=== PATIENT | female | born 1950 | race Caucasian/White ===

== ENCOUNTER → 2018-06-14 01:38 | Outpatient (CLI) | payer BC, SELFPAY ==
--- NOTE | 2018-06-14 13:30 | DI.REPORT_ITS ---
SYMPTOMS/DIAGNOSIS: MENOPAUSE, Z78.0, PREVENTATIVE CARE, Z00.00 DEXA SCAN: Routine examination. Comparison 2004. The lateral view of the spine shows no compression deformities. Evaluation of the left hip shows a total T score of - 0.5 and a Z score of 1.0. This is within normal limits. This compares with a total T score of 0.2 from 2005. Evaluation of the lumbar spine shows a total T score of 0.1 and Z score of 2.3. This is within normal limits. This compares with a total T score of 0.2 from 2005. IMPRESSION: No evidence of osteoporosis.
== END ==
PROVIDERS: PCP Nurse Practitioner Family; Visit Provider Nurse Practitioner Family
DX: Z00.00 Encounter for general adult medical examination without abnormal findings (principal); Z78.0 Asymptomatic menopausal state; Z13.820 Encounter for screening for osteoporosis
CPT/HCPCS: 77080

== ENCOUNTER 2018-11-07 16:39 | Outpatient (REF) | payer BC, SELFPAY ==
[2018-11-07 23:08] LABS: ALT 25 U/L (12-78); AST 25 U/L (15-37); Albumin 3.8 g/dL (3.4-5.0); Alkaline Phosphatase 101 U/L (46-116); Anion Gap 13.5 mmol/L (3-11); BUN 13 mg/dL (7-18); Bilirubin, Total 0.3 mg/dL (0.2-1.0); CO2 23.5 mmol/L (21.0-32.0); CREATININE 0.76 mg/dL (0.55-1.02); Calcium 9.4 mg/dL (8.5-10.1); Chloride 104 mmol/L (98-107); Glucose 93 mg/dL (70-100); Potassium 4.1 mmol/L (3.5-5.1); Sodium 141 mmol/L (136-145); Total Protein 7.3 g/dL (6.4-8.2)
== END 2018-11-07 16:59 ==
LOC: NCHCN 16:39
PROVIDERS: PCP Nurse Practitioner Family; Visit Provider Nurse Practitioner Family
DX: E78.5 Hyperlipidemia, unspecified (principal); M54.5 Low back pain; J30.9 Allergic rhinitis, unspecified; I10 Essential (primary) hypertension; L90.0 Lichen sclerosus et atrophicus; E66.9 Obesity, unspecified; Z87.898 Personal history of other specified conditions
CPT/HCPCS: 80053

== ENCOUNTER 2019-03-01 00:30 | Outpatient (CLI) | payer BC, SELFPAY ==
--- NOTE | 2019-03-01 11:10 | DI.MAMMO_ITS ---
SYMPTOM/DIAGNOSIS: SCREENING, Z12.39 MAMMOGRAMS: Mammograms were interpreted according to the usual protocol including computer analysis with CAD system, tomosynthesis and C view imaging. The breasts are of moderate density with fairly symmetrical distribution of fibroglandular tissue. No dominant mass is identified in either breast. There is a group of benign appearing calcifications in the central superior portion of the left breast, unchanged in appearance in comparison with previous examinations including 11/2017. There is a poorly defined nodular radiodensity projected in the central portion of the left breast measuring about 6 mm. in diameter which does not appear to have been present on previous examinations. The possibility of a new mass is raised. Additional spot compression views of the left breast are requested to include CC and MLO views. CONCLUSION: Additional mammographic views of the left breast requested as described above. Breast ultrasound may be indicated as well depending on the results of the additional mammographic views. Category 0. Breast density, Category B. MQSA ASSESSMENT OF FINDINGS: Incomplete: Needs additional imaging evaluation. Category 0. Patient will receive a letter notifying them of these results. BI-RADS category B. There are scattered areas of fibroglandular density.
== END 2019-03-01 00:50 ==
PROVIDERS: PCP Nurse Practitioner Family; Visit Provider Nurse Practitioner Family
DX: Z12.31 Encounter for screening mammogram for malignant neoplasm of breast (principal); R92.8 Other abnormal and inconclusive findings on diagnostic imaging of breast
CPT/HCPCS: 77063; 77067

== ENCOUNTER 2019-03-08 01:48 | Outpatient (CLI) | payer BC, SELFPAY ==
--- NOTE | 2019-03-08 09:24 | DI.COMBO_ITS ---
SYMPTOM/DIAGNOSIS: F/U MAMMO, POORLY DEFINED RADIODENSITY LT LEFT BREAST ADDITIONAL VIEWS AND LEFT BREAST ULTRASOUND: Additional images are interpreted according to the usual protocol including tomosynthesis and 2D imaging. Spot compression CC and MLO views with tomography as well as magnification views were performed for a new small nodule. There is a persistent 4 mm. nodule in the central left breast, slightly above the nipple. The borders are not well defined. There are no associated calcifications. No cysts or mass is identified by ultrasound. CONCLUSION: Category 4, suspicious mammogram. Biopsy of the new mass in the central left breast is recommended. The findings were discussed with Susie Osborn at [facility] and the patient on the date of the examination. [facility] ASSESSMENT OF FINDINGS: Suspicious. Biopsy should be considered. Category 4. Patient will receive a letter notifying them of these results. BI-RADS category B. There are scattered areas of fibroglandular density.
== END 2019-03-08 02:08 ==
PROVIDERS: PCP Nurse Practitioner Family; Visit Provider Nurse Practitioner Family
DX: Z12.31 Encounter for screening mammogram for malignant neoplasm of breast (principal); R92.8 Other abnormal and inconclusive findings on diagnostic imaging of breast; N63.22 Unspecified lump in the left breast, upper inner quadrant
CPT/HCPCS: 76642; 77063; 77067

== ENCOUNTER 2019-11-13 16:56 | Outpatient (REF) | payer BC, SELFPAY ==
[2019-11-13 22:03] LABS: ALT 22 U/L (14-59); AST 21 U/L (15-37); Albumin 3.9 g/dL (3.4-5.0); Alkaline Phosphatase 107 U/L (46-116); Anion Gap 11.3 mmol/L (3-11); BUN 12 mg/dL (7-18); Bilirubin, Total 0.3 mg/dL (0.2-1.0); CO2 24.7 mmol/L (21.0-32.0); CREATININE 0.85 mg/dL (0.55-1.02); Calcium 9.5 mg/dL (8.5-10.1); Chloride 104 mmol/L (98-107); Glucose 98 mg/dL (74-106); Potassium 4.2 mmol/L (3.5-5.1); Sodium 140 mmol/L (136-145); Total Protein 7.2 g/dL (6.4-8.2)
== END 2019-11-13 17:16 ==
LOC: NCHCN 16:56
PROVIDERS: PCP Nurse Practitioner Family; Visit Provider Nurse Practitioner Family
DX: I10 Essential (primary) hypertension (principal); E78.5 Hyperlipidemia, unspecified; C50.912 Malignant neoplasm of unspecified site of left female breast
CPT/HCPCS: 80053

== ENCOUNTER 2020-10-31 17:20 | Outpatient (REF) | payer BC, SELFPAY ==
[2020-10-31 21:08] LABS: ALT 24 U/L (14-59); AST 24 U/L (15-37); Alkaline Phosphatase 110 U/L (46-116); Anion Gap 10.3 mmol/L (3-11); BUN 18 mg/dL (7-18); Bilirubin, Total 0.4 mg/dL (0.2-1.0); CO2 24.7 mmol/L (21.0-32.0); CREATININE 0.85 mg/dL (0.55-1.02); Calcium 9.8 mg/dL (8.5-10.1); Chloride 103 mmol/L (98-107); Glucose 96 mg/dL (74-106); Potassium 4.4 mmol/L (3.5-5.1); Sodium 138 mmol/L (136-145); Total Protein 7.6 g/dL (6.4-8.2)
== END 2020-10-31 17:40 ==
LOC: NCHCN 17:20
PROVIDERS: PCP Nurse Practitioner Family; Visit Provider Nurse Practitioner Family
DX: I10 Essential (primary) hypertension (principal); E78.5 Hyperlipidemia, unspecified; F41.8 Other specified anxiety disorders
CPT/HCPCS: 80053

== ENCOUNTER 2021-05-20 18:43 | Outpatient (REF) | payer BC, SELFPAY ==
[2021-05-20 21:31] LABS: HGB 14.1 g/dL (11.2-15.7); MCH 30.5 pg (27.0-33.0); MCHC 32.8 % (32.0-36.0); MCV 92.9 fL (80-95); MPV 10.3 fL (8.0-11.0); Platelet Count 330 10^3/uL (130-400); RBC 4.63 10^6/uL (3.93-5.22); RDW 12.2 % (11.7-14.6); RDW-SD 41.6 fL; WBC 7.86 10^3/uL (4.4-10.8)
[2021-05-20 22:13] LABS: FREE T4 1.13 ng/dL (0.76-1.46); TSH 0.78 uIU/mL (0.36-3.74)
== END 2021-05-20 18:44 | disposition home or self-care (01) ==
LOC: NCHCN 18:43
PROVIDERS: PCP Nurse Practitioner Family; Visit Provider Internal Medicine
DX: I10 Essential (primary) hypertension (principal); R53.83 Other fatigue; Z00.00 Encounter for general adult medical examination without abnormal findings
CPT/HCPCS: 85027; 84439; 84443

== ENCOUNTER 2021-11-25 14:50 | Outpatient (REF) | payer BC, SELFPAY ==
[2021-11-25 14:59] LABS: ALT 26 U/L (14-59); AST 20 U/L (15-37); Albumin 3.6 g/dL (3.4-5.0); Alkaline Phosphatase 108 U/L (46-116); Anion Gap 8.6 mmol/L (3-11); BUN 18 mg/dL (7-18); Bilirubin, Total 0.5 mg/dL (0.2-1.0); CO2 27.4 mmol/L (21.0-32.0); CREATININE 0.8 mg/dL (0.55-1.02); Calcium 9.8 mg/dL (8.5-10.1); Chloride 104 mmol/L (98-107); Glucose 98 mg/dL (74-106); Potassium 4.9 mmol/L (3.5-5.1); Sodium 140 mmol/L (136-145); Total Protein 7.2 g/dL (6.4-8.2)
== END 2021-11-25 14:51 | disposition home or self-care (01) ==
LOC: NCHCN 14:50
PROVIDERS: PCP Nurse Practitioner Family; Visit Provider Nurse Practitioner Family
DX: I10 Essential (primary) hypertension (principal)
CPT/HCPCS: 80053

== ENCOUNTER 2022-12-02 15:15 | Outpatient (REF) | payer BC, SELFPAY ==
[2022-12-02 21:15] LABS: HCT 43.6 % (36.0-46.0); HGB 13.9 g/dL (11.2-15.7); MCH 29.5 pg (27.0-33.0); MCHC 31.9 % (32.0-36.0); MCV 93 fL (80-95); MPV 10.3 fL (8.0-11.0); Platelet Count 291 10^3/uL (130-400); RBC 4.71 10^6/uL (3.93-5.22); RDW 12.7 % (11.7-14.6); RDW-SD 43.5 fL; WBC 9.47 10^3/uL (4.4-10.8)
[2022-12-02 21:40] LABS: ALT 22 U/L (14-59); AST 22 U/L (15-37); Albumin 3.8 g/dL (3.4-5.0); Alkaline Phosphatase 112 U/L (46-116); Anion Gap 9.7 mmol/L (3-11); BUN 17 mg/dL (7-18); Bilirubin, Total 0.4 mg/dL (0.2-1.0); CO2 27.3 mmol/L (21.0-32.0); CREATININE 0.7 mg/dL (0.55-1.02); Calcium 9.8 mg/dL (8.5-10.1); Calculated LDL 132 mg/dL (<100); Chloride 103 mmol/L (98-107); Cholesterol 237 mg/dL (<200); Glucose 100 mg/dL (74-106); HDL Cholesterol 69 mg/dL (40-60); Potassium 4.3 mmol/L (3.5-5.1); Sodium 140 mmol/L (136-145); Total Protein 7.3 g/dL (6.4-8.2); Triglyceride 181 mg/dL (<150)
== END 2022-12-02 15:16 | disposition home or self-care (01) ==
LOC: NCHCN 15:15
PROVIDERS: PCP Nurse Practitioner Family; Visit Provider Nurse Practitioner Family
DX: Z00.00 Encounter for general adult medical examination without abnormal findings (principal); E78.5 Hyperlipidemia, unspecified; I10 Essential (primary) hypertension
CPT/HCPCS: 80053; 80061; 85027

== ENCOUNTER 2023-06-03 13:35 | Outpatient (REF) | payer BC, SELFPAY ==
[2023-06-03 14:45] LABS: Abs Immature Grans 0.02 10^3/uL (0.0-0.06); Absolute Basophil Count 0.08 10^3/uL (0.0-0.2); Absolute Eosinophil Count 0.67 10^3/uL (0.0-0.7); Absolute Lymphocyte Count 2.33 10^3/uL (1.2-3.4); Absolute Monocyte Count 0.85 10^3/uL (0.1-0.8); Absolute Neutrophil Count 4.02 10^3/uL (1.2-6.7); Eosinophils % 8.4; HCT 42.8 % (36.0-46.0); HGB 14.1 g/dL (11.2-15.7); Immature Grans % 0.3; Lymphocytes % 29.2; MCH 30.6 pg (27.0-33.0); MCHC 32.9 % (32.0-36.0); MCV 93 fL (80-95); MPV 10.5 fL (8.0-11.0); Monocytes % 10.7; Neutrophils % 50.4; Platelet Count 287 10^3/uL (130-400); RBC 4.61 10^6/uL (3.93-5.22); RDW-SD 44.4 fL; WBC 7.97 10^3/uL (4.4-10.8)
[2023-06-03 15:12] LABS: Iron 98 ug/dL (50-170); Total Iron Binding Capacity 269 ug/dL (250-450); Transferrin Sat 36 % (15-50)
[2023-06-03 15:26] LABS: ALT 22 U/L (14-59); AST 20 U/L (15-37); Albumin 3.5 g/dL (3.4-5.0); Alkaline Phosphatase 133 U/L (46-116); Anion Gap 10.2 mmol/L (3-11); BUN 9 mg/dL (7-18); Bilirubin, Total 0.5 mg/dL (0.2-1.0); CO2 25.8 mmol/L (21.0-32.0); CREATININE 0.8 mg/dL (0.55-1.02); Calcium 9.3 mg/dL (8.5-10.1); Calculated LDL 101 mg/dL (<100); Chloride 107 mmol/L (98-107); Cholesterol 196 mg/dL (<200); Estimated GFR 76.79 (mL/min/1.73m2); Ferritin 85 ng/mL (8-252); Glucose 104 mg/dL (74-106); HDL Cholesterol 70 mg/dL (40-60); Potassium 4.7 mmol/L (3.5-5.1); Sodium 143 mmol/L (136-145); TSH (W/Ref FT4) 0.99 uIU/mL (0.36-3.74); Triglyceride 126 mg/dL (<150)
[2023-06-03 15:45] LABS: NT-proBNP 62 pg/mL (<300)
== END 2023-06-03 13:36 | disposition home or self-care (01) ==
LOC: NCHCN 13:35
PROVIDERS: PCP Nurse Practitioner Family; Visit Provider Nurse Practitioner Family
DX: R07.89 Other chest pain (principal); R60.0 Localized edema; F41.8 Other specified anxiety disorders; E66.9 Obesity, unspecified; M54.50 Low back pain, unspecified; I10 Essential (primary) hypertension; J30.9 Allergic rhinitis, unspecified
CPT/HCPCS: 80053; 80061; 82728; 83540; 83550; 83880; 84443; 85025

== ENCOUNTER 2024-11-09 10:05 | Outpatient (REF) | payer BC, SELFPAY ==
--- OUTSIDE RECORDS SUMMARY | 2024-11-09 10:10 | XMS_ITS | Encounter Summary ---
Author Organization [facility] Address [address] [place] [address] Care Team Providers Care Audio Engineer Name Role Phone Iva Jennings APRN Primary Care Provider [phone] Reason for Visit * Reason Onset Date Comments Medications Refill 01/19/2023 Encounter Details Date Type Department Care Team (Late st Contact Info) Description 01/19/2023 Refill [facility] Adult Hematology & Oncology [address] [place] [phone] Elisabeth Velasquez, AYUSH Medications Refill Social History Tobacco Use Types Packs/Day Years Used Date Smoking Tobacco: Never Smokeless Tobacco: Never Interpersonal Safety Answer Date Record ed Physically Hurt Never 05/19/2020 Verbally Threaten Not on file 05/19/2020 Comments No Sex and Gender Information Value Date Recorded Sex Assigned at Female 10/19/2024 15:35 EST Legal Sex Female 18:27 EST Gender Identity Female 06/03/2020 9:48 EDT Sexual Orientation Not on file documented as of this encounter Functional Status * Because of a physical, mental, or emotional condition, does this person have difficulty doing errands alone such as visiting a doctor's office or shopping? Answer Date of Assessment Author Yes 04/07/2019 9:57 EDT documented as of this encounter Mental Status * Because of a physical, mental, or emotional condition, does this person have serious difficulty concentrating, remembering, or making decisions? Answer Entry Date Author Yes 04/07/2019 9:57 EDT documented in this encounter Ordered Prescriptions Prescription Sig Dispense Quantity Refills Last Filled Start Date End Date letrozole (FEMARA) 2.5 mg tablet Take 1 Tablet by mouth daily. 90 Tablet 1 01/20/2023 05/26/2023 documented in this encounter Miscellaneous Notes * Telephone Encounter - Elisabeth Velasquez RN - 01/19/2023 1305 EDT Refill request received on script line request for Letrozole 2.5mg. Last seen: 05/25/[address] Blackman per office note: Plan: 1. Continue letrozole. 2. Return for follow-up in 1 year. She is following with Dr. Tapia Patient has no f/u scheduled at this time. Please review and sign if agree. Thank you documented in this encounter Plan of Treatment Upcoming Encounters Date Type Department Care Team (Late st Contact Info) Description 11/09/2024 15:45 EST Procedure visit [facility] Orthopedics & Sport Medicine [address] [place], [place] [phone] Leann Holland, STREET PHOTOGRAPHER [address] [place] [address] 11/16/2024 15:45 EST Procedure visit [facility] Orthopedics & Sport Medicine [address] [place], [place] [phone] Leann Holland, STREET PHOTOGRAPHER [address] [place] [id number] 07/17/2025 15:30 EDT Office Visit [facility] Adult Hematology & Oncology [address] [place] [address] Jimmy Gallego MD [address] [facility] [address] [place] [phone] documented as of this encounter Visit Diagnoses Not on filedocumented in this encounter Discontinued Medications Medication Sig Discontinue Reason Start Date End Da te letrozole (FEMARA) 2.5 mg tablet Take 1 Tablet by mouth daily. Reorder 10/21/2022 01/19/2023 documented as of this encounter Care Teams Audio Engineer Relationship Specialty Start Date End Date Iva Jennings APRN [facility] [address] [place] [address] PCP - General 03/01/20 documented as of this encounter
--- OUTSIDE RECORDS SUMMARY | 2024-11-09 10:10 | XMS_ITS | Encounter Summary ---
Author Organization [facility] Address [address] [place] [address] Care Team Providers Care Lead Maintenance Technician Name Role Phone Iva Jennings APRN Primary Care Provider [phone] Reason for Referral * Test (Routine/Next Available) - Authorization Not Required Specialty Diagnoses / Procedures [facility] Referred To Contact Diagnoses Chest heaviness Procedures PULMONARY FUNCTION TESTING Iva Jennings APRN [address] [place] [address] [place] [address] Phone: tel: fax: Referral ID Status Reason Start Date Expiration Date Visits Requested Visits Authorized [id number] Authorization Not Required 06/10/2023 1 1 Encounter Details Date Type Department Care Team (Late st Contact Info) Description 06/10/2023 Orders Only [facility] [address] [place] [address] Iva Jennings APRN 26 [facility] [address] [place] [address] Chest heaviness (Primary Dx) Social History Tobacco Use Types Packs/Day Years [...] 04/07/2019 9:57 EDT documented in this encounter Plan of Treatment Upcoming Encounters Date Type Department Care Team (Late st Contact Info) Description 11/09/2024 15:45 EST Procedure visit [facility] Orthopedics & Sport Medicine [address] [place], [place] [phone] Leann Holland, SKINNER PELTS [address] [place] [address] [address] [place] [address] 11/16/2024 15:45 EST Procedure visit [facility] Orthopedics & Sport Medicine [address] [place], [place] [phone] Leann Holland, SKINNER PELTS [address] [place] [address] [place] [address] 07/17/2025 15:30 EDT Office Visit [facility] Adult Hematology & Oncology [address] [place] [address], [place] [phone] Jimmy Gallego MD [address] [facility] [address] [place] [address] Scheduled Orders Name Type Priority Associated Diagnoses Orde r Schedule PULMONARY FUNCTION TESTING PFT Routine Chest heaviness 1 Occurrences starting 06/10/2023 until 12/11/2024 documented as of this encounter Visit Diagnoses Diagnosis Chest heaviness- Primary Other chest pain documented in this encounter Care Teams Lead Maintenance Technician Relationship Specialty Start Date End Date Iva Jennings, GAYATRI [address] [place] [phone] PCP - General 03/01/20 documented as of this encounter
--- OUTSIDE RECORDS SUMMARY | 2024-11-09 10:10 | XMS_ITS | Encounter Summary ---
Author Organization [facility] Address [address] [place] [address] Care Team Providers Care Oil Field Equipment Mechanic Name Role Phone Iva Jennings APRN Primary Care Provider [phone] Reason for Visit * Reason Comments Injections Encounter Details Date Type Department Care Team (Late st Contact Info) Description 10/19/2024 16:00 EST Procedure visit [facility] Orthopedics & Sport Medicine [address] [place], [place] [phone] Leann Holland, FRANK [address] [facility] [address] [place] [address] Osteoarthritis of right knee, unspecified osteoarthritis type (Primary Dx) Social History Tobacco Use Types Packs/Day Years Used Date Smoking Tobacco: Never Smokeless Tobacco: Never Alcohol Use Standard Drinks/Week Comments Not Asked 0 (1 standard drink = 0.6 oz pur e alcohol) Random Interpersonal Safety Answer Date Record ed Physically [...] 04/07/2019 9:57 EDT documented in this encounter Progress Notes * Leann Holland NP - 10/19/2024 2475 EST PROBLEM: right knee osteoarthritis SUBJECTIVE: Susie Mayfield is a 74 y.o. female with established osteoarthritis who is here today withrecurrent right knee pain. Last seen in May of 2023 at which time she completed a Euflexxa series with excellent relief. Lasted until recently. Pain is primarily medial. She continues with topicals and ibuprofen. The past medical, family and social history have been reviewed in the patient chart. I spent time preparing in advance of the visit today, which included obtaining and reviewing prior history and notes from the primary care provider and/or referring providers, as well as reviewing any relevant prior imaging and tests, which I also independently interpreted. OBJECTIVE: There were no vitals taken for this visit. General appearance: Well-developed, well nourished, no acute distress. pleasant and cooperative. HEENT: normocephalic, atraumatic Lungs: no increased work of breathing Skin: clean, dry and intact Msk: Focused exam of the right knee reveals no gross effusion or deformity, no overlying warmth or skin changes. Good strength through. Tender to palpation medial > lateral joint line, nontender anserine bursa. Stable to varus and valgus stress. ROM from 0->110 degrees. No lower leg swelling. DIAGNOSTICS: Radiographs of the right knee were reviewed. Advanced tricompartmental osteoarthritis with medial joint line narrowing. ASSESSMENT: right knee osteoarthritis; prior treatment has included physical therapy, NSAIDS and several topical medications without relief. Excellent relief with Euflexxa in the past and would like to repeat. PLAN: Will request Euflexxa and see patient back in 3 weeks to begin series. Declines steroid injection today. Continue with supportive home therapy. This note was prepared using voice recognition software and the EMR. There may be inadvertent errors and omissions. Leann Holland APRN 10/19/2024 documented in this encounter Plan of Treatment Upcoming Encounters Date Type Department Care Team (Late st Contact Info) Description 11/09/2024 15:45 EST Procedure visit [facility] Orthopedics & Sport Medicine [address] [place], [place] [phone] Leann Holland NP [address] [facility] [address] [place], [place] [phone] 11/16/2024 15:45 EST Procedure visit [facility] Orthopedics & Sport Medicine [address] [place], [place] [phone] Leann Holland, KEYSEATING MACHINE SET UP OPERATOR [address] [facility] [address] [place] [address] 07/17/2025 15:30 EDT Office Visit [facility] Adult Hematology & Oncology [facility] [place] [address] Jimmy Gallego MD [address] [facility] [address] [place] [phone] documented as of this encounter Visit Diagnoses Diagnosis Osteoarthritis of right knee, unspecified osteoarthritis type- Primary documented in this encounter Care Teams Oil Field Equipment Mechanic Relationship Specialty Start Date End Date Iva Jennings APRN 26 [facility] [address] [place] [address] PCP - General 03/01/20 documented as of this encounter
--- OUTSIDE RECORDS SUMMARY | 2024-11-09 10:10 | XMS_ITS | Encounter Summary ---
Author Organization [facility] Address [address] [place] [address] Care Team Providers Care Salesforce Administrator Name Role Phone Iva Jennings APRN Primary Care Provider [phone] [phone] Reason for Visit * Reason Onset Date Comments Medications Refill 07/21/2023 Encounter Details Date Type Department Care Team (Late st Contact Info) Description 07/21/2023 Refill [facility] Adult Hematology & Oncology [address] [place] [phone] Jeana Hyman RN Medications Refill Social History Tobacco Use Types [...] 1 Tablet by mouth daily. 90 Tablet 3 07/21/2023 10/19/2023 documented in this encounter Miscellaneous Notes * Telephone Encounter - Jeana Hyman RN - 07/21/2023 0808 EDT Script line refill request for Letrozole likes 90 day supply to [facility] Last office visit RA 07/13/23 Plan: -Continue letrozole 2.5 mg daily -Calcium 1000 mg and Vit D3 1000IU daily -Repeat DEXA scan -Annual MMG (due 04/2024) -F/U with Dr. Tapia on 12/10/23 -Return for follow-up in 1 year. Pending visit RA 07/13/24 Last filled 05/26/23 #90 with 1 refill Please sign and send if you agree. documented in this encounter Plan of Treatment Upcoming Encounters Date Type Department Care Team (Late st Contact Info) Description 11/09/2024 15:45 EST Procedure visit [facility] Orthopedics & Sport Medicine [address] [place] [phone] Leann Holland, MUSIC STORE MANAGER [address] [place] [address] 11/16/2024 15:45 EST Procedure visit [facility] Orthopedics & Sport Medicine [address] [place], [place] [phone] Leann Holland, MUSIC STORE MANAGER [address] [place] [address] 07/17/2025 15:30 EDT Office Visit [facility] Adult Hematology & Oncology [address] [place] [phone] Jimmy Gallego MD 130 [facility] [address] [place] [address] documented as of this encounter Visit Diagnoses Not on filedocumented in this encounter Discontinued Medications Medication Sig Discontinue Reason Start Date End Da te letrozole (FEMARA) 2.5 mg tablet Take 1 Tablet by mouth daily. Reorder 05/26/2023 07/21/2023 documented as of this encounter Care Teams Salesforce Administrator Relationship Specialty Start Date End Date Iva Jennings APRN [address] [address] PCP - General 03/01/20 documented as of this encounter
--- OUTSIDE RECORDS SUMMARY | 2024-11-09 10:10 | XMS_ITS | Encounter Summary ---
Author Organization [facility] Address [address] [place] [address] Care Team Providers Care Director Electrical Engineering Name Role Phone Iva Jennings APRN Primary Care Provider [phone] [phone] Reason for Referral * Radiology Services (Routine/Next Available) - Authorization Not Required Specialty Diagnoses / Procedures Referred By Contac t Referred To Contact Diagnoses Screening mammogram, encounter for Procedures MA BREAST SCREENING ELSA BILATERAL Iva Jennings APRN [address] [address] Phone: tel: fax: [facility] Referral ID Status Reason Start Date Expiration Date Visits Requested Visits Authorized [id number] Authorization Not Required 12/08/2022 1 1 Reason for Visit * Radiology Services (Routine/Next Available) - Authorization Not Required Specialty Diagnoses / Procedures Referred By Contac t Referred To Contact Diagnoses Screening mammogram, encounter for Procedures MA BREAST SCREENING ELSA BILATERAL Iva Jennings APRN 26 [place],[facility] [address] [place] [address] Phone: tel: fax: [facility] Referral ID Status Reason Start Date Expiration Date Visits Requested Visits Authorized [id number] Authorization Not Required 12/08/2022 1 1 Encounter Details Date Type Department Care Team (Latest Contact Info) Description 05/10/2023 15:25 EDT - 05/10/2023 23:59 EDT Hospital Encounter [facility] Breast Imaging Mammography - [address] [address] Screening mammogram, encounter for Discharge Disposition: Home or Self Care Social History Tobacco Use Types Packs/Day Years [...] 04/07/2019 9:57 EDT documented in this encounter Medications at Time of Discharge amitriptyline (ELAVIL) 10 mg tablet Take 1 Tablet by mouth at bedtime as needed. calcium/mag/vitam in D2/Zn/min (GEOFFREY-MAG ZINC II ORAL) Take by mouth. clobetasoL (TEMOVATE) 0.05 % cream Apply topically 2 times daily. As needed glucos sul 2KCl/msm/chond/C/ Mn (GLUCOSAMINE CHONDROITIN ORAL) Take by mouth. ibuprofen 200 mg capsule Take 2 Capsules by mouth daily as needed. 12/20/2020 lisinopril (PRINIVIL, ZESTRIL) 5 mg tablet Take 1 Tablet by mouth daily. mometasone (NASONEX) 50 mcg/actuation nasal spray Instill 2 Sprays into right nostril daily. MULTI-VITAMIN ORAL Take by mouth. pravastatin (PRAVACHOL) 20 mg tablet Take 1 Tablet by mouth daily. azelastine (ASTELIN) nasal spray 05/21/2021 4 cetirizine (ZYRTEC) 1 mg/mL solution Take 5 mL by mouth daily. 4 letrozole (FEMARA) 2.5 mg tablet Take 1 Tablet by mouth daily. 90 Tablet 1 01/20/2023 3 documented as of this encounter Discharge Disposition Disposition Code Departure Means Destination Home or Self Care documented in this encounter Plan of Treatment Upcoming Encounters Date Type Department Care Team (Late st Contact Info) Description 11/09/2024 15:45 EST Procedure visit [facility] Orthopedics & Sport Medicine [address] [place] [address] Leann Holland, WILDLIFE BIOLOGY TECHNICIAN [address] [facility] [address] [place] [address] 11/16/2024 15:45 EST Procedure visit [facility] Orthopedics & Sport Medicine [address] [place] [address] Leann Holland, WILDLIFE BIOLOGY TECHNICIAN [address] [facility] [address] [place] [address] 07/17/2025 15:30 EDT Office Visit [facility] Adult Hematology & Oncology [facility] [place] [address] Jimmy Gallego MD [address] [facility] [address] [place] [address] documented as of this encounter Procedures Procedure Name Priority Date/Time Associated Diagnosis Comments MA BREAST SCREENING ELSA BILATERAL Routine 05/10/2023 16:12 EDT Screening mammogram, encounter for documented in this encounter Results * MA BREAST SCREENING ELSA BILATERAL (05/10/2023 16:12 EDT) Anatomical Region Laterality Modality Breast Bilateral Mammography 05/10/2023 16:3 7 EDT Impressions 05/10/2023 16:37 EDT Benign, no evidence of malignancy. RECOMMENDATION: Routine screening mammography is recommended. OVERALL ASSESSMENT: BI-RADS 2: Benign These results will be communicated to your patient via a lay letter from Radiology. If any additional imaging is needed we will contact your patient directly. [id number] Narrative 05/10/2023 16:37 EDT MA BREAST SCREENING ELSA BILATERAL ??05/10/2023 4:00 PM History: routine;Z12.31:Screening mammogram, encounter for Comparison: ??Comparison has been made to previous images . ? Technique: Routine 3D tomosynthesis with synthesized 2D views with CAD Breast Composition: The breast tissue is almost entirely fatty. Bilateral Breast Findings: ??No significant masses, calcifications or other abnormalities are seen. Status post left breast conservation with no interval change Procedure Note Afia Hendrix MD - 05/10/2023 MA BREAST SCREENING ELSA BILATERAL 05/10/2023 4:00 PM History: routine;Z12.31:Screening mammogram, encounter for Comparison: Comparison has been made to previous images . Technique: Routine 3D tomosynthesis with synthesized 2D views with CAD Breast Composition: The breast tissue is almost entirely fatty. Bilateral Breast Findings: No significant masses, calcifications or otherabnormalities are seen. Status post left breast conservation with nointerval change IMPRESSION Benign, no evidence of malignancy. RECOMMENDATION: Routine screening mammography is recommended. OVERALL ASSESSMENT: BI-RADS 2: Benign These results will be communicated to your patient via a lay letter fromRadiology. If any additional imaging is needed we will contact yourpatient directly. [id number] Iva Jennings APRN IMG MAMMOGRAPHY ORDERABLE S Final Result documented in this encounter Visit Diagnoses Diagnosis Screening mammogram, encounter for documented in this encounter Care Teams Director Electrical Engineering Relationship Specialty Start Date End Date Iva Jennings APRN 26 [facility] [address] [place] [address] PCP - General 03/01/20 documented as of this encounter
--- OUTSIDE RECORDS SUMMARY | 2024-11-09 10:10 | XMS_ITS | Clinical Summary ---
Author Organization [facility] Address [facility] [place] [address] Care Team Providers Care Film Sorter Name Role Phone Siva Tomlinson MD Primary Care Provider [phone] Allergies No known active allergies Medications Medication Sig Dispensed Refills Start Date End Date Status amitriptyline (ELAVIL) 10 mg Tablet Take 10 mg by mouth nightly. Active cetirizine (ZYRTEC) 10 mg Tablet Take 10 mg by mouth daily. Active Glucosamine &[id number] 200-752-44-0.5 mg Tablet Take by mouth. 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 Dermatofibroma 06/28/2014 Social History Tobacco Use Types Packs/Day Years Used Date Smoking Tobacco: Unknown Sex and Gender Information Value Date Recorded Sex Assigned at Not on file Gender Identity Not on file Sexual Orientation Not on file Plan of Treatment Health Maintenance Due Date Last Done Comments Hepatitis C Screening 1968 Tetanus/Diphtheria/Pertussis Vaccines (1 - Tdap) 03/06 Pneumoccocal Vaccine: 50+ (1 of 1 - PCV) 1998 Zoster vaccine (1 of 2) 1998 Advance Directive 2003 Bone Density Scan 2013 RSV Vaccine (1 - 1-dose 75+ series) 2023 Covid-19 Vaccine (1 - season) 2024 Influenza (Flu) vaccine (1 o f 1 - Influenza standard series) 06/18/2024 Care Teams Film Sorter Relationship Specialty Start Date End Date Siva Tomlinson MD [address] [place] [address] [facility] - General 06/28/14
--- OUTSIDE RECORDS SUMMARY | 2024-11-09 10:10 | XMS_ITS | Encounter Summary ---
Author Organization [facility] Address [address] [place] [address] Care Team Providers Care Front Desk Administrator Name Role Phone Iva Jennings APRN Primary Care Provider [phone] [phone] Encounter Details Date Type Department Care Team (Latest Contact Info) Description 10/15/2022 Travel Social History Tobacco Use Types Packs/Day Years Used Date Smoking Tobacco: Never Smokeless Tobacco: Never Interpersonal Safety Answer Date Record ed Physically Hurt Never 05/19/2020 Verbally Threaten Not on file 05/19/2020 Comments No Sex and Gender Information Value Date Recorded Sex Assigned at Female 10/19/2024 15:35 EST Legal Sex Female 18:27 EST Gender Identity Female 06/03/2020 9:48 EDT Sexual Orientation Not on file COVID-19 Exposure Response Date Recorded In the last 10 days, have yo u been in contact with someone who was confirmed or suspected to have Coronavirus/COVID-19? No / Unsure 10/15/2022 15:48 EST documented as of this encounter Functional Status [...] Info) Description 11/09/2024 15:45 EST Procedure visit [facility] Orthopedics & Sport Medicine [address] [place] [address] Leann Holland, STOKER INSTALLER [address] [facility] [address] [place] [address] 11/16/2024 15:45 EST Procedure visit [facility] Orthopedics & Sport Medicine [address] [place], [place] [id number] Leann Holland NP [address] [facility] [address] [place] [address] 07/17/2025 15:30 EDT Office Visit [facility] Adult Hematology & Oncology [facility] [place] [address] Jimmy Gallego MD [address] [facility] [address] [place] [phone] documented as of this encounter Visit Diagnoses Not on filedocumented in this encounter Care Teams Front Desk Administrator Relationship Specialty Start Date End Date Iva Jennings APRN 26 [facility] [address] [place] [address] PCP - General 03/01/20 documented as of this encounter
--- OUTSIDE RECORDS SUMMARY | 2024-11-09 10:10 | XMS_ITS | Encounter Summary ---
Author Organization [facility] Address [address] [place] [address] Care Team Providers Care Treasury Manager Name Role Phone Iva Jennings APRN Primary Care Provider [phone] [phone] Reason for Visit * Reason Comments Follow-up Encounter Details Date Type Department Care Team (Late st Contact Info) Description 04/12/2023 13:45 EDT Office Visit [facility] Orthopedics & Sport Medicine [address] [place] [address] Leann Holland, FRANK [address] [facility] [address] [place] [address] Osteoarthritis of right knee, unspecified [...] in this encounter Progress Notes * Leann Holland, TIMBER SKIDDER - 04/12/2023 1345 EDTAssociated Order(s): Large Joint Injection/Arthrocentesis: R knee Post-Procedure Diagnose(s): Osteoarthritis of right knee, unspecified osteoarthritis type PROBLEM: Right knee osteoarthritis SUBJECTIVE: Susie Mayfield is a 73 y.o. female who is here today for follow up of her right knee osteoarthritis. Last visit on 10/15/2022 at which time she completed her orthovisc series, 2 injections.These have worked well for her in the past. Opted to forego last injection when she developed cold symptoms, unsure if it was related to the injection or ehtyl chloride. Prior treatment has included physical therapy, oral NSAIDS, multiple topical medications without relief. The past medical, family and social history [...] Focused exam of the right knee reveals mild effusion and osteoarthritic deformity, no overlying skin changes or breakdown. Tender through medial >lateral joint lines. 4+/5 strength quads, hamstrings, abductors, adductors and hip flexors. ROM from 10-~120 degrees with pain at endpoints. No lower leg swelling. No pain or laxity with ligamentous exam. DIAGNOSTICS: Radiographs of the right knee were obtained today and independently reviewed by me. Advanced tricompartmental osteoarthritis with medial joint line narrowing. Progressed since previous XR in 2019. ASSESSMENT: Right knee osteoarthritis - prior treatment has included physical therapy, NSAIDS and several topical medications without relief. Good relief with orthovisc in the past. PLAN: Will order Euflexxa series. I also provided her with a steroid injection today. After reviewing risks and benefits of an injection including variability of results, verbal consent was obtained to proceed today. A timeout was performed. The right knee was prepped in the standard sterile fashion. After final verication of the correct site, 80 mg of Depo-Medrol along with an anesthetic was injected into the joint without difficulty. No medication was wasted. She tolerated the procedure well.Aftercare for the injection was discussed and all question answered. Follow up in 3 weeks to begin series. Procedure: Large Joint Injection/Arthrocentesis: R knee on 04/12/2023 13:45 Medications: 80 mg methylPREDNISolone ACETATE 80 mg/mL; 5 mL lidocaine (PF) 10 mg/mL (1 %) Outcome: tolerated well, no immediate complications This note was prepared using voice recognition software and the EMR. There may be inadvertent errors and omissions. Leann Holland APRN 04/12/2023 documented in this encounter Plan of Treatment Upcoming Encounters Date Type Department Care Team (Late st Contact Info) Description 11/09/2024 15:45 EST Procedure visit [facility] Orthopedics & Sport Medicine [address] [place] [address] Leann Holladn NP [address] [place] [address] [place] [id number] 11/16/2024 15:45 EST Procedure visit [facility] Orthopedics & Sport Medicine [address] [place], [place] [phone] Leann Holland NP [address] [place] [address] [address] [place], [place] [id number] 07/17/2025 15:30 EDT Office Visit [facility] Adult Hematology & Oncology [facility] [place] [address] Jimmy Gallego MD [address] [facility] [address] [place] [phone] documented as of this encounter Procedures Procedure Name Priority Date/Time Associated Diagnosis Comments XR KNEE RIGHT 4 OR MORE VIEWS Routine 04/12/2023 14:24 EDT Osteoarthritis of right knee, unspecified osteoarthritis type LARGE JOINT INJECTION/ARTHROCE NTESIS Routine 04/12/2023 13:45 EDT Osteoarthritis of right knee, unspecified osteoarthritis type documented in this encounter Results * XR KNEE RIGHT 4 OR MORE VIEWS (04/12/2023 14:24 EDT) Anatomical Region Laterality Modality Lower Extremities Right Computed Radio graphy 04/12/2023 14:1 7 EDT Impressions 04/15/2023 17:24 EDT 1. ?? No acute bony abnormality. 2. ?? Small joint effusion. THIS DOCUMENT HAS BEEN ELECTRONICALLY SIGNED BY HYACINTH JEAN MD FOR ANY QUESTIONS OR CONCERNS REGARDING THIS REPORT PLEASE CALL [facility] AT [phone] [facility] 04/15/2023 17:24 EDT PROCEDURE INFORMATION: Exam: XR Right Knee Exam date and time: 04/12/2023 2:17 PM Age: 73 years old Clinical indication: Unilateral primary osteoarthritis, right knee; Pain; Additional info: Right knee pain TECHNIQUE: Imaging protocol: Radiologic exam of the right knee. Views: 4 or more views. COMPARISON: CR [id number] 12/29/2018 3:10 PM FINDINGS: Bones/joints: Degenerative changes with joint space narrowing and osteophyte formation throughout the knee worse at the medial knee compartment with a axzr-ze-cltu appearance. No acute fracture. No acute malalignment. Small joint effusion. Soft tissues: Normal. Procedure Note Hyacinth Jean MD - 04/15/2023 PROCEDURE INFORMATION: Exam: XR Right Knee Exam date and time: 04/12/2023 2:17 PM Age: 73 years old Clinical indication: Unilateral primary osteoarthritis, right knee; Pain; Additional info: Right knee pain TECHNIQUE: Imaging protocol: Radiologic exam of the right knee. Views: 4 or more views. COMPARISON: CR [id number] 12/29/2018 3:10 PM FINDINGS: Bones/joints: Degenerative changes with joint space narrowing and osteophyte formation throughout the knee worse at the medial knee compartment with a blkf-us-qumm appearance. No acute fracture. No acute malalignment. Small joint effusion. Soft tissues: Normal. IMPRESSION 1. No acute bony abnormality. 2. Small joint effusion. THIS DOCUMENT HAS BEEN ELECTRONICALLY SIGNED BY HYACINTH JEAN MD FOR ANY QUESTIONS OR CONCERNS REGARDING THIS REPORT PLEASE CALL [facility] [phone] us Leann Holland NP IMG DIAGNOSTIC IMAGING ORDER KAYLEY Final Result * [place] ARTHROCENTESIS ASPIR&/INJ MAJOR JT/BURSA W/O US (04/12/2023 13:45 EDT) Narrative [facility] POINT OF CARE - 04/12/2023 13:45 EDT Leann Holland, TIMBER SKIDDER ? 04/12/2023 14:59 Large Joint Injection/Arthrocentesis: R knee on 04/12/2023 13:45 Medications: 80 mg methylPREDNISolone ACETATE 80 mg/mL; 5 mL lidocaine (PF) 10 mg/mL (1 %) Outcome: tolerated well, no immediate complications us Leann Holland NP PROCEDURE/MINOR SURGICAL ORD ERABLES Final Result [facility] POINT OF CARE documented in this encounter Visit Diagnoses Diagnosis Osteoarthritis of right knee, unspecified osteoarthritis type- Primary documented in this encounter Administered Medications Inactive Administered Medications - up to 3 most recent administrations Medication Order MAR Action Action Date Dose Rate Site lidocaine (PF) 10 mg/mL (1 %) injection 5 mL 5 mL, other, Once PRN Procedure, 1 dose, Starting on Wed04/12/23 at 1345, Until Wed04/12/23 at 1345, RoutineIndications:Osteoarthritis of right knee, unspecified osteoarthritis type Given 04/12/2023 13:45 EDT 5 mL methylPREDNISolone ACETATE (DEPO-MEDROL) injection 80 mg 80 mg, intra-articular, Once PRN Procedure, 1 dose, Starting on Wed04/12/23 at 1345, Until Wed04/12/23 at 1345, RoutineIndications:Osteoarthritis of right knee, unspecified osteoarthritis type Given 04/12/2023 13:45 EDT 80 mg documented in this encounter Care Teams Treasury Manager Relationship Specialty Start Date End Date Iva Jennings APRN [address] [facility] [address] [place] [phone] PCP - General 03/01/20 documented as of this encounter
--- OUTSIDE RECORDS SUMMARY | 2024-11-09 10:10 | XMS_ITS | Encounter Summary ---
Author Organization [facility] Address [address] [place] [address] Care Team Providers Care Senior Nuclear Medicine Technologist Name Role Phone Iva Jennings APRN Primary Care Provider [phone] [phone] Reason for Visit * Cardiology (Routine/Next Available) - Specialty Report Received Specialty Diagnoses / Procedures [facility] Referred To Contact Diagnoses Chest heaviness Lower extremity edema Procedures EXTENDED HOLTER MONITOR (7-14 DAY) Stefanie Grossman MD Phone: tel: fax: [facility] Referral ID Status Reason Start Date Expiration Date V isits Requested Visits Authorized [id number] Specialty Report Received 06/10/2023 12/11/2023 1 1 Encounter Details Date Type Department Care Team (Latest Contact Info) Description 07/05/2023 16:00 EDT Ancillary Procedure [facility] - [facility] Cardiology Clinic [address] [place] [address] Chest heaviness; Lower extremity edema Social History Tobacco Use Types Packs/Day Years [...] Info) Description 11/09/2024 15:45 EST Procedure visit [facility] Orthopedics & Sport Medicine [address] [place] [address] Leann Holland, ASSISTANT COUNTY ENGINEER [address] [facility] [address] [place] [address] 11/16/2024 15:45 EST Procedure visit [facility] Orthopedics & Sport Medicine [address] [place], [place] [phone] Leann Holland, ASSISTANT COUNTY ENGINEER [address] [facility] [address] [place], [place] [phone] 07/17/2025 15:30 EDT Office Visit [facility] Adult Hematology & Oncology [facility] [place] [address] Jimmy Gallego MD [address] [facility] [address] [place] [address] documented as of this encounter Procedures Procedure Name Priority Date/Time Associated Diagnosis Comments EXTENDED HOLTER MONITOR (7 OR 14 DAY) Routine 07/05/2023 16:12 EDT Chest heaviness Lower extremity edema documented in this encounter Results * EXTENDED HOLTER - 14 DAY PLACED IN CLINIC (07/05/2023 16:12 EDT) Anatomical Region Laterality Modality Holter Narrative 07/26/2023 9:18 EDT Indication: chest pain Enrollment Period: 07/05/23-07/19/23 Baseline normal sinus rhythm Rare supraventricular ectopy (< 1.0%): Rare PACs. 15 episodes of SVT- longest episode 11.9 seconds. No atrial fibrillation. Rare ventricular ectopy (< 1.0%): Rare PVCs. No ventricular tachycardia. No pauses > 3.0 seconds. No significant AV block. No patient events. Stefanie Grossman MD CARDIAC SERVICES ORDERABLES Fi nal Result documented in this encounter Visit Diagnoses Diagnosis Chest heaviness Other chest pain Lower extremity edema Edema documented in this encounter Care Teams Senior Nuclear Medicine Technologist Relationship Specialty Start Date End Date Iva Jennings, GAYATRI [address] [place] [address] PCP - General 03/01/20 documented as of this encounter
--- OUTSIDE RECORDS SUMMARY | 2024-11-09 10:10 | XMS_ITS | Encounter Summary ---
Author Organization [facility] Address [address] [place] [address] Care Team Providers Care Auto Body Repairman Name Role Phone Iva Jennings APRN Primary Care Provider [phone] [phone] Encounter Details Date Type Department Care Team (Late st Contact Info) Description 12/08/2022 13:00 EST Ancillary Procedure [facility] Surgical Oncology - [facility] [place] [address] [place], [place] [phone] Social History Tobacco Use Types Packs/Day Years [...] Info) Description 11/09/2024 15:45 EST Procedure visit [facility] Orthopedics & Sport Medicine [address] [place] [address] Leann Holland, WIENER PACKER [address] [facility] [address] [place] [address] 11/16/2024 15:45 EST Procedure visit [facility] Orthopedics & Sport Medicine [address] [place] [address] Leann Holland WIENER PACKER [address] [facility] [address] [place] [address] 07/17/2025 15:30 EDT Office Visit [facility] Adult Hematology & Oncology [facility] [place] [address] Jimmy Gallego MD [address] [facility] [address] [place] [address] documented as of this encounter Procedures Procedure Name Priority Date/Time Associated Diagnosis Comments [facility] BREAST BREAST [facility] ONLY Routine 12/08/2022 16:34 EST documented in this encounter Results * [facility] BREAST BREAST [facility] ONLY (12/08/2022 16:34 EST) Narrative [facility] POINT OF CARE - 12/08/2022 16:34 EST This is a non-reportable exam. us Elizabeth Tapia DO IMG US POC ORDERABLES Final Result [facility] POINT OF CARE documented in this encounter Visit Diagnoses Not on filedocumented in this encounter Care Teams Auto Body Repairman Relationship Specialty Start Date End Date Iva Jennings APRN 26 [facility] [address] [place] [address] PCP - General 03/01/20 documented as of this encounter
--- OUTSIDE RECORDS SUMMARY | 2024-11-09 10:10 | XMS_ITS | Clinical Summary ---
Author Organization [facility] Address [address] [place] [address] Care Team Providers Care Delivery Tech Name Role Phone Iva Jennings APRN Primary Care Provider +1 [phone] Allergies Active Allergy Reactions Criticality Noted Date Comments Adhesive Itching Low 05/16/2014 Ethyl Chloride 12/08/2022 Latex, Natural Rubber Itching 05/21/2020 Other - See Comments Hives,Itching,Other (See Comments) 04/07/2019 Almost every animal & pollen - sneezing Medications glucos sul 2KCl/msm/chond/C /Mn (GLUCOSAMINE CHONDROITIN ORAL) Take by mouth. Activ e MULTI-VITAMIN ORAL Take by mouth. Activ e pravastatin (PRAVACHOL) 20 mg tablet Take 1 Tablet by mouth daily. Active amitriptyline (ELAVIL) 10 mg tablet Take 1 Tablet by mouth at bedtime as needed. Active lisinopril (PRINIVIL, ZESTRIL) 5 mg tablet Take 1 Tablet by mouth daily. Active calcium/mag/isabel min D2/Zn/min (GEOFFREY-MAG ZINC II ORAL) Take by mouth. Activ e clobetasoL (TEMOVATE) 0.05 % cream Apply topically 2 times daily. As needed Active ibuprofen 200 mg capsule Take 2 Capsules by mouth daily as needed. 1 Active mometasone (NASONEX) 50 mcg/actuation nasal spray Instill 2 Sprays into right nostril daily. Active cetirizine (ZYRTEC) 10 mg tablet Take 1 Tablet by mouth daily. 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, estrogen receptor positive ([facility]) 04/07/2019 Cancer Staging:Clinical:Stage IA(cT1, cN0, cM0, G2, ER: Positive, MT: Negative, HER2: Negative) - Signed by Elizabeth Tapia Do, DO on 04/07/2019 Encounters Date Type Department Care Team Description 11/02/2024 15:15 EST Procedure visit [facility] Orthopedics & Sport Medicine [address] [place] [address] Leann Holland P, FINANCIAL ASSISTANCE ADVISOR Primary osteoarthritis of right knee (Primary Dx) 10/20/2024 Telephone [facility] Orthopedics & Sport Medicine [address] [place] [address] Leann Holland, FINANCIAL ASSISTANCE ADVISOR Prior Auth, Medication 10/19/2024 16:00 EST Procedure visit [facility] Orthopedics & Sport Medicine [address] [place], [place] [phone] Leann Holland P, FINANCIAL ASSISTANCE ADVISOR Osteoarthritis of right knee, unspecified osteoarthritis type (Primary Dx) 09/12/2024 Telephone [facility] Orthopedics & Sport Medicine [address] [place] [address] Leann Holland P, FINANCIAL ASSISTANCE ADVISOR Injections from Last 3 Months Surgical History Surgery Date Site/Laterality Comments CHOLECYSTECTOMY APPENDECTOMY SECTION BREAST SURGERY 04/17/2019 - 05/17/2019 Left Partial mastectomy and SLNBx BREAST LUMPECTOMY 10/18/2018 - 10/17/2019 Left AXILLARY NODE DISSECTION BREAST BIOPSY Medical History Medical History Date Comments Hypertension Breast cancer, left ([facility]) 2019 Family History Medical History Relation Comments Breast Cancer Mother Ovarian Cancer Neg Hx Relation Status Comments Mother Social History Tobacco Use Types Packs/Day Years Used Date Smoking Tobacco: Never Smokeless Tobacco: Never Tobacco Cessation:Counseling Given: Not Answered Alcohol Use Standard Drinks/Week Comments Not Asked [...] 9:48 EDT Sexual Orientation Not on file Obstetrics History Para Term AB IAB SAB Ectopic Multiple Livin g Live Births 1 1 1 Date Outcome GA Total Labor Labor//3rd Weight Sex Type Anes PTL Dariana A1 A5 Name Clin Para Last Filed Vital Signs Vital Sign Reading Time Taken Comments Blood Pressure 100/60 07/13/2024 1554 EDT Pulse 96 07/13/2024 1554 EDT Temperature 36.3 ??C (97.4 ??F) 12/08/2022 1258 EST Respiratory Rate 16 08/06/2022 1434 EDT Oxygen Saturation 95% 07/13/2024 1554 EDT Inhaled Oxygen Concentration - - Weight 88.5 kg (195 lb) 07/13/2024 1554 EDT Height 162.6 cm (5' 4) 05/12/2024 1109 EDT Body Mass Index 33.47 05/12/2024 1109 EDT Plan of Treatment Upcoming Encounters Date Type Department Care Team (Late st Contact Info) Description 11/09/2024 15:45 EST Procedure visit [facility] Orthopedics & Sport Medicine [address] [place] [address] Leann Holland NP [address] [facility] [address] [place] [address] 11/16/2024 15:45 EST Procedure visit [facility] Orthopedics & Sport Medicine [address] [place], [place] [phone] Leann Holland NP [address] [facility] [address] [place] [address] 07/17/2025 15:30 EDT Office Visit [facility] Adult Hematology & Oncology [address] [place] [address] Jimmy Gallego MD [address] [facility] [address] [place] [address] Health Maintenance Due Date Last Done Comments Hepatitis C Screen 1950 Fall Risk Screening 11/17/2020 11/17/2019 RSV Immunization ( o r 60+ Years) (1 - 1-dose 75+ series) 2023 COVID-19 Vaccine ( season) 06/18/202402/2022 Procedures Procedure Name Priority Date/Time Associated Diagnosis Comments LARGE JOINT INJECTION/ARTHROCE NTESIS Routine 11/02/2024 15:15 EST Primary osteoarthritis of right knee from Last 3 Months Results * [place] ARTHROCENTESIS ASPIR&/INJ MAJOR JT/BURSA W/O US (11/02/2024 15:15 EST) Narrative [facility] POINT OF CARE - 11/02/2024 15:15 EST Leann Holland NP ? 11/02/2024 17:19 Large Joint Injection/Arthrocentesis: R knee on 11/02/2024 15:15 Medications: 2 mL sodium hyaluronate 10 mg/mL(mw 2.4 -3.6 million); 4 mL lidocaine (PF) 10 mg/mL (1 %) Outcome: tolerated well, no immediate complications Procedure, treatment alternatives, risks and benefits explained, specific risks discussed. Consent was given by the patient. Immediately prior to procedure a time out was called to verify the correct patient, procedure, equipment, customer support consultant and site/side marked as required. Patient was prepped and draped in the usual sterile fashion. us Leann Holland NP PROCEDURE/MINOR SURGICAL ORD ERABLES Final Result [facility] POINT OF CARE from Last 3 Months Insurance [facility] MEDICARE [facility] Care Teams Delivery Tech Relationship Specialty Start Date End Date Iva Jennings APRN [address] [place] [address] PCP - General 03/01/20
--- OUTSIDE RECORDS SUMMARY | 2024-11-09 10:10 | XMS_ITS | Encounter Summary ---
Author Organization [facility] Address [address] [place] [address] Care Team Providers Care Auto Hauler Name Role Phone Iva Jennings APRN Primary Care Provider [phone] [phone] Reason for Visit * Reason Comments Injections Encounter Details Date Type Department Care Team (Late st Contact Info) Description 05/31/2023 11:30 EDT Office Visit [facility] Orthopedics & Sport Medicine [address] [place] [address] Leann Holland, FRANK [address] [facility] [address] [place] [address] Osteoarthritis of right knee, unspecified [...] Progress Notes * Leann Holland NP - 05/31/2023 1130 EDTAssociated Order(s): Large Joint Injection/Arthrocentesis: R knee Post-Procedure Diagnose(s): Osteoarthritis of right knee, unspecified osteoarthritis type PROBLEM: Right knee osteoarthritis; Euflexxa #3 of 3 SUBJECTIVE: Susie Mayfield is a 73 y.o. female with established right knee OA who is here for Euflexxa #3 of 3 right knee. The past medical, family and social history have been reviewed in the patient chart. OBJECTIVE: There were no vitals taken for this visit. General appearance: Well-developed, well nourished, no acute distress. pleasant and cooperative. HEENT: normocephalic, atraumatic Lungs: no increased work of breathing Skin: clean, dry and intact Msk: Focused exam of the right knee reveals no deformity or significant swelling. No lower leg swelling. DIAGNOSTICS: Radiographs of right knee were reviewed. Advanced tricompartmental osteoarthritis withmedial joint line narrowing. Progressed since previous XR in 2019. ASSESSMENT: Right knee osteoarthritis - prior treatment has included physical therapy, NSAIDS and several topical medications without relief. Good relief with orthovisc in the past. PLAN: After reviewing risks and benefits of an injection including variability of results, verbal consent was obtained to proceed today. A timeout was performed. The right knee was prepped in the standard sterile fashion. After final verication of the correct site, 2ml of Euflexxa along with an anesthetic was injected into the joint without difficulty. No medication was wasted. She tolerated the procedure well. Aftercare for the injection was discussed and all question answered. Follow up if symptoms fail to improve. Procedure: Large Joint Injection/Arthrocentesis: R knee on 05/31/2023 11:30 Medications: 2 mL sodium hyaluronate 10 mg/mL(mw 2.4 -3.6 million); 4 mL lidocaine (PF) 10 mg/mL (1%) Outcome: tolerated well, no immediate complications Leann Holland NP 05/31/2023 documented in this encounter Plan of Treatment Upcoming Encounters Date Type Department Care Team (Late st Contact Info) Description 11/09/2024 15:45 EST Procedure visit [facility] Orthopedics & Sport Medicine [address] [place], [place] [phone] Leann Holland NP [address] [facility] [address] [place] [address] 11/16/2024 15:45 EST Procedure visit [facility] Orthopedics & Sport Medicine [address] [place] [address] Leann Holland NP [address] [facility] [address] [place] [address] 07/17/2025 15:30 EDT Office Visit [facility] Adult Hematology & Oncology [facility] [place] [address] Jimmy Gallego MD [address] [place] [address] [address] [place] [address] documented as of this encounter Procedures Procedure Name Priority Date/Time Associated Diagnosis Comments LARGE JOINT INJECTION/ARTHROCE NTESIS Routine 05/31/2023 11:30 EDT Osteoarthritis of right knee, unspecified osteoarthritis type documented in this encounter Results * PA ARTHROCENTESIS ASPIR&/INJ MAJOR JT/BURSA W/O US (05/31/2023 11:30 EDT) Narrative [facility] POINT OF CARE - 05/31/2023 11:30 EDT Leann Holland NP ? 05/31/2023 12:21 Large Joint Injection/Arthrocentesis: R knee on 05/31/2023 11:30 Medications: 2 mL sodium hyaluronate 10 mg/mL(mw 2.4 -3.6 million); 4 mL lidocaine (PF) 10 mg/mL (1 %) Outcome: tolerated well, no immediate complications us Leann P Amalia HAT SPRAYER PROCEDURE/MINOR SURGICAL ORD ERABLES Final Result [facility] POINT OF CARE documented in this encounter Visit Diagnoses Diagnosis Osteoarthritis of right knee, unspecified osteoarthritis type- Primary documented in this encounter Administered Medications Inactive Administered Medications - up to 3 most recent administrations Medication Order MAR Action Action Date Dose Rate Site lidocaine (PF) 10 mg/mL (1 %) injection 4 mL 4 mL, other, Once PRN Procedure, 1 dose, Starting on Wed05/31/23 at 1130, Until Wed05/31/23 at 1130, RoutineIndications:Osteoarthritis of right knee, unspecified osteoarthritis type Given 05/31/2023 11:30 EDT 4 mL sodium hyaluronate (EUFLEXXA) syringe 2 mL 2 mL, intra-articular, Once PRN Procedure, 1 dose, Starting on Wed05/31/23 at 1130, Until Wed05/31/23 at 1130, RoutineIndications:Osteoarthritis of right knee, unspecified osteoarthritis type Given 05/31/2023 11:30 EDT 2 mL documented in this encounter Care Teams Auto Hauler Relationship Specialty Start Date End Date Iva Jennings APRN [address] [place] [address] PCP - General 03/01/20 documented as of this encounter
--- OUTSIDE RECORDS SUMMARY | 2024-11-09 10:10 | XMS_ITS | Encounter Summary ---
Author Organization [facility] Address [address] [place] [address] Care Team Providers Care Operations Accountant Name Role Phone Iva Jennings APRN Primary Care Provider [phone] Reason for Visit * Reason Onset Date Comments Prior Auth, Medication 04/13/2023 Encounter Details Date Type Department Care Team (Late st Contact Info) Description 04/13/2023 Telephone [facility] Orthopedics & Sport Medicine [address] [place], [place] [phone] Leann Holland, PRODUCTION TOOL ENGINEER [address] [facility] [address] [place] [address] Prior Auth, Medication Social History Tobacco Use Types Packs/Day Years [...] 04/07/2019 9:57 EDT documented in this encounter Miscellaneous Notes * Telephone Encounter - Elizabeth Ochoa RN - 04/23/2023 1128 EDT T/C placed to [facility] to check on prior auth status. Approval for Euflexxa obtained from 05/17/23-05/31/23 Approval number: [id number] * Telephone Encounter - Elizabeth Zayas MA - 04/13/2023 1110 EDT Faxed PA for Euflexxa series for right knee. documented in this encounter Plan of Treatment Upcoming Encounters Date Type Department Care Team (Late st Contact Info) Description 11/09/2024 15:45 EST Procedure visit [facility] Orthopedics & Sport Medicine [address] [place] [phone] Leann Holland, PRODUCTION TOOL ENGINEER [address] [place] [phone] 11/16/2024 15:45 EST Procedure visit [facility] Orthopedics & Sport Medicine [address] [place] [phone] Leann Holland, PRODUCTION TOOL ENGINEER [address] [place] [phone] 07/17/2025 15:30 EDT Office Visit [facility] Adult Hematology & Oncology [address] [place] [phone] Jimmy Gallego MD [address] [facility] [address] [place] [phone] documented as of this encounter Visit Diagnoses Not on filedocumented in this encounter Care Teams Operations Accountant Relationship Specialty Start Date End Date Iva Jennings APRN [address] [place] [address] PCP - General 03/01/20 documented as of this encounter
--- OUTSIDE RECORDS SUMMARY | 2024-11-09 10:10 | XMS_ITS | Encounter Summary ---
Author Organization [facility] Address [address] [place] [address] Care Team Providers Care Fabrication Specialist Name Role Phone Iva Jennings APRN Primary Care Provider [phone] Reason for Visit * Reason Onset Date Comments Medications Refill 10/19/2023 Encounter Details Date Type Department Care Team (Late st Contact Info) Description 10/19/2023 Refill [facility] Adult Hematology & Oncology [address] [place] [phone] Elisabeth Velasquez RN Medications Refill Social History Tobacco Use [...] Tablet by mouth daily. 90 Tablet 3 10/19/2023 01/11/2024 documented in this encounter Miscellaneous Notes * Telephone Encounter - Elisabeth Velasquez RN - 10/19/2023 1411 EST Script line refill request for Letrozole likes 90 day supply to [facility] Last office visit RA 07/13/23 Plan: -Continue letrozole 2.5 mg daily -Calcium 1000 mg and Vit D3 1000IU daily -Repeat DEXA scan -Annual MMG (due 04/2024) -F/U with Dr. Tapia on 12/10/23 -Return for follow-up in 1 year. Pending visit RA 07/13/24 Last filled 07/21/23 #90 with 1 refill Please sign and send if you agree. documented in this encounter Plan of Treatment Upcoming Encounters Date Type Department Care Team (Late st Contact Info) Description 11/09/2024 15:45 EST Procedure visit [facility] Orthopedics & Sport Medicine [address] [place] [phone] Leann Holland, PROPERTY AND SUPPLY OFFICER [address] [place] [address] 11/16/2024 15:45 EST Procedure visit [facility] Orthopedics & Sport Medicine [address] [place], [place] [phone] Leann Holland, PROPERTY AND SUPPLY OFFICER [address] [place] [address] 07/17/2025 15:30 EDT Office Visit [facility] Adult Hematology & Oncology [address] [place] [phone] Jimmy Gallego MD [address] [facility] [address] [place] [address] documented as of this encounter Visit Diagnoses Not on filedocumented in this encounter Discontinued Medications Medication Sig Discontinue Reason Start Date End Da te letrozole (FEMARA) 2.5 mg tablet Take 1 Tablet by mouth daily. Reorder 07/21/2023 10/19/2023 documented as of this encounter Care Teams Fabrication Specialist Relationship Specialty Start Date End Date Iva Jennings APRN [address] [address] PCP - General 03/01/20 documented as of this encounter
--- OUTSIDE RECORDS SUMMARY | 2024-11-09 10:10 | XMS_ITS | Encounter Summary ---
Author Organization [facility] Address [address] [place] [address] Care Team Providers Care City Route Driver Name Role Phone Iva Jennings APRN Primary Care Provider [phone] [phone] Reason for Visit * Reason Onset Date Comments Injections 09/12/2024 Encounter Details Date Type Department Care Team (Late st Contact Info) Description 09/12/2024 Telephone [facility]ics [facility] Sport Medicine [address] [place] [address] Leann Holland, BRUSHER AND SHEARER [address] [facility] [address] [place] [address] Injections Social History Tobacco Use Types Packs/Day Years [...] encounter Miscellaneous Notes * Telephone Encounter - Annette Chin RN - 09/13/2024 0922 EST Please schedule a visit with for a recheck of the knee and then we can plan on the injection from there. Her last visit with us was 05/2023. Thank you * Telephone Encounter - Tiny Dillon - 09/12/2024 1600 EST Patient has called and stated she usually gets artificial cartilage shots and would like to schedule these. Please advise frontload driver how to schedule this. documented in this encounter Plan of Treatment Upcoming Encounters Date Type Department Care Team (Late st Contact Info) Description 11/09/2024 15:45 EST Procedure visit [facility] Orthopedics & Sport Medicine [address] [place], [place] [phone] [place] [address] [place] [phone] 11/16/2024 15:45 EST Procedure visit [facility] Orthopedics & Sport Medicine [address] [place], [place] [phone] [place] [address] [place] [address] 07/17/2025 15:30 EDT Office Visit [facility] Adult Hematology & Oncology [address] [place] [address] Jimmy Gallego MD [address] [facility] [address] [place] [phone] documented as of this encounter Visit Diagnoses Not on filedocumented in this encounter Care Teams City Route Driver Relationship Specialty Start Date End Date Iva Jennings APRN [address] [place] [address] PCP - General 03/01/20 documented as of this encounter
--- OUTSIDE RECORDS SUMMARY | 2024-11-09 10:10 | XMS_ITS | Encounter Summary ---
Author Organization [facility] Address [address] [place] [address] Care Team Providers Care Pbx Installer Name Role Phone Iva Jennings APRN Primary Care Provider [phone] [phone] Encounter Details Date Type Department Care Team (Late st Contact Info) Description 12/10/2023 11:15 EST Ancillary Procedure [facility] Surgical Oncology - Main [place] [address], [place] [phone] Social History Tobacco Use Types Packs/Day Years [...] Info) Description 11/09/2024 15:45 EST Procedure visit [facility] Orthopedics & Sport Medicine [address] [place], [place] [phone] Leann Holland PAVING CONTRACTOR [address] [facility] [address] [place], [place] [phone] 11/16/2024 15:45 EST Procedure visit [facility] Orthopedics & Sport Medicine [address] [place], [place] [phone] Leann Holland PAVING CONTRACTOR [address] [facility] [address] [place] [address] 07/17/2025 15:30 EDT Office Visit [facility] Adult Hematology & Oncology [facility] [place] [address] Jimmy Gallego MD [address] [facility] [address] [place] [address] documented as of this encounter Procedures Procedure Name Priority Date/Time Associated Diagnosis Comments [facility] BREAST BREAST CARE [facility] ONLY Routine 12/10/2023 13:03 EST documented in this encounter Results * [facility] BREAST [facility] ONLY (12/10/2023 13:03 EST) Narrative [facility] POINT OF CARE - 12/10/2023 13:03 EST This is a non-reportable exam. us Elizabeth Tapia DO IMG US POC ORDERABLES Final Result [facility] POINT OF CARE documented in this encounter Visit Diagnoses Not on filedocumented in this encounter Care Teams Pbx Installer Relationship Specialty Start Date End Date Iva Jennings APRN [address] [place] [address] [place] [address] PCP - General 03/01/20 documented as of this encounter
--- OUTSIDE RECORDS SUMMARY | 2024-11-09 10:10 | XMS_ITS | Encounter Summary ---
Author Organization [facility] Address [address] [place] [address] Care Team Providers Care Lime Puller Name Role Phone Iva Jennings APRN Primary Care Provider [phone] [phone] Reason for Referral * Radiology Services (Routine/Next Available) - New Request Specialty Diagnoses / Procedures Referred By Contac t Referred To Contact Diagnoses Osteopenia of neck of left femur Procedures DXA BONE DENSITY Jimmy Gallego MD [address] [place] [address], [facility] [address] [place] [address] Phone: tel: fax: [facility] Referral ID Status Reason Start Date Expiration Date V isits Requested Visits Authorized [id number] New Request 07/13/2024 1 1 * Radiology Services (Routine/Next Available) - Authorization Not Required Specialty Diagnoses / Procedures Referred By Lisbet t Referred To Contact Diagnoses Malignant neoplasm of central portion of left breast in female, estrogen receptor positive (HCC-CMS) Procedures MA BREAST SCREENING ELAS BILATERAL Jimmy Gallego MD [address] [facility], [facility] [address] [place] [address] Phone: tel: fax: [facility] Referral ID Status Reason Start Date Expiration Date Visits Requested Visits Authorized [id number] Authorization Not Required 07/13/2024 1 1 Reason for Visit * Reason Comments Follow-up Encounter Details Date Type Department Care Team (Late st Contact Info) Description 07/13/2024 16:00 EDT Office Visit [facility] Adult Hematology & Oncology [facility] [place] [address] Jimmy Gallego MD [address] [facility], [facility] [place] [address] [place] [address] Malignant neoplasm of central portion of left breast in female, estrogen receptor positive (HCC-CMS) (Primary Dx); Osteopenia of neck of left femur Social History Tobacco Use Types Packs/Day Years [...] on file documented as of this encounter Last Filed Vital Signs Vital Sign Reading Time Taken Comments Blood Pressure 100/60 07/13/2024 1554 EDT Pulse 96 07/13/2024 1554 EDT Temperature - - Respiratory Rate - - Oxygen Saturation 95% 07/13/2024 1554 EDT Inhaled Oxygen Concentration - - Weight 88.5 kg (195 lb) 07/13/2024 1554 EDT Height - - Body Mass Index 33.47 05/12/2024 1109 EDT documented in this encounter Functional Status * Because of [...] documented in this encounter Progress Notes * Jimmy Gallego MD - 07/13/2024 1600 EDT Assessment & Plan Susie Mayfield is a 74 yr old female with stage IA (pT1a,pN0), 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 She is currently on adjuvant letrozole since 2018. She ishere for routine follow-up. 1. Left breast cancer: She is tolerating letrozole well. No signs and symptoms of recurrence. Physical examination showed no evidence of malignancy in bilateral breast. Reviewed her recent mammogram from April 2024 which also showed no evidence of recurrence or new primary. We discussed that she has completed 5 years of adjuvant letrozole therapy. It is reasonable to discontinue. I again discussed surveillance per NCCN guideline. 2. Osteopenia: Bone density scan in July 2023 showed osteopenia at femoral neck -1.2. I discussed risk versus benefits of lifestyle changes, calcium/vitamin D supplementation. I will recheck DEXA scan in 1 year. Plan: -Discontinue letrozole 2.5 mg daily as she completed 5 years -Calcium 1000 mg and Vit D3 1000IU daily -Repeat DEXA scan in June 2025 -Annual MMG (due 04/2025) -Return for follow-up in 1 year. Jimmy Gallego MD Hematology/Oncology PROBLEM: March 2019: Left breast cancer - 03/01/19: Screening mammogram showed new 5 mm irregular mass in the middle depth of the breast. - 03/08/19: Diag mammo/US showed isoechoic mass at 12 o'clock, 2 cmfn. - 03/28/19: Stereotactic biopsy positive of 5 mm mass in left breast at 12 o'clock, 9 cmfn for nuclear grade 2 invasive ductal carcinoma with DCIS. ER > 90 %, [place] < 1%, HER-2 negative. - It was noted that the patient has a family history of breast cancer with her mother in her late 60s. - 05/03/19: Underwent left partial mastectomy and sentinel node biopsy with Dr. Tapia. Pathology showed grade 2, 0.4 x 0.4 x 0.2 cm invasive ductal carcinoma. 0/2 sentinel nodes. DCIS was present in 25% of tumor mass. ER 90%, CA < 1%, Her2/jatinder 0. Stage pT1a pN0 -05/2019: Started Letrozole. Adeline Richards is here for follow up of her breast cancer. She is doing well and tolerating letrozole well with no major side effects or breast complaints. She denied any vasomotor. She continues to have backpain and knee pain which is chronic in nature. Review of Systems Constitutional: Negative for chills, fever and weight loss. HENT: Negative for hearing loss. Eyes: Negative for blurred vision and pain. Respiratory: Negative for cough, hemoptysis, sputum production and shortness of breath. Cardiovascular: Negative for chest pain and palpitations. Gastrointestinal: Negative for abdominal pain, nausea and vomiting. Genitourinary: Negative. Musculoskeletal: Positive for joint pain (Right knee). Negative for back pain. Skin: Negative. Neurological: Negative for tingling and headaches. Endo/Heme/Allergies: Negative. Psychiatric/Behavioral: Negative. Hallucinations: .me. 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 Current Outpatient Medications Medication Sig Dispense Refill Last Dose amitriptyline (ELAVIL) 10 mg tablet Take 1 Tablet by mouth at bedtime as needed. azelastine (ASTELIN) nasal spray (Patient not taking: Reported on 12/10/2023) calcium/mag/vitamin D2/Zn/min (GEOFFREY-MAG ZINC II ORAL) Take by mouth. cetirizine (ZYRTEC) 1 mg/mL solution Take 5 mL by mouth daily. clobetasoL (TEMOVATE) 0.05 % cream Apply topically 2 times daily. As needed glucos sul 2KCl/msm/chond/C/Mn (GLUCOSAMINE CHONDROITIN ORAL) Take by mouth. ibuprofen 200 mg capsule Take 2 Capsules by mouth daily as needed. letrozole (FEMARA) 2.5 mg tablet Take 1 Tablet by mouth daily. 90 Tablet 3 lisinopril (PRINIVIL, ZESTRIL) 5 mg tablet Take 1 Tablet by mouth daily. mometasone (NASONEX) 50 mcg/actuation nasal spray Instill 2 Sprays into right nostril daily. MULTI-VITAMIN ORAL Take by mouth. pravastatin (PRAVACHOL) 20 mg tablet Take 1 Tablet by mouth daily. No current facility-administered medications for this visit. There were no vitals filed for this visit. Wt Readings from Last 3 Encounters: 05/12/24 90.7 kg (200 lb) 07/13/23 93.9 kg (207 lb) 05/25/22 88.9 kg (196 lb) Physical Exam: In presence of AYUSH Perdomo General appearance: Awake, alert, oriented x3, NAD. Skin: Skin color, tempature, turgor normal. No rashes or lesions Head: Normocephalic, without obvious abnormality, atraumatic Eyes: sclerae anicteric Neck: supple, no cervical lymphadenopathy Breast: Bilateral breasts with no palpable lumps, nipple abnormalities or skin changes. No palpableaxillary adenopathy. Lungs: CTAB Heart: regular rate and rhythm, S1, S2 normal Abdomen: soft, non-tender; bowel sounds normal; Extremities: extremities warm, atraumatic I spent a total of 30 minutes on the date of this encounter meeting with the patient and reviewing documentation/coordinating care as described in the above note. No procedures were performed at the time of the visit. * Darleen Perdomo RN - 07/13/2024 1600 EDT Suspicion of Abuse: no - If yes, please document evidence: - Assessed on: 07/13/24 15:50 - Assessed by: DARLEEN PERDOMO RN Patient offered journeyman glazier for intimate exam per [facility] Intimate Exam policy. Patient accepted journeyman glazier documented in this encounter Plan of Treatment Upcoming Encounters Date Type Department Care Team (Late st Contact Info) Description 11/09/2024 15:45 EST Procedure visit [facility] Orthopedics & Sport Medicine [address] [place], [place] [phone] Leann Holland NP [address] [facility] [address] [place] [address] 11/16/2024 15:45 EST Procedure visit [facility] Orthopedics & Sport Medicine [address] [place], [place] [address] Leann Holland NP [address] [facility] [address] [place], [place] [address] 07/17/2025 15:30 EDT Office Visit [facility] Adult Hematology & Oncology [address] [place] [address] Jimmy Gallego MD [address] [facility], [facility] [address] [place] [address] Scheduled Orders Name Type Priority Associated Diagnoses Orde r Schedule MA BREAST SCREENING ELSA BILATERAL Imaging Routine Malignant neoplasm of central portion of left breast in female, estrogen receptor positive (HCC-CMS) Expected: 07/13/2025 (Approximate), Expires: 07/13/2026 DXA BONE DENSITY Imaging Routine Osteopenia of neck of left femur Expected: 07/13/2025 (Approximate), Expires: 07/13/2026 documented as of this encounter Visit Diagnoses Diagnosis Malignant neoplasm of central portion of left breast in female, estrogen receptor positive (HCC-CMS)- Primary Osteopenia of neck of left femur documented in this encounter Discontinued Medications Medication Sig Discontinue Reason Start Date End Da te cetirizine (ZYRTEC) 1 mg/mL solution Take 5 mL by mouth daily. Alternate therapy 07/13/2024 azelastine (ASTELIN) nasal spray Alternate therapy 05/21/2021 07/13/2024 letrozole (FEMARA) 2.5 mg tablet Take 1 Tablet by mouth daily. 01/11/2024 07/13/2024 documented as of this encounter Historical Medications * This list may reflect changes made after this encounter. cetirizine (ZYRTEC) 10 mg tablet Take 1 Tablet by mouth daily. added in this encounter Care Teams Lime Puller Relationship Specialty Start Date End Date Iva Jennings APRN [address] [place] [address] [address] [place] [address] PCP - General 03/01/20 documented as of this encounter
--- OUTSIDE RECORDS SUMMARY | 2024-11-09 10:10 | XMS_ITS | Encounter Summary ---
Author Organization [facility] Address [address] [place] [address] Care Team Providers Care Product Applications Scientist Name Role Phone Iva Jennings APRN Primary Care Provider [phone] [phone] Reason for Referral * Radiology Services (Routine/Next Available) - Specialty Report Received Specialty Diagnoses / Procedures [facility] Referred To Contact Diagnoses Malignant neoplasm of central portion of left breast in female, estrogen receptor positive (HCC-CMS) Procedures DXA BONE DENSITY Jimmy Gallego MD Phone: tel: fax: [facility] Referral ID Status Reason Start Date Expiration Date V isits Requested Visits Authorized [id number] Specialty Report Received 07/13/2023 1 1 Reason for Visit * Reason Comments Follow-up F/u breast cancer holguin rveillance Encounter Details Date Type Department Care Team (Late st Contact Info) Description 07/13/2023 16:00 EDT Office Visit [facility] Adult Hematology & Oncology [facility] [place] [address] Jimmy Gallego MD [address] [place] [address] [address] [place] [address] Malignant neoplasm of central portion of left breast in female, estrogen receptor positive (HCC-CMS) (Primary Dx) Social History Tobacco Use Types [...] Sign Reading Time Taken Comments Blood Pressure 110/60 07/13/2023 1549 EDT Pulse 94 07/13/2023 1549 EDT Temperature - - Respiratory Rate - - Oxygen Saturation 99% 07/13/2023 1549 EDT Inhaled Oxygen Concentration - - Weight 93.9 kg (207 lb) 07/13/2023 1549 EDT Height - - Body Mass Index 34.45 03/01/2020 1504 EDT documented in this encounter Functional Status [...] Progress Notes * Jimmy Gallego MD - 07/13/2023 1600 EDT Assessment & Plan Susie Mayfield is a 73 yr old female with stage IA (pT1a,pN0), 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 She is currently on adjuvant letrozole which she is tolerating well with no major complaints. I reviewed her mammogram today from April 2023 which was unremarkable for any suspicious lesions. I again counseled her on the importance of continuing surveillance per NCCN guideline. 2. Bone health: Bone density scan in June 2021 was normal. Currently on calcium/vitamin D supplementation. Plan: -Continue letrozole 2.5 mg daily -Calcium 1000 mg and Vit D3 1000IU daily -Repeat DEXA scan -Annual MMG (due 04/2024) -F/U with Dr. Tapia on 12/10/23 -Return for follow-up in 1 year. Jimmy [...] carcinoma with DCIS. ER > 90 %, [place] < 1%, HER-2 negative. - It was [...] in 25% of tumor mass. ER 90%, [place] < 1%, Her2/jatinder 0. Stage pT1a pN0 -05/2019: Started Letrozole. Subjective Patient is here for follow up of her breast cancer. She is doing well and tolerating letrozole wellwith no major side effects or breast complaints. She denied any vasomotor or MSK sx. Review of Systems Constitutional: Negative for chills, [...] Family History Problem Relation Age of Onset ??? Breast Cancer Mother 60 ??? Ovarian Cancer Neg Hx Social History Tobacco Use ??? Smoking status: Never ??? Smokeless tobacco: Never Vaping Use ??? Vaping Use: Never used Substance Use Topics ??? 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 Current Outpatient Medications Medication Sig Dispense Refill Last Dose ??? amitriptyline (ELAVIL) 10 mg tablet Take 1 Tablet by mouth at bedtime as needed. Taking ??? azelastine (ASTELIN) nasal spray USE 1 SPRAY(S) IN EACH NOSTRIL ONCE DAILY (Patient not taking:Reported on 12/08/2022) Not Taking ??? calcium/mag/vitamin D2/Zn/min (GEOFFREY-MAG ZINC II ORAL) Take by mouth. Taking ??? cetirizine (ZYRTEC) 1 mg/mL solution Take 5 mL by mouth daily. Taking ??? clobetasoL (TEMOVATE) 0.05 % cream Apply topically 2 times daily. As needed Taking ??? glucos sul 2KCl/msm/chond/C/Mn (GLUCOSAMINE CHONDROITIN ORAL) Take by mouth. Taking ??? ibuprofen 200 mg capsule Take 2 Capsules by mouth daily as needed. Taking ??? letrozole (FEMARA) 2.5 mg tablet Take 1 Tablet by mouth daily. 90 Tablet 1 Taking ??? lisinopril (PRINIVIL, ZESTRIL) 5 mg tablet Take 1 Tablet by mouth daily. Taking ??? mometasone (NASONEX) 50 mcg/actuation nasal spray Instill 2 Sprays into right nostril daily. Taking ??? MULTI-VITAMIN ORAL Take by mouth. Taking ??? pravastatin (PRAVACHOL) 20 mg tablet Take 1 Tablet by mouth daily. Taking No current facility-administered medications for this visit. Vitals: 07/13/23 1549 BP: 110/60 Pulse: 94 SpO2: 99% Weight: 93.9 kg (207 lb) Wt Readings from Last 3 Encounters: 07/13/23 93.9 kg (207 lb) 05/25/22 88.9 kg (196 lb) 05/26/21 88.5 kg (195 lb) Physical Exam: General appearance: Awake, alert, oriented x3, NAD. Skin: Skin color, tempature, turgor normal. No rashes or lesions Head: Normocephalic, without obvious abnormality, atraumatic Eyes: sclerae anicteric Neck: supple, symmetrical, trachea midline Breast: Bilateral breasts with no palpable lumps, nipple abnormalities or skin changes. No palpablecervical, supraclavicular or axillary adenopathy. Lungs: CTAB Heart: regular rate and rhythm, S1, S2 normal Abdomen: soft, non-tender; bowel sounds normal; no masses, no organomegaly Extremities: extremities warm, atraumatic documented in this encounter Plan of Treatment Upcoming Encounters Date Type Department Care Team (Late st Contact Info) Description 11/09/2024 15:45 EST Procedure visit [facility] Orthopedics & Sport Medicine [address] [place] [address] Leann Holland NP [address] [facility] [address] [place] [address] 11/16/2024 15:45 EST Procedure visit [facility] Orthopedics & Sport Medicine [address] [place], [place] [id number] Leann Holland DATA MANAGEMENT MANAGER [address] [facility] [address] [place] [address] 07/17/2025 15:30 EDT Office Visit [facility] Adult Hematology & Oncology [address] [place] [address], [place] [address] Jimmy Gallego MD [address] [facility] [address] [place] [id number] documented as of this encounter Results * DXA BONE DENSITY (08/17/2023 14:44 EDT) Anatomical Region Laterality Modality DEXA Narrative 08/18/2023 16:02 EDT Table formatting from the original result was not included. Images from the original result were not included. Indication: postmenopausal; screening for osteoporosis; height loss; cancer; Accession number: [id number] Clinical Information Provided by Patient: Has used the following medications: HRT (i.e. estrogen/hormone therapy), Vitamin D, Calcium Has the following medical conditions: Cancer Patient maximum height was 65 Menopause Age 53 Drinks caffeinated beverages ?? Onset of menses at age 11 Number of children 1 Bone Density: Exam date 08/17/2023 Region BMD (g/cm2) T-score Z-score Classification AP Spine(L1-L4) 1.094 ??0.4 ??2.9 Normal Femoral Neck(Left) 0.717 -1.2 ??0.9 Osteopenia Total Hip(Left) 0.870 -0.6 ??1.2 Normal World Health Organization criteria for BMD impression classify patients as Normal (T-score at or above -1.0), Osteopenia (T-score between -1.0 and -2.5), or Osteoporosis (T-score at or below -2.5). ?? 10-year Fracture Risk??: Major Osteoporotic Fracture 9.6% Hip Fracture 1.6% Reported Risk Factors: [place] (), Neck BMD=0.717, BMI=36.3 ?? FRAX?? Version 3.08. Fracture probability calculated for an untreated patient. Fracture probability may be lower if the patient has received treatment. Previous Exams: ?? Region Exam Date Age BMD (g/cm2) T-score BMD Change vs. Baseline BMD Change vs. Previous AP Spine (L1-L4) 08/17/2023 73 1.094 ??0.4 -0.016 (-1.4%) -0.007 (-0.7%) 07/02/2021 71 1.102 ??0.5 -0.009 (-0.8%) -0.009 (-0.8%) 05/23/2019 69 1.110 ??0.6 ?? Total Hip(Left) 08/17/2023 73 0.870 -0.6 -0.031 (-3.4%)* -0.029 (-3.2%)* 07/02/2021 71 0.898 -0.4 -0.002 (-0.3%) -0.002 (-0.3%) 05/23/2019 69 0.901 -0.3 ?? *Denotes significance at 95% confidence level, LSC for AP Spine = 0.022 g/cm2, ??LSC for Total Hip = 0.027 g/cm2 ? Impression: The patient has low bone mass, based on the Left Femoral Neck T-score. The patient has an estimated ten-year risk of hip fracture of 1.6% and an estimated ten-year risk of major fracture of 9.6%, based on the WHO FRAX algorithm. The BMD for the Total Hip(Left) decreased, changing by -3.2% since the last DXA exam. Discussion: BONE DENSITY IS LOW AT ONE OR MORE SKELETAL SITES. This patient's lowest T-score is low at one or more skeletal sites. ??It meets the World Health Organization's (WHO) criteria for ? low bone mass? ?? (T-score between -1.0 and -2.5). ?? The patient's 10-year risk of fracture as calculated by FRAX is less than the threshold where pharmacological therapy is recommended by the National Osteoporosis Foundation (NOF). ??However, all treatment decisions require clinical judgment and consideration of individual patient factors, including patient preferences, comorbidities, previous drug use, risk factors not captured in the FRAX model (e.g., frailty, falls, vitamin D deficiency, increased bone turnover, interval significant decline in bone density) and possible under or overestimation of fracture risk by FRAX. The patient should follow a healthful lifestyle (good nutrition with adequate calcium and vitamin D, and appropriate weight-bearing exercise). *As indicated, always consider the FRAX assessment with all other relevant clinical risk factors. Follow-Up: Consider repeating this study in 2 years to reassess this patient's status, or sooner if there is some new clinical indication. Reported by: ?? Grayson Hines MD, on 08/17/2023 2:44:00 PM. Jimmy Gallego MD IMG DEXA ORDERABLES Final Result documented in this encounter Visit Diagnoses Diagnosis Malignant neoplasm of central portion of left breast in female, estrogen receptor positive (HCC-CMS)- Primary Malignant neoplasm of central portion of left breast in female, estrogen receptor positive (HCC-CMS) documented in this encounter Care Teams Product Applications Scientist Relationship Specialty Start Date End Date Iva Jennings APRN [address] [place], [place] [phone] PCP - General 03/01/20 documented as of this encounter
--- OUTSIDE RECORDS SUMMARY | 2024-11-09 10:10 | XMS_ITS | Encounter Summary ---
Author Organization [facility] Address [address] [place] [address] Care Team Providers Care Snowboard Instructor Name Role Phone Iva Jennings APRN Primary Care Provider [phone] [phone] Reason for Visit * Reason Onset Date Comments Prior Auth, Medication 10/20/2024 Encounter Details Date Type Department Care Team (Late st Contact Info) Description 10/20/2024 Telephone [facility] Orthopedics & Sport Medicine [address] [place], [place] [phone] Leann Holland, BUILDING CONTRACTOR [address] [facility] [address] [place] [address] Prior Auth, Medication Social History [...] encounter Miscellaneous Notes * Telephone Encounter - Emmanuelle Drake MA - 10/24/2024 1050 EST Euflexxxa approved via outside message for 3 injections for 5 years through 10/20/2029. Reference #[id number]. Approval to be scanned into chart. * Telephone Encounter - Elizabeth Zayas MA - 10/20/2024 0809 EST Faxed PA to [facility] for Euflexxa series. Patient is scheduled beginning 11/02/24. documented in this encounter Plan of Treatment Upcoming Encounters Date Type Department Care Team (Late st Contact Info) Description 11/09/2024 15:45 EST Procedure visit [facility] Orthopedics & Sport Medicine [address] [place], [place] [id number] Leann Holland P, BUILDING CONTRACTOR [address] [place] [phone] 11/16/2024 15:45 EST Procedure visit [facility] Orthopedics & Sport Medicine [address] [place], [place] [phone] Leann Holland P, BUILDING CONTRACTOR [address] [place] [phone] 07/17/2025 15:30 EDT Office Visit [facility] Adult Hematology & Oncology [address] [place] [phone] Jimmy Gallego MD [address] [facility] [address] [place] [address] documented as of this encounter Visit Diagnoses Not on filedocumented in this encounter Care Teams Snowboard Instructor Relationship Specialty Start Date End Date Iva Jennings APRN [facility] [address] [place] [address] PCP - General 03/01/20 documented as of this encounter
--- OUTSIDE RECORDS SUMMARY | 2024-11-09 10:10 | XMS_ITS | Encounter Summary ---
Author Organization [facility] Address [address] [place] [address] Care Team Providers Care Crossbar Frame Wirer Name Role Phone Iva Jennings APRN Primary Care Provider [phone] Reason for Visit * Reason Comments Follow-up Encounter Details Date Type Department Care Team (Late st Contact Info) Description 12/08/2022 13:00 EST Office Visit [facility] Surgical Oncology - [facility] [address] [place], [place] [address] Elizabeth Tapia, DO [address] [facility], [address] [place] [address] Malignant neoplasm of central portion of left breast in female, estrogen receptor positive (HCC-CMS) (Primary Dx) Social History Tobacco Use Types Packs/Day Years Used Date Smoking Tobacco: Never Smokeless Tobacco: Never Tobacco Cessation:Counseling Given: Not Answered Interpersonal Safety Answer Date Record ed Physically [...] Sign Reading Time Taken Comments Blood Pressure 108/66 12/08/2022 1258 EST Pulse 101 12/08/2022 1258 EST Temperature 36.3 ??C (97.4 ??F) 12/08/2022 1258 EST Respiratory Rate - - Oxygen Saturation - - Inhaled Oxygen Concentration - - Weight - - Height - - Body Mass Index - - documented in this encounter Functional Status * [...] documented in this encounter Progress Notes * Elizabeth Tapia, DO - 12/08/2022 1300 EST Subjective: Patient ID: Susie Mayfield is an 72 y.o. female. Chief Complaint Patient presents with ??? Follow-up HPI Susie Mayfield is seen in 1-year followup for her left breast cancer. ??As you recall, this is a patient that had a screen detected finding identified in 02/2019??in the left breast. 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 ??ER positive, SD negative, HER-2 negative. ??She went on to a partial mastectomy and sentinellymph node biopsy in 04/2019. ??This returned back a finding of approximately 0.4 cm cancer. ??There was an obvious biopsy site, but no additional tumor identified. ??The lymph nodes??were 0 to 2 positive. ??She met with radiation oncology to discuss this and felt that she would not receive a significant benefit from radiation. ??She is now taking letrozole and does not appreciate any significantside effects from that medication. She continues to work full-time and enjoys her job. She notes nochanges in her self breast exam. Patient Active Problem List Diagnosis ??? Malignant neoplasm of central portion of left breast in female, estrogen receptor positive (HCC-CMS) (HCC) ??? Arthritis of right knee Past Medical History: Diagnosis Date ??? Breast cancer, left (HCC-CMS) (HCC) 2018 ??? Hypertension Past Surgical History: Procedure Laterality Date ??? APPENDECTOMY ??? AXILLARY NODE DISSECTION ??? BREAST LUMPECTOMY Left 2018 ??? BREAST SURGERY Left 04/2019 Partial mastectomy and SLNBx ??? SECTION ??? CHOLECYSTECTOMY Family History Problem Relation Age of Onset ??? Breast Cancer Mother 60 ??? Ovarian Cancer Neg Hx Social Social History Tobacco Use ??? Smoking status: Never ??? Smokeless tobacco: Never Current Outpatient Medications on File Prior to Visit Medication Sig Dispense Refill ??? amitriptyline (ELAVIL) 10 mg tablet Take 10 mg by mouth at bedtime as needed. ??? azelastine (ASTELIN) nasal spray USE 1 SPRAY(S) IN EACH NOSTRIL ONCE DAILY (Patient not taking:Reported on 12/08/2022) ??? calcium/mag/vitamin D2/Zn/min (GEOFFREY-MAG ZINC II ORAL) Take by mouth. ??? cetirizine (ZYRTEC) 1 mg/mL solution Take 5 mg by mouth daily. ??? clobetasoL (TEMOVATE) 0.05 % cream Apply topically 2 times daily. As needed ??? glucos sul 2KCl/msm/chond/C/Mn (GLUCOSAMINE CHONDROITIN ORAL) Take by mouth. ??? ibuprofen 200 mg capsule Take 400 mg by mouth daily as needed. ??? letrozole (FEMARA) 2.5 mg tablet Take 1 Tablet by mouth daily. 90 Tablet 0 ??? lisinopril (PRINIVIL, ZESTRIL) 5 mg tablet Take 5 mg by mouth daily. ??? mometasone (NASONEX) 50 mcg/actuation nasal spray Instill 2 Sprays into right nostril daily. ??? MULTI-VITAMIN ORAL Take by mouth. ??? pravastatin (PRAVACHOL) 20 mg tablet Take 20 mg by mouth daily. No current facility-administered medications on file prior to visit. Allergies Allergen Reactions ??? Ethyl Chloride ??? Latex, Natural Rubber Itching ??? Other - See Comments Hives, Itching and Other (See Comments) Almost every animal & pollen - sneezing ??? Adhesive Itching Review of Systems Constitutional: Negative for chills, fever and weight loss. HENT: Negative for hearing loss. Eyes: Negative for blurred vision, double vision and photophobia. Respiratory: Negative for cough, shortness of breath and wheezing. Cardiovascular: Negative for chest pain and palpitations. Gastrointestinal: Negative for abdominal pain, heartburn, nausea and vomiting. Genitourinary: Negative for dysuria, frequency and urgency. Musculoskeletal: Positive for myalgias. Neurological: Negative for sensory change, focal weakness and headaches. - See HPI Objective: BP 108/66 Pulse 101 Temp 36.3 ??C (97.4 ??F) (Temporal) Physical Exam Constitutional: General: She is not in acute distress. Appearance: She is well-developed and well-nourished. HENT: Head: Normocephalic and atraumatic. Eyes: Extraocular Movements: EOM normal. Conjunctiva/sclera: Conjunctivae normal. Pupils: Pupils are equal, round, and reactive to light. Neck: Thyroid: No thyromegaly. Cardiovascular: Rate and Rhythm: Regular rhythm. Heart sounds: No murmur heard. Pulmonary: Effort: Pulmonary effort is normal. No respiratory distress. Breath sounds: Normal breath sounds. Musculoskeletal: Cervical back: Normal range of motion. Lymphadenopathy: Cervical: No cervical adenopathy. Neurological: Mental Status: She is alert and oriented to person, place, and time. Cranial Nerves: No cranial nerve deficit. Breast: Breasts and axilla are examined in the seated and the supine position. There are no obviousmasses palpated in either breast. She has a surgical scar on the left breast with very minimal radiation changes to that breast. There is no nipple inversion or discharge. There are no axillary masses. Assessment: Susie is seen in the office today in 1 year follow-up for her left breast cancer. On examination today she has no evidence of recurrent disease. Her mammogram is due in March and I have ordered that for her. She has fatty replaced breast tissue so that is what all we need to do for her follow-up. I will see her back in 1 year for her final breast exam in the clinic as she will be approaching 5 years at that point. Plan: (C50.112, Z17.0) Malignant neoplasm of central portion of left breast in female, estrogen receptor positive (HCC-CMS) (HCC) (primary encounter diagnosis) Elizabeth Tapia, DO Med Orders Placed This Visit and Additions to the Medication List Medications ??? mometasone (NASONEX) 50 mcg/actuation nasal spray Sig: Instill 2 Sprays into right nostril daily. documented in this encounter Plan of Treatment Upcoming Encounters Date Type Department Care Team (Late st Contact Info) Description 11/09/2024 15:45 EST Procedure visit [facility] Orthopedics & Sport Medicine [address], [address] [place] [address] Leann Holland NP [address] [facility] [address] [place], [place] [phone] 11/16/2024 15:45 EST Procedure visit [facility] Orthopedics & Sport Medicine [address], [address] [place], [place] [phone] Leann Holland COOKING CHEF [address] [facility] [address] [place] [address] 07/17/2025 15:30 EDT Office Visit [facility] Adult Hematology & Oncology [facility] [place] [address] Jimmy Gallego MD [address] [facility] [address] [place] [address] documented as of this encounter Procedures Procedure Name Priority Date/Time Associated Diagnosis Comments ORDERS - SCANNED 12/09/2022 20:16 EST documented in this encounter Results * ORDERS - SCANNED (12/09/2022 20:16 EST) 12/09/2022 20:1 6 EST us Scan 2 Sand Cutter Operator ADMISSION ORDERABLES Final Result documented in this encounter Visit Diagnoses Diagnosis Malignant neoplasm of central portion of left breast in female, estrogen receptor positive ([facility]-CMS)- Primary documented in this encounter Historical Medications * This list may reflect changes made after this encounter. mometasone (NASONEX) 50 mcg/actuation nasal spray Instill 2 Sprays into right nostril daily. added in this encounter Care Teams Crossbar Frame Wirer Relationship Specialty Start Date End Date Iva Jennings APRN [address] [place] [phone] PCP - General 03/01/20 documented as of this encounter
--- OUTSIDE RECORDS SUMMARY | 2024-11-09 10:10 | XMS_ITS | Encounter Summary ---
Author Organization [facility] Address [address] [place] [address] Care Team Providers Care Rn Imcu Name Role Phone Iva Jennings APRN Primary Care Provider [phone] Encounter Details Date Type Department Care Team (Late st Contact Info) Description 10/21/2022 Refill [facility] Adult Hematology & Oncology [address] [place] [address] Jeana Hyman RN Social History Tobacco Use Types Packs/Day Years [...] 1 Tablet by mouth daily. 90 Tablet 10/21/2022 01/19/2023 documented in this encounter Miscellaneous Notes * Telephone Encounter - Jeana Hyman RN - 10/21/2022 0930 EST Script line refill request for Letrazole 2.5mg Last office visit 05/25/22 ET Plan Plan: 1. Continue letrozole. 2. Return for follow-up in 1 year. She is following with Dr. Tapia. ?? No pending visit at this time Last filled 07/20/22 #90 with no refills Please sign and send if you agree. Thanks. documented in this encounter Plan of Treatment Upcoming Encounters Date Type Department Care Team (Late st Contact Info) Description 11/09/2024 15:45 EST Procedure visit [facility] Orthopedics & Sport Medicine [address], [address] [place] [phone] Leann Holland, RELATIONSHIP MANAGEMENT LEAD [address] [place] [phone] 11/16/2024 15:45 EST Procedure visit [facility] Orthopedics & Sport Medicine [address], [address] [place], [place] [address] Leann Holland, RELATIONSHIP MANAGEMENT LEAD [address] [place] [address] [place] [phone] 07/17/2025 15:30 EDT Office Visit [facility] Adult Hematology & Oncology [facility] [place], [place] [phone] Jimmy Gallego MD [address] [facility] [address] [place] [phone] documented as of this encounter Visit Diagnoses Not on filedocumented in this encounter Discontinued Medications Medication Sig Discontinue Reason Start Date End Da te letrozole (FEMARA) 2.5 mg tablet Take 1 tablet by mouth once daily Reorder 07/20/2022 10/21/2022 documented as of this encounter Care Teams Rn Imcu Relationship Specialty Start Date End Date Iva Jennings APRN [address] [place] [address] PCP - General 03/01/20 documented as of this encounter
--- OUTSIDE RECORDS SUMMARY | 2024-11-09 10:10 | XMS_ITS | Encounter Summary ---
Author Organization [facility] [place] [address] Care Team Providers Care Bioinformatics Software Engineer Name Role Phone Siva Tomlinson MD Primary Care Provider [phone] Encounter Details Date Type Department Care Team (Late st Contact Info) Description 09/28/2014 10:00 AM EST Office Visit Dermatology at [address] [address] Arnulfo Mcgrath MD [address] [facility] [place] [address] Dermatofibroma (Primary Dx); Acrochordon Discharge Disposition: Home Social History Tobacco Use Types Packs/Day Years Used Date Smoking Tobacco: Unknown Sex and Gender Information Value Date Recorded Sex Assigned at Not on file Gender Identity Not on file Sexual Orientation Not on file documented as of this encounter Progress Notes * Arnulfo Mcgrath MD - 09/28/2014 10:44 AM EST Problem: Followup lymphocytoma cutis, left upper arm, probable. Susie follows up after seeing me in June. The left arm biopsy site has remained well healed without evidence of any recurrent nodular lesion. The right arm also remains well healed. She has a couple of irritated tags she would like me to treat today. Physical examination confirms likely recurrence at the lymphocytoma cutis site, and the dermatofibroma is unchanged and remains unremarkable. Assessment and Plan: 1. Lymphocytoma cutis, left upper arm, resolved. a. Again believe this is a reactive process, probably due to an arthropod bite or mild injury when she was in [place]. b. No further treatment necessary. Patient reassured. 2. Dermatofibroma, right arm. a. No treatment necessary. 3. Irritated tags, left base of neck. a. Sites were anesthetized and removed with electrodesiccation. Recommend return to clinic p.r.n. for new lesions/concerns. COPY: Saadia [email or web address] documented in this encounter Plan of Treatment Not on file documented as of this encounter Visit Diagnoses Diagnosis Dermatofibroma- Primary Benign neoplasm of skin, site unspecified Acrochordon Unspecified hypertrophic and atrophic condition of skin documented in this encounter Care Teams Bioinformatics Software Engineer Relationship Specialty Start Date End Date Siva Tomlinson MD [address] [place] [address] PCP - General 06/28/14 documented as of this encounter
--- OUTSIDE RECORDS SUMMARY | 2024-11-09 10:10 | XMS_ITS | Encounter Summary ---
Author Organization [facility] Address [address] [place] [address] Care Team Providers Care Insurance Attorney Name Role Phone Iva Jennings APRN Primary Care Provider [phone] Reason for Visit * Reason Onset Date Comments Medications Refill 01/11/2024 Encounter Details Date Type Department Care Team (Late st Contact Info) Description 01/11/2024 Refill [facility] Adult Hematology & Oncology [address] [place] [phone] Darleen Perdomo RN Medications Refill Social History Tobacco Use [...] Tablet by mouth daily. 90 Tablet 3 01/11/2024 07/13/2024 documented in this encounter Miscellaneous Notes * Telephone Encounter - Darleen Perdomo RN - 01/11/2024 1541 EDT Message left on rx line - requesting refill of Letrozole 2.5mg - [facility] to [facility]. Last seen:10/19/2023 Last office visit RA 07/13/23 Plan: -Continue letrozole 2.5 mg daily -Calcium 1000 mg and Vit D3 1000IU daily -Repeat DEXA scan -Annual MMG (due 04/2024) -F/U with Dr. Tapia on 12/10/23 -Return for follow-up in 1 year. Pending visit RA 07/13/24 Last filled 10/19/2023 - Dr. Gallego - Please sign attached. documented in this encounter Plan of Treatment Upcoming Encounters Date Type Department Care Team (Late st Contact Info) Description 11/09/2024 15:45 EST Procedure visit [facility] Orthopedics & Sport Medicine [address] [place] [phone] Leann Holland, GLAZING SUPERINTENDENT [address] [place] [address] 11/16/2024 15:45 EST Procedure visit [facility] Orthopedics & Sport Medicine [address], [address] [place] [phone] Leann Holland, GLAZING SUPERINTENDENT [address] [place] [address] 07/17/2025 15:30 EDT Office Visit [facility] Adult Hematology & Oncology [address] [place] [phone] Jimmy Gallego MD [address] [place] [address] [address] [place] [address] documented as of this encounter Visit Diagnoses Not on filedocumented in this encounter Discontinued Medications Medication Sig Discontinue Reason Start Date End Da te letrozole (FEMARA) 2.5 mg tablet Take 1 Tablet by mouth daily. Reorder 10/19/2023 01/11/2024 documented as of this encounter Care Teams Insurance Attorney Relationship Specialty Start Date End Date Iva Jennings APRN [address] [phone] PCP - General 03/01/20 documented as of this encounter
--- OUTSIDE RECORDS SUMMARY | 2024-11-09 10:10 | XMS_ITS | Encounter Summary ---
Author Organization [facility] [place] [address] Care Team Providers Care Human Resources Trainee Name Role Phone Siva Tomlinson MD Primary Care Provider [phone] Reason for Visit * Reason Comments Skin Check Encounter Details Date Type Department Care Team (Late st Contact Info) Description 06/28/2014 10:00 AM EDT Office Visit Dermatology at [address] [place] [address] Arnulfo Mcgrath MD [address] [facility] D[facility]Y [place], [place] [phone] Lymphocytoma cutis (Primary Dx); Dermatofibroma Discharge Disposition: Home Social History Tobacco Use Types Packs/Day Years Used Date Smoking Tobacco: Unknown Sex and Gender Information Value Date Recorded Sex Assigned at Not on file Gender Identity Not on file Sexual Orientation Not on file documented as of this encounter Patient Instructions * Patient Instructions* Adamaris Hess LPN - 06/28/2014 10:42 AM EDT Images from the original note were not included. [facility] Moles: After Your Visit Your Care Instructions Moles are skin growths made up of cells that produce color (pigment). A mole can appear anywhere onthe skin, alone or in groups. Most people get a few moles during their first 20 years of life. Theyare usually brown in color but can be blue, black, or flesh-colored. Most moles are harmless and donot cause pain or other symptoms, unless you rub them or they bump against something. You usually do not need treatment for moles. But some can turn into cancer. Talk to your doctor if a mole bleeds, itches, marsh, or changes size or color. Also let your doctor know if you get a new mole. Make sure to wear sunscreen and other sun protection every day to help prevent skin cancer. Follow-up care is a yao part of your treatment and safety. Be sure to make and go to all appointments, and call your doctor if you are having problems. It???s also a good idea to know your test results and keep a list of the medicines you take. How can you care for yourself at home? ?? Check all the skin on your body once a month for skin growths or other changes, such as in the color and feel of the skin. ?? flight line mechanic front of a full-length mirror. Look carefully at the front and back of your body. Then look at your right and left sides with your arms raised. ?? Bend your elbows and look carefully at your forearms, the back of your upper arms, and your palms. ?? Look at your feet, the bottoms of your feet, and the spaces between your toes. ?? Use a hand mirror to look at the back of your legs, the back of your neck, and your back, rear end (buttocks), and genital area. Part the hair on your head to look at your scalp. ?? If you see a change in a skin growth, contact your doctor. Look for: ?? A mole that bleeds. ?? A fast-growing mole. ?? A scaly or crusted growth on the skin. ?? A sore that will not heal. To prevent skin cancer ?? Always wear sunscreen on exposed skin. Make sure the sunscreen blocks ultraviolet rays (both UVAand UVB) and has a sun protection factor (SPF) of at least 15. Use it every day, even when it is cloudy. Some doctors may recommend a higher SPF, such as 30. ?? Wear a wide-brimmed hat and long sleeves and pants if you are going to be outdoors for very long. ?? Avoid the sun between 10 a.m. and 4 p.m., which is the peak time for the sun's ultraviolet rays. ?? Avoid sunburns, tanning booths, and sunlamps. ?? Be sure to protect children from the sun. Sunburns in childhood damage the skin and increase therisk of cancer. When should you call for help? Watch closely for changes in your health, and be sure to contact your doctor if: ?? A mole looks different than it did before. It may have changed in size, color, shape, or the wayit looks. ?? You have a new mole. ?? You have a new pimple or skin growth that does not go away. Where can you learn more? Visit our health information library at [email or web address] You can also view health information on [employer], your personal patient account. Log in or sign up today. Enter M489 in the search box to learn more about Moles: After Your Visit. ?? [phone] [employer]. Care instructions adapted under license by [facility]. This care instruction is for use with your licensed healthcare professional. If you have questions about a medical condition or this instruction, always ask your healthcare professional. [employer] disclaims any warranty or liability for your use of this information. Content Version: 9.9.671260; Last Revised: May 23, 2013 documented in this encounter Progress Notes * Arnulfo Mcgrath MD - 06/28/2014 11:05 AM EDT Problem: Skin lesion of concern. Susie is a 64-year-old woman who is referred today by Iva Jennings A.P.R.N., for recently biopsied lesions, one on her left upper arm and one on her right arm. The left upper arm site had developed several days before a trip out to [place] and was a slowly-growing, reddish, firm, papular nodule. The lesion on the right arm had been more stable. Biopsy of the left arm showed changes consistent with a lymphocytoma cutis. A dense nodular lymphocytic dermal infiltrate was noted with normal immunohistochemical staining. The right arm lesion came back showing dermatofibroma. Physical examination reveals a hypertrophic scar on the left upper arm, but no remaining erythema, no induration. The biopsy did show extension of the infiltrate to the deep margin. The right arm site punch biopsy has healed well. The residual dermatofibroma is still present. Assessment and Plan: 1. Lymphocytoma cutis, left upper arm, probable. a. Discussed this as a reactive process to potentially an arthropod bite or mild injury. b. I reassured the patient that I do not highly suspect a true lymphoma or malignant process, but I would like to see her back in three months to reevaluate this site. I expect that the deep margin infiltrate involvement will resolve without further intervention, and I would not recommend reexcision. 2. Dermatofibroma, right arm. a. Patient reassured. b. Discussed diagnosis and etiology. c. Return to clinic in three months for repeat check. COPY: Iva Jennings A.P.R.N. documented in this encounter Plan of Treatment Not on file documented as of this encounter Visit Diagnoses Diagnosis Lymphocytoma cutis- Primary Other specified disorder of skin Dermatofibroma Benign neoplasm of skin, site unspecified documented in this encounter Care Teams Human Resources Trainee Relationship Specialty Start Date End Date Siva Tomlinson MD [address] [place] [address] PCP - General 06/28/14 documented as of this encounter
--- OUTSIDE RECORDS SUMMARY | 2024-11-09 10:10 | XMS_ITS | Encounter Summary ---
Author Organization [facility] Address [address] [place] [address] Care Team Providers Care Radiator Repairer Name Role Phone Iva Jennings APRN Primary Care Provider +1 [phone] Reason for Visit * Reason Comments Follow-up Encounter Details Date Type Department Care Team (Late st Contact Info) Description 05/24/2023 13:00 EDT Office Visit [facility] Orthopedics & Sport Medicine [address] [place] [address] Leann Holland, FRANK [address] [facility] [address] [place] [address] Osteoarthritis of right knee, unspecified [...] Progress Notes * Leann Holland NP - 05/24/2023 1300 EDTAssociated Order(s): Large Joint Injection/Arthrocentesis: R knee Post-Procedure Diagnose(s): Osteoarthritis of right knee, unspecified osteoarthritis type PROBLEM: Right knee osteoarthritis; Euflexxa #2 of 3 SUBJECTIVE: Susie Mayfield is a 73 y.o. female with established right knee OA who is here for Euflexxa #2 of 3 right knee. The past medical, [...] and all question answered. Follow up in 1 week for injection #3. Procedure: Large Joint Injection/Arthrocentesis: R knee on 05/24/2023 13:00 Medications: 2 mL sodium hyaluronate 10 mg/mL(mw 2.4 -3.6 million); 3 mL lidocaine (PF) 10 mg/mL (1%) Outcome: tolerated well, no immediate complications Leann Holland NP 05/24/2023 documented in this encounter Plan of Treatment Upcoming Encounters Date Type Department Care Team (Late st Contact Info) Description 11/09/2024 15:45 EST Procedure visit [facility] Orthopedics & Sport Medicine [address] [place], [place] [id number] Leann Holland NP [address] [facility] [address] [place], [place] [id number] 11/16/2024 15:45 EST Procedure visit [facility] Orthopedics & Sport Medicine [address] [place], [place] [phone] Leann Holland NP [address] [facility] [address] [place], [place] [phone] 07/17/2025 15:30 EDT Office Visit [facility] Adult Hematology & Oncology [facility] [place] [address] Jimmy Gallego MD [address] [facility] [address] [place] [address] documented as of this encounter Procedures Procedure Name Priority Date/Time Associated Diagnosis Comments LARGE JOINT INJECTION/ARTHROCE NTESIS Routine 05/24/2023 13:00 EDT Osteoarthritis of right knee, unspecified osteoarthritis type documented in this encounter Results * AL ARTHROCENTESIS ASPIR&/INJ MAJOR JT/BURSA W/O US (05/24/2023 13:00 EDT) Narrative [facility] POINT OF CARE - 05/24/2023 13:00 EDT Leann Holland NP ? 05/24/2023 13:18 Large Joint Injection/Arthrocentesis: R knee on 05/24/2023 13:00 Medications: 2 mL sodium hyaluronate 10 mg/mL(mw 2.4 -3.6 million); 3 mL lidocaine (PF) 10 mg/mL (1 %) Outcome: tolerated well, no immediate complications Leann Hloland OPERATIONS SUPERVISOR CHEMICAL CLEANING PROCEDURE/MINOR SURGICAL ORD ERABLES Final Result [facility] POINT OF CARE documented in this encounter Visit Diagnoses Diagnosis Osteoarthritis of right knee, unspecified osteoarthritis type- Primary documented in this encounter Administered Medications Inactive Administered Medications - up to 3 most recent administrations Medication Order MAR Action Action Date Dose Rate Site lidocaine (PF) 10 mg/mL (1 %) injection 3 mL 3 mL, other, Once PRN Procedure, 1 dose, Starting on Wed05/24/23 at 1300, Until Wed05/24/23 at 1300, RoutineIndications:Osteoarthritis of right knee, unspecified osteoarthritis type Given 05/24/2023 13:00 EDT 3 mL sodium hyaluronate (EUFLEXXA) syringe 2 mL 2 mL, intra-articular, Once PRN Procedure, 1 dose, Starting on Wed05/24/23 at 1300, Until Wed05/24/23 at 1300, RoutineIndications:Osteoarthritis of right knee, unspecified osteoarthritis type Given 05/24/2023 13:00 EDT 2 mL documented in this encounter Care Teams Radiator Repairer Relationship Specialty Start Date End Date Iva Jennings APRN [address] [place] [phone] PCP - General 03/01/20 documented as of this encounter
--- OUTSIDE RECORDS SUMMARY | 2024-11-09 10:10 | XMS_ITS | Encounter Summary ---
Author Organization [facility] Address [address] [place] [address] Care Team Providers Care Story Reader Name Role Phone Iva Jennings APRN Primary Care Provider [phone] [phone] Reason for Visit * Reason Onset Date Comments Medications Refill 05/26/2023 Encounter Details Date Type Department Care Team (Late st Contact Info) Description 05/26/2023 Refill [facility] Adult Hematology & Oncology [address] [place] [phone] Ashley Denis RN Medications Refill Social History Tobacco Use [...] Tablet by mouth daily. 90 Tablet 1 05/26/2023 07/21/2023 documented in this encounter Miscellaneous Notes * Telephone Encounter - Ashley Denis RN - 05/26/2023 0939 EDT Refill request to script line for letrozole 2.5 mg tablet. Last filled: 01/20/23 Last seen: 05/25/22 (Dr. Blackman) Pending OV 07/13/23 w/ Dr. Gallego. Karie - Please review and sign if agree. documented in this encounter Plan of Treatment Upcoming Encounters Date Type Department Care Team (Late st Contact Info) Description 11/09/2024 15:45 EST Procedure visit [facility] Orthopedics & Sport Medicine [address] [place], [place] [phone] Lenan Holland P, JEWELRY DESIGNER [address] [place] [phone] 11/16/2024 15:45 EST Procedure visit [facility] Orthopedics & Sport Medicine [address] [place], [place] [phone] Leann Holland, JEWELRY DESIGNER [address] [place] [phone] 07/17/2025 15:30 EDT Office Visit [facility] Adult Hematology & Oncology [facility] [place] [address] Jimmy Gallego MD [address] [facility] [address] [place] [phone] documented as of this encounter Visit Diagnoses Not on filedocumented in this encounter Discontinued Medications Medication Sig Discontinue Reason Start Date End Da te letrozole (FEMARA) 2.5 mg tablet Take 1 Tablet by mouth daily. Reorder 01/20/2023 05/26/2023 documented as of this encounter Care Teams Story Reader Relationship Specialty Start Date End Date Iva Jennings APRN [address] [place] [phone] PCP - General 03/01/20 documented as of this encounter
--- OUTSIDE RECORDS SUMMARY | 2024-11-09 10:10 | XMS_ITS | Encounter Summary ---
Author Organization [facility] Address [address] [place] [address] Care Team Providers Care Water Mechanic Name Role Phone Iva Jennings APRN Primary Care Provider [phone] [phone] Reason for Visit * Reason Comments Follow-up Encounter Details Date Type Department Care Team (Late st Contact Info) Description 12/10/2023 11:20 EST Office Visit [facility] Surgical Oncology - [facility] [address] [place], [place] [address] Elizabeth Tapia, DO [address] [facility], [facility] [address] [place] [address] Malignant neoplasm of central portion [...] Progress Notes * Elizabeth Tapia, DO - 12/10/2023 1120 EST Subjective: Patient ID: Susie Mayfield is an 73 y.o. female. Chief Complaint Patient presents with Follow-up HPI Susie Mayfield is seen in 1-year followup for her left breast cancer. As you recall, this is a patient that had a screen detected finding identified in 02/2019 in the left breast. 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 She went on to a partial mastectomy and sentinel lymph node biopsy in 04/2019. This returned back a finding of approximately 0.4 cm cancer. There was an obvious biopsy site, but no additional tumor identified. The lymph nodes were 0 to 2 positive. She met with radiation oncology to discuss this and felt that she would not receive a significant benefit from radiation. She is now taking letrozole and does not appreciate any significant side effects from that medication. The plan is to keep her on it for a total of 5 years which will end this June. She denies any significant changes in herself breast exam. Patient Active Problem List Diagnosis Malignant neoplasm of central portion of left breast in female, estrogen receptor positive (HCC-CMS) Arthritis of right knee Past Medical History: Diagnosis Date Breast cancer, left (HCC-CMS) 2019 Hypertension Past Surgical History: Procedure Laterality Date APPENDECTOMY AXILLARY NODE DISSECTION BREAST LUMPECTOMY Left 2019 BREAST SURGERY Left 04/2019 Partial mastectomy and SLNBx SECTION CHOLECYSTECTOMY Family History Problem Relation Age of Onset Breast Cancer Mother 60 Ovarian Cancer Neg Hx Social Social History Tobacco Use Smoking status: Never Smokeless tobacco: Never Vaping Use Vaping Use: Never used Substance Use Topics Drug use: Never Current Outpatient Medications on File Prior to Visit Medication Sig Dispense Refill amitriptyline (ELAVIL) 10 mg tablet Take 1 [...] file prior to visit. Allergies Allergen Reactions Ethyl Chloride Latex, Natural Rubber Itching Other - See Comments Hives, Itching and Other (See Comments) Almost every animal & pollen - sneezing Adhesive Itching Review of Systems Constitutional: Negative for chills, fever and weight loss. HENT: Negative for hearing loss. Eyes: Negative for blurred vision, double vision and photophobia. Respiratory: Negative for cough, shortness of breath and wheezing. Cardiovascular: Negative for chest pain and palpitations. Gastrointestinal: Negative for abdominal pain, heartburn, nausea and vomiting. Genitourinary: Negative for dysuria, frequency and urgency. Neurological: Negative for sensory change, focal weakness and headaches. - See HPI Objective: There were no vitals taken for this visit. Physical Exam Constitutional: General: She is not [...] She has a surgical scar on the superior pole of the left breast with minimal retraction in that area, ultrasound is undertaken which shows hypoechoic avascular scar tissue that is not viewed with concern and shows normal-appearing lymph nodes in the axilla. There is no nipple inversion or discharge. There are no axillary masses. Assessment: Susie is seen in the office today in 1 year follow-up for her left breast cancer. On examination today there is no evidence of recurrent disease. At this point she is 5 years out from her diagnosis so I will start to follow with her on an as-needed basis. She knows that if she develops any new or worrisome symptoms she should reach out to us. She is also aware that she should continue to do mammograms yearly and follow with her primary care for clinical exam. Our door is always open to her and it has been a pleasure working with her. Plan: (C50.112, Z17.0) Malignant neoplasm of central portion of left breast in female, estrogen receptor positive (HCC-CMS) (primary encounter diagnosis) Elizabeth Tapia DO No orders of the defined types were placed in this encounter. documented in this encounter Plan of Treatment Upcoming Encounters Date Type Department Care Team (Late st Contact Info) Description 11/09/2024 15:45 EST Procedure visit [facility] Orthopedics & Sport Medicine [address] [place] [address] Leann Holland NP [address] [facility] [address] [place], [place] [phone] 11/16/2024 15:45 EST Procedure visit [facility] Orthopedics & Sport Medicine [address] [place] [address] Leann Holland, EMERGENCY VEHICLE DRIVER [address] [facility] [address] [place] [address] 07/17/2025 15:30 EDT Office Visit [facility] Adult Hematology & Oncology [address] [place] [address] Jimmy Gallego MD [address] [facility] [address] [place] [address] documented as of this encounter Procedures Procedure Name Priority Date/Time Associated Diagnosis Comments ORDERS - SCANNED 12/16/2023 10:17 EST documented in this encounter Results * ORDERS - SCANNED (12/16/2023 10:17 EST) 12/16/2023 10:1 7 EST us Scan 2 Rehab Spec ADMISSION ORDERABLES Final Result documented in this encounter Visit Diagnoses Diagnosis Malignant neoplasm of central portion of left breast in female, estrogen receptor positive (HCC-CMS)- Primary documented in this encounter Care Teams Water Mechanic Relationship Specialty Start Date End Date Iva Jennings APRN [address] [facility] [address] [place] [address] PCP - General 03/01/20 documented as of this encounter
--- OUTSIDE RECORDS SUMMARY | 2024-11-09 10:10 | XMS_ITS | Encounter Summary ---
Author Organization [facility] Address [address] [place] [address] Care Team Providers Care Concrete Bucket Loader Name Role Phone Iva Jennings APRN Primary Care Provider [phone] [phone] Reason for Visit * Reason Comments Follow-up Encounter Details Date Type Department Care Team (Late st Contact Info) Description 05/17/2023 11:30 EDT Office Visit [facility] Orthopedics & Sport Medicine [address] [place] [address] Leann Holland, FRANK [address] [facility] [address] [place] [address] Osteoarthritis of right knee, unspecified [...] this encounter Progress Notes * Leann Holland, CONTENT CHECKER - 05/17/2023 1130 EDTAssociated Order(s): Large Joint Injection/Arthrocentesis Post-Procedure Diagnose(s): Osteoarthritis of right knee, unspecified osteoarthritis type PROBLEM: Right knee osteoarthritis; Euflexxa #1 of 3 SUBJECTIVE: Susie Mayfield is a 73 y.o. female with established right knee OA who is here today to begin her Euflexxa series right knee. No change in symptoms since last visit. The past medical, family and social history [...] Follow up in 1 week for injection #2. Procedure: Large Joint Injection/Arthrocentesis on 05/17/2023 11:30 Medications: 2 mL sodium hyaluronate 10 mg/mL(mw 2.4 -3.6 million); 3 mL lidocaine (PF) 10 mg/mL (1%) Outcome: tolerated well, no immediate complications This note was prepared using voice recognition software and the EMR. There may be inadvertent errors and omissions. Leann Holland APRN 05/17/2023 documented in this encounter Plan of Treatment Upcoming Encounters Date Type Department Care Team (Late st Contact Info) Description 11/09/2024 15:45 EST Procedure visit [facility] Orthopedics & Sport Medicine [address] [place] [address] [place] [address] [place] [address] [address] [place] [address] 11/16/2024 15:45 EST Procedure visit [facility] Orthopedics & Sport Medicine [address] [place] [address] [place] [address] [place] [address] [address] [place] [address] 07/17/2025 15:30 EDT Office Visit [facility] Adult Hematology & Oncology [facility] [place] [address] Jimmy Gallego MD [address] [facility] [address] [place] [address] documented as of this encounter Procedures Procedure Name Priority Date/Time Associated Diagnosis Comments LARGE JOINT INJECTION/ARTHROCE NTESIS Routine 05/17/2023 11:30 EDT Osteoarthritis of right knee, unspecified osteoarthritis type documented in this encounter Results * [place] ARTHROCENTESIS ASPIR&/INJ MAJOR JT/BURSA W/O US (05/17/2023 11:30 EDT) Narrative [facility] POINT OF CARE - 05/17/2023 11:30 EDT Leann Holland NP ? 05/17/2023 12:11 Large Joint Injection/Arthrocentesis on 05/17/2023 11:30 Medications: 2 mL sodium hyaluronate 10 mg/mL(mw 2.4 -3.6 million); 3 mL lidocaine (PF) 10 mg/mL (1 %) Outcome: tolerated well, no immediate complications Leann Holland NP PROCEDURE/MINOR SURGICAL ORD ERABLES Final Result [facility] [...] Once PRN Procedure, 1 dose, Starting on Wed05/17/23 at 1130, Until Wed05/17/23 at 1130, RoutineIndications:Osteoarthritis of right knee, unspecified osteoarthritis type Given 05/17/2023 11:30 EDT 3 mL sodium hyaluronate (EUFLEXXA) syringe 2 mL 2 mL, intra-articular, Once PRN Procedure, 1 dose, Starting on Wed05/17/23 at 1130, Until Wed05/17/23 at 1130, RoutineIndications:Osteoarthritis of right knee, unspecified osteoarthritis type Given 05/17/2023 11:30 EDT 2 mL documented in this encounter Care Teams Concrete Bucket Loader Relationship Specialty Start Date End Date Iva Jennings APRN [address] [place] [address] PCP - General 03/01/20 documented as of this encounter
--- OUTSIDE RECORDS SUMMARY | 2024-11-09 10:10 | XMS_ITS | Encounter Summary ---
Author Organization [facility] Address [address] [place] [address] Care Team Providers Care Steam Table Worker Name Role Phone Iva Jennings APRN Primary Care Provider [phone] [phone] Reason for Referral * Radiology Services (Routine/Next Available) - Specialty Report Received Specialty Diagnoses / Procedures Referred By Lisbet olivas Referred To Contact Diagnoses Encounter for screening mammogram for malignant neoplasm of breast Procedures MA BREAST SCREENING ELSA BILATERAL MA BREAST SCREENING ELSA BILATERAL Jimmy Gallego MD [address] [place] [address] [address] [place] [address] Phone: tel: fax: [facility] Referral ID Status Reason Start Date Expiration Date V isits Requested Visits Authorized [id number] Specialty Report Received 07/13/2023 1 1 Reason for Visit * Radiology Services (Routine/Next Available) - Specialty Report Received Specialty Diagnoses / Procedures Referred By Lisbet olivas Referred To Contact Diagnoses Encounter for screening mammogram for malignant neoplasm of breast Procedures MA BREAST SCREENING ELSA BILATERAL MA BREAST SCREENING ELSA BILATERAL Jimmy Gallego MD [address] [place] [address], [facility] [address] [place] [address] Phone: tel: fax: [facility] Referral ID Status Reason Start Date Expiration Date V isits Requested Visits Authorized [id number] Specialty Report Received 07/13/2023 1 1 Encounter Details Date Type Department Care Team (Latest Contact Info) Description 05/12/2024 11:03 EDT - 05/12/2024 23:59 EDT Hospital Encounter [facility] Mammography [address] [place] [address] Encounter for screening mammogram for malignant neoplasm of breast Discharge Disposition: Home or Self Care Social [...] Sign Reading Time Taken Comments Blood Pressure - - Pulse - - Temperature - - Respiratory Rate - - Oxygen Saturation - - Inhaled Oxygen Concentration - - Weight 90.7 kg (200 lb) 05/12/2024 1109 EDT Height 162.6 cm (5' 4) 05/12/2024 1109 EDT Body Mass Index 34.33 05/12/2024 1109 EDT documented in this encounter [...] by mouth daily. 90 Tablet 3 01/11/2024 4 documented as of this encounter Discharge Disposition Disposition Code Departure Means Destination Home or Self Care documented in this encounter Plan of Treatment Upcoming Encounters Date Type Department Care Team (Late st Contact Info) Description 11/09/2024 15:45 EST Procedure visit [facility] Orthopedics & Sport Medicine [address] [place] [address] Leann Holland, SUPERVISOR HISTOLOGY [address] [place] [address] 11/16/2024 15:45 EST Procedure visit [facility] Orthopedics & Sport Medicine [address] [place], [place] [phone] Leann Holland, SUPERVISOR HISTOLOGY [address] [place] [phone] 07/17/2025 15:30 EDT Office Visit [facility] Adult Hematology & Oncology [address] [place] [address], [place] [address] Jimmy Gallego MD [address] [facility] [address] [place] [phone] documented as of this encounter Procedures Procedure Name Priority Date/Time Associated Diagnosis Comments MA BREAST SCREENING ELSA BILATERAL Routine 05/12/2024 11:29 EDT Encounter for screening mammogram for malignant neoplasm of breast documented in this encounter Results * MA BREAST SCREENING ELSA BILATERAL (05/12/2024 11:29 EDT) Anatomical Region Laterality Modality Breast Bilateral Mammography 05/12/2024 12:0 0 EDT Impressions 05/12/2024 12:00 EDT Negative, no evidence of malignancy. RECOMMENDATION: Routine screening mammography is recommended. OVERALL ASSESSMENT: BI-RADS 1: Negative These results will be communicated to your patient via a lay letter from Radiology. If any additional imaging is needed we will contact your patient directly. [id number] Narrative 05/12/2024 12:00 EDT MA BREAST SCREENING ELSA BILATERAL ??05/12/2024 11:08 AM History: breast cancer on surveillance;Z12.31:Encounter for screening mammogram for malignant neoplasm of breast Comparison: ??Comparison has been made to previous images . ? Technique: Routine 3D tomosynthesis with synthesized 2D views with CAD Breast Composition: There are scattered areas of fibroglandular density. Bilateral Breast Findings: ??No significant masses, calcifications or other abnormalities are seen. There are post therapeutic changes in the left breast. Resulting Agency Comment [id number] Procedure Note Montez Mejia MD - 05/12/2024 MA BREAST SCREENING ELSA BILATERAL 05/12/2024 11:08 AM History: breast cancer on surveillance;Z12.31:Encounter for screeningmammogram for malignant neoplasm of breast Comparison: Comparison has been made to previous images . Technique: Routine 3D tomosynthesis with synthesized 2D views with CAD Breast Composition: There are scattered areas of fibroglandular density. Bilateral Breast Findings: No significant masses, calcifications or otherabnormalities are seen. There are post therapeutic changes in the leftbreast. IMPRESSION Negative, no evidence of malignancy. RECOMMENDATION: Routine screening mammography is recommended. OVERALL ASSESSMENT: BI-RADS 1: Negative These results will be communicated to your patient via a lay letter fromRadiology. If any additional imaging is needed we will contact yourpatient directly. [id number] Jimmy Gallego MD IMG MAMMOGRAPHY ORDERABLES Final Result documented in this encounter Visit Diagnoses Diagnosis Encounter for screening mammogram for malignant neoplasm of breast Other screening mammogram documented in this encounter Care Teams Steam Table Worker Relationship Specialty Start Date End Date Iva Jennings APRN [address] [place] [phone] PCP - General 03/01/20 documented as of this encounter
--- OUTSIDE RECORDS SUMMARY | 2024-11-09 10:10 | XMS_ITS | Encounter Summary ---
Author Organization [facility] Address [address] [place] [address] Care Team Providers Care Child Care Teacher Name Role Phone Iva Jennings APRN Primary Care Provider [phone] [phone] Reason for Visit * Reason Onset Date Comments Results 05/15/2024 Mammo Encounter Details Date Type Department Care Team (Late st Contact Info) Description 05/15/2024 Telephone [facility] Adult Hematology & Oncology [facility] [place], [place] [id number] Jimmy Gallego MD [address] [place] [address] [address] [place] [address] Results (Mammo) Social History Tobacco Use Types Packs/Day Years [...] Telephone Encounter - Jeana Hyman RN - 05/15/2024 1352 EDT Called patient and gave the below information, verbalized understanding. * Telephone Encounter - Jimmy Gallego MD - 05/15/2024 1340 EDT Please let pt know that the mammogram was normal. No evidence of malignancy. documented in this encounter Plan of Treatment Upcoming Encounters Date Type Department Care Team (Late st Contact Info) Description 11/09/2024 15:45 EST Procedure visit [facility] Orthopedics & Sport Medicine [address], [address] [place] [phone] Leann Holland P, TRAPEZE ARTIST [address] [place] [phone] 11/16/2024 15:45 EST Procedure visit [facility] Orthopedics & Sport Medicine [address], [address] [place] [phone] Leann Holland, TRAPEZE ARTIST [address] [place] [address] 07/17/2025 15:30 EDT Office Visit [facility] Adult Hematology & Oncology [address] [place] [address], [place] [id number] Jimmy Gallego MD [address] [place] [address] [address] [place] [phone] documented as of this encounter Visit Diagnoses Not on filedocumented in this encounter Care Teams Child Care Teacher Relationship Specialty Start Date End Date Iva Jennings APRN [address] [place] [address] PCP - General 03/01/20 documented as of this encounter
--- OUTSIDE RECORDS SUMMARY | 2024-11-09 10:10 | XMS_ITS | Referral Summary ---
Author Organization [facility] Address [address] [place] [address] Care Team Providers Care Supervisor Customer Services Name Role Phone Iva Jennings APRN Primary Care Provider [phone] [phone] Encounters Date Type Department Care Team Description 11/02/2024 15:15 EST Procedure visit [facility] Orthopedics & Sport Medicine [address], [address] [place], [place] [phone] Leann Holland, POLICE OFFICER BOOKING Primary osteoarthritis of right knee (Primary Dx) 10/20/2024 Telephone [facility] Orthopedics & Sport Medicine [address], [address] [place], [place] [phone] Leann Holland, POLICE OFFICER BOOKING Prior Auth, Medication 10/19/2024 16:00 EST Procedure visit [facility] Orthopedics & Sport Medicine [address], [address] [place], [place] [phone] Leann Holland, POLICE OFFICER BOOKING Osteoarthritis of right knee, unspecified osteoarthritis type (Primary Dx) 09/12/2024 Telephone [facility] Orthopedics & Sport Medicine [address], [address] [place], [place] [phone] Leann Holland, POLICE OFFICER BOOKING Injections from Last 3 Months Allergies Active Allergy Reactions Criticality Noted Date [...] left breast in female, estrogen receptor positive ([facility]) 04/07/2019 Cancer Staging:Clinical:Stage IA(cT1, cN0, cM0, G2, ER: Positive, IN: Negative, HER2: Negative) - Signed by Elizabeth Tapia Do, DO on 04/07/2019 Social History Tobacco Use Types Packs/Day Years [...] 9:48 EDT Sexual Orientation Not on file Last Filed Vital Signs Vital Sign Reading [...] Body Mass Index 33.47 05/12/2024 1109 EDT Functional Status * Because of a physical, mental, or emotional condition, does this person have difficulty doing errands alone such as visiting a doctor's office or shopping? Answer Date of Assessment Author Yes 04/07/2019 9:57 EDT Mental Status * Because of a physical, mental, or emotional condition, does this person have serious difficulty concentrating, remembering, or making decisions? Answer Entry Date Author Yes 04/07/2019 9:57 EDT Plan of Treatment Upcoming Encounters Date Type Department Care Team (Late st Contact Info) Description 11/09/2024 15:45 EST Procedure visit [facility] Orthopedics & Sport Medicine [address], [address] [place] [address] Leann Holland POLICE OFFICER BOOKING [address] [place] [address] 11/16/2024 15:45 EST Procedure visit [facility] Orthopedics & Sport Medicine [address], [address] [place] [address] Leann Holland, POLICE OFFICER BOOKING [address] [place] [address] [place] [address] 07/17/2025 15:30 EDT Office Visit [facility] Adult Hematology & Oncology [facility] [place], [place] [address] Jimmy Gallego MD [address] [facility], [facility] [address] [place] [address] Procedures Procedure Name Priority Date/Time Associated Diagnosis Comments LARGE JOINT INJECTION/ARTHROCE NTESIS Routine 11/02/2024 15:15 EST Primary osteoarthritis of right knee from Last 3 Months Results * IN ARTHROCENTESIS ASPIR&/INJ MAJOR JT/BURSA W/O US (11/02/2024 15:15 EST) Narrative [facility] POINT OF CARE - 11/02/2024 15:15 [...] to verify the correct patient, procedure, equipment, technical support coordinator and site/side marked as required. Patient was prepped and draped in the usual sterile fashion. us Leann Holland NP PROCEDURE/MINOR SURGICAL ORD ERABLES Final Result [facility] POINT OF CARE from Last 3 Months Insurance [facility] Care Teams Supervisor Customer Services Relationship Specialty Start Date End Date Iva Jennings APRN [address] [place] [address] PCP - General 03/01/20
--- OUTSIDE RECORDS SUMMARY | 2024-11-09 10:10 | XMS_ITS | Encounter Summary ---
Author Organization [facility] Address [address] [place] [address] Care Team Providers Care Steam Clean Machine Operator Name Role Phone Iva Jennings APRN Primary Care Provider [phone] [phone] Reason for Referral * Radiology Services (Routine/Next Available) - Specialty Report Received Specialty Diagnoses / Procedures Referred By [facility] Referred To Contact Diagnoses Malignant neoplasm of central portion of left breast in female, estrogen receptor positive (HCC-CMS) Procedures DXA BONE DENSITY Jimmy Gallego MD Phone: tel: fax: [facility] Referral ID Status Reason Start Date Expiration Date V isits Requested Visits Authorized [id number] Specialty Report Received 07/13/2023 1 1 Reason for Visit * Radiology Services (Routine/Next Available) - Specialty Report Received Specialty Diagnoses / Procedures Referred By [facility] Referred To Contact Diagnoses Malignant neoplasm of central portion of left breast in female, estrogen receptor positive (HCC-CMS) Procedures DXA BONE DENSITY Jimmy Gallego MD Phone: tel: fax: [facility] Referral ID Status Reason Start Date Expiration Date V isits Requested Visits Authorized [id number] Specialty Report Received 07/13/2023 1 1 Encounter Details Date Type Department Care Team (Latest Contact Info) Description 08/17/2023 14:08 EDT - 08/17/2023 23:59 EDT Hospital Encounter [facility] Xray [address] [place] [address] Malignant neoplasm of central portion of left breast in female, estrogen receptor positive ([facility]) Discharge Disposition: Home or Self Care Social [...] by mouth daily. 90 Tablet 3 07/21/2023 4 documented as of this encounter Discharge Disposition Disposition Code Departure Means Destination Home or Self Care documented in this encounter Plan of Treatment Upcoming Encounters Date Type Department Care Team (Late st Contact Info) Description 11/09/2024 15:45 EST Procedure visit [facility] Orthopedics & Sport Medicine [address], [address] [place] [address] Leann Holland, WIND COMMISSIONING TECHNICIAN [address] [place] [address] [place] [address] 11/16/2024 15:45 EST Procedure visit [facility] Orthopedics & Sport Medicine [address], [address] [place] [address] Leann Holland, WIND COMMISSIONING TECHNICIAN [address] [facility] [address] [place] [address] 07/17/2025 15:30 EDT Office Visit [facility] Adult Hematology & Oncology [facility] [place] [address] Jimmy Gallego MD [address] [facility] [address] [place] [address] documented as of this encounter Procedures Procedure Name Priority Date/Time Associated Diagnosis Comments DXA BONE DENSITY Routine 08/17/2023 14:4 4 EDT Malignant neoplasm of central portion of left breast in female, estrogen receptor positive (HCC-CMS) documented in this encounter Results * DXA BONE DENSITY (08/17/2023 14:44 EDT) Anatomical Region Laterality Modality DEXA Narrative 08/18/2023 16:02 EDT Table formatting from the original result was not included. Images from the original result were not included. Indication: postmenopausal; screening for osteoporosis; height loss; cancer; Accession number: [id number] Clinical Information Provided by Patient: Has used [...] (HCC-CMS) documented in this encounter Care Teams Steam Clean Machine Operator Relationship Specialty Start Date End Date Iva Jennings APRN [address] [place] [phone] PCP - General 03/01/20 documented as of this encounter
--- OUTSIDE RECORDS SUMMARY | 2024-11-09 10:10 | XMS_ITS | Encounter Summary ---
Author Organization [facility] Address [address] [place] [address] Care Team Providers Care Blueprint Reader Name Role Phone Iva Jennings APRN Primary Care Provider [phone] [phone] Reason for Visit * Reason Comments Other ZIO patch Encounter Details Date Type Department Care Team (Late st Contact Info) Description 07/05/2023 16:00 EDT Nurse Only [facility] [address] [place] [phone] Nurse, [facility] Chest heaviness (Primary Dx) Social History Tobacco [...] documented in this encounter Progress Notes * Dipika Pierson RN - 07/05/2023 1600 EDT Pt to office for placement of 14 day Zio monitor. Pt aox3 and w/o complaints. Reviewed patient information and instructions with patient who verbalizes understanding. Zio monitor applied to left chest after appropriate skin prep per guidelines from mechanical maintenance foreman. Pt demonstrated pushing event buttonto activate after application. Pt verbalizes understanding of documenting events after pushing the event button. Reviewed troubleshooting the device as well as how to contact the mechanical maintenance foreman help line with questions/concerns. Pt verbalizes understanding of removal and how to mail it back to the mechanical maintenance foreman. documented in this encounter Plan of Treatment Upcoming Encounters Date Type Department Care Team (Late st Contact Info) Description 11/09/2024 15:45 EST Procedure visit [facility] Orthopedics & Sport Medicine [address], [address] [place] [address] Leann Holland, MOLD MAKER [address] [place] [address] [place] [phone] 11/16/2024 15:45 EST Procedure visit [facility] Orthopedics & Sport Medicine [address], [address] [place], [place] [phone] Leann Holland, MOLD MAKER [address] [place] [address] [place] [phone] 07/17/2025 15:30 EDT Office Visit [facility] Adult Hematology & Oncology [address] [place], [place] [phone] Jimmy Gallego MD [address] [facility] [address] [place] [address] documented as of this encounter Visit Diagnoses Diagnosis Chest heaviness- Primary Other chest pain documented in this encounter Care Teams Blueprint Reader Relationship Specialty Start Date End Date Iva Jennings APRN [address] [place] [address] PCP - General 03/01/20 documented as of this encounter
--- OUTSIDE RECORDS SUMMARY | 2024-11-09 10:10 | XMS_ITS | Encounter Summary ---
Author Organization [facility] Address [address] [place] [address] Care Team Providers Care Drapery Rod Assembler Name Role Phone Iva Jennings APRN Primary Care Provider [phone] [phone] Reason for Visit * Reason Comments Injections Encounter Details Date Type Department Care Team (Late st Contact Info) Description 11/02/2024 15:15 EST Procedure visit [facility] Orthopedics & Sport Medicine [address], [address] [place], [place] [phone] Leann Holland, TAPPER OPERATOR [address] [facility] [address] [place] [address] Primary osteoarthritis of right knee (Primary Dx) Social History Tobacco Use Types [...] Progress Notes * Leann Holland NP - 11/02/2024 1515 ESTAssociated Order(s): Large Joint Injection/Arthrocentesis: R knee Post-Procedure Diagnose(s): Primary osteoarthritis of right knee Procedure: Large Joint Injection/Arthrocentesis: R knee on 11/02/2024 15:15 Medications: 2 mL sodium hyaluronate 10 mg/mL(mw 2.4 -3.6 million); 4 mL lidocaine (PF) 10 mg/mL (1%) Outcome: tolerated well, no immediate complications Procedure, treatment alternatives, risks and benefits explained, specific risks discussed. Consent was given by the patient. Immediately prior to procedure a time out was called to verify the correctpatient, procedure, equipment, account support specialist and site/side marked as required. Patient was prepped and draped in the usual sterile fashion. Follow up in 1 week for final injection documented in this encounter Plan of Treatment Upcoming Encounters Date Type Department Care Team (Late st Contact Info) Description 11/09/2024 15:45 EST Procedure visit [facility] Orthopedics & Sport Medicine [address], [address] [place] [address] Leann Holland NP [address] [place] [address] 11/16/2024 15:45 EST Procedure visit [facility] Orthopedics & Sport Medicine [address], [address] [place] [address] Leann Holland NP [address] [place] [phone] 07/17/2025 15:30 EDT Office Visit [facility] Adult Hematology & Oncology [address] [place] [address], [place] [address] Jimmy Gallego MD 130 [facility], [facility] [address] [place] [address] documented as of this encounter Procedures Procedure Name Priority Date/Time Associated Diagnosis Comments LARGE JOINT INJECTION/ARTHROCE NTESIS Routine 11/02/2024 15:15 EST Primary osteoarthritis of right knee documented in this encounter Results * AK ARTHROCENTESIS ASPIR&/INJ MAJOR JT/BURSA W/O US (11/02/2024 15:15 EST) Narrative [facility] POINT OF CARE - 11/02/2024 15:15 EST Leann Holland, FRANK ? 11/02/2024 17:19 Large Joint Injection/Arthrocentesis: R [...] to verify the correct patient, procedure, equipment, account support specialist and site/side marked as required. Patient was prepped and draped in the usual sterile fashion. Leann Holland NP PROCEDURE/MINOR SURGICAL ORD ERABLES Final Result [facility] POINT OF CARE documented in this encounter Visit Diagnoses Diagnosis Primary osteoarthritis of right knee- Primary Primary localized osteoarthrosis, lower leg documented in this encounter Administered Medications Inactive Administered Medications - up to 3 most recent administrations Medication Order MAR Action Action Date Dose Rate Site lidocaine (PF) 10 mg/mL (1 %) injection 4 mL 4 mL, other, Once PRN Procedure, 1 dose, Starting on Yovana 11/02/24 at 1515, Until Yovana 11/02/24 at 1515, RoutineIndications:Primary osteoarthritis of right knee Given 11/02/2024 15:15 EST 4 mL Right Knee sodium hyaluronate (EUFLEXXA) syringe 2 mL 2 mL, intra-articular, Once PRN Procedure, 1 dose, Starting on Yovana 11/02/24 at 1515, Until Yovana 11/02/24 at 1515, RoutineIndications:Primary osteoarthritis of right knee Given 11/02/2024 15:15 EST 2 mL Right Knee documented in this encounter Care Teams Drapery Rod Assembler Relationship Specialty Start Date End Date Iva Jennings APRN [address] [place] [phone] PCP - General 03/01/20 documented as of this encounter
--- OUTSIDE RECORDS SUMMARY | 2024-11-09 10:10 | XMS_ITS | Encounter Summary ---
Author Organization [facility] Address [address] [place] [address] Care Team Providers Care Vocational Education Teacher Name Role Phone Iva Jennings APRN Primary Care Provider [phone] [phone] Reason for Referral * Cardiology (Routine/Next Available) - Specialty Report Received Specialty Diagnoses / Procedures [facility] Referred To Contact Diagnoses Chest heaviness Lower extremity edema Procedures EXTENDED HOLTER MONITOR (7-14 DAY) Stefanie Grossman MD Phone: tel: fax: [facility] Referral ID Status Reason Start Date Expiration Date V isits Requested Visits Authorized [id number] Specialty Report Received 06/10/2023 12/11/2023 1 1 Reason for Visit * Reason Onset Date Comments Cardiac Testing 06/16/2023 ZioPatch Encounter Details Date Type Department Care Team (Late st Contact Info) Description 06/16/2023 Telephone [facility] [address] [place], [place] [address] Stefanie Grossman MD 111 [facility] 1 [place] [address] Cardiac Testing (ZioPatch) Social History Tobacco Use Types Packs/Day Years [...] encounter Miscellaneous Notes * Telephone Encounter - Emre Platt - 06/16/2023 1556 EDT Request received from [facility], Iva Jennings, for Trey, dx: chest heaviness (R07.89), Pedal edema (R60.0.) Request scanned, order needed please documented in this encounter Plan of Treatment Upcoming Encounters Date Type Department Care Team (Late st Contact Info) Description 11/09/2024 15:45 EST Procedure visit [facility] Orthopedics & Sport Medicine [address] [place] [address] Leann Holland, ENVIRONMENTAL OFFICER [address] [place] [address] 11/16/2024 15:45 EST Procedure visit [facility] Orthopedics & Sport Medicine [address], [address] [place] [address] Leann Holland, ENVIRONMENTAL OFFICER [address] [place] [address] 07/17/2025 15:30 EDT Office Visit [facility] Adult Hematology & Oncology [facility] [place] [address] Jimmy Gallgeo MD 130 [facility], [facility] [address] [place] [address] documented as of this encounter Results * EXTENDED HOLTER - [...] No significant AV block. No patient events. us Stefanei Grossman MD CARDIAC SERVICES ORDERABLES Fi nal Result documented in this encounter Visit Diagnoses Diagnosis Chest heaviness- Primary Other chest pain Lower extremity edema Edema Chest heaviness Other chest pain Lower extremity edema Edema documented in this encounter Care Teams Vocational Education Teacher Relationship Specialty Start Date End Date Iva Jennings APRN [address] [facility] [address] [place] [address] PCP - General 03/01/20 documented as of this encounter
--- OUTSIDE RECORDS SUMMARY | 2024-11-09 10:11 | XMS_ITS | Encounter Summary ---
Author Organization [facility] Address [address] [place] [address] Care Team Providers Care Stock Cutter Name Role Phone Iva Jennings APRN Primary Care Provider [phone] Reason for Visit * Reason Onset Date Comments Injections 06/27/2021 Encounter Details Date Type Department Care Team (Late st Contact Info) Description 06/27/2021 Telephone [facility] Medicine [address] [place], [place] [phone] Mara Cooley MD [address] [place] [address] [address] [place] [address] Injections Social History Tobacco Use Types Packs/Day [...] encounter Miscellaneous Notes * Telephone Encounter - Jodi Posada - 07/03/2021 0814 EDT Patient has been scheduled for the orthovisc injections beginning 07/11/21 * Telephone Encounter - Candelaria Ann - 07/02/2021 0828 EDT LVM for patient to call and schedule appts. * Telephone Encounter - Annette Chin RN - 06/30/2021 1324 EDT Initial PA request renewed as the time frame for required information had passed. Cheek: [id number] PA 07/01/21 - the request has been authorized and the PA is good to 07/28/21. Please call patient to schedule * Telephone Encounter - Amrit Ibanez MA - 06/28/2021 0859 EDT Last series was completed 06/25/2020. PA started on CMMM Cheek: [id number] * Telephone Encounter - Candelaria Ann - 06/27/2021 1553 EDT Patient would like to have another round of orthovisc injections in her right knee. documented in this encounter Plan of Treatment Upcoming Encounters Date Type Department Care Team (Late st Contact Info) Description 11/09/2024 15:45 EST Procedure visit [facility] Orthopedics & Sport Medicine [address] [place], [place] [phone] Leann Holland, CHIMNEY BUILDER HELPER 13[address] [facility] [address] [place], [place] [phone] 11/16/2024 15:45 EST Procedure visit [facility] Orthopedics & Sport Medicine [address] [place], [place] [phone] Leann Holland, CHIMNEY BUILDER HELPER 13[address] [facility] [address] [place] [address] 07/17/2025 15:30 EDT Office Visit [facility] Adult Hematology & Oncology [facility] [place] [address] Jimmy Gallego MD 130 [facility] [address] [place] [phone] documented as of this encounter Visit Diagnoses Not on filedocumented in this encounter Care Teams Stock Cutter Relationship Specialty Start Date End Date Iva Jennings APRN 26 [facility] [address] [place] [address] PCP - General 03/01/20 documented as of this encounter
--- OUTSIDE RECORDS SUMMARY | 2024-11-09 10:11 | XMS_ITS | Encounter Summary ---
Author Organization [facility] Address [address] [place] [address] Care Team Providers Care Hospital Admissions Officer Name Role Phone Iva Jennings APRN Primary Care Provider [phone] [phone] Reason for Visit * Reason Comments Follow-up Encounter Details Date Type Department Care Team (Late st Contact Info) Description 12/06/2020 15:20 EST Office Visit [facility] Surgical Oncology - [facility] [address], [place] [address] Elizabeth Tapia, DO 111 [facility], [address] 2 [place] [address] Malignant neoplasm of central portion [...] Exposure Response Date Recorded In the last month, have you been in contact with someone who was confirmed or suspected to have Coronavirus / COVID-19? No / Unsure 12/06/2020 15:24 EST documented as of this encounter Last Filed Vital Signs Vital Sign Reading Time Taken Comments Blood Pressure 143/76 12/06/2020 1528 EST Pulse 87 12/06/2020 1528 EST Temperature 36.1 ??C (96.9 ??F) 12/06/2020 1528 EST Respiratory Rate - - Oxygen Saturation [...] Progress Notes * Elizabeth Tapia, DO - 12/06/2020 1520 EST Subjective: Patient ID: Susie Mayfield is an 70 y.o. female. No chief complaint on file. HPI Susie Mayfield is seen in 6-month followup for her left breast cancer. ??As you recall, this is a patient that had a screen detected finding identified in 02/2019??in the left breast. 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 ??She went on to a partial mastectomy and sentinel lymph node biopsy in 04/2019. ??This returned back [...] any significant side effects from that medication. Susie denies any changes in her self breast exam. She has been struggling with some pretty significant back pain recently from an old injury to her rib. It had her out of work for 2 whole weeks. She is just starting to feel better but one of the medications for that makes her quite sleepy. Patient Active Problem List Diagnosis ??? Malignant neoplasm of central portion of left breast in female, estrogen receptor positive (HCC-CMS) ??? Arthritis of right knee Past Medical History: Diagnosis Date ??? Breast cancer, left (HCC-CMS) 2018 ??? Hypertension Past Surgical History: Procedure Laterality Date ??? APPENDECTOMY ??? BREAST LUMPECTOMY Left 2018 ??? BREAST SURGERY Left 04/2019 Partial mastectomy and SLNBx ??? SECTION ??? CHOLECYSTECTOMY Family History Problem Relation Age of Onset ??? Breast Cancer Mother 60 ??? Ovarian Cancer Neg Hx Social Social History Tobacco Use ??? Smoking status: Never Smoker ??? Smokeless tobacco: Never Used Substance Use Topics ??? Alcohol use: Not on file ??? Drug use: Not on file Current Outpatient Medications on File Prior to Visit Medication Sig Dispense Refill ??? amitriptyline (ELAVIL) 10 mg tablet Take 10 mg by mouth at bedtime as needed. ??? BIOFLAVONOIDS ORAL Take by mouth. ??? calcium carbonate (CALCIUM 500 ORAL) Take by mouth. ??? calcium/mag/vitamin D2/Zn/min (GEOFFREY-MAG ZINC II ORAL) Take by mouth. ??? cetirizine (ZYRTEC) 1 mg/mL solution Take 5 mg by mouth daily. ??? clobetasoL (TEMOVATE) 0.05 % cream Apply topically 2 times daily. ??? glucos sul 2KCl/msm/chond/C/Mn (GLUCOSAMINE CHONDROITIN ORAL) Take by mouth. ??? letrozole (FEMARA) 2.5 mg tablet Take 1 Tab by mouth daily for 90 days. 90 Tab 3 ??? lisinopril (PRINIVIL, ZESTRIL) 5 mg tablet Take 5 mg by mouth daily. ??? mometasone (NASONEX) 50 mcg/actuation nasal spray Instill 2 Sprays into right nostril daily. ??? MULTI-VITAMIN ORAL Take by mouth. ??? pravastatin (PRAVACHOL) 20 mg tablet Take 20 mg by mouth daily. No current facility-administered medications on file prior to visit. Allergies Allergen Reactions ??? Latex, Natural Rubber Itching ??? Other - See Comments Hives, Itching and Other (See Comments) Almost every animal & pollen - sneezing Review of Systems Constitutional: Positive for malaise/fatigue. Negative for chills, fever and weight loss. HENT: Negative for hearing loss. Eyes: Negative for blurred vision, double vision and photophobia. Respiratory: Positive for cough (seasonal allergies). Negative for shortness of breath and wheezing. Cardiovascular: Negative for chest pain and palpitations. Gastrointestinal: Negative for abdominal pain, heartburn, nausea and vomiting. Genitourinary: Negative for dysuria, frequency and urgency. Musculoskeletal: Positive for back pain. Neurological: Negative for sensory change, focal weakness and headaches. - See HPI Objective: There were no vitals taken for this visit. Physical Exam Constitutional: General: She is not in acute distress. Appearance: She is well-developed and well-nourished. HENT: Head: Normocephalic and atraumatic. Eyes: Extraocular Movements: EOM normal. Conjunctiva/sclera: Conjunctivae normal. Pupils: Pupils are equal, round, and reactive to light. Neck: Musculoskeletal: Normal range of motion. Thyroid: No thyromegaly. Cardiovascular: Rate and Rhythm: Regular rhythm. Heart sounds: No murmur. Pulmonary: Effort: Pulmonary effort is normal. No respiratory distress. Breath sounds: Normal breath sounds. Lymphadenopathy: Cervical: No cervical adenopathy. Neurological: Mental Status: She is alert and oriented to person, place, and time. Cranial Nerves: No cranial nerve deficit. Breast: Breasts and axilla are examined in the seated and the supine position. There are no obviousmasses palpated in either breast. She has a surgical scar on the left breast at the 12 o'clock position that is slightly indented. This is stable from her prior exams. There is no nipple inversion ordischarge. There are no axillary masses. Assessment: Susie is seen in the office today in 6-month follow-up for her left breast cancer. On exam today she has no evidence of recurrent disease. She is due for a mammogram in February and I have ordered that for her. I will see her back in 6 months for clinical breast exam sooner if there are any issues. Thank you for allowing me to participate in the care of this very pleasant patient. Plan: No diagnosis found. Elizabeth Tapia DO No orders of the defined types were placed in this encounter. documented in this encounter Plan of Treatment Upcoming Encounters Date Type Department Care Team (Late st Contact Info) Description 11/09/2024 15:45 EST Procedure visit [facility] Orthopedics & Sport Medicine [address] [place], [place] [phone] [place] [address] [place] [address] [address] [place] [address] 11/16/2024 15:45 EST Procedure visit [facility] Orthopedics & Sport Medicine [address] [place], [place] [phone] Leann Holland NP [address] [facility] [address] [place], [place] [id number] 07/17/2025 15:30 EDT Office Visit [facility] Adult Hematology & Oncology [facility] [place] [address] Jimmy Gallego MD [address] [facility] [address] [place] [address] documented as of this encounter Procedures Procedure Name Priority Date/Time Associated Diagnosis Comments ORDERS - SCANNED 02/24/2021 18:20 EDT documented in this encounter Results * ORDERS - SCANNED (02/24/2021 18:20 EDT) 02/24/2021 18:2 0 EDT us Scan 2 Slasher Tender ADMISSION ORDERABLES Final Result documented in this encounter Visit Diagnoses Diagnosis Malignant neoplasm of central portion of left breast in female, estrogen receptor positive (HCC-CMS)- Primary documented in this encounter Care Teams Hospital Admissions Officer Relationship Specialty Start Date End Date Iva Jennings APRN 26 [facility] [address] [place] [address] PCP - General 03/01/20 documented as of this encounter
--- OUTSIDE RECORDS SUMMARY | 2024-11-09 10:11 | XMS_ITS | Encounter Summary ---
Author Organization [facility] Address [address] [place] [address] Care Team Providers Care Director Of Income Tax Name Role Phone Iva Jennings APRN Primary Care Provider [phone] [phone] Reason for Visit * Reason Comments Medications Refill Encounter Details Date Type Department Care Team (Late st Contact Info) Description 07/19/2022 Refill [facility] Adult Hematology & Oncology [address] [place] [id number] [place] [address] [facility] [address] [place] [address] (Fax) Medications Refill Social History Tobacco Use Types [...] Take 1 tablet by mouth once daily 90 Tablet 07/20/2022 10/21/2022 documented in this encounter Miscellaneous Notes * Telephone Encounter - Darleen Perdomo RN - 07/20/2022 0806 EDT Refill request from pharmacy - Last seen: 05/25/2022 Plan: 1. Continue letrozole. 2. Return for follow-up in 1 year. She is following with Dr. Tapia. ?? Last refilled: 08/05/2021 DR. BLACKMAN - Agree w/ attached? documented in this encounter Plan of Treatment Upcoming Encounters Date Type Department Care Team (Late st Contact Info) Description 11/09/2024 15:45 EST Procedure visit [facility] Orthopedics & Sport Medicine [address] [place], [place] [phone] Leann Holland P, BEACH LIFEGUARD [address] [place] [id number] 11/16/2024 15:45 EST Procedure visit [facility] Orthopedics & Sport Medicine [address], [address] [place], [place] [id number] Leann Holland P, BEACH LIFEGUARD [address] [place] [address] [place] [address] 07/17/2025 15:30 EDT Office Visit [facility] Adult Hematology & Oncology [address] [place] [address] Jimmy Gallego MD [address] [facility] [address] [place] [phone] documented as of this encounter Visit Diagnoses Not on filedocumented in this encounter Discontinued Medications Medication Sig Discontinue Reason Start Date End Da te letrozole (FEMARA) 2.5 mg tablet Take 1 Tablet by mouth daily. Reorder 08/05/2021 07/20/2022 documented as of this encounter Care Teams Director Of Income Tax Relationship Specialty Start Date End Date Iva Jennings APRN [address] [place] [address] PCP - General 03/01/20 documented as of this encounter
--- OUTSIDE RECORDS SUMMARY | 2024-11-09 10:11 | XMS_ITS | Encounter Summary ---
Author Organization [facility] Address [address] [place] [address] Care Team Providers Care Cpa Tax Name Role Phone Iva Jennings APRN Primary Care Provider [phone] [phone] Encounter Details Date Type Department Care Team (Late st Contact Info) Description 12/06/2020 Documentation Visit [facility] Infectious Disease - [facility] [address] [place], [place] [phone] Elizabeth Tapia, DO 111 [facility], Level 2 [place] [address] Social History Tobacco Use Types Packs/Day Years [...] Taken Comments Blood Pressure - - Pulse 91 12/06/2020 1515 EST Temperature 36.2 ??C (97.1 ??F) 12/06/2020 1515 EST Respiratory Rate - - Oxygen Saturation 96% 12/06/2020 1515 EST Inhaled Oxygen Concentration - - Weight - [...] documented in this encounter Progress Notes * Madison Jessica RN - 12/06/2020 1515 EST Upon entering the [facility], patient answered yes to one of the screening questions asked by the Welcoming Specialist. Patient referred to the Outpatient Assessment Center (OAC) for additional screening. Upon arrival to the OAC, vital signs completed by Sarita MONTEIRO, while this RN reviewed the patient's chart. Vitals: 12/06/20 1515 Pulse: 91 Temp: 36.2 ??C (97.1 ??F) SpO2: 96% Patient brought to assessment area with this RN. Patient endorses the following COVID-19 symptoms: cough. Pt states allergies, reports using Nasonex, Zyrtec, and Neti Pot daily. Denies other symptoms, sick contacts, or travel. Patient reports an appointment in the Surgical Oncology Clinic today. This RN called clinic and spoke with Edwige RODRIGUES about patient's appointment. Made them aware that patient had symptoms of COVID-19 that were explained by previous diagnosis and/or chronic disease. Sticker applied to entry point screening notification sheet recommending no additional precautions while in the Surgical Oncology Clinic. At conclusion of Outpatient Assessment Center visit, patient sent to appointment. documented in this encounter Plan of Treatment Upcoming Encounters Date Type Department Care Team (Late st Contact Info) Description 11/09/2024 15:45 EST Procedure visit [facility] Orthopedics & Sport Medicine [address] [place], [place] [phone] Leann Holland, MECHANICAL ENGINEERING TEACHER [address] [facility] [address] [place] [address] 11/16/2024 15:45 EST Procedure visit [facility] Orthopedics & Sport Medicine [address] [place] [address] Leann Holland, MECHANICAL ENGINEERING TEACHER [address] [facility] [address] [place] [address] 07/17/2025 15:30 EDT Office Visit [facility] Adult Hematology & Oncology [address] [place] [address] Jimmy Gallego MD 130 [facility] [address] [place] [address] documented as of this encounter Visit Diagnoses Not on filedocumented in this encounter Care Teams Cpa Tax Relationship Specialty Start Date End Date Iva Jennings APRN [address] [place] [address] PCP - General 03/01/20 documented as of this encounter
--- OUTSIDE RECORDS SUMMARY | 2024-11-09 10:11 | XMS_ITS | Encounter Summary ---
Author Organization [facility] Address [address] [place] [address] Care Team Providers Care Sugar Controller Name Role Phone Iva Jennings APRN Primary Care Provider [phone] [phone] Reason for Visit * Reason Comments Injections Encounter Details Date Type Department Care Team (Late st Contact Info) Description 10/15/2022 16:00 EST Office Visit [facility] Orthopedics & Sport Medicine [address] [place], [place] [phone] Leann Holland, FRANK [address] [facility] [address] [place] [address] Osteoarthritis of right knee, unspecified [...] this encounter Progress Notes * Leann Holland, RUG CUTTER - 10/15/2022 1600 EST PROBLEM: Right knee orthovisc #3 of 3 SUBJECTIVE: Susie Mayfield is a 72 y.o. female who is here today for her final orthovisc injection. She has been getting orthovisc injections for years, always tolerated these well. Patient reports after her most recent injection she developed a reaction. Was on the couch at 7pm and developed a headache. Over the following few days this developed into an upper respiratory illness. Denies sick exposure, does not leave her house. Certain this related to the injection or something she inhaled in the office, perhaps the ethyl chloride. Denies problems with the knee after the injection. Knee is doing fine. In hind sight thinks this started after her first injection but it was more mild. The past medical, family and social history [...] Focused exam of the right knee reveals full ROM, minimal pain, nonantalgic gait. No lower leg swelling. ASSESSMENT/PLAN: 72yoF with right knee OA scheduled for her final orthovisc injection today, however developed headache and upper respiratory symptoms for the days following her most recent injectionand she is hesitant to proceed. Discussed that it is unlikely this was related to the injection or the ethyl chroride spray howeverreasonable to wait on further injections at this time. She does have an adhesive allergy, latex allergy and animal and pollen allergy. I provided her with some information on orthovisc and the ethyl chloride. Follow up as needed. If she would like to proceed again recommend doing without ethyl chloride. This note was prepared using voice recognition software and the EMR. There may be inadvertent errors and omissions. Leann Holland APRN 10/15/2022 documented in this encounter Plan of Treatment Upcoming Encounters Date Type Department Care Team (Late st Contact Info) Description 11/09/2024 15:45 EST Procedure visit [facility] Orthopedics & Sport Medicine [address] [place] [address] Leann Holland NP [address] [facility] [address] [place], [place] [phone] 11/16/2024 15:45 EST Procedure visit [facility] Orthopedics & Sport Medicine [address] [place], [place] [address] [place] [address] [place] [address] [place] [phone] 07/17/2025 15:30 EDT Office Visit [facility] Adult Hematology & Oncology [facility] [place] [address] Jimmy Gallego MD 130 [facility] [address] [place] [phone] documented as of this encounter Visit Diagnoses Diagnosis Osteoarthritis of right knee, unspecified osteoarthritis type- Primary documented in this encounter Care Teams Sugar Controller Relationship Specialty Start Date End Date Iva Jennings APRN [address] [place],[facility] [address] [place] [address] PCP - General 03/01/20 documented as of this encounter
--- OUTSIDE RECORDS SUMMARY | 2024-11-09 10:11 | XMS_ITS | Encounter Summary ---
Author Organization [facility] Address [address] [place] [address] Care Team Providers Care Recreation Center Director Name Role Phone Iva Jennings APRN Primary Care Provider [phone] [phone] Reason for Visit * Reason Onset Date Comments Appointment Related 09/16/2020 Encounter Details Date Type Department Care Team (Late st Contact Info) Description 09/16/[address] [facility] Surgical Oncology - [facility] [address] [place], [place] [address] Elizabeth Tapia, DO 111 [facility], [address] [place] [address] Appointment Related Social History Tobacco Use Types Packs/Day Years [...] 15:24 EST documented as of this encounter Functional [...] encounter Miscellaneous Notes * Telephone Encounter - Neyda Cummins - 09/17/2020 0815 EST Returned call to patient: [facility] Elizabeth [facility] the [facility] on 11/19/2020 2 3:20pm. Patient was asked to call and confirm she received the msg. Neyda Cummins 09/17/2020 8:16 * Telephone Encounter - Cesar Saldana - 09/16/2020 1533 EST Patient calling to confirm new appt time. documented in this encounter Plan of Treatment Upcoming Encounters Date Type Department Care Team (Late st Contact Info) Description 11/09/2024 15:45 EST Procedure visit [facility] Orthopedics & Sport Medicine [address], [address] [place] [address] Leann Holland, FRANK [address] [place] [address] 11/16/2024 15:45 EST Procedure visit [facility] Orthopedics & Sport Medicine [address], [address] [place] [address] [place] [address] [place] [address] 07/17/2025 15:30 EDT Office Visit [facility] Adult Hematology & Oncology [address] [place] [address] Jimmy Gallego MD 130 [facility], [facility] [address] [place] [phone] documented as of this encounter Visit Diagnoses Not on filedocumented in this encounter Care Teams Recreation Center Director Relationship Specialty Start Date End Date Iva Jennings APRN 26 [facility] [address] [place] [address] PCP - General 03/01/20 documented as of this encounter
--- OUTSIDE RECORDS SUMMARY | 2024-11-09 10:11 | XMS_ITS | Encounter Summary ---
Author Organization [facility] Address [address] [place] [address] Care Team Providers Care Service Restorer Emergency Name Role Phone Iva Jennings APRN Primary Care Provider [phone] [phone] Reason for Visit * Reason Comments Follow-up Encounter Details Date Type Department Care Team (Late st Contact Info) Description 06/13/2021 11:40 EDT Office Visit [facility] Surgical Oncology - [facility] [address] [place], [place] [id number] Elizabeth Tapia, DO [address] [facility], [facility] [address] [place] [address] Malignant neoplasm of central portion [...] have Coronavirus / COVID-19? No / Unsure 05/26/2021 9:55 EDT documented as of this encounter Last Filed Vital Signs Vital Sign Reading Time Taken Comments Blood Pressure 118/59 06/13/2021 1148 EDT Pulse 89 06/13/2021 1148 EDT Temperature 36.2 ??C (97.1 ??F) 06/13/2021 1148 EDT Respiratory Rate - - Oxygen Saturation - [...] Progress Notes * Elizabeth Tapia, DO - 06/13/2021 1140 EDT Subjective: Patient ID: Susie Mayfield is an 71 y.o. female. Chief Complaint Patient presents with ??? Follow-up HPI Susie Mayfield is seen in 6-month followup for her left breast cancer. ??As you recall, this is a patient that had a screen detected finding identified in 02/2019??in the left breast. 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 ??She went on to [...] any significant side effects from that medication. Her medical oncologist is going to do another bone scan shortly to ensure that her bone density is remaining stable on the medication. She describes being sort of out of sorts for March and April of this year with the stress of Covid finally catching up to her. She is feeling better now. Patient Active Problem List Diagnosis ??? Malignant [...] 1 SPRAY(S) IN EACH NOSTRIL ONCE DAILY ??? calcium carbonate (CALCIUM 500 ORAL) Take by mouth. ??? calcium/mag/vitamin D2/Zn/min (GEOFFREY-MAG ZINC II ORAL) Take by mouth. ??? cetirizine (ZYRTEC) 1 mg/mL solution Take 5 mg by mouth daily. ??? clobetasoL (TEMOVATE) 0.05 % cream Apply topically 2 times daily. ??? glucos sul 2KCl/msm/chond/C/Mn (GLUCOSAMINE CHONDROITIN ORAL) Take by mouth. ??? lisinopril (PRINIVIL, ZESTRIL) 5 mg tablet [...] palpated in either breast. She has a well healed surgical scar on the left with minimal radiation changes to that breast. Ultrasound of that area shows no concerning findings. There is no nipple inversion or discharge. There are no axillary masses. Assessment: Susie is seen in the office today in 6-month follow-up for her left breast cancer. On examination today she has no evidence of recurrent disease. She had her mammogram in February of this year and it was negative. We talked about the fact that I had really like to for her to lose a little bit of the weight that she has on her. She has been trying to exercise in her driveway but has had a family of bears that that made it slightly more challenging. I will see her back in 6 months for clinical exam, sooner if there is any issues. Plan: (C50.112, Z17.0) Malignant neoplasm of central portion of left breast in female, estrogen receptor positive (HCC-CMS) (primary encounter diagnosis) Elizabeth Tapia DO No orders of the defined types were placed in this encounter. documented in this encounter Plan of Treatment Upcoming Encounters Date Type Department Care Team (Late st Contact Info) Description 11/09/2024 15:45 EST Procedure visit [facility] Orthopedics & Sport Medicine [address] [place], [place] [phone] [place] [address] [place] [address] [address] [place], [place] [id number] 11/16/2024 15:45 EST Procedure visit [facility] Orthopedics & Sport Medicine [address] [place] [address] [place] [address] [place] [address] [address] [place], [place] [phone] 07/17/2025 15:30 EDT Office Visit [facility] Adult Hematology & Oncology [facility] [place] [address] Jimmy Gallego MD [address] [place] [address] [address] [place] [address] documented as of this encounter Procedures Procedure Name Priority Date/Time Associated Diagnosis Comments ORDERS - SCANNED 06/24/2021 7:18 EDT documented in this encounter Results * ORDERS - SCANNED (06/24/2021 7:18 EDT) 06/24/2021 7:18 EDT us Scan 2 Windows Server Administrator ADMISSION ORDERABLES Final Result documented in this encounter Visit Diagnoses Diagnosis Malignant neoplasm of central portion of left breast in female, estrogen receptor positive (HCC-CMS)- Primary documented in this encounter Care Teams Service Restorer Emergency Relationship Specialty Start Date End Date Iva Jennings APRN [address],Man[address] [place] [phone] PCP - General 03/01/20 documented as of this encounter
--- OUTSIDE RECORDS SUMMARY | 2024-11-09 10:11 | XMS_ITS | Encounter Summary ---
Author Organization [facility] Address [address] [place] [address] Care Team Providers Care Pinsetter Mechanic Automatic Name Role Phone Iva Jennings APRN Primary Care Provider [phone] Reason for Visit * Reason Comments Injections Encounter Details Date Type Department Care Team (Late st Contact Info) Description 07/11/2021 16:45 EDT Procedure visit [facility] Orthopedics & Sport Medicine [address] [place], [place] [phone] Leann Holland, FRANK [address] [facility] [address] [place] [address] Osteoarthritis of right knee, unspecified [...] have Coronavirus / COVID-19? No / Unsure 07/11/2021 16:43 EDT documented as of this encounter Last Filed Vital Signs Vital Sign Reading Time Taken Comments Blood Pressure - - Pulse - - Temperature 36.7 ??C (98 ??F) 07/11/2021 1645 EDT Respiratory Rate - - Oxygen Saturation [...] this encounter Progress Notes * Leann Holland, PERSONNEL WORKER - 07/11/2021 1645 EDTAssociated Order(s): Large Joint Injection/Arthrocentesis: R knee Post-Procedure Diagnose(s): Osteoarthritis of right knee, unspecified osteoarthritis type PROBLEM: Right knee osteoarthritis, orthovisc #1 SUBJECTIVE: Susie Mayfield is a 71 y.o. female with established osteoarthritis right knee and excellent response to orthovisc in the past. Last series in 06/2020, here today to begin another series. The past medical, family and social history have been reviewed in the patient chart. I spent time preparing in advance of the visit today, which included obtaining and reviewing prior history and notes from the primary care provider and/or referring providers, as well as reviewing any relevant prior imaging and tests, which I also independently interpreted. She is a never smoker. OBJECTIVE: Temp 36.7 ??C (98 ??F) General appearance: Well-developed, well nourished, no acute distress. pleasant and cooperative. HEENT: normocephalic, atraumatic Lungs: no increased work of breathing Skin: clean, dry and intact Msk: Focused exam of the right knee reveals no deformity, no swelling, no skin changes. No lower leg swelling, nonantalgic gait. ASSESSMENT/PLAN: 71yoF with established right knee osteoarthritis and excellent relief with orthovisc in the past, here today to begin another series. After reviewing risks and benefits of an injection including variability of results, verbal consentwas obtained to proceed today. A timeout was performed. The right knee was prepped in the standard sterile fashion. After final verication of the correct site, 2ml of orthovisc along with an anesthetic was injected into the right knee without difficulty. No medication was wasted. She tolerated the procedure well. Aftercare for the injection was discussed and all question answered. Follow up next week for 2nd injection. Procedure: Large Joint Injection/Arthrocentesis: R knee on 07/11/2021 16:45 Medications: 30 mg Sodium Hyaluronate 30 mg/2 mL; 3 mL lidocaine (PF) 10 mg/mL (1 %) This note was prepared using voice recognition software and the EMR. There may be inadvertent errors and omissions. Leann Holland APRN 07/11/2021 documented in this encounter Plan of Treatment Upcoming Encounters Date Type Department Care Team (Late st Contact Info) Description 11/09/2024 15:45 EST Procedure visit [facility] Orthopedics & Sport Medicine [address] [place] [address] [place] [address] [place] [address] [address] [place] [address] 11/16/2024 15:45 EST Procedure visit [facility] Orthopedics & Sport Medicine [address] [place] [address] [place] [address] [place] [address] [address] [place] [address] 07/17/2025 15:30 EDT Office Visit [facility] Adult Hematology & Oncology [facility] [place] [address] Jimmy Gallego MD [address] [facility] [address] [place] [address] documented as of this encounter Procedures Procedure Name Priority Date/Time Associated Diagnosis Comments LARGE JOINT INJECTION/ARTHROCE NTESIS Routine 07/11/2021 16:45 EDT Osteoarthritis of right knee, unspecified osteoarthritis type documented in this encounter Results * GA ARTHROCENTESIS ASPIR&/INJ MAJOR JT/BURSA W/O US (07/11/2021 16:45 EDT) Narrative [facility] POINT OF CARE - 07/11/2021 16:45 EDT Leann Holland, PERSONNEL WORKER ? 07/11/2021 17:06 Large Joint Injection/Arthrocentesis: R knee on 07/11/2021 16:45 Medications: 30 mg Sodium Hyaluronate 30 mg/2 mL; 3 mL lidocaine (PF) 10 mg/mL (1 %) us Leann Holland NP PROCEDURE/MINOR SURGICAL ORD ERABLES Final Result [facility] POINT OF CARE documented in this encounter Visit Diagnoses Diagnosis Osteoarthritis of right knee, unspecified osteoarthritis type- Primary documented in this encounter Administered Medications Inactive Administered Medications - up to 3 most recent administrations Medication Order MAR Action Action Date Dose Rate Site lidocaine (PF) 10 mg/mL (1 %) injection 3 mL 3 mL, other, Once PRN Procedure, 1 dose, Starting on 07/11/21 at 1645, Until Wed07/11/21 at 1645, RoutineIndications:Osteoarthritis of right knee, unspecified osteoarthritis type Given 07/11/2021 16:45 EDT 3 mL Sodium Hyaluronate (ORTHOVISC) syringe 30 mg 30 mg, other, Once PRN Procedure, 1 dose, Starting on 07/11/21 at 1645, Until Wed07/11/21 at 1645, RoutineIndications:Osteoarthritis of right knee, unspecified osteoarthritis type Given 07/11/2021 16:45 EDT 30 mg documented in this encounter Historical Medications * This list may reflect changes made after this encounter. celecoxib (CELEBREX) 200 mg capsule 1 cap(s) orally twice daily 05/25/2022 added in this encounter Care Teams Pinsetter Mechanic Automatic Relationship Specialty Start Date End Date Iva Jennings APRN [address] [id number] PCP - General 03/01/20 documented as of this encounter
--- OUTSIDE RECORDS SUMMARY | 2024-11-09 10:11 | XMS_ITS | Encounter Summary ---
Author Organization [facility] Address [address] [place] [address] Care Team Providers Care [employer] Special Education Teacher Name Role Phone Iva Jennings APRN Primary Care Provider [phone] Reason for Visit * Reason Onset Date Comments Injections 10/13/2022 Encounter Details Date Type Department Care Team (Late st Contact Info) Description 10/13/2022 Telephone [facility] - [facility] Orthopedics & Sport Medicine [address] [place], [place] [phone] Leann Holland, FARMWORKER GENERAL [address] [facility] [address] [place] [address] Injections Social History Tobacco Use [...] encounter Miscellaneous Notes * Telephone Encounter - Francine Padilla LPN - 10/13/2022 1622 EST Return call made to pt she reports she had some symptoms from the orthovisc injections. She reportsIntense full body shivering for 15 minutes then a severe headache felt like little cracks in skull lasted over 24hrs. Poor appetite. Then fatigue the following the past few days. Believes the same symptoms happened after the shot on the but not as severe. No fever. She does not want another injection but does want to discuss this with SR on . 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 She reports nobut she doesn't think that what it is since it happened after both shots. I asked if this has ever happed before because she has had these injections before she reports no. * Telephone Encounter - La Calderón MA - 10/13/2022 1232 EST Susie called today stating that she had an injection with SR and thinks she is having a reaction. documented in this encounter Plan of Treatment Upcoming Encounters Date Type Department Care Team (Late st Contact Info) Description 11/09/2024 15:45 EST Procedure visit [facility] Orthopedics & Sport Medicine [address] [place] [address] Leann Holland NP [address] [facility] [address] [place] [address] 11/16/2024 15:45 EST Procedure visit [facility] Orthopedics & Sport Medicine [address] [place] [address] Leann Holland, FARMWORKER GENERAL [address] [facility] [address] [place] [address] 07/17/2025 15:30 EDT Office Visit [facility] Adult Hematology & Oncology [address] [place] [address] Jimmy Gallego MD [address] [facility] [address] [place] [address] documented as of this encounter Visit Diagnoses Not on filedocumented in this encounter Care Teams [employer] Special Education Teacher Relationship Specialty Start Date End Date Iva Jennings APRN [address] [place] [phone] PCP - General 03/01/20 documented as of this encounter
--- OUTSIDE RECORDS SUMMARY | 2024-11-09 10:11 | XMS_ITS | Encounter Summary ---
Author Organization [facility] Address [address] [place] [address] Care Team Providers Care Scrap Breaker Name Role Phone Iva Jennings APRN Primary Care Provider [phone] Reason for Referral * Radiology Services (Routine) - Closed Specialty Diagnoses / Procedures Referred By Lisbet olivas Referred To Contact Diagnoses Screening mammogram, encounter for Procedures MA BREAST SCREENING ELSA BILATERAL Iva Jennings APRN [address] [address] Phone: tel: fax: Referral ID Status Reason Start Date Expiration Date Visits Re quested Visits Authorized [id number] Closed 12/09/2020 1 1 Reason for Visit * Radiology Services (Routine) - Closed Specialty Diagnoses / Procedures Referred By Lisbet olivas Referred To Contact Diagnoses Screening mammogram, encounter for Procedures MA BREAST SCREENING ELSA BILATERAL Iva Jennings APRN [address] [place] [address] Phone: tel: fax: Referral ID Status Reason Start Date Expiration Date Visits Re quested Visits Authorized [id number] Closed 12/09/2020 1 1 Encounter Details Date Type Department Care Team (Latest Contact Info) Description 03/07/2021 10:12 EDT - 03/07/2021 23:59 EDT Hospital Encounter [facility] Breast Imaging Mammography - Main [address] [address] Screening mammogram, encounter for Discharge Disposition: Home [...] tablet Take 1 Tablet by mouth daily. MULTI-VITAMIN ORAL Take by mouth. pravastatin (PRAVACHOL) 20 mg tablet Take 1 Tablet by mouth daily. BIOFLAVONOIDS ORAL Take by mouth. 1 calcium carbonate (CALCIUM 500 ORAL) Take by mouth. 2 cetirizine (ZYRTEC) 1 mg/mL solution Take 5 mL by mouth daily. 4 letrozole (FEMARA) 2.5 mg tablet Take 1 Tab by mouth daily for 90 days. 90 Tab 3 10/30/2020 1 mometasone (NASONEX) 50 mcg/actuation nasal spray Instill 2 Sprays into right nostril daily. 2 documented as of this encounter Discharge Disposition Disposition Code Departure Means Destination Home or Self Care documented in this encounter Plan of Treatment Upcoming Encounters Date Type Department Care Team (Late st Contact Info) Description 11/09/2024 15:45 EST Procedure visit [facility] Orthopedics & Sport Medicine [address] [place], [place] [phone] Leann Holland, SOFT SUGAR CUTTER [address] [facility] [address] [place] [phone] 11/16/2024 15:45 EST Procedure visit [facility] Orthopedics & Sport Medicine [address] [place], [place] [phone] Leann Holland, SOFT SUGAR CUTTER [address] [facility] [address] [place] [phone] 07/17/2025 15:30 EDT Office Visit [facility] Adult Hematology & Oncology [facility] [place] [address] Jimmy Gallego MD [address] [facility] [address] [place] [phone] documented as of this encounter Procedures Procedure Name Priority Date/Time Associated Diagnosis Comments MA BREAST SCREENING ELSA BILATERAL Routine 03/07/2021 10:45 EDT Screening mammogram, encounter for documented in this encounter Results * MA BREAST SCREENING ELSA BILATERAL (03/07/2021 10:45 EDT) Anatomical Region Laterality Modality Breast Bilateral Mammography 03/07/2021 14:0 9 EDT Impressions 03/07/2021 14:09 EDT Benign, no evidence of malignancy. RECOMMENDATION: Routine screening mammography is recommended. OVERALL ASSESSMENT: BI-RADS 2: Benign These results will be communicated to your patient via a lay letter from Radiology. If any additional imaging is needed we will contact your patient directly. Narrative 03/07/2021 14:09 EDT MA BREAST SCREENING ELSA BILATERAL ??03/07/2021 10:30 AM History: routine Comparison: ??Comparison has been made to previous images. Technique: Routine 3D tomosynthesis with synthesized 2D views with CAD Bilateral Breast Composition: The breast tissue is almost entirely fatty. Bilateral Breast Findings: ??No significant masses, calcifications or other abnormalities are seen. The patient is status post left breast lumpectomy. The lumpectomy scar has a stable appearance. Procedure Note Debbie Sanchez MD - 03/07/2021 MA BREAST SCREENING ELSA BILATERAL 03/07/2021 10:30 AM History: routine Comparison: Comparison has been made to previous images. Technique: Routine 3D tomosynthesis with synthesized 2D views with CAD Bilateral Breast Composition: The breast tissue is almost entirely fatty. Bilateral Breast Findings: No significant masses, calcifications or otherabnormalities are seen. The patient is status post left breast lumpectomy.The lumpectomy scar has a stable appearance. IMPRESSION Benign, no evidence of malignancy. RECOMMENDATION: Routine screening mammography is recommended. OVERALL ASSESSMENT: BI-RADS 2: Benign These results will be communicated to your patient via a lay letter fromRadiology. If any additional imaging is needed we will contact yourpatient directly. Iva Jennings APRN IMG MAMMOGRAPHY ORDERABLE S Final Result documented in this encounter Visit Diagnoses Diagnosis Screening mammogram, encounter for documented in this encounter Care Teams Scrap Breaker Relationship Specialty Start Date End Date Iva Jennings APRN [address] [place] [address] PCP - General 03/01/20 documented as of this encounter
--- OUTSIDE RECORDS SUMMARY | 2024-11-09 10:11 | XMS_ITS | Encounter Summary ---
Author Organization [facility] Address [address] [place] [address] Care Team Providers Care Erp Developer Name Role Phone Iva Jennings APRN Primary Care Provider [phone] [phone] Reason for Visit * Reason Onset Date Comments Appointment Related 11/11/2020 Encounter Details Date Type Department Care Team (Late st Contact Info) Description 11/11/2020 Telephone [facility] Surgical Oncology - [facility] [address] [place], [place] [id number] Elizabeth Tapia, DO [address] [facility], [facility] [address] [place] [address] Appointment Related Social History Tobacco [...] encounter Miscellaneous Notes * Telephone Encounter - Edwige Isaacs - 11/11/2020 1023 EST Gave pt a call to let her know that we going to have to reschedule her 11/19/[address] Tapia (due to Dr. Tapia being in the OR in that afternoon) While on the phone with the pt. We rescheduled this appt for:; 12/06/2020 @ 3:20pm - pt is aware Edwigearely Isaacs 11/11/2020 10:25 documented in this encounter Plan of Treatment Upcoming Encounters Date Type Department Care Team (Late st Contact Info) Description 11/09/2024 15:45 EST Procedure visit [facility] Orthopedics & Sport Medicine [address] [place], [place] [id number] Leann Holland, SENIOR WINDOWS SYSTEMS ENGINEER [address] [place] [address] [place] [address] 11/16/2024 15:45 EST Procedure visit [facility] Orthopedics & Sport Medicine [address] [place], [place] [phone] Leann Holland, SENIOR WINDOWS SYSTEMS ENGINEER [address] [place] [address] [place] [phone] 07/17/2025 15:30 EDT Office Visit [facility] Adult Hematology & Oncology [facility] [place] [address] Jimmy Gallego MD [address] [facility] [address] [place] [phone] documented as of this encounter Visit Diagnoses Not on filedocumented in this encounter Care Teams Erp Developer Relationship Specialty Start Date End Date Iva Jennings APRN [address],[facility] [address] [place] [phone] PCP - General 03/01/20 documented as of this encounter
--- OUTSIDE RECORDS SUMMARY | 2024-11-09 10:11 | XMS_ITS | Encounter Summary ---
Author Organization [facility] Address [address] [place] [address] Care Team Providers Care Bee Breeder Name Role Phone Iva Jennings APRN Primary Care Provider [phone] Encounter Details Date Type Department Care Team (Latest Contact Info) Description 09/07/2022 Travel Social History Tobacco Use Types Packs/Day [...] suspected to have Coronavirus/COVID-19? No / Unsure 09/07/2022 16:31 EST documented as of this encounter Functional [...] 11/09/2024 15:45 EST Procedure visit [facility] Orthopedics & Sport Medicine [address] [place] [address] Leann Holland, RACETRACK STEWARD [address] [facility] [address] [place] [address] 11/16/2024 15:45 EST Procedure visit [facility] Orthopedics & Sport Medicine [address] [place], [place] [phone] Leann Holland NP [address] [facility] [address] [place] [address] 07/17/2025 15:30 EDT Office Visit [facility] Adult Hematology & Oncology [facility] [place] [address] Jimmy Gallego MD [address] [facility] [address] [place] [phone] documented as of this encounter Visit Diagnoses Not on filedocumented in this encounter Care Teams Bee Breeder Relationship Specialty Start Date End Date Iva Jennings APRN [address] [facility] [address] [place] [address] PCP - General 03/01/20 documented as of this encounter
--- OUTSIDE RECORDS SUMMARY | 2024-11-09 10:11 | XMS_ITS | Encounter Summary ---
Author Organization [facility] Address [address] [place] [address] Care Team Providers Care Diesel Technician Name Role Phone Iva Jennings APRN Primary Care Provider +1 [phone] Reason for Visit * Reason Onset Date Comments Medications Refill 10/30/2020 Encounter Details Date Type Department Care Team (Late st Contact Info) Description 10/30/2020 Refill [facility] Adult Hematology & Oncology [address] [place] [address] [place] [address] [facility] [address] [place] [address] (Fax) Medications Refill Social History Tobacco Use [...] for 90 days. 90 Tab 3 10/30/2020 08/05/2021 documented in this encounter Miscellaneous Notes * Telephone Encounter - Laney Shaikh - 11/25/2020 1134 EST Appt scheduled for 05/26/21 10:00am. Pt notified. * Telephone Encounter - Sue Keen RN - 10/30/2020 1037 EST Letrozole refill request [facility] Last refilled 08/06/20 #90, 0 refills Last seen by Dr. Blackman 06/04/20; Plan: 1. Continue letrozole. 2. Return for follow-up in 1 year. No future appts [facility] - Agree with attached? LANEY - Please schedule 1 yr f/u 05/2021 Thanks documented in this encounter Plan of Treatment Upcoming Encounters Date Type Department Care Team (Late st Contact Info) Description 11/09/2024 15:45 EST Procedure visit [facility] Orthopedics & Sport Medicine [address], [address] [place] [address] Leann Holland, NON LICENSED OPERATOR [address] [place] [phone] 11/16/2024 15:45 EST Procedure visit [facility] Orthopedics & Sport Medicine [address], [address] [place] [address] Leann Holland NON LICENSED OPERATOR [address] [place] [address] 07/17/2025 15:30 EDT Office Visit [facility] Adult Hematology & Oncology [facility] [place] [address] Jimmy Gallego MD 130 [facility] [address] [place] [phone] documented as of this encounter Visit Diagnoses Not on filedocumented in this encounter Discontinued Medications Medication Sig Discontinue Reason Start Date End Da te letrozole (FEMARA) 2.5 mg tablet Take 1 Tab by mouth daily for 90 days. Reorder 08/06/2020 10/30/2020 documented as of this encounter Care Teams Diesel Technician Relationship Specialty Start Date End Date Iva Jennings APRN [address] [address] PCP - General 03/01/20 documented as of this encounter
--- OUTSIDE RECORDS SUMMARY | 2024-11-09 10:11 | XMS_ITS | Encounter Summary ---
Author Organization [facility] Address [address] [place] [address] Care Team Providers Care Patient Care Technician Name Role Phone Iva Jennings APRN Primary Care Provider +1 [phone] Encounter Details Date Type Department Care Team (Latest Contact Info) Description 10/01/2022 Travel Social History Tobacco Use Types Packs/Day [...] suspected to have Coronavirus/COVID-19? No / Unsure 10/01/2022 16:04 EST documented as of this encounter Functional [...] Medicine [address] [place] [address] Leann Holland, SAND BOBBER 13[address] [facility] [address] [place] [address] 11/16/2024 15:45 EST Procedure visit [facility] Orthopedics & Sport Medicine [address] [place], [place] [phone] Leann Holland NP 1311 [facility] [address] [place] [address] 07/17/2025 15:30 EDT Office Visit [facility] Adult Hematology & Oncology [facility] [place] [address] Jimmy Gallego MD 130 [facility] [address] [place] [phone] documented as of this encounter Visit Diagnoses Not on filedocumented in this encounter Care Teams Patient Care Technician Relationship Specialty Start Date End Date Iva Jennings APRN 26 [facility] [address] [place] [address] PCP - General 03/01/20 documented as of this encounter
--- OUTSIDE RECORDS SUMMARY | 2024-11-09 10:11 | XMS_ITS | Encounter Summary ---
Author Organization [facility] Address [address] [place] [address] Care Team Providers Care Strength And Conditioning Coach Name Role Phone Iva Jennings APRN Primary Care Provider +1 [phone] Reason for Visit * Reason Onset Date Comments Appointment Related 12/09/2020 Encounter Details Date Type Department Care Team (Late st Contact Info) Description 12/09/2020 Telephone [facility] Surgical Oncology - [facility] [address] [place], [place] [phone] Elizabeth Tapia, DO 111 [facility], [facility] 2 [place] [address] Appointment Related Social History Tobacco [...] * Telephone Encounter - Edwige Isaacs - 01/30/2021 0917 EDT error documented in this encounter Plan of Treatment Upcoming Encounters Date Type Department Care Team (Late st Contact Info) Description 11/09/2024 15:45 EST Procedure visit [facility] Orthopedics & Sport Medicine [address] [place], [place] [phone] Leann Holland STRAND AND BINDER CONTROLLER [address] [place] [address] [place] [phone] 11/16/2024 15:45 EST Procedure visit [facility] Orthopedics & Sport Medicine [address] [place], [place] [phone] [place] [address] [place] [address] [place] [phone] 07/17/2025 15:30 EDT Office Visit [facility] Adult Hematology & Oncology [address] [place] [phone] Jimmy Gallego MD 130 [facility] [address] [place] [address] documented as of this encounter Visit Diagnoses Not on filedocumented in this encounter Care Teams Strength And Conditioning Coach Relationship Specialty Start Date End Date Iva Jennings APRN [address] [place] [address] PCP - General 03/01/20 documented as of this encounter
--- OUTSIDE RECORDS SUMMARY | 2024-11-09 10:11 | XMS_ITS | Encounter Summary ---
Author Organization [facility] Address [address] [place] [address] Care Team Providers Care Broadcast Operations Technician Name Role Phone Iva Jennings APRN Primary Care Provider +1 [phone] Reason for Visit * Reason Comments Follow-up Encounter Details Date Type Department Care Team (Late st Contact Info) Description 05/25/2022 10:00 EDT Office Visit [facility] Adult Hematology & Oncology [address] [place] [id number] [place] [address] [facility] [address] [place] [address] (Fax) Malignant neoplasm of central portion of left breast in female, estrogen receptor positive (HCC-CMS) (HCC) (HCC-CMS) (Primary Dx) Social History Tobacco Use [...] Sign Reading Time Taken Comments Blood Pressure 132/80 05/25/2022 1005 EDT Pulse 106 05/25/2022 1005 EDT Temperature - - Respiratory Rate - - Oxygen Saturation 96% 05/25/2022 1005 EDT Inhaled Oxygen Concentration - - Weight 88.9 kg (196 lb) 05/25/2022 1005 EDT Height - - Body Mass Index 32.62 03/01/2020 1504 EDT documented in this encounter [...] documented in this encounter Progress Notes * Bryan Blackman MD - 05/25/2022 1000 EDT PROBLEM: March 2019: Left breast cancer - [...] carcinoma with DCIS. ER > 90 %, MS < 1%, HER-2 negative. - It was [...] in 25% of tumor mass. ER 90%, MS < 1%, Her2/jatinder 0. Stage pT1a pN0 -05/2019: Started Letrozole. Subjective Interim History:Patient presents for follow-up. She denies any complaints today. Denies feeling anyabnormal lumps within her breasts. She continues on letrozole. Denies any hot flashes. Review of Systems Constitutional: Negative for chills, [...] tingling and headaches. Endo/Heme/Allergies: Negative. Psychiatric/Behavioral: Negative. Family History Problem Relation Age of Onset ??? Breast Cancer Mother 60 ??? Ovarian Cancer Neg Hx Social History Tobacco Use ??? Smoking status: Never Smoker ??? Smokeless tobacco: Never Used Substance Use Topics ??? Alcohol use: Not on file ??? 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 Current Outpatient Medications Medication Sig Dispense Refill Last Dose ??? amitriptyline (ELAVIL) 10 mg tablet Take 10 mg by mouth at bedtime as needed. Taking ??? azelastine (ASTELIN) nasal spray USE 1 SPRAY(S) IN EACH NOSTRIL ONCE DAILY Taking ??? calcium/mag/vitamin D2/Zn/min (GEOFFREY-MAG ZINC II ORAL) Take by mouth. Taking ??? cetirizine (ZYRTEC) 1 mg/mL solution Take 5 mg by mouth daily. Taking ??? clobetasoL (TEMOVATE) 0.05 % cream Apply topically 2 times daily. As needed Taking ??? glucos sul 2KCl/msm/chond/C/Mn (GLUCOSAMINE CHONDROITIN ORAL) Take by mouth. Taking ??? ibuprofen 200 mg capsule Take 400 mg by mouth daily as needed. Taking ??? letrozole (FEMARA) 2.5 mg tablet Take 1 Tablet by mouth daily. 90 Tablet 3 Taking ??? lisinopril (PRINIVIL, ZESTRIL) 5 mg tablet Take 5 mg by mouth daily. Taking ??? MULTI-VITAMIN ORAL Take by mouth. Taking ??? pravastatin (PRAVACHOL) 20 mg tablet Take 20 mg by mouth daily. Taking No current facility-administered medications for this visit. Vitals: 05/25/22 1005 BP: 132/80 BP Cuff Location: Left arm BP Cuff Sizes: Adult, large Pulse: (!) 106 SpO2: 96% Weight: 88.9 kg (196 lb) Wt Readings from Last 3 Encounters: 08/08/22 88.9 kg (196 lb) 08/09/21 88.5 kg (195 lb) 06/04/20 93.9 kg (207 lb) Physical Exam Constitutional: She is oriented to person, place, and time. She is cooperative. HENT: Head: Normocephalic and atraumatic. Eyes: Conjunctivae and EOM are normal. Abdominal: Soft. There is no abdominal tenderness. Lymphadenopathy: She has no cervical adenopathy. Right: No supraclavicular adenopathy present. Left: No supraclavicular adenopathy present. Neurological: She is alert and oriented to person, place, and time. Skin: Skin is warm and dry. Psychiatric: She has a normal mood and affect. Breast: Bilateral breasts with no palpable lumps, nipple abnormalities or skin changes. No palpablecervical, supraclavicular or axillary adenopathy. Assessment & Plan 1. Left breast cancer. pT1a pN0 invasive ductal carcinoma. Tumor size 0.4 x 0.4 x 0.2 cm with 0/2 sentinel nodes, grade 2. ER+/MS neg/Her2 neg. Began Letrozole in May 2019. Tolerating this fairly well. Clinically doing well with no evidence of recurrence. Mammogram from March was unremarkable. 2. Bone health. Bone density scan in June 2021 was normal. Currently on calcium/vitamin D supplementation. Plan: 1. Continue letrozole. 2. Return for follow-up in 1 year. She is following with Dr. Tapia. No orders of the defined types were placed in this encounter. Bryan Blackman MD Hematology/Oncology [facility] documented in this encounter Plan of Treatment Upcoming Encounters Date Type Department Care Team (Late st Contact Info) Description 11/09/2024 15:45 EST Procedure visit [facility] Orthopedics & Sport Medicine [address] [place] [address] Leann Holland NP 1311 [facility] [address] [place] [address] 11/16/2024 15:45 EST Procedure visit [facility] Orthopedics & Sport Medicine [address] [place], [place] [phone] Leann Holland NP 13[address] [facility] [address] [place], [place] [address] 07/17/2025 15:30 EDT Office Visit [facility] Adult Hematology & Oncology [address] [place] [address] Jimmy Gallego MD [address] [facility] [address] [place] [address] documented as of this encounter Visit Diagnoses Diagnosis Malignant neoplasm of central portion of left breast in female, estrogen receptor positive ([facility])- Primary documented in this encounter Discontinued Medications Medication Sig Discontinue Reason Start Date End Da te mometasone (NASONEX) 50 mcg/actuation nasal spray Instill 2 Sprays into right nostril daily. 05/25/2022 calcium carbonate (CALCIUM 500 ORAL) Take by mouth. 05/25/2022 celecoxib (CELEBREX) 200 mg capsule 1 cap(s) orally twice daily 05/25/2022 montelukast (SINGULAIR) 10 mg tablet Take 10 mg by mouth daily. 04/21/2022 05/25/2022 documented as of this encounter Historical Medications * This list may reflect changes made after this encounter. ibuprofen 200 mg capsule Take 2 Capsules by mouth daily as needed. 12/20/2020 montelukast (SINGULAIR) 10 mg tablet Take 10 mg by mouth daily. 04/21/2022 05/25/2022 added in this encounter Care Teams Broadcast Operations Technician Relationship Specialty Start Date End Date Iva Jennings APRN [address] [place] [address] PCP - General 03/01/20 documented as of this encounter
--- OUTSIDE RECORDS SUMMARY | 2024-11-09 10:11 | XMS_ITS | Encounter Summary ---
Author Organization [facility] Address [address] [place] [address] Care Team Providers Care Project Engineering Director Name Role Phone Iva Jennings APRN Primary Care Provider +1 -[phone] Reason for Visit * Reason Comments Injections Encounter Details Date Type Department Care Team (Late st Contact Info) Description 07/18/2021 15:[address] [facility] Orthopedics & Sport Medicine [address] [place], [place] [phone] Leann Holland, FRANK [address] [facility] [address] [place] [address] Osteoarthritis of right knee, unspecified [...] have Coronavirus / COVID-19? No / Unsure 07/18/2021 15:27 EDT documented as of this encounter Last Filed Vital Signs Vital Sign Reading Time Taken Comments Blood Pressure - - Pulse - - Temperature 36.7 ??C (98.1 ??F) 07/18/2021 1529 EDT Respiratory Rate - - Oxygen Saturation [...] this encounter Progress Notes * Leann Holland, BUSINESS BANKING SALES ASSISTANT - 07/18/2021 1530 EDTAssociated Order(s): Large Joint Injection/Arthrocentesis: R knee Post-Procedure Diagnose(s): Osteoarthritis of right knee, unspecified osteoarthritis type PROBLEM: Right knee osteoarthritis, orthovisc #2 SUBJECTIVE: Susie Mayfield is a 71 y.o. female with established osteoarthritis right knee and excellent response to orthovisc in the past. Here today for injection #2 of 3. Was a little sore and stiff after last injection. The past medical, family and social history have been reviewed in the patient chart. She is a neversmoker. OBJECTIVE: Patient Vitals for the past 24 hrs: Temp 07/18/21 1529 36.7 ??C (98.1 ??F) General appearance: Well-developed, well nourished, no [...] with orthovisc in the past, here today for injection #2 of 3. After reviewing risks and benefits of an [...] question answered. Follow up next week for injection #3. Procedure: Large Joint Injection/Arthrocentesis: R knee on 07/18/2021 15:30 Medications: 30 mg Sodium Hyaluronate 30 mg/2 mL; 3 mL lidocaine (PF) 10 mg/mL (1 %) Leann Holland NP 07/18/2021 documented in this encounter Plan of Treatment Upcoming Encounters Date Type Department Care Team (Late st Contact Info) Description 11/09/2024 15:[address] [facility] Orthopedics & Sport Medicine [address] [place] [address] [place] [address] [place] [address] [place] [address] 11/16/2024 15:[address] [facility] Orthopedics & Sport Medicine [address] [place] [address] [place] [address] [place] [address] [place] [address] 07/17/2025 15:[address] [facility] Adult Hematology & Oncology [address] [place] [phone] Jimmy Gallego MD 130 [facility] [address] [place] [address] documented as of this encounter Procedures Procedure Name Priority Date/Time Associated Diagnosis Comments LARGE JOINT INJECTION/ARTHROCE NTESIS Routine 07/18/2021 15:30 EDT Osteoarthritis of right knee, unspecified osteoarthritis type documented in this encounter Results * OH ARTHROCENTESIS ASPIR&/INJ MAJOR JT/BURSA W/O US (07/18/2021 15:30 EDT) Narrative [facility] POINT OF CARE - 07/18/2021 15:30 EDT Leann Holland NP ? 07/18/2021 15:50 Large Joint Injection/Arthrocentesis: R knee on 07/18/2021 15:30 Medications: 30 mg Sodium Hyaluronate 30 mg/2 mL; 3 mL lidocaine (PF) 10 mg/mL (1 %) us Leann Holland NP PROCEDURE/MINOR SURGICAL ORD ERABLES Final Result [facility] POINT OF CARE documented in this encounter Visit Diagnoses Diagnosis Osteoarthritis of right knee, unspecified osteoarthritis type- Primary documented in this encounter Administered Medications Inactive Administered Medications - up to 3 most recent administrations Medication Order MAR Action Action Date Dose Rate Site lidocaine (PF) 10 mg/mL (1 %) injection 3 mL 3 mL, other, Once PRN Procedure, 1 dose, Starting on Wed07/18/21 at 1530, Until Wed07/18/21 at 1530, RoutineIndications:Osteoarthritis of right knee, unspecified osteoarthritis type Given 07/18/2021 15:30 EDT 3 mL Sodium Hyaluronate (ORTHOVISC) syringe 30 mg 30 mg, other, Once PRN Procedure, 1 dose, Starting on Wed07/18/21 at 1530, Until Wed07/18/21 at 1530, RoutineIndications:Osteoarthritis of right knee, unspecified osteoarthritis type Given 07/18/2021 15:30 EDT 30 mg documented in this encounter Care Teams Project Engineering Director Relationship Specialty Start Date End Date Iva Jennings APRN 26 [facility] [address] [place] [address] PCP - General 03/01/20 documented as of this encounter
--- OUTSIDE RECORDS SUMMARY | 2024-11-09 10:11 | XMS_ITS | Encounter Summary ---
Author Organization [facility] Address [address] [place] [address] Care Team Providers Care Grill Associate Name Role Phone Iva Jennings APRN Primary Care Provider +1 [phone] Reason for Visit * Reason Onset Date Comments Medications Refill 08/06/2020 Encounter Details Date Type Department Care Team (Late st Contact Info) Description 08/06/2020 Refill [facility] Adult Hematology & Oncology [address] [place] [phone] Elisabeth Velasquez, AYUSH Medications Refill Social History [...] mouth daily for 90 days. 90 Tab 08/06/2020 10/30/2020 documented in this encounter Miscellaneous Notes * Telephone Encounter - Elisabeth Velasquez RN - 08/06/2020 0900 EDT Patient left message on prescription line requesting refill on Letrozole 2.5 mg once daily. Last seen: 06/04/20 Per office note: 1. Left breast cancer. pT1a pN0 invasive ductal carcinoma. Tumor size 0.4 x 0.4 x 0.2 cm with 0/2 sentinel nodes, grade 2. ER+/IA neg/Her2 neg. Began Letrozole in May 2019. Tolerating it fairly well. Mammogram from February was unremarkable. Plan: 1. Continue letrozole. 2. Return for follow-up in 1 year. ?? OK to refill? Called and confirmed dosing with pharmacy, script last filled 05/13/20, #90days documented in this encounter Plan of Treatment Upcoming Encounters Date Type Department Care Team (Late st Contact Info) Description 11/09/2024 15:45 EST Procedure visit [facility] Orthopedics & Sport Medicine [address] [place], [place] [phone] Leann Holland, TUFTER OPERATOR [address] [place] [address] 11/16/2024 15:45 EST Procedure visit [facility] Orthopedics & Sport Medicine [address] [place] [address] Leann Holland, TUFTER OPERATOR [address] [place] [address] [place] [address] 07/17/2025 15:30 EDT Office Visit [facility] Adult Hematology & Oncology [address] [place] [address] Jimmy Gallego MD 130 [facility] [address] [place] [address] documented as of this encounter Visit Diagnoses Not on filedocumented in this encounter Discontinued Medications Medication Sig Discontinue Reason Start Date End Da te LETROZOLE ORAL Take 2.5 mg by mouth. Reorder 08/06/2020 documented as of this encounter Care Teams Grill Associate Relationship Specialty Start Date End Date Iva Jennings APRN [address] [place] [address] PCP - General 03/01/20 documented as of this encounter
--- OUTSIDE RECORDS SUMMARY | 2024-11-09 10:11 | XMS_ITS | Encounter Summary ---
Author Organization [facility] Address [address] [place] [address] Care Team Providers Care Collar Folder Operator Name Role Phone Iva Jennings APRN Primary Care Provider [phone] [phone] Encounter Details Date Type Department Care Team (Latest Contact Info) Description 07/18/2021 Travel Social History Tobacco Use Types Packs/Day [...] 15:27 EDT documented as of this encounter Functional Status [...] Description 11/09/2024 15:45 EST Procedure visit [facility] Orthopedics & Sport Medicine [address] [place] [address] Leann Holland, FRANK 1311 [facility] [address] [place] [address] 11/16/2024 15:45 EST Procedure visit [facility] Orthopedics & Sport Medicine [address] [place], [place] [phone] Leann Holland NP 1311 [facility] [address] [place] [address] 07/17/2025 15:30 EDT Office Visit [facility] Adult Hematology & Oncology [facility] [place] [address] Jimmy Gallego MD 130 [facility] [address] [place] [phone] documented as of this encounter Visit Diagnoses Not on filedocumented in this encounter Care Teams Collar Folder Operator Relationship Specialty Start Date End Date Iva Jennings APRN 26 [facility] [address] [place] [address] PCP - General 03/01/20 documented as of this encounter
--- OUTSIDE RECORDS SUMMARY | 2024-11-09 10:11 | XMS_ITS | Encounter Summary ---
Author Organization [facility] Address [address] [place] [address] Care Team Providers Care [place] Name Role Phone Iva Jennings APRN Primary Care Provider +1 -[phone] Encounter Details Date Type Department Care Team (Latest Contact Info) Description 10/08/2022 Travel Social History Tobacco Use Types Packs/Day [...] suspected to have Coronavirus/COVID-19? No / Unsure 10/08/2022 15:55 EST documented as of this encounter Functional [...] 11/09/2024 15:45 EST Procedure visit [facility] Orthopedics & Sport Medicine [address] [place] [address] Leann Holland, ZINC MINER BLASTING 13[address] [facility] [address] [place] [address] 11/16/2024 15:45 EST Procedure visit [facility] Orthopedics & Sport Medicine [address] [place], [place] [phone] Leann Holland NP 1311 [facility] [address] [place] [address] 07/17/2025 15:30 EDT Office Visit [facility] Adult Hematology & Oncology [facility] [place] [address] Jimmy Gallego MD 130 [facility] [address] [place] [phone] documented as of this encounter Visit Diagnoses Not on filedocumented in this encounter Care Teams [place] Relationship Specialty Start Date End Date Iva Jennings APRN 26 [facility] [address] [place] [address] PCP - General 03/01/20 documented as of this encounter
--- OUTSIDE RECORDS SUMMARY | 2024-11-09 10:11 | XMS_ITS | Encounter Summary ---
Author Organization [facility] Address [address] [place] [address] Care Team Providers Care Electrician Research Name Role Phone Iva Jennings APRN Primary Care Provider [phone] [phone] Encounter Details Date Type Department Care Team (Late st Contact Info) Description 07/02/2021 Results Only Imaging [facility] - [facility] Radiology Results [address] [place], [place] [id number] [place] [address] [facility] [address] [place] [address] Social History Tobacco Use Types Packs/Day Years [...] Description 11/09/2024 15:45 EST Procedure visit [facility] Orthopedics & Sport Medicine [address] [facility], [place] [id number] Leann Holland, FORK LIFT TECHNICIAN [address] [facility] [address] [place] [address] 11/16/2024 15:45 EST Procedure visit [facility] Orthopedics & Sport Medicine [address] [place] [address] Leann Holland, FORK LIFT TECHNICIAN [address] [facility] [address] [place] [address] 07/17/2025 15:30 EDT Office Visit [facility] Adult Hematology & Oncology [address] [facility] [place] [address] Jimmy Gallego MD [address] [facility] [address] [place] [address] documented as of this encounter Procedures Procedure Name Priority Date/Time Associated Diagnosis Comments DXA BONE DENSITY 07/03/2021 15:4 5 EDT documented in this encounter Results * XR DEXA BONE DENSITY (07/03/2021 15:45 EDT) Anatomical Region Laterality Modality Other 07/02/2021 15:5 1 EDT Narrative 07/03/2021 15:45 EDT ? EXAM: RADIOLOGY/DEXA/BONE DENSITY-AXIAL ?? EX. D/ (1551) ? CLINICAL INFORMATION: ? Z78.0 POST MENOPAUSAL ? ON ENDOCRINE THERAPY FOR BREAST CANCER ? See attached report. ??Report also available in PACS and [employer] for ? ordering [facility] Providers. ? BBL:vargas ?Reported By: Grayson Hines MD ? CC: ? Transcribed Date/Time: 07/03/2021 (7091) ? Alterations Expert: DAVIN ? Printed Date/Time: 07/03/2021 (6940) ? PAGE 1 ? Signed Report ? Procedure Note Grayson Hines MD - 07/03/2021 EXAM: RADIOLOGY/DEXA/BONE DENSITY-AXIAL EX. D/ (1551) CLINICAL INFORMATION: Z78.0 POST MENOPAUSAL ON ENDOCRINE THERAPY FOR BREAST CANCER See attached report. Report also available in PACS and [employer] for ordering [facility] Providers. BBL:vargas Reported By: Grayson Hines MD CC: Transcribed Date/Time: 07/03/2021 (4284) Alterations Expert: DAVIN Printed Date/Time: 07/03/2021 (3755) PAGE 1 Signed Report us Bryan Blackman MD IMG DEXA ORDERABLES Final Res ult documented in this encounter Visit Diagnoses Not on filedocumented in this encounter Care Teams Electrician Research Relationship Specialty Start Date End Date Iva Jennings, INFRASTRUCTURE TECH [address] [place] [address] [address] [place] [phone] PCP - General 03/01/20 documented as of this encounter
--- OUTSIDE RECORDS SUMMARY | 2024-11-09 10:11 | XMS_ITS | Encounter Summary ---
Author Organization [facility] Address [address] [place] [address] Care Team Providers Care Biomedical Engineer Name Role Phone Iva Jennings APRN Primary Care Provider [phone] [phone] Reason for Visit * Reason Comments Follow-up Encounter Details Date Type Department Care Team (Late st Contact Info) Description 05/26/2021 10:00 EDT Office Visit [facility] Adult Hematology & Oncology [address] [place] [address] [place] [address] [facility] [address] [place] [address] (Fax) Malignant neoplasm of central portion of left breast in female, estrogen receptor positive (HCC-CMS) (Primary Dx); Postmenopausal Social History Tobacco Use Types Packs/Day Years [...] Sign Reading Time Taken Comments Blood Pressure 134/66 05/26/2021 0955 EDT Pulse 94 05/26/2021 0955 EDT Temperature - - Respiratory Rate - - Oxygen Saturation 93% 05/26/2021 0955 EDT Inhaled Oxygen Concentration - - Weight 88.5 kg (195 lb) 05/26/2021 0955 EDT Height - - Body Mass Index 32.45 03/01/2020 1504 EDT documented in this encounter [...] Progress Notes * Bryan Blackman MD - 05/26/2021 1000 EDT PROBLEM: March 2019: Left breast [...] carcinoma with DCIS. ER > 90 %, ME < 1%, HER-2 negative. - It was [...] in 25% of tumor mass. ER 90%, ME < 1%, Her2/jatinder 0. Stage pT1a pN0 -05/2019: Started Letrozole. Subjective Interim History:Patient presents for follow-up. She is generally feeling well. Denies any complaints today. ? Review of Systems Constitutional: Negative for chills, [...] IN EACH NOSTRIL ONCE DAILY Taking ??? calcium carbonate (CALCIUM 500 ORAL) Take by mouth. Taking ??? calcium/mag/vitamin D2/Zn/min (GEOFFREY-MAG ZINC II ORAL) Take by mouth. Taking ??? cetirizine (ZYRTEC) 1 mg/mL solution Take 5 mg by mouth daily. Taking ??? clobetasoL (TEMOVATE) 0.05 % cream Apply topically 2 times daily. Taking ??? glucos sul 2KCl/msm/chond/C/Mn (GLUCOSAMINE CHONDROITIN ORAL) Take by mouth. Taking ??? lisinopril (PRINIVIL, ZESTRIL) 5 mg tablet Take 5 mg by mouth daily. Taking ??? mometasone (NASONEX) 50 mcg/actuation nasal spray Instill 2 Sprays into right nostril daily. Taking ??? MULTI-VITAMIN ORAL Take by mouth. Taking ??? pravastatin (PRAVACHOL) 20 mg tablet Take 20 mg by mouth daily. Taking No current facility-administered medications for this visit. Vitals: 05/26/21 0955 BP: 134/66 Pulse: 94 SpO2: 93% Weight: 88.5 kg (195 lb) Wt Readings from Last 3 Encounters: 05/26/21 88.5 kg (195 lb) 06/04/20 93.9 kg (207 lb) 04/07/19 91.6 kg (202 lb) Physical Exam Constitutional: She is oriented to person, place, and time. She is cooperative. HENT: Head: Normocephalic and atraumatic. Eyes: Conjunctivae and EOM are normal. Cardiovascular: Normal rate and regular rhythm. Pulmonary/Chest: Breath sounds normal. Abdominal: Soft. There is no abdominal tenderness. Lymphadenopathy: She has no cervical adenopathy. Right: No supraclavicular adenopathy present. Left: No supraclavicular adenopathy present. Neurological: She is alert and oriented to person, place, and time. Skin: Skin is warm and dry. Psychiatric: She has a normal mood and affect. Breast: Bilateral breast with no palpable lumps, nipple abnormalities or skin changes. No palpable cervical, supraclavicular or axillary adenopathy. Assessment & Plan 1. Left breast cancer. pT1a pN0 invasive ductal carcinoma. Tumor size 0.4 x 0.4 x 0.2 cm with 0/2 sentinel nodes, grade 2. ER+/ME neg/Her2 neg. Began Letrozole in May 2019. Tolerating it fairly well. Mammogram from February was unremarkable. 2. Bone health. Bone density scan in May 2019 showed evidence of osteopenia. Currently on calcium/vitamin D supplementation. Plan: 1. Continue letrozole. 2. Repeat bone density scan. 3. Return for follow-up in 1 year. She is following with Dr. Tapia. Other Orders Placed This Visit Procedures ??? DEXA BONE DENSITY Bryan Blackman MD Hematology/Oncology [facility]/ documented in this encounter Plan of Treatment Upcoming Encounters Date Type Department Care Team (Late st Contact Info) Description 11/09/2024 15:45 EST Procedure visit [facility] Orthopedics & Sport Medicine [address] [place], [place] [address] Leann Holland, MANAGER SOFTWARE DEVELOPMENT [address] [facility] [address] [place], [place] [id number] 11/16/2024 15:45 EST Procedure visit [facility] Orthopedics & Sport Medicine [address] [place], [place] [address] Leann Holland, MANAGER SOFTWARE DEVELOPMENT [address] [facility] [address] [place] [address] 07/17/2025 15:30 EDT Office Visit [facility] Adult Hematology & Oncology [address] [place] [address] Jimmy Gallego MD [address] [facility] [address] [place] [address] documented as of this encounter Visit Diagnoses Diagnosis Malignant neoplasm of central portion of left breast in female, estrogen receptor positive ([facility])- Primary Postmenopausal Asymptomatic postmenopausal status (age-related) (natural) documented in this encounter Discontinued Medications Medication Sig Discontinue Reason Start Date End Da te BIOFLAVONOIDS ORAL Take by mouth. Duplicate order 05/26/2021 documented as of this encounter Historical Medications * This list may reflect changes made after this encounter. Medication Sig Dispense Quantity Refills Last Filled Start D ate End Date azelastine (ASTELIN) nasal spray 05/21/2021 07/13/2024 added in this encounter Care Teams Biomedical Engineer Relationship Specialty Start Date End Date Iva Jennings APRN 26 [facility] [address] [place] [address] PCP - General 03/01/20 documented as of this encounter
--- OUTSIDE RECORDS SUMMARY | 2024-11-09 10:11 | XMS_ITS | Encounter Summary ---
Author Organization [facility] Address [address] [place] [address] Care Team Providers Care Director Epidemiology Name Role Phone Iva Jennings APRN Primary Care Provider [phone] [phone] Reason for Visit * Reason Comments Follow-up Encounter Details Date Type Department Care Team (Late st Contact Info) Description 12/09/2021 14:20 EST Office Visit [facility] Surgical Oncology - [facility] [address] [place], [place] [address] Elizbaeth Tapia, DO [address] [facility] [place] [address] Malignant neoplasm of central portion [...] Sign Reading Time Taken Comments Blood Pressure 181/97 12/09/2021 1425 EST Pulse 111 12/09/2021 1425 EST Temperature 35.9 ??C (96.7 ??F) 12/09/2021 1425 EST Respiratory Rate - - Oxygen Saturation [...] Progress Notes * Elizabeth Tapia, DO - 12/09/2021 1420 EST Subjective: Patient ID: Susie Mayfield is [...] with associated ductal carcinoma insitu. ??ER positive, ID negative, HER-2 negative. ??She went on to [...] significant side effects from that medication. Susie has been struggling to keep up with diet and exercise [place] for [place] to exercise in the winter. She also struggles with some severe allergies that makes it challenging as well. She notes no new masses in her breast. Patient Active Problem List Diagnosis ??? Malignant neoplasm of central portion of left breast in female, estrogen receptor positive (HCC-CMS) (HCC) ??? Arthritis of right knee Past Medical History: Diagnosis Date ??? Breast cancer, left ([facility]) (HCC) 2018 ??? Hypertension Past Surgical History: [...] ZINC II ORAL) Take by mouth. ??? celecoxib (CELEBREX) 200 mg capsule 1 cap(s) orally twice daily ??? cetirizine (ZYRTEC) 1 mg/mL solution Take 5 mg by mouth daily. ??? clobetasoL (TEMOVATE) 0.05 % cream Apply topically 2 times daily. ??? glucos sul 2KCl/msm/chond/C/Mn (GLUCOSAMINE CHONDROITIN ORAL) Take by mouth. ??? letrozole (FEMARA) 2.5 mg tablet Take 1 Tablet by mouth daily. 90 Tablet 3 ??? lisinopril (PRINIVIL, ZESTRIL) 5 mg [...] ??? Adhesive Itching Review of Systems Constitutional: Positive for malaise/fatigue. Negative for chills, fever and weight loss. HENT: Positive for congestion and sinus pain. Negative for hearing loss. Eyes: Negative for blurred vision, double vision and photophobia. Respiratory: Negative for cough, shortness of breath and wheezing. Cardiovascular: Negative for chest pain and palpitations. Gastrointestinal: Negative for abdominal pain, heartburn, nausea and vomiting. Genitourinary: Negative for dysuria, frequency and urgency. Musculoskeletal: Positive for joint pain. Neurological: Negative for sensory change, focal [...] has a surgical scar on the left with no significant masses orlumps in that breast. There is no nipple inversion or discharge. There are no axillary masses. Assessment: Susie is seen in the office today in 6-month follow-up for her left breast cancer. On examination today she has no evidence of recurrent disease. She and I talked about some strategies for exercise including getting some home exercise equipment so that she could safely exercise during the winter. She is due for mammography in February and I have ordered that for her. I will see her now on an annualized basis as she is 3 years out from diagnosis. Plan: (C50.112, Z17.0) Malignant neoplasm of central portion of left breast in female, estrogen receptor positive (HCC-CMS) (HCC) (primary encounter diagnosis) Elizabeth Tapia DO No orders of the defined types were placed in this encounter. documented in this encounter Plan of Treatment Upcoming Encounters Date Type Department Care Team (Late st Contact Info) Description 11/09/2024 15:45 EST Procedure visit [facility] Orthopedics & Sport Medicine [address] [place] [address] [place] [address] [place] [address] [address] [place], [place] [id number] 11/16/2024 15:45 EST Procedure visit [facility] Orthopedics & Sport Medicine [address] [place] [address] Leann Holland ELECTRONIC GLUING MACHINE OPERATOR [address] [place] [address] [address] [place] [address] 07/17/2025 15:30 EDT Office Visit [facility] Adult Hematology & Oncology [facility] [place] [address] Jimmy Gallego MD [address] [facility] [address] [place] [address] documented as of this encounter Procedures Procedure Name Priority Date/Time Associated Diagnosis Comments ORDERS - SCANNED 12/16/2021 22:41 EST documented in this encounter Results * ORDERS - SCANNED (12/16/2021 22:41 EST) 12/16/2021 22:4 1 EST us Scan 2 Paper Twister Tender ADMISSION ORDERABLES Final Result documented in this encounter Visit Diagnoses Diagnosis Malignant neoplasm of central portion of left breast in female, estrogen receptor positive ([facility])- Primary documented in this encounter Care Teams Director Epidemiology Relationship Specialty Start Date End Date Iva Jennings APRN [address] [place] [address] PCP - General 03/01/20 documented as of this encounter
--- OUTSIDE RECORDS SUMMARY | 2024-11-09 10:11 | XMS_ITS | Encounter Summary ---
Author Organization [facility] Address [address] [place] [address] Care Team Providers Care Director Of Student Financial Services Name Role Phone Iva Jennings APRN Primary Care Provider [phone] [phone] Reason for Visit * Reason Comments Follow-up Encounter Details Date Type Department Care Team (Late st Contact Info) Description 09/07/2022 16:30 EST Office Visit [facility] Orthopedics & Sport Medicine [address] [place] [address] Leann Holland, FRANK [address] [facility] [address] [place] [address] Osteoarthritis of right knee, unspecified [...] Progress Notes * Leann Holland NP - 09/07/2022 1630 EST PROBLEM: Right knee osteoarthritis SUBJECTIVE: Susie Mayfield is a 72 y.o. female who is here today for follow up of her right knee osteoarthritis. She has had great luck with orthovisc series in the past, last 07/25/2021. Just recently her knee started bothering again, it's mild right now but she'd like to repeat the series. Pain is medial. The past medical, family and social history [...] exam of the right knee reveals mild swelling, tender over medial joint line. ROM from 10-~110 degrees with pain at max flexion. No pain or laxity with ligamentous exam. No lower leg swelling. DIAGNOSTICS: Radiographs of the right knee demonstrate advanced tricompartmental osteoarthritis with medial joint line narrowing. ASSESSMENT/PLAN: 72yoF with right knee osteoarthritis and excellent luck with viscosuupplementationin the past, most recent series completed on 07/25/2021. Would like to repeat. Will obtain prior authorization and see her back in 3 weeks to start. This note was prepared using voice recognition software and the EMR. There may be inadvertent errors and omissions. Leann Holland APRN 09/07/2022 documented in this encounter Plan of Treatment Upcoming Encounters Date Type Department Care Team (Late st Contact Info) Description 11/09/2024 15:45 EST Procedure visit [facility] Orthopedics & Sport Medicine [address] [place], [place] [id number] Leann Holland SOUND ASSISTANT [address] [place] [address] [address] [place], [place] [id number] 11/16/2024 15:45 EST Procedure visit [facility] Orthopedics & Sport Medicine [address] [place], [place] [id number] Leann Holland SOUND ASSISTANT [address] [place] [address] [address] [place], [place] [id number] 07/17/2025 15:30 EDT Office Visit [facility] Adult Hematology & Oncology [facility] [place], [place] [id number] Jimmy Gallego MD [address] [facility] [address] [place] [address] documented as of this encounter Visit Diagnoses Diagnosis Osteoarthritis of right knee, unspecified osteoarthritis type- Primary documented in this encounter Care Teams Director Of Student Financial Services Relationship Specialty Start Date End Date Iva Jennings APRN 26 [facility] [address] [place] [address] PCP - General 03/01/20 documented as of this encounter
--- OUTSIDE RECORDS SUMMARY | 2024-11-09 10:11 | XMS_ITS | Encounter Summary ---
Author Organization [facility] Address [address] [place] [address] Care Team Providers Care Computer Assembler Name Role Phone Iva Jennings APRN Primary Care Provider [phone] [phone] Encounter Details Date Type Department Care Team (Latest Contact Info) Description 07/11/2021 Travel Social History Tobacco Use Types Packs/Day [...] 16:43 EDT documented as of this encounter Functional [...] Medicine [address] [place] [address] Leann Holland, FRANK [address] [facility] [address] [place] [address] 11/16/2024 15:45 EST Procedure visit [facility] Orthopedics & Sport Medicine [address] [place], [place] [id number] Leann Holland NP [address] [facility] [address] [place] [address] 07/17/2025 15:30 EDT Office Visit [facility] Adult Hematology & Oncology [facility] [place] [address] Jimmy Gallego MD [address] [facility] [address] [place] [phone] documented as of this encounter Visit Diagnoses Not on filedocumented in this encounter Care Teams Computer Assembler Relationship Specialty Start Date End Date Iva Jennings APRN 26 [facility] [address] [place] [address] PCP - General 03/01/20 documented as of this encounter
--- OUTSIDE RECORDS SUMMARY | 2024-11-09 10:11 | XMS_ITS | Encounter Summary ---
Author Organization [facility] Address [address] [place] [address] Care Team Providers Care Personnel Research Psychologist Name Role Phone Iva Jennings APRN Primary Care Provider [phone] [phone] Reason for Visit * Reason Comments Injections Encounter Details Date Type Department Care Team (Late st Contact Info) Description 10/08/2022 16:00 EST Office Visit [facility] Orthopedics & Sport Medicine [address] [place], [place] [id number] Leann Holland, FRANK [address] [facility] [address] [place] [address] Osteoarthritis of right knee, unspecified [...] this encounter Progress Notes * Leann Holland, COUNCILLOR [employer]IGINAL [employer]AND [employer]IL - 10/08/2022 1600 ESTAssociated Order(s): Large Joint Injection/Arthrocentesis: R knee Post-Procedure Diagnose(s): Osteoarthritis of right knee, unspecified osteoarthritis type PROBLEM: Right knee osteoarthritis; orthovisc #2 of 3 SUBJECTIVE: Susie Mayfield is a 72 y.o. female who is here today for her second orthovisc injection right knee. History of OA and good relief with viscosupplementation in the past. No changes in symptoms. See previous note from 08/2022. The past medical, family and social history [...] exam of the right knee reveals no swelling, no overlying skin changes. No lower leg swelling. See previous note for full exam. DIAGNOSTICS: Radiographs of the right knee demonstrate advanced tricompartmental osteoarthritis with medial joint line narrowing. ASSESSMENT/PLAN: 72yoF with advanced right knee osteoarthritis and good relief with orthovisc in the past. Here for second injection right knee. After reviewing risks and benefits of an injection including variability of results, verbal consent was obtained to proceed today. A timeout was performed. The right knee was prepped in the standard sterile fashion. After final verication of the correct site, 2ml of orthovisc along with an anesthetic was injected into the right knee without difficulty.No medication was wasted. She tolerated the procedure well. Aftercare for the injection was discussed and all question answered. Follow up in 1 week for injection #3. Procedure: Large Joint Injection/Arthrocentesis: R knee on 10/08/2022 16:00 Medications: 30 mg Sodium Hyaluronate 30 mg/2 mL; 3 mL lidocaine (PF) 10 mg/mL (1 %) Leann Holland NP 10/08/2022 documented in this encounter Plan of Treatment Upcoming Encounters Date Type Department Care Team (Late st Contact Info) Description 11/09/2024 15:45 EST Procedure visit [facility] Orthopedics & Sport Medicine [address] [place] [address] Leann Holland NP [address] [facility] [address] [place] [address] 11/16/2024 15:45 EST Procedure visit [facility] Orthopedics & Sport Medicine [address] [place] [address] [place] [address] [place] [address] [address] [place] [address] 07/17/2025 15:30 EDT Office Visit [facility] Adult Hematology & Oncology [facility] [place] [address] Jimmy Gallego MD [address] [facility] [address] [place] [address] documented as of this encounter Procedures Procedure Name Priority Date/Time Associated Diagnosis Comments LARGE JOINT INJECTION/ARTHROCE NTESIS Routine 10/08/2022 16:00 EST Osteoarthritis of right knee, unspecified osteoarthritis type documented in this encounter Results * [place] ARTHROCENTESIS ASPIR&/INJ MAJOR JT/BURSA W/O US (10/08/2022 16:00 EST) Narrative [facility] POINT OF CARE - 10/08/2022 16:00 EST Leann Holland, COUNCILLOR [employer]INAL [employer] ? 10/08/2022 17:33 Large Joint Injection/Arthrocentesis: R knee on 10/08/2022 16:00 Medications: 30 mg Sodium Hyaluronate 30 mg/2 mL; 3 mL lidocaine (PF) 10 mg/mL (1 %) us Leann Holland NP PROCEDURE/MINOR SURGICAL ORD ERABLES Final Result Performing Organization Address City/State/[facility] Co de Phone Number [facility] POINT OF CARE documented in this encounter Visit Diagnoses Diagnosis Osteoarthritis of right knee, unspecified osteoarthritis type- Primary documented in this encounter Administered Medications Inactive Administered Medications - up to 3 most recent administrations Medication Order MAR Action Action Date Dose Rate Site lidocaine (PF) 10 mg/mL (1 %) injection 3 mL 3 mL, other, Once PRN Procedure, 1 dose, Starting on Yovana 10/08/22 at 1600, Until Yovana 10/08/22 at 1600, RoutineIndications:Osteoarthritis of right knee, unspecified osteoarthritis type Given 10/08/2022 16:00 EST 3 mL Sodium Hyaluronate (ORTHOVISC) syringe 30 mg 30 mg, other, Once PRN Procedure, 1 dose, Starting on Yovana 10/08/22 at 1600, Until Yovana 10/08/22 at 1600, RoutineIndications:Osteoarthritis of right knee, unspecified osteoarthritis type Given 10/08/2022 16:00 EST 30 mg documented in this encounter Care Teams Personnel Research Psychologist Relationship Specialty Start Date End Date Iva Jennings APRN [address] [place] [phone] PCP - General 03/01/20 documented as of this encounter
--- OUTSIDE RECORDS SUMMARY | 2024-11-09 10:11 | XMS_ITS | Encounter Summary ---
Author Organization [facility] Address [address] [place] [address] Care Team Providers Care Websphere Process Server Developer Name Role Phone Iva Jennings APRN Primary Care Provider [phone] [phone] Reason for Visit * Reason Onset Date Comments Medications Refill 08/06/2021 Encounter Details Date Type Department Care Team (Late st Contact Info) Description 08/05/2021 Refill [facility] Adult Hematology & Oncology [address] [place] [id number] Lauren Sharp RN Medications Refill Social History Tobacco Use [...] have Coronavirus / COVID-19? No / Unsure 07/25/2021 15:28 EDT documented as of this encounter Functional [...] Tablet by mouth daily. 90 Tablet 3 08/05/2021 07/20/2022 documented in this encounter Miscellaneous Notes * Telephone Encounter - Lauren Castorena RN - 08/05/2021 1321 EDT Rec'd faxed refill request from [facility]: Letrozole 2.5mg daily Last filled 05/05/21 Last visit with ET on 05/26/21: Plan: 1. Continue letrozole Next visit scheduled for 05/25/22 Do you agree with attached? documented in this encounter Plan of Treatment Upcoming Encounters Date Type Department Care Team (Late st Contact Info) Description 11/09/2024 15:45 EST Procedure visit [facility] Orthopedics & Sport Medicine [address] [place], [place] [phone] Leann Holland, HIGH SCHOOL SPORTS COACH [address] [place] [phone] 11/16/2024 15:45 EST Procedure visit [facility] Orthopedics & Sport Medicine [address] [place], [place] [phone] Leann Holland, HIGH SCHOOL SPORTS COACH [address] [place] [address] [place] [phone] 07/17/2025 15:30 EDT Office Visit [facility] Adult Hematology & Oncology [facility], [place] [id number] Jimmy Gallego MD [address] [facility] [address] [place] [phone] documented as of this encounter Visit Diagnoses Not on filedocumented in this encounter Discontinued Medications Medication Sig Discontinue Reason Start Date End Da te letrozole (FEMARA) 2.5 mg tablet Take 1 Tab by mouth daily for 90 days. Reorder 10/30/2020 08/05/2021 documented as of this encounter Care Teams Websphere Process Server Developer Relationship Specialty Start Date End Date Iva Jennings APRN [address] [place] [phone] PCP - General 03/01/20 documented as of this encounter
--- OUTSIDE RECORDS SUMMARY | 2024-11-09 10:11 | XMS_ITS | Encounter Summary ---
Author Organization [facility] Address [address] [place] [address] Care Team Providers Care Lead Software Engineer Name Role Phone Iva Jennings APRN Primary Care Provider [phone] [phone] Reason for Referral * Radiology Services (Routine/Next Available) - Authorization Not Required Specialty Diagnoses / Procedures Referred By Lisbet olivas Referred To Contact Diagnoses Screening mammogram, encounter for Procedures MA BREAST SCREENING ELSA BILATERAL Iva Jennings ROOM SERVICE CLERK [address] [address] Phone: tel: fax: [facility] Referral ID Status Reason Start Date Expiration Date Visits Requested Visits Authorized [id number] Authorization Not Required 12/09/2021 1 1 Reason for Visit * Radiology Services (Routine/Next Available) - Authorization Not Required Specialty Diagnoses / Procedures Referred By Lisbet olivas Referred To Contact Diagnoses Screening mammogram, encounter for Procedures MA BREAST SCREENING ELSA BILATERAL Iva Jennings ROOM SERVICE CLERK [address] [place] [place] [address] Phone: tel: fax: [facility] Referral ID Status Reason Start Date Expiration Date Visits Requested Visits Authorized [id number] Authorization Not Required 12/09/2021 1 1 Encounter Details Date Type Department Care Team (Latest Contact Info) Description 04/07/2022 14:52 EDT - 04/07/2022 23:59 EDT Hospital Encounter [facility] Breast Imaging Mammography - [address] [address] Screening mammogram, encounter for Discharge Disposition: Home [...] daily. azelastine (ASTELIN) nasal spray 05/21/2021 4 calcium carbonate (CALCIUM 500 ORAL) Take by mouth. 2 celecoxib (CELEBREX) 200 mg capsule 1 cap(s) orally twice daily 2 cetirizine (ZYRTEC) 1 mg/mL solution Take 5 mL by mouth daily. 4 letrozole (FEMARA) 2.5 mg tablet Take 1 Tablet by mouth daily. 90 Tablet 3 08/05/2021 2 mometasone (NASONEX) 50 mcg/actuation nasal spray Instill [...] [facility] [place] [facility] Medicine [address] [place] [address] Leann Holland CRANE MAN [address] [place] [address] [place] [address] 11/16/2024 15:[address] [facility] Orthopedics & Sport Medicine [address] [place] [address] Leann Holland, CRANE MAN [address] [place] [address] [place] [address] 07/17/2025 15:[address] [facility] Adult Hematology & Oncology [address] [place] [address] Jimmy Gallego MD [address] [facility] [address] [place] [phone] documented as of this encounter Procedures Procedure Name Priority Date/Time Associated Diagnosis Comments MA BREAST SCREENING ELSA BILATERAL Routine 04/07/2022 15:17 EDT Screening mammogram, encounter for documented in this encounter Results * MA BREAST SCREENING ELSA BILATERAL (04/07/2022 15:17 EDT) Anatomical Region Laterality Modality Breast Bilateral Mammography 04/07/2022 16:2 5 EDT Impressions 04/07/2022 16:25 EDT Benign, no evidence of malignancy. RECOMMENDATION: Routine screening mammography is recommended. OVERALL ASSESSMENT: BI-RADS 2: Benign These results will be communicated to your patient via a lay letter from Radiology. If any additional imaging is needed we will contact your patient directly. I have personally reviewed the images and the above interpretation and agree with the findings. Narrative 04/07/2022 16:25 EDT MA BREAST SCREENING ELSA BILATERAL ??04/07/2022 3:40 PM History: routine Comparison: ??Comparison has been made to previous images. Technique: Routine 3D tomosynthesis with synthesized 2D views with CAD Bilateral Breast Composition: The breast tissue is almost entirely fatty. Bilateral Breast Findings: ??No significant masses, calcifications or other abnormalities are seen. Changes related to prior left breast conservation are noted. Procedure Note Cathie Barajas MD - 04/07/2022 MA BREAST SCREENING ELSA BILATERAL 04/07/2022 3:40 PM History: routine Comparison: Comparison has been made to previous images. Technique: Routine 3D tomosynthesis with synthesized 2D views with CAD Bilateral Breast Composition: The breast tissue is almost entirely fatty. Bilateral Breast Findings: No significant masses, calcifications or otherabnormalities are seen. Changes related to prior left breast conservationare noted. IMPRESSION Benign, no evidence of malignancy. RECOMMENDATION: Routine screening mammography is recommended. OVERALL ASSESSMENT: BI-RADS 2: Benign These results will be communicated to your patient via a lay letter fromRadiology. If any additional imaging is needed we will contact yourpatient directly. I have personally reviewed the images and the above interpretation andagree with the findings. us Iva Jennings APRN IM MAMMOGRAPHY ORDERABLE S Final Result documented in this encounter Visit Diagnoses Diagnosis Screening mammogram, encounter for documented in this encounter Care Teams Lead Software Engineer Relationship Specialty Start Date End Date Iva Jennings APRN [address] [phone] PCP - General 03/01/20 documented as of this encounter
--- OUTSIDE RECORDS SUMMARY | 2024-11-09 10:11 | XMS_ITS | Encounter Summary ---
Author Organization [facility] Address [address] [place] [address] Care Team Providers Care Head Of Maintenance Name Role Phone Iva Jennings APRN Primary Care Provider [phone] [phone] Encounter Details Date Type Department Care Team (Latest Contact Info) Description 07/25/2021 Travel Social History Tobacco Use Types Packs/Day [...] Medicine [address] [place] [address] Leann Holland, FRANK [address] [facility] [address] [place] [address] 11/16/2024 15:45 EST Procedure visit [facility] Orthopedics & Sport Medicine [address] [place], [place] [phone] Leann Holland NP [address] [facility] [address] [place] [address] 07/17/2025 15:30 EDT Office Visit [facility] Adult Hematology & Oncology [facility] [place] [address] Jimmy Gallego MD [address] [facility] [address] [place] [phone] documented as of this encounter Visit Diagnoses Not on filedocumented in this encounter Care Teams Head Of Maintenance Relationship Specialty Start Date End Date Iva Jennings APRN 26 [facility] [address] [place] [address] PCP - General 03/01/20 documented as of this encounter
--- OUTSIDE RECORDS SUMMARY | 2024-11-09 10:11 | XMS_ITS | Encounter Summary ---
Author Organization [facility] Address [address] [place] [address] Care Team Providers Care Fly Finisher Name Role Phone Iva Jennings APRN Primary Care Provider [phone] [phone] Reason for Visit * Reason Onset Date Comments Prior Auth, Medication 09/09/2022 Encounter Details Date Type Department Care Team (Late st Contact Info) Description 09/09/2022 Telephone [facility] Orthopedics & Sport Medicine [address] [place], [place] [id number] Leann Holland, QUARTZ MINER [address] [facility] [address] [place] [address] Prior Auth, Medication Social History [...] encounter Miscellaneous Notes * Telephone Encounter - Johanna Butts MA - 10/01/2022 0915 EST Call made to [employer] and Orthovisc was approved * Telephone Encounter - Johanna Butts MA - 09/30/2022 0931 EST Called [employer] for PA, and it was sent to clinical review, expedited. Should have an answer by the end of the day. [id number] * Telephone Encounter - Elizabeth Zayas MA - 09/09/2022 1028 EST Faxed prior authorization for Orthovisc series. Faxed on 09/07/22. Apt's scheduled for 10/01, 10/08, and 10/15. documented in this encounter Plan of Treatment Upcoming Encounters Date Type Department Care Team (Late st Contact Info) Description 11/09/2024 15:45 EST Procedure visit [facility] Orthopedics & Sport Medicine [address] [place] [address] Leann Holland NP [address] [facility] [address] [place], [place] [address] 11/16/2024 15:45 EST Procedure visit [facility] Orthopedics & Sport Medicine [address] [place] [address] Leann Holland, QUARTZ MINER [address] [facility] [address] [place] [address] 07/17/2025 15:30 EDT Office Visit [facility] Adult Hematology & Oncology [facility] [place] [address] Jimmy Gallego MD [address] [facility] [address] [place] [address] documented as of this encounter Visit Diagnoses Not on filedocumented in this encounter Care Teams Fly Finisher Relationship Specialty Start Date End Date Iva Jennings APRN 26 [facility] [address] [place] [address] PCP - General 03/01/20 documented as of this encounter
--- OUTSIDE RECORDS SUMMARY | 2024-11-09 10:11 | XMS_ITS | Encounter Summary ---
Author Organization [facility] Address [address] [place] [address] Care Team Providers Care License Registration Examiner Name Role Phone Iva Jennings APRN Primary Care Provider [phone] [phone] Reason for Visit * Reason Comments Injections Encounter Details Date Type Department Care Team (Late st Contact Info) Description 07/25/2021 15:30 EDT Procedure visit [facility] Orthopedics & Sport Medicine [address] [place], [place] [id number] Leann Holland, FRANK [address] [facility] [address] [place] [address] Osteoarthritis of right knee, unspecified [...] 15:28 EDT documented as of this encounter Last Filed Vital Signs Vital Sign Reading Time Taken Comments Blood Pressure - - Pulse - - Temperature 36.6 ??C (97.8 ??F) 07/25/2021 1530 EDT Respiratory Rate - - Oxygen Saturation [...] this encounter Progress Notes * Leann Holland, SALES ASSISTANT ENTERTAINMENT AND MEDIA - 07/25/2021 1530 EDTAssociated Order(s): Large Joint Injection/Arthrocentesis: R knee Post-Procedure Diagnose(s): Osteoarthritis of right knee, unspecified osteoarthritis type PROBLEM: Right knee osteoarthritis, orthovisc #3 SUBJECTIVE: Susie Mayfield is a 71 y.o. female with established osteoarthritis right knee and excellent response to orthovisc in the past. Here today for injection #3 of 3. Was a little sore and stiff after last injection. The past medical, family and social history have been reviewed in the patient chart. She is a neversmoker. OBJECTIVE: Patient Vitals for the past 24 hrs: Temp 07/25/21 1530 36.6 ??C (97.8 ??F) General appearance: Well-developed, well nourished, no [...] in the past, here today for injection #3 of 3. After reviewing risks and benefits [...] discussed and all question answered. Follow up PRN. Procedure: Large Joint Injection/Arthrocentesis: R knee on 07/25/2021 15:30 Medications: 30 mg Sodium Hyaluronate 30 mg/2 mL; 3 mL lidocaine (PF) 10 mg/mL (1 %) Leann Holland NP 07/25/2021 documented in this encounter Plan of Treatment Upcoming Encounters Date Type Department Care Team (Late st Contact Info) Description 11/09/2024 15:45 EST Procedure visit [facility] Orthopedics & Sport Medicine [address] [place] [address] [place] [address] [place] [address] [place] [address] 11/16/2024 15:45 EST Procedure visit [facility] Orthopedics & Sport Medicine [address] [place] [address] Leann Holland NP [address] [place] [address] [place] [address] 07/17/2025 15:30 EDT Office Visit [facility] Adult Hematology & Oncology [facility] [place] [address] Jimmy Gallego MD [address] [place] [address] [address] [place] [address] documented as of this encounter Procedures Procedure Name Priority Date/Time Associated Diagnosis Comments LARGE JOINT INJECTION/ARTHROCE NTESIS Routine 07/25/2021 15:30 EDT Osteoarthritis of right knee, unspecified osteoarthritis type documented in this encounter Results * [place] ARTHROCENTESIS ASPIR&/INJ MAJOR JT/BURSA W/O US (07/25/2021 15:30 EDT) Narrative [facility] POINT OF CARE - 07/25/2021 15:30 EDT Leann Holland, SALES ASSISTANT ENTERTAINMENT AND MEDIA ? 07/25/2021 17:18 Large Joint Injection/Arthrocentesis: R knee on 07/25/2021 15:30 Medications: 30 mg Sodium Hyaluronate 30 mg/2 mL; 3 mL lidocaine (PF) 10 mg/mL (1 %) us Leann Holland NP PROCEDURE/MINOR SURGICAL ORD ERABLES Final Result [facility] POINT OF CARE documented in this encounter Visit Diagnoses Diagnosis Osteoarthritis of right knee, unspecified osteoarthritis type- Primary documented in this encounter Administered Medications Inactive Administered Medications - up to 3 most recent administrations Medication Order MAR Action Action Date Dose Rate Site lidocaine (PF) 10 mg/mL (1 %) injection 3 mL 3 mL, other, Once PRN Procedure, 1 dose, Starting on Wed07/25/21 at 1530, Until Wed07/25/21 at 1530, RoutineIndications:Osteoarthritis of right knee, unspecified osteoarthritis type Given 07/25/2021 15:30 EDT 3 mL Sodium Hyaluronate (ORTHOVISC) syringe 30 mg 30 mg, other, Once PRN Procedure, 1 dose, Starting on Wed07/25/21 at 1530, Until Wed07/25/21 at 1530, RoutineIndications:Osteoarthritis of right knee, unspecified osteoarthritis type Given 07/25/2021 15:30 EDT 30 mg documented in this encounter Care Teams License Registration Examiner Relationship Specialty Start Date End Date Iva Jennings APRN [address] [place] [address] [address] [place] [address] PCP - General 03/01/20 documented as of this encounter
--- OUTSIDE RECORDS SUMMARY | 2024-11-09 10:11 | XMS_ITS | Encounter Summary ---
Author Organization [facility] Address [address] [place] [address] Care Team Providers Care Trailer Mechanic Name Role Phone Iva Jennings APRN Primary Care Provider [phone] [phone] Reason for Visit * Reason Onset Date Comments Results 07/09/2021 Encounter Details Date Type Department Care Team (Late st Contact Info) Description 07/09/2021 Telephone [facility] Adult Hematology & Oncology [address] [place] [address] Darleen Perdomo RN Results Social History Tobacco Use Types Packs/Day Years [...] Telephone Encounter - Darleen Perdomo RN - 07/15/2021 1642 EDT Pt. Notified. Verbalized understanding. No further questions. * Telephone Encounter - Darleen Perdoom RN - 07/09/2021 1005 EDT Images from the original note were not included. Eduarda Jacob, Darleen Paiz RN Please call and let her know bone density looks good: No osteoporosis ?? XR DEXA BONE DENSITY Order: [id number] Status: Final result ?Visible to patient: No (not released) 1 Result Note Details Reading Physician Reading Date Result Priority Grayson Hines MD [phone] 07/03/2021 Narrative ? EXAM: RADIOLOGY/DEXA/BONE DENSITY-AXIAL ?? EX. D/ (1551) ? CLINICAL INFORMATION: ? Z78.0 POST MENOPAUSAL ? ON ENDOCRINE THERAPY FOR BREAST CANCER ? See attached report. ??Report also available in PACS and [facility] for ? ordering [facility] Providers. ? BBL:kad ?Reported By: Grayson Hines MD ?? documented in this encounter Plan of Treatment Upcoming Encounters Date Type Department Care Team (Late st Contact Info) Description 11/09/2024 15:45 EST Procedure visit [facility] Orthopedics & Sport Medicine [address] [place], [place] [phone] Leann Holland NP [address] [facility] [address] [place], [place] [id number] 11/16/2024 15:45 EST Procedure visit [facility] Orthopedics & Sport Medicine [address] [place], [place] [phone] Leann Holland NP [address] [facility] [address] [place] [address] 07/17/2025 15:30 EDT Office Visit [facility] Adult Hematology & Oncology [facility] [place] [address] Jimmy Gallego MD [address] [facility] [address] [place] [phone] documented as of this encounter Visit Diagnoses Not on filedocumented in this encounter Care Teams Trailer Mechanic Relationship Specialty Start Date End Date Iva Jennings APRN 26 [facility] [address] [place] [address] PCP - General 03/01/20 documented as of this encounter
--- OUTSIDE RECORDS SUMMARY | 2024-11-09 10:11 | XMS_ITS | Encounter Summary ---
Author Organization [facility] Address [address] [place] [address] Care Team Providers Care Slate Roofer Name Role Phone Iva Jennings APRN Primary Care Provider [phone] Encounter Details Date Type Department Care Team (Late st Contact Info) Description 06/13/2021 11:30 EDT Ancillary Procedure [facility] Surgical Oncology - [facility] [address] [place], [place] [phone] Social History Tobacco Use Types Packs/Day Years [...] 9:55 EDT documented as of this encounter Functional [...] 11/09/2024 15:45 EST Procedure visit [facility] Orthopedics & Sport Medicine [address] [place], [place] [phone] Leann Holland NP [address] [facility] [address] [place], [place] [phone] 11/16/2024 15:45 EST Procedure visit [facility] Orthopedics & Sport Medicine [address] [place], [place] [phone] Leann Holland NP [address] [facility] [address] [place], [place] [phone] 07/17/2025 15:30 EDT Office Visit [facility] Adult Hematology & Oncology [facility] [address] [place], [place] [phone] Jimmy Gallego MD [address] [facility] [address] [place] [address] documented as of this encounter Procedures Procedure Name Priority Date/Time Associated Diagnosis Comments [facility] ONLY Routine 06/13/2021 12:08 EDT documented in this encounter Results * [facility] BREAST BREAST [facility] ONLY (06/13/2021 12:08 EDT) Narrative [facility] POINT OF CARE - 06/13/2021 12:08 EDT This is a non-reportable exam. us Elizabeth Tapia DO IMG US POC ORDERABLES Final Result [facility] POINT OF CARE documented in this encounter Visit Diagnoses Not on filedocumented in this encounter Care Teams Slate Roofer Relationship Specialty Start Date End Date Iva Jennings APRN [address] [place] [address] PCP - General 03/01/20 documented as of this encounter
--- OUTSIDE RECORDS SUMMARY | 2024-11-09 10:11 | XMS_ITS | Encounter Summary ---
Author Organization [facility] Address [address] [place] [address] Care Team Providers Care Blending Operator Name Role Phone Iva Jennings APRN Primary Care Provider [phone] Reason for Visit * Reason Comments Urine Change Encounter Details Date Type Department Care Team (Late st Contact Info) Description 08/06/2022 14:30 EDT Walk-In [facility] [address] [place] [address] Leah Booker PA-C [address] [place] [address] [address] [place] [address] Acute cystitis without hematuria (Primary Dx) Social History Tobacco Use Types [...] Sign Reading Time Taken Comments Blood Pressure 134/86 08/06/2022 1434 EDT manual Pulse 116 08/06/2022 1434 EDT Temperature 36.3 ??C (97.3 ??F) 08/06/2022 1434 EDT Respiratory Rate 16 08/06/2022 1434 EDT Oxygen Saturation 96% 08/06/2022 1434 EDT Inhaled Oxygen Concentration - - Weight - [...] 04/07/2019 9:57 EDT documented in this encounter Patient Instructions * Patient Instructions* Leah Booker PA-C - 08/06/2022 14:30 EDT Images from the original note were not included. Please be sure to drink plenty of water, generally 8 cups a day as recommended. You may take Tylenol or ibuprofen as needed for discomfort. Begin the antibiotic today. Please call this office if you are not improving in the next 1 to 2 days. You should go to the emergency room with severe pain, vomiting or fever. [facility] Patient Instructions Urinary Tract Infection (UTI) in Women: Care Instructions Overview A urinary tract infection, or UTI, is a general term for an infection anywhere between the kidneys and the urethra (where urine comes out). Most UTIs are bladder infections. They often cause pain or burning when you urinate. UTIs are caused by bacteria and can be cured with antibiotics. Be sure to complete your treatment so that the infection does not get worse. Follow-up care is a yao part of your treatment and safety. Be sure to make and go to all appointments, and call your doctor if you are having problems. It's also a good idea to know your test resultsand keep a list of the medicines you take. How can you care for yourself at home? Take your antibiotics as directed. Do not stop taking them just because you feel better. You need to take the full course of antibiotics. ??? Drink extra water and other fluids for the next day or two. This will help make the urine less concentrated and help wash out the bacteria that are causing the infection. (If you have kidney, heart, or liver disease and have to limit fluids, talk with your doctor before you increase the amount of fluids you drink.) ??? Avoid drinks that are carbonated or have caffeine. They can irritate the bladder. ??? Urinate often. Try to empty your bladder each time. ??? To relieve pain, take a hot bath or lay a heating pad set on low over your lower belly or genital area. Never go to sleep with a heating pad in place. To prevent UTIs ??? Drink plenty of water each day. This helps you urinate often, which clears bacteria from your system. (If you have kidney, heart, or liver disease and have to limit fluids, talk with your doctor before you increase the amount of fluids you drink.) ??? Urinate when you need to. ??? If you are sexually active, urinate right after you have sex. ??? Change sanitary pads often. ??? Avoid douches, bubble baths, feminine hygiene sprays, and other feminine hygiene products that have deodorants. ??? After going to the bathroom, wipe from front to back. When should you call for help? Call your doctor now or seek immediate medical care if: ? Symptoms such as fever, chills, nausea, or vomiting get worse or appear for the first time. ? You have new pain in your back just below your rib cage. This is called flank pain. ? There is new blood or pus in your urine. ? You have any problems with your antibiotic medicine. Watch closely for changes in your health, and be sure to contact your doctor if: ? You are not getting better after taking an antibiotic for 2 days. ? Your symptoms go away but then come back. Where can you learn more? Go to https://www.healthwise.net/Fitfuealth or log into your [email or web address] account at [email or web address] Enter K848 in the search box to learn more about Urinary Tract Infection (UTI) in Women: Care Instructions. Current as of: April 02, 2022?Content Version: 13.4 ?? [employer]. Care instructions adapted under license by [facility]. If you have questions about a medical condition or this instruction, always ask your healthcare professional. [employer] disclaims any warranty or liability for your use of this information. documented in this encounter Ordered Prescriptions Prescription Sig Dispense Quantity Refills Last Filled Start Date End Date cephalexin (KEFLEX) 500 mg capsuleIndications :Acute cystitis without hematuria Take 1 capsule by mouth 2 times daily for 5 days. 10 capsule 08/06/2022 documented in this encounter Progress Notes * Fanta Dong RN - 08/06/2022 1430 EDT CC/HPI: Patient started this morning with urinary urgency/frequency, now with some hematuria so here for eval. Covid Screening: In the last 72 hours, has the patient had: New or unusual cough, shortness of breath, new nasal congestion, sore throat, fever, chills, body aches, or new loss of taste or smell without a reasonable alternative diagnosis*? (If yes, assign to ARC)- NO In the past 10 days, has the patient had a positive Covid test OR a confirmed close Covid exposure (<6ft for > 15mins in 24hr period)? (if yes, assign to ARC, regardless of vaccination status)-NO *may be determined by RN or in discussion with available provider (WASTE TREATMENT OPERATOR's and CCA's can defer to Charge Nurse to complete triage when appropriate) PCP: Iva Jennings * Leah Booker PA-C - 08/06/2022 1430 EDT [facility] Chief Complaint(s): Chief Complaint Patient presents with ??? Urine Change Assessment & Plan: 1. Acute cystitis without hematuria POCT URINE DIPSTICK, VISUAL READ BACTERIAL CULTURE, URINE cephalexin (KEFLEX) 500 mg capsule BASIC METABOLIC PANEL (BMP) New Prescriptions CEPHALEXIN (KEFLEX) 500 MG CAPSULE Take 1 capsule by mouth 2 times daily for 5 days. Results for orders placed or performed in visit on 08/06/22 BACTERIAL CULTURE, URINE Specimen: Urine, Clean Catch Result Value Ref Range Organism ID Greater than 100,000 CFU/ml Escherichia coli (A) BASIC METABOLIC PANEL (BMP) Result Value Ref Range Sodium 139 136 - 145 mmol/L Potassium 4.4 3.5 - 5.0 mmol/L Chloride 101 96 - 110 mmol/L CO2 Total 25 22 - 32 mmol/L Anion Gap 13 5 - 14 Glucose 122 (H) 70 - 100 mg/dL Calcium 9.8 8.5 - 10.5 mg/dL BUN 17 10 - 26 mg/dL Creatinine 0.62 0.52 - 1.04 mg/dL eGFR 93 >60 mL/min/1.73m2 POCT URINE DIPSTICK, VISUAL READ Result Value Ref Range Color, UA Brown Clarity, UA Cloudy Glucose, UA Negative . mg/dL Bilirubin, UA Negative Negative Ketones, UA 15 . mg/dL Spec Grav, UA 1.025 1.005 - 1.030 Blood, UA 3+ (A) Negative pH, UA 6.0 4.6 - 8.0 Protein, UA >=300 . mg/dL Urobilinogen, UA 2.0 (A) 0.2 - 1.0 E.U./dL Nitrite, UA Positive (A) . Leuk Esterase 3+ (A) Negative Comment Patient is well-appearing though she is noted to be mildly tachycardic. Her rhythm was regular and she was not experiencing any unusual symptoms. I suspect this is because of the infection and also that she had not had any water to drink all day today. I did encourage her to take Tylenol or ibuprofen and push fluids. I have opted to treat the UTI empirically, she has not had blood work done in about 3 years and so I did draw a basic metabolic to be sure there is no evidence of chronic kidney disease given her report of dark urine. For this reason I also chose cephalexin over nitrofurantoin since I do not have a recent GFR. She was encouraged to call or return if no improvement in the next 1to 2 days, I will reach out to her directly if we need to make any changes once I get the culture back. HPI: 72-year-old woman presents with complaints of urinary urgency and frequency as well as dysuria thatbegan this morning. Over the day she has developed some hematuria and has noticed small blood clotsafter she voids. She has been using the bathroom every 15 minutes and is very uncomfortable overall. She admits she has not had any water to drink today she did not want to increase the frequency of needing to use the bathroom. She also relates that her urine has been dark for the past couple of years. She has had urinary tract infections and this feels the same. She denies any fever or chills, no nausea or vomiting. No abdominal or flank pain. She does also have lichen sclerosis and wondered if the blood could be from that. ROS: Review of Systems Constitutional: Negative for chills, fever and malaise/fatigue. Cardiovascular: Negative for chest pain and palpitations. Gastrointestinal: Negative for abdominal pain, nausea and vomiting. Genitourinary: Positive for dysuria, frequency, hematuria and urgency. Negative for flank pain. Objective: Vitals and nursing notes reviewed Examination: BP 134/86 (BP Cuff Location: Left arm, BP Patient Position: Sitting) Comment: manual Pulse (!) 116 Temp 36.3 ??C (97.3 ??F) Resp 16 SpO2 96% Physical Exam Constitutional: General: She is not in acute distress. Appearance: Normal appearance. She is not ill-appearing. Comments: Overweight HENT: Head: Normocephalic and atraumatic. Eyes: Conjunctiva/sclera: Conjunctivae normal. Cardiovascular: Rate and Rhythm: Regular rhythm. Tachycardia present. Heart sounds: Normal heart sounds. Pulmonary: Effort: Pulmonary effort is normal. Breath sounds: Normal breath sounds. Abdominal: Palpations: Abdomen is soft. Tenderness: There is no abdominal tenderness. There is no right CVA tenderness or left CVA tenderness. Skin: General: Skin is warm and dry. Neurological: General: No focal deficit present. Mental Status: She is alert. Data reviewed with patient (current and past results): most recent labs reviewed: MIKHAIL This note was prepared using voice recognition software and the EMR. There may be inadvertent errors and omissions. * Fanta Dong RN - 08/06/2022 1430 EDT Venipuncture, R hand, pt tolerated well documented in this encounter Plan of Treatment Upcoming Encounters Date Type Department Care Team (Late st Contact Info) Description 11/09/2024 15:45 EST Procedure visit [facility] Orthopedics & Sport Medicine [address] [place], [place] [phone] Leann Holland, GAMBLING CASHIER [address] [facility] [address] [place] [address] 11/16/2024 15:45 EST Procedure visit [facility] Orthopedics & Sport Medicine [address] [place] [address] Leann Holland, GAMBLING CASHIER [address] [facility] [address] [place] [phone] 07/17/2025 15:30 EDT Office Visit [facility] Adult Hematology & Oncology [address] [place] [address], [place] [address] Jimmy Gallego MD [address] [facility] [address] [place] [address] documented as of this encounter Procedures Procedure Name Priority Date/Time Associated Diagnosis Comments BACTERIAL CULTURE, URINE Routine 08/06/2022 15:58 EDT Acute cystitis without hematuria BASIC METABOLIC PANEL (BMP) Routine 08/06/2022 15:58 EDT Acute cystitis without hematuria POCT URINE DIPSTICK, VISUAL READ Routine 08/06/2022 Acute cystitis without hematuria documented in this encounter Results * (ABNORMAL) BASIC METABOLIC PANEL (BMP) (08/06/2022 15:58 EDT) Pathologist [facility] Sodium 139 136 - 145 mmol/L 08/06/2022 18:08 [facility] Potassium 4.4 3.5 - 5.0 mmol/L 08/06/2022 18:08 [facility] Chloride 101 96 - 110 mmol/L 08/06/2022 18:08 [facility] CO2 Total 25 22 - 32 mmol/L 08/06/2022 18:08 [facility] Anion Gap 13 5 - 14 08/06/2022 18:08 [facility] Glucose 122(H) 70 - 100 mg/dL 08/06/2022 18:08 [facility] Calcium 9.8 8.5 - 10.5 mg/dL 08/06/2022 18:08 [facility] BUN 17 10 - 26 mg/dL 08/06/2022 18:08 [facility] Creatinine 0.62 0.52 - 1.04 mg/dL 08/06/2022 18:08 [facility] eGFR 93 >60 mL/min/1.73 m2 08/06/2022 18:08 [facility] Blood VENOUS BLOOD / Unknown Venipuncture / Unknown 08/06/2022 15:58 EDT 08/06/2022 15:58 EDT Leah Booker PA-C CHEMISTRY & BLOOD GAS ORDERAB LES Final Result Performing Organization Address City/State/[facility] Co de Phone Number [facility] [address] [place] [phone] * (ABNORMAL) BACTERIAL CULTURE, URINE (08/06/2022 15:58 EDT) Pathologist [facility] Organism ID Greater than 100,000 CFU/ml Escherichia coli(A) VITEK SUSCEPTIBILITY 08/08/2022 8:12 [facility] Comment: Cefazolin susceptibility results can be used to predict susceptibility results for the following oral cephalosporins when used for therapy of uncomplicated UTI's due to E.coli, K.pneumoniae and P.mirabilis: cefaclor, cefdinir, cefpodoxime, cefprozil, cefuroxime, cephalexin and loracarbef. ??Please note that only cefdinir, cefpodoxime, cefuroxime and cephalexin are on the [facility] inpatient formulary. Urine URINE SPECIMEN COLLECTION, CLEAN CATCH / Unknown Urine Collect / Unknown 08/06/2022 15:58 EDT 08/06/2022 15:58 EDT Narrative Organism Antibiotic Method Susceptibility Escherichia coli Amoxicillin Clavulan ic acid VITEK SUSCEPTIBILITY <=2 ug/mL: Susceptible Escherichia coli Ampicillin VITEK SUSCEPTIBILITY <=2 ug/mL: Susceptible Escherichia coli Ampicillin Sulbactam VITEK SUSCEPTIBI LITY <=2 ug/mL: Susceptible Escherichia coli Cefazolin VITEK SUSCEPTIBILITY <=4 ug/mL: Susceptible Escherichia coli Cefepime VITEK SUSCEPTIBILITY <=1 ug/mL: Susceptible Escherichia coli Ceftriaxone VITEK SUSCEPTIBILITY <=1 ug/mL: Susceptible Escherichia coli Ciprofloxacin VITEK SUSCEPTIBILITY <=0.25 ug/mL: Susceptible Escherichia coli Ertapenem VITEK SUSCEPTIBILITY <=0.5 ug/mL: Susceptible Escherichia coli Gentamicin VITEK SUSCEPTIBILITY <=1 ug/mL: Susceptible Escherichia coli Levofloxacin VITEK SUSCEPTIBILITY <=0.12 ug/mL: Susceptible Escherichia coli Nitrofurantoin VITEK SUSCEPTIBILITY <=16 ug/mL: Susceptible Escherichia coli Piperacillin Tazobactam VITEK SUSCEPT IBILITY <=4 ug/mL: Susceptible Escherichia coli Tobramycin VITEK SUSCEPTIBILITY <=1 ug/mL: Susceptible Escherichia coli Trimethoprim-Sulfame thox azole VITEK SUSCEPTIBILITY <=20 ug/mL: Susceptible Leah Booker PA-C MICROBIOLOGY - GENERAL ORDERA BLES Final Result [facility] [address] [place] [address] * (ABNORMAL) POCT URINE DIPSTICK, VISUAL READ (08/06/2022) Color, UA Brown [facility] POIN T [facility] C[facility] Clarity, UA Cloudy [facility] PO INT [facility] C[facility] Glucose, UA Negative . mg/dL [facility] Bilirubin, UA Negative Negative [facility] Ketones, UA 15 . mg/dL [facility] Spec Grav, UA 1.025 1.005 - 1.030 [facility] Blood, UA 3+(A) Negative [facility] pH, UA 6.0 4.6 - 8.0 [facility] Protein, UA >=300 . mg/dL [facility] PO INT [facility] CARE Urobilinogen, UA 2.0(A) 0.2 - 1.0 E.U./dL [facility] Nitrite, UA Positive(A) . [facility] Leuk Esterase 3+(A) Negative [facility] Comment [facility] PO[facility] T [facility] Urine URINE SPECIMEN COLLECTION, CLEAN CATCH / Unknown 08/06/2022 Leah Booker PA-C POINT OF CARE TEST ORDERABLES Final Result [facility] documented in this encounter Visit Diagnoses Diagnosis Acute cystitis without hematuria- Primary Acute cystitis documented in this encounter Care Teams Blending Operator Relationship Specialty Start Date End Date Iva Jennings APRN [address] [place] [phone] PCP - General 03/01/20 documented as of this encounter
--- OUTSIDE RECORDS SUMMARY | 2024-11-09 10:11 | XMS_ITS | Encounter Summary ---
Author Organization [facility] Address [address] [place] [address] Care Team Providers Care Calf Skinner Name Role Phone Iva Jennings APRN Primary Care Provider [phone] Encounter Details Date Type Department Care Team (Latest Contact Info) Description 05/26/2021 Travel Social History Tobacco Use Types Packs/Day [...] Description 11/09/2024 15:45 EST Procedure visit [facility] Orthopedics & Sport Medicine [address] [place] [address] Leann Holland, FRANK [address] [facility] [address] [place] [address] 11/16/2024 15:45 EST Procedure visit [facility] Orthopedics & Sport Medicine [address] [place], [place] [id number] Leann Holland NP [address] [facility] [address] [place] [address] 07/17/2025 15:30 EDT Office Visit [facility] Adult Hematology & Oncology [facility] [place] [address] Jimmy Gallego MD [address] [facility] [address] [place] [phone] documented as of this encounter Visit Diagnoses Not on filedocumented in this encounter Care Teams Calf Skinner Relationship Specialty Start Date End Date Iva Jennings APRN 26 [facility] [address] [place] [address] PCP - General 03/01/20 documented as of this encounter
--- OUTSIDE RECORDS SUMMARY | 2024-11-09 10:11 | XMS_ITS | Encounter Summary ---
Author Organization [facility] Address [address] [place] [address] Care Team Providers Care Asian Studies Professor Name Role Phone Iva Jennings APRN Primary Care Provider [phone] [phone] Encounter Details Date Type Department Care Team (Late st Contact Info) Description 12/06/2020 15:15 EST Ancillary Procedure [facility] Surgical Oncology - [facility] [address], [place] [id number] Social History Tobacco Use Types Packs/Day Years [...] Description 11/09/2024 15:45 EST Procedure visit [facility] Orthopedics & Sport Medicine [address] [place], [place] [phone] [place] [address] [place] [address] [address] [place] [address] 11/16/2024 15:45 EST Procedure visit [facility] Orthopedics & Sport Medicine [address] [place], [place] [id number] [place] [address] [place] [address] [address] [place], [place] [id number] 07/17/2025 15:30 EDT Office Visit [facility] Adult Hematology & Oncology [facility] [place] [address] Jimmy Gallego MD [address] [facility] [address] [place] [address] documented as of this encounter Procedures Procedure Name Priority Date/Time Associated Diagnosis Comments [facility] ONLY Routine 12/06/2020 15:54 EST documented in this encounter Results * [facility] ONLY (12/06/2020 15:54 EST) Narrative [facility] POINT OF CARE - 12/06/2020 15:54 EST This is a non-reportable exam. us Elizabeth Tapia DO G US POC ORDERABLES Final Result [facility] POINT OF CARE documented in this encounter Visit Diagnoses Not on filedocumented in this encounter Care Teams Asian Studies Professor Relationship Specialty Start Date End Date Iva Jennings APRN [address] [place] [address] PCP - General 03/01/20 documented as of this encounter
--- OUTSIDE RECORDS SUMMARY | 2024-11-09 10:11 | XMS_ITS | Encounter Summary ---
Author Organization [facility] Address [address] [place] [address] Care Team Providers Care Goodwill Representative Name Role Phone Iva Jennings APRN Primary Care Provider [phone] [phone] Reason for Visit * Reason Onset Date Comments Injections 08/20/2022 Encounter Details Date Type Department Care Team (Late st Contact Info) Description 08/20/2022 Telephone [facility] - [facility] Orthopedics & Sport Medicine [address] [place] [address] Leann Holland, [employer] [address] [facility] [address] [place] [address] Injections Social History Tobacco Use [...] * Telephone Encounter - Jodi Posada - 08/20/2022 1047 EDT Patient was called and informed. * Telephone Encounter - Annette Chin RN - 08/20/2022 1016 EDT Please let her know that we will need to use the visit that you scheduled for follow up so that we can provide her insurance company with the documentation needed for authorization. We can plan the injections after that visit. thanks * Telephone Encounter - Jodi Posada - 08/20/2022 1005 EDT Patient is calling and requesting the orthovisc series for her right knee. I scheduled her for an appointment on the 07 of September with the understanding that she may or may not receive the injection. I explained that if it was approved, we could schedule the remaining 2 injections at the time of her appointment. documented in this encounter Plan of Treatment Upcoming Encounters Date Type Department Care Team (Late st Contact Info) Description 11/09/2024 15:45 EST Procedure visit [facility] Orthopedics & Sport Medicine [address] [place], [place] [phone] Leann Holland [employer] [address] [place] [address] 11/16/2024 15:45 EST Procedure visit [facility] Orthopedics & Sport Medicine [address] [place] [id number] [place] [address] [place] [id number] 07/17/2025 15:30 EDT Office Visit [facility] Adult Hematology & Oncology [facility] [place], [place] [address] Jimmy Gallego MD [address] [facility] [address] [place] [phone] documented as of this encounter Visit Diagnoses Not on filedocumented in this encounter Care Teams Goodwill Representative Relationship Specialty Start Date End Date Iva Jenninsg, DRAWING PRESS OPERATOR [address] [facility] [address] [place] [address] PCP - General 03/01/20 documented as of this encounter
--- OUTSIDE RECORDS SUMMARY | 2024-11-09 10:11 | XMS_ITS | Encounter Summary ---
Author Organization [facility] Address [address] [place] [address] Care Team Providers Care Ball Mill Operator Name Role Phone Iva Jennings APRN Primary Care Provider [phone] [phone] Reason for Visit * Reason Comments Injections Encounter Details Date Type Department Care Team (Late st Contact Info) Description 10/01/2022 16:15 EST Office Visit [facility] Orthopedics & Sport Medicine [address] [place], [place] [phone] Leann Holland, FRANK [address] [facility] [address] [place] [address] Osteoarthritis of right knee, unspecified [...] this encounter Progress Notes * Leann Holland, PICKLE SORTER - 10/01/2022 1615 ESTAssociated Order(s): Large Joint Injection/Arthrocentesis: R knee Post-Procedure Diagnose(s): Osteoarthritis of right knee, unspecified osteoarthritis type PROBLEM: Right knee osteoarthritis; orthovisc #1 of 3 SUBJECTIVE: Susie Mayfield is a 72 y.o. female who is here today for her first orthovisc injection left knee. History of OA and good relief [...] relief with orthovisc in the past. Here to begin a new series right knee. After reviewing risks and benefits of an injection including variability of results, verbal consent was obtained to proceed today. A timeout was performed. The right knee was prepped in the standard sterile fashion. After final verication of the correctsite, 2ml of orthovisc along with an anesthetic was injected into the right knee without difficulty. No medication was wasted. She tolerated the procedure well. Aftercare for the injection was discussed and all question answered. Follow up in 1 week for injection #2. Procedure: Large Joint Injection/Arthrocentesis: R knee on 10/01/2022 16:15 Details: 22 G needle Medications: 30 mg Sodium Hyaluronate 30 mg/2 mL; 3 mL lidocaine (PF) 10 mg/mL (1 %) This note was prepared using voice recognition software and the EMR. There may be inadvertent errors and omissions. Leann Holland APRN 10/01/2022 documented in this encounter Plan of Treatment Upcoming Encounters Date Type Department Care Team (Late st Contact Info) Description 11/09/2024 15:45 EST Procedure visit [facility] Orthopedics & Sport Medicine [address] [place] [address] [place] [address] [place] [address] [address] [place] [address] 11/16/2024 15:45 EST Procedure visit [facility] Orthopedics & Sport Medicine [address] [place] [address] Leann Holland NP [address] [place] [address] [address] [place], [place] [phone] 07/17/2025 15:30 EDT Office Visit [facility] Adult Hematology & Oncology [facility] [place] [address] Jimmy Gallego MD [address] [facility] [address] [place] [address] documented as of this encounter Procedures Procedure Name Priority Date/Time Associated Diagnosis Comments LARGE JOINT INJECTION/ARTHROCE NTESIS Routine 10/01/2022 16:15 EST Osteoarthritis of right knee, unspecified osteoarthritis type documented in this encounter Results * [place] ARTHROCENTESIS ASPIR&/INJ MAJOR JT/BURSA W/O US (10/01/2022 16:15 EST) Narrative [facility] POINT OF CARE - 10/01/2022 16:15 EST Leann Holland, PICKLE SORTER ? 10/01/2022 16:53 Large Joint Injection/Arthrocentesis: R knee on 10/01/2022 16:15 Details: 22 G needle Medications: 30 mg Sodium Hyaluronate 30 mg/2 mL; 3 mL lidocaine (PF) 10 mg/mL (1 %) us Leann Holland NP PROCEDURE/MINOR SURGICAL ORD ERABLES Final Result [facility] POINT OF CARE documented in this [...] PRN Procedure, 1 dose, Starting on Yovana 10/01/22 at 1615, Until Yovana 10/01/22 at 1615, RoutineIndications:Osteoarthritis of right knee, unspecified osteoarthritis type Given 10/01/2022 16:15 EST 3 mL Sodium Hyaluronate (ORTHOVISC) syringe 30 mg 30 mg, other, Once PRN Procedure, 1 dose, Starting on Yovana 10/01/22 at 1615, Until Yovana 10/01/22 at 1615, RoutineIndications:Osteoarthritis of right knee, unspecified osteoarthritis type Given 10/01/2022 16:15 EST 30 mg documented in this encounter Care Teams Ball Mill Operator Relationship Specialty Start Date End Date Iva Jennings APRN [address] [facility] [address] [place] [address] PCP - General 03/01/20 documented as of this encounter
--- OUTSIDE RECORDS SUMMARY | 2024-11-09 10:11 | XMS_ITS | Encounter Summary ---
Author Organization [facility] Address [address] [place] [address] Care Team Providers Care Product Manager E Commerce Name Role Phone Iva Jennings APRN Primary Care Provider [phone] [phone] Encounter Details Date Type Department Care Team (Latest Contact Info) Description 12/06/2020 Travel Social History Tobacco Use Types Packs/Day [...] Medicine [address] [place] [address] Leann Holland NP [address] [facility] [address] [place] [address] 11/16/2024 15:45 EST Procedure visit [facility] Orthopedics & Sport Medicine [address] [place], [place] [phone] Leann Holland NP [address] [facility] [address] [place] [address] 07/17/2025 15:30 EDT Office Visit [facility] Adult Hematology & Oncology [facility] [place] [address] Jimmy Gallego MD [address] [facility] [address] [place] [phone] documented as of this encounter Visit Diagnoses Not on filedocumented in this encounter Care Teams Product Manager E Commerce Relationship Specialty Start Date End Date Iva Jennings APRN 26 [facility] [address] [place] [address] PCP - General 03/01/20 documented as of this encounter
--- OUTSIDE RECORDS SUMMARY | 2024-11-09 10:11 | XMS_ITS | Encounter Summary ---
Author Organization [facility] Address [address] [place] [address] Care Team Providers Care Sack Maker Name Role Phone Iva Jennings APRN Primary Care Provider [phone] -[phone] Encounter Details Date Type Department Care Team (Latest Contact Info) Description 06/25/2020 Travel Social History Tobacco Use Types Packs/Day [...] have Coronavirus / COVID-19? No / Unsure 06/25/2020 16:45 EDT documented as of this encounter Functional [...] Info) Description 11/09/2024 15:45 EST Procedure visit [facility] Orthopedics & Sport Medicine [address] [place] [address] Leann Holland NP [address] [facility] [address] [place] [address] 11/16/2024 15:45 EST Procedure visit [facility] Orthopedics & Sport Medicine [address] [place], [place] [phone] Leann Holland NP [address] [facility] [address] [place] [address] 07/17/2025 15:30 EDT Office Visit [facility] Adult Hematology & Oncology [facility] [place] [address] Jimmy Gallego MD [address] [facility] [address] [place] [phone] documented as of this encounter Visit Diagnoses Not on filedocumented in this encounter Care Teams Sack Maker Relationship Specialty Start Date End Date Iva Jennings APRN 26 [facility] [address] [place] [address] PCP - General 03/01/20 documented as of this encounter
--- OUTSIDE RECORDS SUMMARY | 2024-11-09 10:12 | XMS_ITS | Encounter Summary ---
Author Organization [facility] Address [address] [place] [address] Care Team Providers Care Home Inspector Name Role Phone Iva Jennings APRN Primary Care Provider +1 -[phone] Encounter Details Date Type Department Care Team (Latest Contact Info) Description 05/21/2020 Travel Social History Tobacco Use Types Packs/Day [...] have Coronavirus / COVID-19? No / Unsure 05/21/2020 15:36 EDT documented as of this encounter Functional [...] Medicine [address] [place] [address] Leann Holland NP [address] [facility] [address] [place] [address] 11/16/2024 15:45 EST Procedure visit [facility] Orthopedics & Sport Medicine [address] [place], [place] [phone] Leann Holland NP [address] [facility] [address] [place] [address] 07/17/2025 15:30 EDT Office Visit [facility] Adult Hematology & Oncology [facility] [place] [address] Jimmy Gallego MD [address] [facility] [address] [place] [phone] documented as of this encounter Visit Diagnoses Not on filedocumented in this encounter Care Teams Home Inspector Relationship Specialty Start Date End Date Iva Jennings APRN 26 [facility] [address] [place] [address] PCP - General 03/01/20 documented as of this encounter
--- OUTSIDE RECORDS SUMMARY | 2024-11-09 10:12 | XMS_ITS | Encounter Summary ---
Author Organization [facility] Address [address] [place] [address] Care Team Providers Care Nailhead Setter Name Role Phone Iva Jennings APRN Primary Care Provider +1 -[phone] Encounter Details Date Type Department Care Team (Latest Contact Info) Description 06/18/2020 Travel Social History Tobacco Use Types Packs/Day [...] have Coronavirus / COVID-19? No / Unsure 06/18/2020 17:47 EDT documented as of this encounter Functional [...] Info) Description 11/09/2024 15:45 EST Procedure visit [facility] Orthopedics & Sport Medicine [address] [place] [address] Leann Holland NP [address] [facility] [address] [place] [address] 11/16/2024 15:45 EST Procedure visit [facility] Orthopedics & Sport Medicine [address] [place], [place] [phone] Leann Holland NP [address] [facility] [address] [place] [address] 07/17/2025 15:30 EDT Office Visit [facility] Adult Hematology & Oncology [facility] [place] [address] Jimmy Gallego MD [address] [facility] [address] [place] [phone] documented as of this encounter Visit Diagnoses Not on filedocumented in this encounter Care Teams Nailhead Setter Relationship Specialty Start Date End Date Iva Jennings APRN 26 [facility] [address] [place] [address] PCP - General 03/01/20 documented as of this encounter
--- OUTSIDE RECORDS SUMMARY | 2024-11-09 10:12 | XMS_ITS | Encounter Summary ---
Author Organization [facility] Address [address] [place] [address] Care Team Providers Care Certified Nursing Assistant Instructor Name Role Phone Sondra Britton MD Primary Care Provider Unavailabl e Reason for Visit * Reason Comments New Patient Visit * Referral (Routine) - Closed Specialty Diagnoses / Procedures Referred By Contaman t Referred To Contact Breast Clinic / Breast Center Diagnoses Other signs and symptoms in breast Sondra Britton MD [facility] [address] [address] Phone: tel: fax: Referral ID Status Reason Start Date Expiration Date Visits Re quested Visits Authorized [id number] Closed 1 1 Encounter Details Date Type Department Care Team (Late st Contact Info) Description 04/07/2019 10:00 EDT Office Visit [facility] Surgical Oncology - [address] [id number] Elizabeth Tapia, [address] [facility] [address] [place] [phone] Malignant neoplasm of central portion of left breast in female, estrogen receptor positive (HCC-CMS) (Primary Dx) Social History Tobacco Use Types Packs/Day Years Used Date Smoking Tobacco: Never Smokeless Tobacco: Never Comments Unknown Sex and Gender Information Value Date Recorded Sex Assigned at Female 10/19/2024 15:35 EST Legal Sex Female 18:27 EST Gender Identity Female 06/03/2020 9:48 EDT Sexual Orientation Not on file documented as of this encounter Last Filed Vital Signs Vital Sign Reading Time Taken Comments Blood Pressure 133/60 04/07/2019 0954 EDT Pulse 88 04/07/2019 0954 EDT Temperature 36.7 ??C (98 ??F) 04/07/2019 0954 EDT Respiratory Rate - - Oxygen Saturation - - Inhaled Oxygen Concentration - - Weight 91.6 kg (202 lb) 04/07/2019 0954 EDT Height 161.3 cm (5' 3.5) 04/07/2019 0954 EDT Body Mass Index 35.22 04/07/2019 0954 EDT documented in this encounter Functional Status [...] documented in this encounter Progress Notes * Regina Martin, Elizabeth Hu, DO - 04/07/2019 1000 EDT Subjective: Patient ID: Susie Mayfield is an 69 y.o. female. Chief Complaint Patient presents with ??? New Patient Visit HPI Susie Mayfield is a very pleasant 69-year-old female seen in consultation at the request of Iva Jennings NP for a new left breast cancer. This is a patient that had a screening mammogram, which detected a small mass in her left breast. 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 She had not appreciated any changes in her self-breast exam. She has noted no nipple inversion or nipple discharge. She started her menstrual cycle at the age of 10. She has had 1 with 1 delivery at the age of 30. She went through menopause in her 50s. Juan have a family history of breast cancer in her mother in her late 60s. No one else in the family has had colon cancer that she is aware of. Patient Active Problem List Diagnosis ??? Malignant neoplasm of central portion of left breast in female, estrogen receptor positive (HCC-[facility]) Past Medical History: Diagnosis Date ??? Hypertension Past Surgical History: Procedure Laterality Date ??? APPENDECTOMY ??? SECTION ??? CHOLECYSTECTOMY Family History Problem Relation Age of Onset ??? Cancer Mother 60 Breast Social Social History Tobacco Use ??? Smoking status: Never Smoker ??? Smokeless tobacco: Never Used Substance Use Topics ??? Alcohol use: Not on file ??? Drug use: Not on file Current Outpatient Medications on File Prior to Visit Medication Sig Dispense Refill ??? amitriptyline (ELAVIL) 10 mg tablet Take 10 mg by mouth at bedtime. ??? BIOFLAVONOIDS ORAL Take by mouth. ??? calcium carbonate (CALCIUM 500 ORAL) Take by mouth. ??? celecoxib (CELEBREX) 200 mg capsule Take 200 mg by mouth 2 times daily. ??? cetirizine (ZYRTEC) 1 mg/mL solution Take 5 mg by mouth daily. ??? chlorthalidone (HYGROTON) 25 mg tablet Take 25 mg by mouth daily. ??? glucos sul 2KCl/msm/chond/C/Mn (GLUCOSAMINE CHONDROITIN ORAL) Take by mouth. ??? mometasone (NASONEX) 50 mcg/actuation nasal spray Instill 2 Sprays into right nostril daily. ??? MULTI-VITAMIN ORAL Take by mouth. ??? pravastatin (PRAVACHOL) 20 mg tablet Take 20 mg by mouth daily. ??? UNABLE TO FIND Ultaril No current facility-administered medications on file prior to visit. Allergies Allergen Reactions ??? Other - See Comments Hives, Itching and Other (See Comments) Almost every animal & pollen - sneezing Review of Systems Constitutional: Positive for weight loss. Negative for chills and fever. HENT: Negative for hearing loss. Eyes: Negative for blurred vision, double vision and photophobia. Respiratory: Negative for cough, shortness of breath and wheezing. Cardiovascular: Negative for chest pain and palpitations. Gastrointestinal: Negative for abdominal pain, heartburn, nausea and vomiting. Genitourinary: Positive for frequency and urgency. Negative for dysuria. Musculoskeletal: Positive for joint pain. Neurological: Positive for headaches. Negative for sensory change and focal weakness. - See HPI Objective: BP 133/60 Pulse 88 Temp 36.7 ??C (98 ??F) Ht 161.3 cm (63.5) Wt 91.6 kg (202 lb) BMI 35.22 kg/m?? Physical Exam Constitutional: She is oriented to person, place, and time. She appears well- developed and well-nourished. No distress. HENT: Head: Normocephalic and atraumatic. Eyes: Conjunctivae and EOM are normal. Pupils are equal, round, and reactive to light. Neck: Normal range of motion. No thyromegaly present. Cardiovascular: Regular rhythm. No murmur heard. Pulmonary/Chest: Effort normal and breath sounds normal. No respiratory distress. Lymphadenopathy: She has no cervical adenopathy. Neurological: She is alert and oriented to person, place, and time. No cranial nerve deficit. Breast: Breasts and axilla are examined in the seated and the supine position. There are no obviousmasses palpated in either breast. US of the left breast shows the clip at the 12:00 position and normal appearing lymph nodes. There is no nipple inversion or discharge. There are no axillary masses. Assessment: Susie Mayfield is seen in the office today in evaluation for a new left breast cancer. We had a very lengthy discussion about her pathology report. We then discussed the differences between local regional treatment of surgery and radiation and systemic treatment of hormone blockade and occasionally ch emotherapy. I then described to her the differences between partial mastectomy and mastectomy as itrelated to overall survival, local regional recurrence, hospital time and recuperation. I explainedthe sentinel lymph node biopsy, both how we perform this and how we use this in staging. Following this discussion, she is wishing to move forward with a partial mastectomy and sentinel lymph node biopsy. Risks and benefits were discussed with her in detail. Risks include but are not limited to bleeding, infection, injury to surrounding nerves and blood vessels, lymphedema of the arm or the breast and need for additional surgery. We did talk about the option of an oncoplastic reduction because she has very large pendulous breasts. She is aware that this does make her a bit more of a set up for potential postradiation lymphedema of the breast and what that might look like and entail. She is scheduled for mid-April, per her request, as she has a big road trip coming up starting this weekend. Plan: (C50.112, Z17.0) Malignant neoplasm of central portion of left breast in female, estrogen receptor positive (HCC-CMS) (primary encounter diagnosis) Elizabeth Tapia DO Med Orders Placed This Visit and Additions to the Medication List Medications ??? UNABLE TO FIND Sig: Ultaril ??? celecoxib (CELEBREX) 200 mg capsule Sig: Take 200 mg by mouth 2 times daily. ??? cetirizine (ZYRTEC) 1 mg/mL solution Sig: Take 5 mg by mouth daily. ??? glucos sul 2KCl/msm/chond/C/Mn (GLUCOSAMINE CHONDROITIN ORAL) Sig: Take by mouth. ??? BIOFLAVONOIDS ORAL Sig: Take by mouth. ??? calcium carbonate (CALCIUM 500 ORAL) Sig: Take by mouth. ??? MULTI-VITAMIN ORAL Sig: Take by mouth. ??? pravastatin (PRAVACHOL) 20 mg tablet Sig: Take 20 mg by mouth daily. ??? chlorthalidone (HYGROTON) 25 mg tablet Sig: Take 25 mg by mouth daily. ??? mometasone (NASONEX) 50 mcg/actuation nasal spray Sig: Instill 2 Sprays into right nostril daily. ??? amitriptyline (ELAVIL) 10 mg tablet Sig: Take 10 mg by mouth at bedtime. documented in this encounter Plan of Treatment Upcoming Encounters Date Type Department Care Team (Late st Contact Info) Description 11/09/2024 15:45 EST Procedure visit [facility] [address] [place] [address] Leann Holland, FRANK [address] [facility] [address] [place] [address] 11/16/2024 15:45 EST Procedure visit [facility] [address] [place] [address] Leann Holland NP [address] [facility] [address] [place] [address] 07/17/2025 15:30 EDT Office Visit [facility] [address] [place] [address] Jimmy Gallego MD [address] [facility], [facility] [address] [place] [address] documented as of this encounter Visit Diagnoses Diagnosis Malignant neoplasm of central portion of left breast in female, estrogen receptor positive (HCC-CMS)- Primary documented in this encounter Historical Medications * This list may reflect changes made after this encounter. amitriptyline (ELAVIL) 10 mg tablet Take 1 Tablet by mouth at bedtime as needed. pravastatin (PRAVACHOL) 20 mg tablet Take 1 Tablet by mouth daily. MULTI-VITAMIN ORAL Take by mouth. glucos sul 2KCl/msm/chond/C/ Mn (GLUCOSAMINE CHONDROITIN ORAL) Take by mouth. mometasone (NASONEX) 50 mcg/actuation nasal spray Instill 2 Sprays into right nostril daily. 05/25/2022 chlorthalidone (HYGROTON) 25 mg tablet Take 25 mg by mouth daily. 04/27/2019 calcium carbonate (CALCIUM 500 ORAL) Take by mouth. 05/25/2022 BIOFLAVONOIDS ORAL Take by mouth. 05/26/2021 cetirizine (ZYRTEC) 1 mg/mL solution Take 5 mL by mouth daily. 07/13/2024 celecoxib (CELEBREX) 200 mg capsule Take 200 mg by mouth 2 times daily. 06/04/2020 UNABLE TO FIND Ultaril 04/27/2019 added in this encounter Care Teams Certified Nursing Assistant Instructor Relationship Specialty Start Date End Date Sondra Britton MD PCP - General 05/16/14 02/29/20 documented as of this encounter
--- OUTSIDE RECORDS SUMMARY | 2024-11-09 10:12 | XMS_ITS | Encounter Summary ---
Author Organization [facility] Address [address] [place] [address] Care Team Providers Care Instrument Assembler Name Role Phone Sondra Britton MD Primary Care Provider Unavailabl e Encounter Details Date Type Department Care Team (Late st Contact Info) Description 03/28/2019 Results Only Imaging [facility] [phone] Susie Osborn MD [address] [place] [phone] Social History Tobacco Use Types Packs/Day Years Used Date Smoking Tobacco: Never Assessed Comments Unknown Sex and Gender Information Value Date Recorded Sex Assigned at Female 10/19/2024 15:35 EST Legal Sex Female 18:27 EST Gender Identity Female 06/03/2020 9:48 EDT Sexual Orientation Not on file documented as of this encounter Plan of Treatment Upcoming Encounters Date Type Department Care Team (Late st Contact Info) Description 11/09/2024 15:45 EST Procedure visit [facility] [address] [place] [address] Leann Holland, AUTOMOTIVE SERVICE ADVISOR [address] [place] [address] [place] [address] 11/16/2024 15:45 EST Procedure visit [facility] [address] [place] [address] Leann Holland, AUTOMOTIVE SERVICE ADVISOR [address] [facility] [address] [place] [address] 07/17/2025 15:30 EDT Office Visit [facility] Adult Hematology & Oncology [address] [place] [address] Jimmy Gallego MD [address] [facility] [address] [place] [address] documented as of this encounter Procedures Procedure Name Priority Date/Time Associated Diagnosis Comments MA STEREO SPECIMEN ONLY 03/28/2019 12:19 EDT AFFIRM 2D/3D STEREO BX (MAMMO) 03/28/2019 12:08 EDT UNI LEFT ONLY POST PROCEDURE 2D/3D MAMMO CHARGES ATTACHED 03/28/2019 11:56 EDT documented in this encounter Results * MA STEREO SPECIMEN ONLY (03/28/2019 12:19 EDT) Anatomical Region Laterality Modality Other 03/28/2019 12:1 9 EDT 03/31/2019 15:50 EDT Narrative 03/28/2019 13:42 EDT Addendum Begins Addendum: This is an addendum to the stereotactic guided ??biopsy of a new, irregular mass in the upper central left breast, middle depth that did not have a definite ultrasound correlate. The biopsy was performed by Dr. Bonilla on 03/28/2019. The final pathologic diagnosis was reviewed in conjunction with the imaging findings by Dr. Sanchez. The pathology demonstrates: 1.Adenocarcinoma, invasive, ductal type, nuclear grade II. 2. 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 ?? These findings are malignant and ??concordant. As such, surgical referral is recommended. A member of the radiology department will call the patient to inform her of the above findings and follow-up recommendations. Addendum Ends Addendum Begins Addendum: The mass was targeted with tomography. Addendum Ends UNI LEFT ONLY POST PROCEDURE 2D/3D MAMMO CHARGES ATTACHED, AFFIRM 2D/3D STEREO BX MAMMO, MA STEREO SPECIMEN ONLY ??03/28/2019 11:56 AM Signs and Symptoms/Comments: ?? Left breast mass central breast middle depth Comparison: Mammograms from 03/08/19 and prior Procedure/Findings: Written and verbal informed consents were obtained from the patient for this stereotactic guided 1 site biopsy of a new 5 mm mass ??in the left breast at 12 o'clock, 9 cm from the nipple. ??The risks, benefits, and alternatives to this procedure were explained to the patient. Once the patient's full name, date of , and side of biopsy were confirmed, the patient was placed on the stereotactic table for an approach from the craniocaudal. The lesion in question was targeted. Site verification and skin marking was performed according to established site marking procedure. A safety timeout was performed. The skin was cleansed with Betadine. ??4 cc of buffered 1% lidocaine was used for superficial anesthesia and 10 cc of 2% lidocaine with epinephrine were used for deeper anesthesia. The skin was incised with a #11 blade. 10 core biopsies were obtained with a vacuum assisted 9-gauge stereotactic biopsy device. Specimen radiographs did not contain calcifications, as expected. A HyrdoMark Type IV coil-shaped clip was deployed in the area biopsied. Postprocedure digital mammography was performed in the synthetic 2-D and 3-D CC and MLO views; demonstrating interval removal of tissue in the appropriate region with the clip in good position. There were no immediate postprocedure complications. ?? The patient was told that our biopsy healthcare associate will notify her of the results via phone in 3-5 business days. Impression: Successful stereotactic guided biopsy. Procedure Note Caryn Bonilla MD, MD / Debbie Sanchez MD, MD - 03/31/2019 Addendum Begins Addendum: This is an addendum to the stereotactic guided biopsy of a new, irregular mass in the upper central left breast, middle depth that did not have a definite ultrasound correlate. The biopsy was performed by Dr. Bonilla on 03/28/2019. The final pathologic diagnosis was reviewed in conjunction with the imaging findings by Dr. Sanchez. The pathology demonstrates: 1.Adenocarcinoma, invasive, ductal type, nuclear grade II. 2. 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 These findings are malignant and concordant. As such, surgical referral is recommended. A member of the radiology department will call the patient to inform her of the above findings and follow-up recommendations. Addendum Ends Addendum Begins Addendum: The mass was targeted with tomography. Addendum Ends UNI LEFT ONLY POST PROCEDURE 2D/3D MAMMO CHARGES ATTACHED, AFFIRM 2D/3D STEREO BX MAMMO, MA STEREO SPECIMEN ONLY 03/28/2019 11:56 AM Signs and Symptoms/Comments: Left breast mass central breast middle depth Comparison: Mammograms from 03/08/19 and prior Procedure/Findings: Written and verbal informed consents were obtained from the patient for this stereotactic guided 1 site biopsy of a new 5 mm mass in the left breast at 12 o'clock, 9 cm from the nipple. The risks, benefits, and alternatives to this procedure were explained to the patient. Once the patient's full name, date of , and side of biopsy were confirmed, the patient was placed on the stereotactic table for an approach from the craniocaudal. The lesion in question was targeted. Site verification and skin marking was performed according to established site marking procedure. A safety timeout was performed. The skin was cleansed with Betadine. 4 cc of buffered 1% lidocaine was used for superficial anesthesia and 10 cc of 2% lidocaine with epinephrine were used for deeper anesthesia. The skin was incised with a #11 blade. 10 core biopsies were obtained with a vacuum assisted 9-gauge stereotactic biopsy device. Specimen radiographs did not contain calcifications, as expected. A HyrdoMark Type IV coil-shaped clip was deployed in the area biopsied. Postprocedure digital mammography was performed in the synthetic 2-D and 3-D CC and MLO views; demonstrating interval removal of tissue in the appropriate region with the clip in good position. There were no immediate postprocedure complications. The patient was told that our biopsy healthcare associate will notify her of the results via phone in 3-5 business days. Impression: Successful stereotactic guided biopsy. us Susie Osborn MD IMG MAMMOGRAPHY ORDERABLES Jonathan brittany * AFFIRM 2D/3D STEREO BX (MAMMO) (03/28/2019 12:08 EDT) Anatomical Region Laterality Modality Other 03/28/2019 12:0 8 EDT 03/31/2019 15:50 EDT Narrative 03/28/2019 13:42 EDT Addendum Begins Addendum: This is an addendum to the stereotactic guided ??biopsy of a new, irregular mass in the upper central left breast, middle depth that did not have a definite ultrasound correlate. The biopsy was performed by Dr. Bonilla on 03/28/2019. The final pathologic diagnosis was reviewed in conjunction with the imaging findings by Dr. Sanchez. The pathology demonstrates: 1.Adenocarcinoma, invasive, ductal type, nuclear grade II. 2. 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 ?? These findings are malignant and ??concordant. As such, surgical referral is recommended. A member of the radiology department will call the patient to inform her of the above findings and follow-up recommendations. Addendum Ends Addendum Begins Addendum: The mass was targeted with tomography. Addendum Ends UNI LEFT ONLY POST PROCEDURE 2D/3D MAMMO CHARGES ATTACHED, AFFIRM 2D/3D STEREO BX MAMMO, MA STEREO SPECIMEN ONLY ??03/28/2019 11:56 AM Signs and Symptoms/Comments: ?? Left breast mass central breast middle depth Comparison: Mammograms from 03/08/19 and prior Procedure/Findings: Written and verbal informed consents were obtained from the patient for this stereotactic guided 1 site biopsy of a new 5 mm mass ??in the left breast at 12 o'clock, 9 cm from the nipple. ??The risks, benefits, and alternatives to this procedure were explained to the patient. Once the patient's full name, date of , and side of biopsy were confirmed, the patient was placed on the stereotactic table for an approach from the craniocaudal. The lesion in question was targeted. Site verification and skin marking was performed according to established site marking procedure. A safety timeout was performed. The skin was cleansed with Betadine. ??4 cc of buffered 1% lidocaine was used for superficial anesthesia and 10 cc of 2% lidocaine with epinephrine were used for deeper anesthesia. The skin was incised with a #11 blade. 10 core biopsies were obtained with a vacuum assisted 9-gauge stereotactic biopsy device. Specimen radiographs did not contain calcifications, as expected. A Not iTrdoMark Type IV coil-shaped clip was deployed in the area biopsied. Postprocedure digital mammography was performed in the synthetic 2-D and 3-D CC and MLO views; demonstrating interval removal of tissue in the appropriate region with the clip in good position. There were no immediate postprocedure complications. ?? The patient was told that our biopsy healthcare associate will notify her of the results via phone in 3-5 business days. Impression: Successful stereotactic guided biopsy. Procedure Note Caryn Bonilla MD, MD / Debbie Sanchez MD, MD - 03/31/2019 Addendum Begins Addendum: This is an addendum to the stereotactic guided biopsy of a new, irregular mass in the upper central left breast, middle depth that did not have a definite ultrasound correlate. The biopsy was performed by Dr. Bonilla on 03/28/2019. The final pathologic diagnosis was reviewed in conjunction with the imaging findings by Dr. Sanchez. The pathology demonstrates: 1.Adenocarcinoma, invasive, ductal type, nuclear grade II. 2. 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 These findings are malignant and concordant. As such, surgical referral is recommended. A member of the radiology department will call the patient to inform her of the above findings and follow-up recommendations. Addendum Ends Addendum Begins Addendum: The mass was targeted with tomography. Addendum Ends UNI LEFT ONLY POST PROCEDURE 2D/3D MAMMO CHARGES ATTACHED, AFFIRM 2D/3D STEREO BX MAMMO, MA STEREO SPECIMEN ONLY 03/28/2019 11:56 AM Signs and Symptoms/Comments: Left breast mass central breast middle depth Comparison: Mammograms from 03/08/19 and prior Procedure/Findings: Written and verbal informed consents were obtained from the patient for this stereotactic guided 1 site biopsy of a new 5 mm mass in the left breast at 12 o'clock, 9 cm from the nipple. The risks, benefits, and alternatives to this procedure were explained to the patient. Once the patient's full name, date of , and side of biopsy were confirmed, the patient was placed on the stereotactic table for an approach from the craniocaudal. The lesion in question was targeted. Site verification and skin marking was performed according to established site marking procedure. A safety timeout was performed. The skin was cleansed with Betadine. 4 cc of buffered 1% lidocaine was used for superficial anesthesia and 10 cc of 2% lidocaine with epinephrine were used for deeper anesthesia. The skin was incised with a #11 blade. 10 core biopsies were obtained with a vacuum assisted 9-gauge stereotactic biopsy device. Specimen radiographs did not contain calcifications, as expected. A HyrdoMark Type IV coil-shaped clip was deployed in the area biopsied. Postprocedure digital mammography was performed in the synthetic 2-D and 3-D CC and MLO views; demonstrating interval removal of tissue in the appropriate region with the clip in good position. There were no immediate postprocedure complications. The patient was told that our biopsy healthcare associate will notify her of the results via phone in 3-5 business days. Impression: Successful stereotactic guided biopsy. us Susie Osborn MD IMG MAMMOGRAPHY ORDERABLES Jonathan brittany * UNI LEFT ONLY POST PROCEDURE 2D/3D MAMMO CHARGES ATTACHED (03/28/2019 11:56 EDT) Anatomical Region Laterality Modality Other 03/28/2019 11:5 6 EDT 04/13/2019 17:08 EDT Narrative 03/28/2019 13:42 EDT Addendum Begins Addendum: This is an addendum to the stereotactic guided ??biopsy of a new, irregular mass in the upper central left breast, middle depth that did not have a definite ultrasound correlate. The biopsy was performed by Dr. Bonilla on 03/28/2019. The final pathologic diagnosis was reviewed in conjunction with the imaging findings by Dr. Sanchez. The pathology demonstrates: 1.Adenocarcinoma, invasive, ductal type, nuclear grade II. 2. 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 ?? These findings are malignant and ??concordant. As such, surgical referral is recommended. A member of the radiology department will call the patient to inform her of the above findings and follow-up recommendations. Addendum Ends Addendum Begins Addendum: The mass was targeted with tomography. Addendum Ends UNI LEFT ONLY POST PROCEDURE 2D/3D MAMMO CHARGES ATTACHED, AFFIRM 2D/3D STEREO BX MAMMO, MA STEREO SPECIMEN ONLY ??03/28/2019 11:56 AM Signs and Symptoms/Comments: ?? Left breast mass central breast middle depth Comparison: Mammograms from 03/08/19 and prior Procedure/Findings: Written and verbal informed consents were obtained from the patient for this stereotactic guided 1 site biopsy of a new 5 mm mass ??in the left breast at 12 o'clock, 9 cm from the nipple. ??The risks, benefits, and alternatives to this procedure were explained to the patient. Once the patient's full name, date of , and side of biopsy were confirmed, the patient was placed on the stereotactic table for an approach from the craniocaudal. The lesion in question was targeted. Site verification and skin marking was performed according to established site marking procedure. A safety timeout was performed. The skin was cleansed with Betadine. ??4 cc of buffered 1% lidocaine was used for superficial anesthesia and 10 cc of 2% lidocaine with epinephrine were used for deeper anesthesia. The skin was incised with a #11 blade. 10 core biopsies were obtained with a vacuum assisted 9-gauge stereotactic biopsy device. Specimen radiographs did not contain calcifications, as expected. A HyrdoMark Type IV coil-shaped clip was deployed in the area biopsied. Postprocedure digital mammography was performed in the synthetic 2-D and 3-D CC and MLO views; demonstrating interval removal of tissue in the appropriate region with the clip in good position. There were no immediate postprocedure complications. ?? The patient was told that our biopsy healthcare associate will notify her of the results via phone in 3-5 business days. Impression: Successful stereotactic guided biopsy. Procedure Note Caryn Bonilla MD, MD / Debbie Sanchez MD, MD - 04/13/2019 Addendum Begins Addendum: This is an addendum to the stereotactic guided biopsy of a new, irregular mass in the upper central left breast, middle depth that did not have a definite ultrasound correlate. The biopsy was performed by Dr. Bonilla on 03/28/2019. The final pathologic diagnosis was reviewed in conjunction with the imaging findings by Dr. Sanchez. The pathology demonstrates: 1.Adenocarcinoma, invasive, ductal type, nuclear grade II. 2. 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 These findings are malignant and concordant. As such, surgical referral is recommended. A member of the radiology department will call the patient to inform her of the above findings and follow-up recommendations. Addendum Ends Addendum Begins Addendum: The mass was targeted with tomography. Addendum Ends UNI LEFT ONLY POST PROCEDURE 2D/3D MAMMO CHARGES ATTACHED, AFFIRM 2D/3D STEREO BX MAMMO, MA STEREO SPECIMEN ONLY 03/28/2019 11:56 AM Signs and Symptoms/Comments: Left breast mass central breast middle depth Comparison: Mammograms from 03/08/19 and prior Procedure/Findings: Written and verbal informed consents were obtained from the patient for this stereotactic guided 1 site biopsy of a new 5 mm mass in the left breast at 12 o'clock, 9 cm from the nipple. The risks, benefits, and alternatives to this procedure were explained to the patient. Once the patient's full name, date of , and side of biopsy were confirmed, the patient was placed on the stereotactic table for an approach from the craniocaudal. The lesion in question was targeted. Site verification and skin marking was performed according to established site marking procedure. A safety timeout was performed. The skin was cleansed with Betadine. 4 cc of buffered 1% lidocaine was used for superficial anesthesia and 10 cc of 2% lidocaine with epinephrine were used for deeper anesthesia. The skin was incised with a #11 blade. 10 core biopsies were obtained with a vacuum assisted 9-gauge stereotactic biopsy device. Specimen radiographs did not contain calcifications, as expected. A HyrdoMark Type IV coil-shaped clip was deployed in the area biopsied. Postprocedure digital mammography was performed in the synthetic 2-D and 3-D CC and MLO views; demonstrating interval removal of tissue in the appropriate region with the clip in good position. There were no immediate postprocedure complications. The patient was told that our biopsy healthcare associate will notify her of the results via phone in 3-5 business days. Impression: Successful stereotactic guided biopsy. us Susie Osborn MD IMG MAMMOGRAPHY ORDERABLES Jonathan brittany documented in this encounter Visit Diagnoses Not on filedocumented in this encounter Care Teams Instrument Assembler Relationship Specialty Start Date End Date Sondra Britton MD PCP - General 05/16/14 02/29/20 documented as of this encounter
--- OUTSIDE RECORDS SUMMARY | 2024-11-09 10:12 | XMS_ITS | Encounter Summary ---
Author Organization [facility] Address [address] [place] [address] Care Team Providers Care Design Lead Name Role Phone Iva Jennings APRN Primary Care Provider [phone] Encounter Details Date Type Department Care Team (Latest Contact Info) Description 06/11/2020 Travel Social History Tobacco Use Types Packs/Day [...] have Coronavirus / COVID-19? No / Unsure 06/11/2020 17:44 EDT documented as of this encounter Functional [...] Info) Description 11/09/2024 15:45 EST Procedure visit [facility] [address] [place] [address] Leann Holland NP [address] [facility] [address] [place] [address] 11/16/2024 15:45 EST Procedure visit [facility] [address] [place], [place] [id number] Leann Holland NP [address] [facility] [address] [place] [address] 07/17/2025 15:30 EDT Office Visit [facility] Adult Hematology & Oncology [facility] [place] [address] Jimmy Gallego MD [address] [facility] [address] [place] [id number] documented as of this encounter Visit Diagnoses Not on filedocumented in this encounter Care Teams Design Lead Relationship Specialty Start Date End Date Iva Jennings APRN [address] [facility] [address] [place] [address] PCP - General 03/01/20 documented as of this encounter
--- OUTSIDE RECORDS SUMMARY | 2024-11-09 10:12 | XMS_ITS | Encounter Summary ---
Author Organization [facility] Address [address] [place] [address] Care Team Providers Care Automotive Parts Salesperson Name Role Phone Iva Jennings APRN Primary Care Provider [phone] Reason for Visit * Reason Comments Follow-up Encounter Details Date Type Department Care Team (Late st Contact Info) Description 06/25/2020 17:00 EDT Office Visit [facility] Orthopedics & Sport Medicine [address] [place] [address] Leann Holland, FRANK [address] [facility] [address] [place] [address] Osteoarthritis of right knee, unspecified [...] this encounter Progress Notes * Leann Holland, ELECTRICIAN RADIO - 06/25/2020 1700 EDTAssociated Order(s): Large Joint Injection/Arthrocentesis: R knee Post-Procedure Diagnose(s): Osteoarthritis of right knee, unspecified osteoarthritis type Orthopaedic Surgery Office Note Susie Mayfield 1950 [id number] Chief Complaint: Chief Complaint Patient presents with ??? Right Knee - Follow-up History of Present Illness: Susie Mayfield is a 70 y.o. female who presents today for injection for her third of three orthovisc injections for the right knee. Since we last saw her, there has been no change in her symptoms. She has a small bruise at her injection site. She is hoping this series lasts 16 months like her last series did. Review of Systems: As above. Past Medical History: Active Ambulatory Problems Diagnosis Date Noted ??? 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 Arthritis of right knee 05/28/2020 Resolved Ambulatory Problems Diagnosis Date Noted ??? No Resolved Ambulatory Problems Past Medical History: Diagnosis Date ??? Breast cancer, left ([facility]) 2018 ??? Hypertension Past Surgical History: Past Surgical History: Procedure Laterality Date ??? APPENDECTOMY ??? BREAST LUMPECTOMY Left 2018 ??? BREAST SURGERY Left 04/2019 Partial mastectomy and SLNBx ??? SECTION ??? CHOLECYSTECTOMY Medications: Current Outpatient Medications on File Prior to [...] (GLUCOSAMINE CHONDROITIN ORAL) Take by mouth. ??? LETROZOLE ORAL Take 2.5 mg by mouth. ??? lisinopril (PRINIVIL, ZESTRIL) 5 mg tablet Take 5 mg by mouth daily. ??? mometasone (NASONEX) 50 mcg/actuation nasal spray Instill 2 Sprays into right nostril daily. ??? MULTI-VITAMIN ORAL Take by mouth. ??? pravastatin (PRAVACHOL) 20 mg tablet Take 20 mg by mouth daily. No current facility-administered medications on file prior to visit. Allergies: Allergies Allergen Reactions ??? Latex, Natural Rubber Itching ??? Other - See Comments Hives, Itching and Other (See Comments) Almost every animal & pollen - sneezing Social History: Social History Occupational History ??? Not on file Tobacco Use ??? Smoking status: Never Smoker ??? Smokeless tobacco: Never Used Substance and Sexual Activity ??? Alcohol use: Not on file ??? Drug use: Not on file ??? Sexual activity: Not on file Family History: Family History Problem Relation Age of Onset ??? Breast Cancer Mother 60 ??? Ovarian Cancer Neg Hx Physical Examination: No data found. Gen- no acute distress, awake alert and appropriate Right Knee examination was notable for the following- moderate effusion and bakers cyst Compartments soft. Firing ankle dorsiflexion/plantarflexion well. Imaging Studies: None new Assessment and Plan: Susie Mayfield is a very pleasant 70 y.o. female who presents today for right knee orthovisc knee injection #3 of 3. Verbal consent was obtained to proceed today. A timeout was performed. The right knee was prepped in the standard sterile fashion. After final verication of the correct site, 2ml of orthovisc along with an anesthetic was injected into the right knee joint without difficulty. No medication was wasted. She tolerated the procedure well. Aftercare for the injection was discussed including the use of ice and NSAIDs for pain relief. They tolerated this well. Warning signs to call the office for were reviewed. Follow up PRN. Procedure: Large Joint Injection/Arthrocentesis: R knee on 06/25/2020 17:05 Medications: 30 mg Sodium Hyaluronate 30 mg/2 mL; 3 mL lidocaine 1 % VIRIDIANA Garcia documented in this encounter Plan of Treatment Upcoming Encounters Date Type Department Care Team (Late st Contact Info) Description 11/09/2024 15:45 EST Procedure visit [facility] Orthopedics & Sport Medicine [address] [place], [place] [id number] Leann Holland CABLE FERRYBOAT OPERATOR [address] [place] [address] [address] [place], [place] [id number] 11/16/2024 15:45 EST Procedure visit [facility] Orthopedics & Sport Medicine [address] [place], [place] [id number] Leann Holland CABLE FERRYBOAT OPERATOR [address] [facility] [address] [place] [id number] 07/17/2025 15:30 EDT Office Visit [facility] Adult Hematology & Oncology [address] [place] [address], [place] [address] Jimmy Gallego MD [address] [facility] [address] [place] [address] documented as of this encounter Procedures Procedure Name Priority Date/Time Associated Diagnosis Comments LARGE JOINT INJECTION/ARTHROCE NTESIS Routine 06/25/2020 17:00 EDT Osteoarthritis of right knee, unspecified osteoarthritis type documented in this encounter Results * WI ARTHROCENTESIS ASPIR&/INJ MAJOR JT/BURSA W/O US (06/25/2020 17:00 EDT) Narrative [facility] - 06/25/2020 17:00 EDT Leann Holland APRN ? 06/25/2020 17:06 Large Joint Injection/Arthrocentesis: R knee on 06/25/2020 17:05 Medications: 30 mg Sodium Hyaluronate 30 mg/2 mL; 3 mL lidocaine 1 % Leann Holland CABLE FERRYBOAT OPERATOR PROCEDURE/MINOR SURGICAL ORD ERABLES Final Result [facility] POINT OF CARE documented in this encounter Visit Diagnoses Diagnosis Osteoarthritis of right knee, unspecified osteoarthritis type- Primary documented in this encounter Administered Medications Inactive Administered Medications - up to 3 most recent administrations Medication Order MAR Action Action Date Dose Rate Site lidocaine 1 % injection 3 mL 3 mL, other, Once PRN Procedure, 1 dose, Starting on Wed06/25/20 at 1705, Until Wed06/25/20 at 1705, RoutineIndications:Osteoarthritis of right knee, unspecified osteoarthritis type Given 06/25/2020 17:05 EDT 3 mL Sodium Hyaluronate (ORTHOVISC) syringe 30 mg 30 mg, other, Once PRN Procedure, 1 dose, Starting on Wed06/25/20 at 1705, Until Wed06/25/20 at 1705, RoutineIndications:Osteoarthritis of right knee, unspecified osteoarthritis type Given 06/25/2020 17:05 EDT 30 mg documented in this encounter Care Teams Automotive Parts Salesperson Relationship Specialty Start Date End Date Iva Jennings APRN [address] [place] [address] PCP - General 03/01/20 documented as of this encounter
--- OUTSIDE RECORDS SUMMARY | 2024-11-09 10:12 | XMS_ITS | Encounter Summary ---
Author Organization [facility] Address [address] [place] [address] Care Team Providers Care Song And Dance Performer Name Role Phone Sondra Britton MD Primary Care Provider Unavailabl e Encounter Details Date Type Department Care Team (Late st Contact Info) Description 05/23/2019 Historical Results Only [facility] Radiology Results [address] [place], [place] [phone] [place] [address] [facility] [address] [place] [address] (Fax) Social History Tobacco Use Types Packs/Day Years [...] Description 11/09/2024 15:45 EST Procedure visit [facility] Orthopedics & Sport Medicine [address] [place] [address] Leann Holland NP [address] [facility] [address] [place] [address] 11/16/2024 15:45 EST Procedure visit [facility] Orthopedics & Sport Medicine [address] [place] [address] Leann Holland NP [address] [facility] [address] [place] [address] 07/17/2025 15:30 EDT Office Visit [facility] Adult Hematology & Oncology [facility] [place] [address] Jimmy Gallego MD [address] [facility] [address] [place] [address] documented as of this encounter Procedures Procedure Name Priority Date/Time Associated Diagnosis Comments DXA BONE DENSITY 05/23/2019 14:2 4 EDT documented in this encounter Results * XR DEXA BONE DENSITY (05/23/2019 14:24 EDT) Anatomical Region Laterality Modality Wrist, Hip, L-spine Other 05/23/2019 14:2 4 EDT Narrative 05/26/2019 10:47 EDT ? EXAM: RADIOLOGY/DXA SCAN/BONE DENSITY ? EX. D/ (1424) ? CLINICAL INFORMATION: ? Z78.0 POSTMENOPAUSAL ? Indication: postmenopausal; screening for osteoporosis; height loss; ? cancer; ? Accession number: [id number] ? Clinical Information Provided by Patient: ? Has used the following medications: Vitamin D, Calcium ? Has the following medical conditions: Cancer ? Patient maximum height was 65 ? Menopause Age 53 ? No regular weight bearing exercise ? Drinks caffeinated beverages ? Onset of menses at age 11 ? Number of children 1 ? Bone Density: Exam date 05/23/2019 ? Region ?BMD ? . ? (g/cm2) ?? T-score ?? Z-score ?? Classification ? AP Spine(L1-L4) ?1.110 ?0.6 ?2.8 ? Normal ? Femoral Neck(Left) ? 0.724 ? -1.1 ?0.7 ? Osteopenia ? Total Hip(Left) ?0.901 ? -0.3 ?1.2 ? Normal ? World Health Organization criteria for BMD impression classify ? patients as Normal (T-score at or above -1.0), Osteopenia (T-score ? between -1.0 and -2.5), or Osteoporosis (T-score at or below -2.5). ? 10-year Fracture Risk : ? Major Osteoporotic Fracture 8.6% ? Hip Fracture 1.0% ? Reported Risk Factors: ? [place] (), Neck BMD=0.724, BMI=34.3 ? FRAX ??Version 3.08. Fracture probability calculated for an untreated ? patient. Fracture probability may be lower if the patient has received ? treatment. ? Impression: The patient has low bone mass, based on the Left Femoral ? Neck T-score. The patient has an estimated ten-year risk of hip ? fracture of 1% and an estimated ten-year risk of major fracture of ? 8.6%, based on the WHO FRAX algorithm. ? Discussion: BONE DENSITY IS LOW AT ONE OR MORE SKELETAL SITES. ? This patient's lowest T-score is low at one or more skeletal sites. ? It meets the World Health Organization's (WHO) criteria for low bone ? mass ??(T-score between -1.0 and -2.5). ? The patient's 10-year risk of fracture as calculated by FRAX is less ? than the threshold where pharmacological therapy is recommended by the ? National Osteoporosis Foundation (NOF). ??However, all treatment ? decisions require clinical judgment and consideration of individual ? patient factors, including patient preferences, comorbidities, ? previous drug use, risk factors not captured in the FRAX model (e.g., ? PAGE 1 ? Signed Report ? (CONTINUED) ? frailty, falls, vitamin D deficiency, increased bone turnover, ? interval significant decline in bone density) and possible under or ? overestimation of fracture risk by FRAX. The patient should follow a ? healthful lifestyle (good nutrition with adequate calcium and vitamin ? D, and appropriate weight-bearing exercise). ? Follow-Up: Consider repeating this study in 2 to 3 years to reassess ? this patient's status, or sooner if there is some new clinical ? indication. ? Reported by:LARA/vargas on 05/23/2019 2:02:00 PM. ?Reported By: Montez Mejia MD ? CC: ? Transcribed Date/Time: 05/26/2019 (1047) ? Beader Tender: DAVIN ? Printed Date/Time: 07/05/2019 (1334) ? PAGE 2 ? Signed Report ? Procedure Note Montez Mejia E - 08/22/2019 EXAM: RADIOLOGY/DXA SCAN/BONE DENSITY EX. D/ (1424) CLINICAL INFORMATION: Z78.0 POSTMENOPAUSAL Indication: postmenopausal; screening for osteoporosis; heightloss; cancer; Accession number: [id number] Clinical Information Provided by Patient: Has used the following medications: Vitamin D, Calcium Has the following medical conditions: Cancer Patient maximum height was 65 Menopause Age 53 No regular weight bearing exercise Drinks caffeinated beverages Onset of menses at age 11 Number of children 1 Bone Density: Exam date 05/23/2019 Region BMD . (g/cm2) T-score Z-scoreClassification AP Spine(L1-L4) 1.110 0.6 2.8 Normal Femoral Neck(Left) 0.724 -1.1 0.7 Osteopenia Total Hip(Left) 0.901 -0.3 1.2 Normal World Health Organization criteria for BMD impression classify patients as Normal (T-score at or above -1.0), Osteopenia (T-score between -1.0 and -2.5), or Osteoporosis (T-score at or below -2.5). 10-year Fracture Risk : Major Osteoporotic Fracture 8.6% Hip Fracture 1.0% Reported Risk Factors: [place] (), Neck BMD=0.724, BMI=34.3 FRAX Version 3.08. Fracture probability calculated for anuntreated patient. Fracture probability may be lower if the patient hasreceived treatment. Impression: The patient has low bone mass, based on the LeftFemoral Neck T-score. The patient has an estimated ten-year risk of hip fracture of 1% and an estimated ten-year risk of major fracture of 8.6%, based on the WHO FRAX algorithm. Discussion: BONE DENSITY IS LOW AT ONE OR MORE SKELETAL SITES. This patient's lowest T-score is low at one or more skeletal sites. It meets the World Health Organization's (WHO) criteria for lowbone mass (T-score between -1.0 and -2.5). The patient's 10-year risk of fracture as calculated by FRAX isless than the threshold where pharmacological therapy is recommended bythe National Osteoporosis Foundation (NOF). However, all treatment decisions require clinical judgment and consideration of individual patient factors, including patient preferences, comorbidities, previous drug use, risk factors not captured in the FRAX model(e.g., PAGE 1 Signed Report (CONTINUED) frailty, falls, vitamin D deficiency, increased bone turnover, interval significant decline in bone density) and possible under or overestimation of fracture risk by FRAX. The patient should followa healthful lifestyle (good nutrition with adequate calcium andvitamin D, and appropriate weight-bearing exercise). Follow-Up: Consider repeating this study in 2 to 3 years toreassess this patient's status, or sooner if there is some new clinical indication. Reported by:LARA/vargas on 05/23/2019 2:02:00 PM. Reported By: Montez Mejia MD CC: Transcribed Date/Time: 05/26/2019 (1047) Beader Tender: DAVIN Printed Date/Time: 07/05/2019 (6872) PAGE 2 Signed Report Bryan Blackman MD IMG DEXA ORDERABLES Final Res ult documented in this encounter Visit Diagnoses Not on filedocumented in this encounter Care Teams Song And Dance Performer Relationship Specialty Start Date End Date Sondra Britton MD PCP - General 05/16/14 02/29/20 documented as of this encounter
--- OUTSIDE RECORDS SUMMARY | 2024-11-09 10:12 | XMS_ITS | Encounter Summary ---
Author Organization [facility] Address [address] [place] [address] Care Team Providers Care Information Technology Manager Name Role Phone Sondra Britton MD Primary Care Provider Unavailabl e Reason for Referral * Radiology Services (Routine) - New Request Specialty Diagnoses / Procedures Referred By [facility] t Referred To Contact Diagnoses Malignant neoplasm of central portion of left breast in female, estrogen receptor positive (HCC-CMS) Procedures NM INJECTION ONLY SENTINAL NODE BREAST Elizabeth Tapia DO Phone: tel: fax: Referral ID Status Reason Start Date Expiration Date V isits Requested Visits Authorized [id number] New Request 04/07/2019 1 1 Reason for Visit * Reason Onset Date Comments Pre-procedure 04/07/2019 Nuclear medicine injection orders Encounter Details Date Type Department Care Team (Late st Contact Info) Description 04/07/2019 Orders Only [facility] Surgical Oncology - [facility] [address] [place], [place] [id number] Elizabeth Tapia DO [address] [facility], [facility] [address] [place] [address] Malignant neoplasm of central portion [...] Medicine [address] [place] [address] Leann Holland, AURIST [address] [place] [address] [address] [place] [address] 11/16/2024 15:45 EST Procedure visit [facility] Orthopedics & Sport Medicine [address] [place], [place] [id number] Leann Holland, AURIST [address] [place] [address] [address] [place] [address] 07/17/2025 15:30 EDT Office Visit [facility] Adult Hematology & Oncology [facility] [place] [address] Jimmy Gallego MD [address] [facility] [address] [place] [address] documented as of this encounter Procedures Procedure Name Priority Date/Time Associated Diagnosis Comments NM INJECTION ONLY SENTINAL NODE BREAST Routine 05/03/2019 7:08 EDT Malignant neoplasm of central portion of left breast in female, estrogen receptor positive (HCC-CMS) documented in this encounter Results * NM INJECTION ONLY SENTINAL NODE BREAST (05/03/2019 7:08 EDT) Anatomical Region Laterality Modality Other 05/03/2019 7:08 EDT 05/04/2019 13:41 EDT Narrative 05/04/2019 13:41 EDT Clinical History/Comments: Left BR CA. Comparison: None. 1 mCi Tc-99m Sulfur Colloid was injected around the breast tumor. In addition, 0.2 mCi Tc-99m Sulfur Colloid was injected subdermally over the breast tumor.? No images were obtained. ?? Procedure Note Tim Simpson MD, - 05/04/2019 Clinical History/Comments: Left BR CA. Comparison: None. 1 mCi Tc-99m Sulfur Colloid was injected around the breast tumor. In addition, 0.2 mCi Tc-99m Sulfur Colloid was injected subdermally over the breast tumor.? No images were obtained. us Elizabeth Tapia DO IMG NM ORDERABLES Final Res ult documented in this encounter Visit Diagnoses Diagnosis Malignant neoplasm of central portion of left breast in female, estrogen receptor positive (HCC-CMS)- Primary documented in this encounter Care Teams Information Technology Manager Relationship Specialty Start Date End Date Sondra Britton MD PCP - General 05/16/14 02/29/20 documented as of this encounter
--- OUTSIDE RECORDS SUMMARY | 2024-11-09 10:12 | XMS_ITS | Encounter Summary ---
Author Organization [facility] Address [address] [place] [address] Care Team Providers Care Motion Picture Cameraman Name Role Phone Sondra Britton MD Primary Care Provider Unavailabl e Encounter Details Date Type Department Care Team (Late st Contact Info) Description 05/15/2019 Documentation Visit [facility] Surgical Oncology - Main [place] [address] [place] [address] Dianne Morales RN Social History Tobacco Use Types Packs/Day [...] documented in this encounter Progress Notes * Dianne Morales RN - 05/15/2019 0806 EDT Information faxed to [facility] Medical and Radiation Oncology for New Patient Visits Date: 05/15/19 Attn: Medical and Radiation Oncology (fax was sent to separate departments) Fax #: [phone] and [phone] Comments: OR date: 05/03/19 Right PM & SLNB Please see attached post-operative note and final pathology Patient has an appointment with Hiral on 05/16/19 and Caden on 05/25/19 Please give this information to provider in new patient paperwork Patient is aware of upcoming appointments with both providers. Patient: Susie Mayfield : 46 documented in this encounter Plan of Treatment Upcoming Encounters Date Type Department Care Team (Late st Contact Info) Description 11/09/2024 15:45 EST Procedure visit [facility] Orthopedics & Sport Medicine [address] [place] [address] Leann Holland, QUALITY TECHNICIAN FIBERGLASS [address] [place] [address] [place] [address] 11/16/2024 15:45 EST Procedure visit [facility] Orthopedics & Sport Medicine [address] [place] [address] Leann Holland, QUALITY TECHNICIAN F[employer]ERGLASS [address] [place] [address] [place] [id number] 07/17/2025 15:30 EDT Office Visit [facility] Adult Hematology & Oncology [facility] [place] [address] Jimmy Gallego MD [address] [facility] [address] [place] [address] documented as of this encounter Visit Diagnoses Not on filedocumented in this encounter Care Teams Motion Picture Cameraman Relationship Specialty Start Date End Date Sondra Britton MD PCP - General 05/16/14 02/29/20 documented as of this encounter
--- OUTSIDE RECORDS SUMMARY | 2024-11-09 10:12 | XMS_ITS | Encounter Summary ---
Author Organization [facility] Address [address] [place] [address] Care Team Providers Care Coffee Weigher Name Role Phone Sondra Britton MD Primary Care Provider Unavailabl e Encounter Details Date Type Department Care Team (Latest Contact Info) Description 05/23/2019 11:45 EDT - 05/23/2019 23:59 EDT Hospital Encounter [facility] [address] [place] [address] Unknown, Provider, MD Discharge Disposition: Home or Self Care Social [...] Tablet by mouth at bedtime as needed. glucos sul 2KCl/msm/chond/C/ Mn (GLUCOSAMINE CHONDROITIN ORAL) Take by mouth. lisinopril (PRINIVIL, ZESTRIL) 5 mg tablet Take 1 Tablet by mouth daily. MULTI-VITAMIN ORAL Take by mouth. pravastatin (PRAVACHOL) 20 mg tablet Take 1 Tablet by mouth daily. BIOFLAVONOIDS ORAL Take by mouth. 05/26/2021 calcium carbonate (CALCIUM 500 ORAL) Take by mouth. 05/25/2022 celecoxib (CELEBREX) 200 mg capsule Take 200 mg by mouth 2 times daily. 06/04/2020 cetirizine (ZYRTEC) 1 mg/mL solution Take 5 mL by mouth daily. 07/13/2024 FA NON-FORMULARY MEDICATION, DO NOT ORDER, Take 1 Cap by mouth at bedtime as needed. Alteril all natural sleep aid 06/04/2020 HYDROmorphone (DILAUDID) 2 mg tablet Take 1 Tab by mouth every 4 hours as needed for Pain. Daily Max: 12 mg 5 Tab 05/03/2019 06/04/2020 mometasone (NASONEX) 50 mcg/actuation nasal spray Instill 2 Sprays into right nostril daily. 05/25/2022 documented as of this encounter Discharge Disposition Disposition Code Departure Means Destination Home or Self Longterm documented in this encounter Plan of Treatment Upcoming Encounters Date Type Department Care Team (Late st Contact Info) Description 11/09/2024 15:45 EST Procedure visit [facility] Orthopedics & Sport Medicine [address] [place] [address] Leann Holland P, VETERINARY MEDICINE DOCTOR [address] [place] [address] 11/16/2024 15:45 EST Procedure visit [facility] Orthopedics & Sport Medicine [address] [place] [address] Leann Holland P, VETERINARY MEDICINE DOCTOR [address] [place] [address] 07/17/2025 15:30 EDT Office Visit [facility] Adult Hematology & Oncology [address] [place] [address] Jimmy Gallego MD [address] [place] [address] [phone] documented as of this encounter Visit Diagnoses Not on filedocumented in this encounter Care Teams Coffee Weigher Relationship Specialty Start Date End Date Sondra Britton MD PCP - General 05/16/14 02/29/20 documented as of this encounter
--- OUTSIDE RECORDS SUMMARY | 2024-11-09 10:12 | XMS_ITS | Encounter Summary ---
Author Organization [facility] Address [address] [place] [address] Care Team Providers Care Oil Pipeline Operator Name Role Phone Iva Jennings APRN Unavailable [phone] Iva Jennings APRN Primary Care Provider [phone] Encounter Details Date Type Department Care Team (Latest Contact Info) Description 03/01/2020 Travel Social History Tobacco Use Types Packs/Day Years Used Date Smoking Tobacco: Never Smokeless Tobacco: Never Comments No Sex and Gender Information Value [...] Description 11/09/2024 15:45 EST Procedure visit [facility] Medicine [address] [place], [place] [id number] Leann Holland, FRANK [address] [facility] [address] [place], [place] [id number] 11/16/2024 15:45 EST Procedure visit [facility] Orthopedics & Sport Medicine [address] [place], [place] [id number] Leann Holland, ELECTRIC ARC FURNACE OPERATOR [address] [facility] [address] [place] [address] 07/17/2025 15:30 EDT Office Visit [facility] Adult Hematology & Oncology [address] [place] [address] Jimmy Gallego MD [address] [facility] [address] [place] [address] documented as of this encounter Visit Diagnoses Not on filedocumented in this encounter Care Teams Oil Pipeline Operator Relationship Specialty Start Date End Date Iva Jennings APRN [address] [phone] PCP - General 03/01/20 Iva Jennings APRN [address] [phone] 03/01/20 03/01/20 documented as of this encounter
--- OUTSIDE RECORDS SUMMARY | 2024-11-09 10:12 | XMS_ITS | Encounter Summary ---
Author Organization [facility] Address [address] [place] [address] Care Team Providers Care Broke Beater Operator Name Role Phone Sondra Britton MD Primary Care Provider Unavailabl e Reason for Visit * Reason Onset Date Comments Pre-procedure 04/18/2019 Antibiotic order s Encounter Details Date Type Department Care Team (Late st Contact Info) Description 04/18/2019 Pre-Procedure Orders Encounter [facility] Surgical Oncology - [facility] [address] [place] [address] Elizabeth Tapia, DO 111 [facility], [facility] [address] [place] [address] Malignant neoplasm of central portion [...] Info) Description 11/09/2024 15:45 EST Procedure visit [facility] Orthopedics & Sport Medicine [address] [place], [place] [id number] Leann Holland NP [address] [facility] [address] [place] [address] 11/16/2024 15:45 EST Procedure visit [facility] Orthopedics & Sport Medicine [address] [place] [address] Leann Holland NP [address] 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
--- OUTSIDE RECORDS SUMMARY | 2024-11-09 10:12 | XMS_ITS | Encounter Summary ---
Author Organization Health system Address [address] [place] [address] Care Team Providers Care Valve Repairer Name Role Phone Iva Jennings APRN Unavailable [phone] Iva Jennings APRN Primary Care Provider [phone] Reason for Referral * Radiology Services (Routine) - New Request Specialty Diagnoses / Procedures Referred By Lisbet olivas Referred To Contact Diagnoses History of left breast cancer Procedures MA BREAST DIAGNOSTIC ELSA BILATERAL MA BREAST DIAGNOSTIC Elizabeth Tapia DO Phone: tel: fax: Referral ID Status Reason Start Date Expiration Date V isits Requested Visits Authorized [id number] New Request 11/20/2019 1 1 Reason for Visit * Radiology Services (Routine) - New Request Specialty Diagnoses / Procedures Referred By Lisbet olivas Referred To Contact Diagnoses History of left breast cancer Procedures MA BREAST DIAGNOSTIC ELSA BILATERAL MA BREAST DIAGNOSTIC Elizabeth Tapia DO Phone: tel: fax: Referral ID Status Reason Start Date Expiration Date V isits Requested Visits Authorized [id number] New Request 11/20/2019 1 1 Encounter Details Date Type Department Care Team (Latest Contact Info) Description 03/01/2020 14:46 EDT - 03/01/2020 23:59 EDT Hospital Encounter [facility] Breast Imaging Mammography - [facility] [place] [address] [place] [address] History of left breast cancer Discharge Disposition: Home or Self Care Social [...] Concentration - - Weight - - Height 165.1 cm (5' 5) 03/01/2020 1504 EDT Body Mass Index - - documented in [...] mouth. 2 celecoxib (CELEBREX) 200 mg capsule Take 200 mg by mouth 2 times daily. 0 cetirizine (ZYRTEC) 1 mg/mL solution Take 5 mL by mouth daily. 4 FA NON-FORMULARY MEDICATION, DO NOT ORDER, Take 1 Cap by mouth at bedtime as needed. Alteril all natural sleep aid 0 HYDROmorphone (DILAUDID) 2 mg tablet Take 1 Tab by mouth every 4 hours as needed for Pain. Daily Max: 12 mg 5 Tab 05/03/2019 0 LETROZOLE ORAL Take 2.5 mg by mouth. 0 mometasone (NASONEX) 50 mcg/actuation nasal spray Instill 2 Sprays into right nostril daily. 2 documented as of this encounter Discharge Disposition Disposition Code Departure Means Destination Home or Self Longterm documented in this encounter Plan of Treatment Upcoming Encounters Date Type Department Care Team (Late st Contact Info) Description 11/09/2024 15:45 EST Procedure visit [facility] Orthopedics & Sport Medicine [address] [place] [address] Lenan Holland P, STEREOTYPER APPRENTICE [address] [place] [address] 11/16/2024 15:45 EST Procedure visit [facility] Orthopedics & Sport Medicine [address] [place] [address] Leann Holland P, STEREOTYPER APPRENTICE [address] [place] [address] [place] [address] 07/17/2025 15:30 EDT Office Visit [facility] Adult Hematology & Oncology [address] [place] [address] Jimmy Gallego MD 130 [facility] [address] [place] [address] documented as of this encounter Procedures Procedure Name Priority Date/Time Associated Diagnosis Comments MA BREAST DIAGNOSTIC ELSA BILATERAL Routine 03/01/2020 15:17 EDT History of left breast cancer documented in this encounter Results * MA BREAST DIAGNOSTIC ELSA BILATERAL (03/01/2020 15:17 EDT) Anatomical Region Laterality Modality Breast Bilateral Mammography 03/01/2020 15:3 2 EDT Narrative 03/01/2020 15:32 EDT MA BREAST DIAGNOSTIC ELSA BILATERAL ??03/01/2020 3:00 PM Clinical History/Comments: 1st mammogram since surgery s/p left breast partial 05/03/19, screen right breast Comparisons: All prior mammograms. Findings right breast mammogram: Digital diagnostic right breast mammography was performed in the 3-D/synthesized 2-D CC and MLO projections with CAD. The breast tissue is nearly entirely fat. There are no suspicious calcifications, masses or other abnormalities. The breast parenchyma has a stable, fibronodular pattern. Findings left breast mammogram: Digital diagnostic left breast mammography was performed in the 3-D/synthesized 2-D CC and MLO projections with CAD. The breast tissue is nearly entirely fat. There is a lumpectomy scar in the upper outer quadrant with poststernotomy changes. Changes are also noted in the axilla from sentinel lymph node sampling. The breast parenchyma has a stable, fibronodular pattern. Specifically, there is a stable nodule adjacent to the lumpectomy scar compared with all prior mammograms. Impression bilateral breasts: BI-RADS Category 2. Benign. Recommendation bilateral breasts: Annual screening mammography. This will be due in February 2021. Overall assessment: Benign. The engineering technologist discussed the interpreting physician's findings and recommendations with the patient at the time of the examination. The patient will be notified of her breast imaging results via a lay letter from Radiology. ??Radiology will contact the patient directly regarding any findings which require additional imaging. This document has been prepared using voice recognition software and/or keyboard drug safety data management specialist. ??All reasonable efforts have been made to ensure accuracy. ??However, minor irregularities or keyboard misprints may be present. ??If you find an error, or have any concerns, please contact Dr. Debbie Sanchez at [email or web address] I have personally reviewed the images and the above interpretation, and agree with the findings. us Elizabeth Tapia DO IMG MAMMOGRAPHY ORDERABLES Final Result documented in this encounter Visit Diagnoses Diagnosis History of left breast cancer documented in this encounter Care Teams Valve Repairer Relationship Specialty Start Date End Date Iva Jennings APRN [address] [place] [phone] PCP - General 03/01/20 Iva Jennings APRN [address] [place] [phone] 03/01/20 03/01/20 documented as of this encounter
--- OUTSIDE RECORDS SUMMARY | 2024-11-09 10:12 | XMS_ITS | Encounter Summary ---
Author Organization [facility] Address [address] [place] [address] Care Team Providers Care High Man Name Role Phone Sondra Britton MD Primary Care Provider Unavailabl e Encounter Details Date Type Department Care Team (Late st Contact Info) Description 04/07/2019 11:28 EDT - 04/07/2019 23:59 EDT Hospital Encounter [facility] [address] [place] [address] Elizabeth Tapia, DO 111 [facility] [address] [place] [phone] Discharge Disposition: Auto Discharge Social History Tobacco Use Types Packs/Day Years [...] 04/07/2019 9:57 EDT documented in this encounter Discharge Diagnoses Diagnosis C50.112 Malignant neoplasm of central portion of left female breast-C50.112[ICD-10-CM] Z17.0 Estrogen receptor positive status [ER+]-Z17.0[ICD-10-CM] documented in this encounter Medications at Time [...] Take 5 mL by mouth daily. 07/13/2024 chlorthalidone (HYGROTON) 25 mg tablet Take 25 mg by mouth daily. 04/27/2019 FA NON-FORMULARY MEDICATION, DO NOT ORDER, Take 1 Cap by mouth at bedtime as needed. Alteril all natural sleep aid 06/04/2020 HYDROmorphone (DILAUDID) 2 mg tablet Take 1 Tab by mouth every 4 hours as needed for Pain. Daily Max: 12 mg 5 Tab 05/03/2019 06/04/2020 mometasone (NASONEX) 50 mcg/actuation nasal spray Instill 2 Sprays into right nostril daily. 05/25/2022 UNABLE TO FIND Ultaril 04/27/2019 documented as of this encounter Discharge Disposition Disposition Code Departure Means Destination Auto Discharge Home documented in this encounter Plan of Treatment Upcoming Encounters Date Type Department Care Team (Late st Contact Info) Description 11/09/2024 15:45 EST Procedure visit [facility] Orthopedics & Sport Medicine [address] [place] [address] Leann Holland, STRADDLE BUG [address] [facility] [address] [place] [address] 11/16/2024 15:45 EST Procedure visit [facility] Orthopedics & Sport Medicine [address] [place] [address] Leann Holland NP [address] [facility] [address] [place] [address] 07/17/2025 15:30 EDT Office Visit [facility] Adult Hematology & Oncology [facility] [place] [place] [address] Jimmy Gallego MD [address] [facility] [address] [place] [address] documented as of this encounter Visit Diagnoses Not on filedocumented in this encounter Care Teams High Man Relationship Specialty Start Date End Date Sondra Britton MD PCP - General 05/16/14 02/29/20 documented as of this encounter
--- OUTSIDE RECORDS SUMMARY | 2024-11-09 10:12 | XMS_ITS | Encounter Summary ---
Author Organization [facility] Address [address] [place] [address] Care Team Providers Care Cotton Sampler Name Role Phone Iva Jennings APRN Primary Care Provider [phone] Encounter Details Date Type Department Care Team (Latest Contact Info) Description 05/28/2020 Travel Social History Tobacco Use Types Packs/Day [...] have Coronavirus / COVID-19? No / Unsure 05/28/2020 16:36 EDT documented as of this encounter Functional [...] Medicine [address] [place] [address] Leann Holland NP [address] [facility] [address] [place] [address] 11/16/2024 15:45 EST Procedure visit [facility] Orthopedics & Sport Medicine [address] [place], [place] [phone] Leann Holland NP [address] [facility] [address] [place] [address] 07/17/2025 15:30 EDT Office Visit [facility] Adult Hematology & Oncology [facility] [place] [address] Jimmy Gallego MD 130 [facility] [address] [place] [phone] documented as of this encounter Visit Diagnoses Not on filedocumented in this encounter Care Teams Cotton Sampler Relationship Specialty Start Date End Date Iva Jennings APRN [address] [facility] [address] [place] [address] PCP - General 03/01/20 documented as of this encounter
--- OUTSIDE RECORDS SUMMARY | 2024-11-09 10:12 | XMS_ITS | Encounter Summary ---
Author Organization [facility] Address [address] [place] [address] Care Team Providers Care Market Development Manager Name Role Phone Sondra Britton MD Primary Care Provider Unavailabl e Encounter Details Date Type Department Care Team (Latest Contact Info) Description 03/28/2019 6:30 EDT - 03/28/2019 9:36 EDT Hospital Encounter [facility] [address] [place] [address] Susie Osborn MD [address] [place] [phone] Discharge Disposition: Auto Discharge Social History Tobacco [...] documented in this encounter Discharge Diagnoses Diagnosis N63.22 Unspecified lump in the left breast, upper inner quadrant-N63.22[ICD-10-CM] N63.21 Unspecified lump in the left breast, upper outer quadrant-N63.21[ICD-10-CM] documented in this encounter Discharge Disposition Disposition Code Departure Means Destination Auto Discharge Home documented in this encounter Plan of Treatment Upcoming Encounters Date Type Department Care Team (Late st Contact Info) Description 11/09/2024 15:45 EST Procedure visit [facility] Orthopedics & Sport Medicine [address] [place] [address] Leann Holland PIPELINE INSPECTOR [address] [place] [address] [address] [place] [address] 11/16/2024 15:45 EST Procedure visit [facility] Orthopedics & Sport Medicine [address] [place] [address] Leann Holland PIPELINE INSPECTOR [address] [place] [address] [place] [address] 07/17/2025 15:30 EDT Office Visit [facility] Adult Hematology & Oncology [facility] [place] [address] Jimmy Gallego MD [address] [facility] [address] [place] [address] documented as of this encounter Visit Diagnoses Not on filedocumented in this encounter Care Teams Market Development Manager Relationship Specialty Start Date End Date Sondra Britton MD PCP - General 05/16/14 02/29/20 documented as of this encounter
--- OUTSIDE RECORDS SUMMARY | 2024-11-09 10:12 | XMS_ITS | Encounter Summary ---
Author Organization [facility] Address [address] [place] [address] Care Team Providers Care Machine Paint Mixer Name Role Phone Sondra Britton MD Primary Care Provider Unavailabl e Encounter Details Date Type Department Care Team (Late st Contact Info) Description 04/07/2019 Results Only Imaging [facility] Surgical Oncology - [address] [address] Elizabeth Tapia, DO [address] [facility] [address] [place] [phone] Social History Tobacco Use Types Packs/Day Years [...] Info) Description 11/09/2024 15:45 EST Procedure visit [facility] Orthopedics & Sport Medicine [address] [place] [address] Leann Holland, FAMILY CASEWORKER 1311 [facility] [address] [place], [place] [phone] 11/16/2024 15:45 EST Procedure visit [facility] Orthopedics & Sport Medicine [address] [place], [place] [phone] Leann Holland, FAMILY CASEWORKER [address] [facility] [address] [place] [address] 07/17/2025 15:30 EDT Office Visit [facility] Adult Hematology & Oncology [facility] [place] [address] Jimmy Gallego MD 130 [facility] [address] [place] [address] documented as of this encounter Procedures Procedure Name Priority Date/Time Associated Diagnosis Comments [facility] BREASTBREAST CARE NATURAL [place] ONLY 04/07/2019 11:43 EDT documented in this encounter Results * [facility] ONLY (04/07/2019 11:43 EDT) Anatomical Region Laterality Modality Other 04/07/2019 11:4 3 EDT Narrative 04/07/2019 11:43 EDT See Notes Tab. Procedure Note ELECTRICAL MECHANIC, IMAGING - 04/07/2019 See Notes Tab. us Elizabeth Tapia DO IMG US ORDERABLES Final Res ult documented in this encounter Visit Diagnoses Not on filedocumented in this encounter Care Teams Machine Paint Mixer Relationship Specialty Start Date End Date Sondra Britton MD PCP - General 05/16/14 02/29/20 documented as of this encounter
--- OUTSIDE RECORDS SUMMARY | 2024-11-09 10:12 | XMS_ITS | Encounter Summary ---
Author Organization [facility] Address [address] [place] [address] Care Team Providers Care Six Color Press Operator Name Role Phone Sondra Britton MD Primary Care Provider Unavailabl e Reason for Referral * Radiology Services (Routine) - New Request Specialty Diagnoses / Procedures Referred By [facility] t Referred To Contact Diagnoses Malignant neoplasm of central portion of left breast in female, estrogen receptor positive (HCC-CMS) Procedures CHEST PA AND LATERAL Elizabeth Tapia DO Phone: tel: fax: Referral ID Status Reason Start Date Expiration Date V isits Requested Visits Authorized [id number] New Request 04/07/2019 1 1 Reason for Visit * Reason Onset Date Comments Pre-op Exam 04/07/2019 cxr, lab orders Encounter Details Date Type Department Care Team (Late st Contact Info) Description 04/07/2019 Orders Only [facility] [address] [place], [place] [id number] Elizabeth Tapia DO [address] [facility], [address] [place] [address] Malignant neoplasm of central portion [...] documented in this encounter Progress Notes * Ruth Rodriguez RN - 04/07/2019 1057 EDT Pre-op orders done. documented in this encounter Plan of Treatment Upcoming Encounters Date Type Department Care Team (Late st Contact Info) Description 11/09/2024 15:[address] [facility] Orthopedics & Sport Medicine [address] [place], [place] [id number] Leann Holland ELECTRICAL TEST ENGINEER [address] [place] [address] [place] [id number] 11/16/2024 15:[address] [facility] Orthopedics & Sport Medicine [address] [place], [place] [phone] [place] [address] [place] [address] [address] [place] [address] 07/17/2025 15:[address] [facility] Adult Hematology & Oncology [address] [place] [address], [place] [id number] Jimmy Gallego MD [address] [facility] [address] [place] [id number] (work) documented as of this encounter Procedures Procedure Name Priority Date/Time Associated Diagnosis Comments CHEST PA AND LATERAL Routine 04/07/2019 12:14 EDT Malignant neoplasm of central portion of left breast in female, estrogen receptor positive (HCC-CMS) documented in this encounter Results * CHEST PA AND LATERAL (04/07/2019 12:14 EDT) Anatomical Region Laterality Modality Other 04/07/2019 12:1 4 EDT 04/07/2019 13:44 EDT Narrative 04/07/2019 13:44 EDT CHEST 2 VIEWS ??04/07/2019 12:14 PM Clinical History/Comments: C50.112-Malignant neoplasm of central portion of left female breast (HCC-CMS)-ICD-10 Z17.0-Estrogen receptor positive status (ER+)-ICD-10; Left breast cancer Comparison: None. Technique: Two views of the chest were performed using dual energy technique with bone and soft tissue reconstruction. Findings: Soft tissues and extrathoracic findings: ??Several clips are present in the region of the gallbladder. Bones: No significant abnormality. Cardiac and mediastinal contours: Normal. Lungs: The lungs are clear and pulmonary vascularity is within normal limits. ?? Pleura/diaphragms: No pleural effusion or pneumothorax. Impression: 1. ??No significant abnormality. I have personally reviewed the images and the above interpretation and agree with the findings. Procedure Note Andrea Amaral MD, - 04/07/2019 CHEST 2 VIEWS 04/07/2019 12:14 PM Clinical History/Comments: C50.112-Malignant neoplasm of central portion of left female breast (HCC-CMS)-ICD-10 Z17.0-Estrogen receptor positive status (ER+)-ICD-10; Left breast cancer Comparison: None. Technique: Two views of the chest were performed using dual energy technique with bone and soft tissue reconstruction. Findings: Soft tissues and extrathoracic findings: Several clips are present in the region of the gallbladder. Bones: No significant abnormality. Cardiac and mediastinal contours: Normal. Lungs: The lungs are clear and pulmonary vascularity is within normal limits. Pleura/diaphragms: No pleural effusion or pneumothorax. Impression: 1. No significant abnormality. I have personally reviewed the images and the above interpretation and agree with the findings. us Elizabeth Hu Regina DO IM[facility] DIAGNOSTIC IMAGING [facility] Final Result * (ABNORMAL) COMPREHENSIVE METABOLIC PANEL (CMP) (04/07/2019 11:54 EDT) Potassium 4.6 3.5 - 5.0 mEq/L 04/07/2019 14:00 [facility] Sodium 138 136 - 145 mEq/L 04/07/2019 14:00 [facility] Chloride 102 96 - 110 mEq/L 04/07/2019 14:00 [facility] CO2 25 22 - 32 mEq/L 04/07/2019 14:00 [facility] Total Alkaline Phosphatase 93 38 - 126 U/L 04/07/2019 14:00 [facility] Bilirubin, Total 0.5 <1.4 mg/dl 04/07/20 19 14:00 [facility] AST 25 15 - 46 U/L 04/07/2019 14:00 [facility] ALT 19 <53 U/L 04/07/2019 14:00 [facility] Albumin 4.4 3.4 - 4.9 g/dl 04/07/2019 14:00 [facility] Total Protein 7.4 6.3 - 8.2 g/dl 04/07/2019 14:00 [facility] Creatinine 0.71 0.52 - 1.04 mg/dl 04/07/2019 14:00 [facility] GFR, Calculated 86 >60 ml/min/1.7 3m2 04/07/2019 14:00 [facility] Comment: eGFR calculated using CKD-EPI equation for non Americans. Multiply eGFR by 1.16 for Americans. BUN 15 10 - 26 mg/dl 04/07/2019 14:00 [facility] Calcium 9.8 8.5 - 10.5 mg/dl 04/07/2019 14:00 [facility] Calculated Calcium 9.5 8.5 - 10.5 mg/dl 04/07/2019 14:00 [facility] Glucose, Serum 101(H) 70 - 100 mg/dl 04/07/2019 14:00 [facility] Fasting? No 04/07/2019 11:51 [facility] Blood specimen (specimen) BLOOD SPECIMEN / Unknown 04/07/2019 11:54 EDT 04/07/2019 13:48 EDT us Elizabeth Tapia DO CHEMISTRY & BLOOD GAS ORDER KAYLEY Final Result [facility] [address] [place] [address] * COMPLETE BLOOD COUNT AND DIFFERENTIAL (04/07/2019 11:54 EDT) WBC 7.07 4.0 - 12.4 K/cmm 04/07/2019 14:31 [facility] RBC 4.77 3.86 - 5.04 M/cmm 04/07/2019 14:31 [facility] Hemoglobin 14.6 11.6 - 15.2 gm/dl 04/07/2019 14:31 [facility] HCT 43.5 34.9 - 44.4 % 04/07/2019 14:31 [facility] MCV 91 81 - 98 fl 04/07/2019 14:31 [facility] MCH 30.6 26.7 - 33.3 pg 04/07/2019 14:31 [facility] MCHC 33.6 32.1 - 35.9 gm/dl 04/07/2019 14:31 [facility] RDW-CV 12.2 <14.7 % 04/07/2019 14:31 [facility] RDW-SD 40.6 <50.4 fl 04/07/2019 14:31 [facility] PLT 287 141 - 377 K/cmm 04/07/2019 14:31 [facility] MPV 11.0 9.5 - 12.7 fl 04/07/2019 14:31 [facility] % Neutrophils 53.6 % 04/07/2019 14:31 [facility] % Lymphocytes 27.7 % 04/07/2019 14:31 [facility] % Monocytes 9.6 % 04/07/2019 14:31 [facility] % Eosinophils 7.6 % 04/07/2019 14:31 [facility] % Basophils 1.4 % 04/07/2019 14:31 [facility] % Immature Grans 0.1 % 04/07/2019 14:31 [facility] ABS Neutrophils 3.78 2.20 - 8.85 K/cmm 04/07/2019 14:31 [facility] ABS Lymphs 1.96 1.09 - 3.30 K/cmm 04/07/2019 14:31 [facility] ABS Monocytes 0.68 0.1 - 0.8 K/cmm 04/07/2019 14:31 [facility] ABS Eosinophils 0.54 0.03 - 0.61 K/cmm 04/07/2019 14:31 [facility] ABS Basophils 0.10 0.01 - 0.11 K/cmm 04/07/2019 14:31 [facility] ABS Immature Grans 0.01 0 - 0.06 K/cmm 04/07/2019 14:31 [facility] Type of Diff: Automated 04/07/2019 14:31 [facility] Blood specimen (specimen) BLOOD SPECIMEN / Unknown 04/07/2019 11:54 EDT 04/07/2019 13:48 EDT us Elizabeth Tapia DO PACKAGES & DNA PROBE ORDERA BLES Final Result [facility] [address] [place] [address] documented in this encounter Visit Diagnoses Diagnosis Malignant neoplasm of central portion of left breast in female, estrogen receptor positive (HCC-CMS)- Primary documented in this encounter Care Teams Six Color Press Operator Relationship Specialty Start Date End Date Sondra Britton MD PCP - General 05/16/14 02/29/20 documented as of this encounter
--- OUTSIDE RECORDS SUMMARY | 2024-11-09 10:12 | XMS_ITS | Encounter Summary ---
Author Organization [facility] Address [address] [place] [address] Care Team Providers Care Sewer Line Repairer Name Role Phone Sondra Britton MD Primary Care Provider Unavailabl e Encounter Details Date Type Department Care Team (Late st Contact Info) Description 05/12/2019 Results Only Imaging [facility] Surgical Oncology - [address] [address] Elizabeth Tapia, DO 111 [facility], [address] [place] [id number] Social History Tobacco Use Types Packs/Day Years [...] Medicine [address] [place] [address] [place] [address] [place] [address] [address] [place] [address] 11/16/2024 15:45 EST Procedure visit [facility] Orthopedics & Sport Medicine [address] [place] [address] Leann Holland NP [address] [facility] [address] [place] [address] 07/17/2025 15:30 EDT Office Visit [facility] Adult Hematology & Oncology [address] [place] [address], [place] [address] Jimmy Gallego MD [address] [facility] [address] [place] [address] documented as of this encounter Visit Diagnoses Not on filedocumented in this encounter Care Teams Sewer Line Repairer Relationship Specialty Start Date End Date Sondra Britton MD PCP - General 05/16/14 02/29/20 documented as of this encounter
--- OUTSIDE RECORDS SUMMARY | 2024-11-09 10:12 | XMS_ITS | Encounter Summary ---
Author Organization [facility] Address [address] [place] [address] Care Team Providers Care Box Puller Name Role Phone Iva Jennings APRN Primary Care Provider [phone] Reason for Visit * Reason Comments Follow-up Encounter Details Date Type Department Care Team (Late st Contact Info) Description 05/28/2020 16:[address] [facility] Orthopedics & Sport Medicine [address] [place] [address] Mara Cooley MD [address] [facility] [address] [place] [address] Arthritis of right knee (Primary Dx) Social History [...] documented in this encounter Progress Notes * Francine Padilla LPN - 05/28/2020 1630 EDT Susie presents today for follow up of her right knee pain r/t osteoarthritis. Had orthovisc completed 01/31/19 * Mara Cooley MD - 05/28/2020 1630 EDT Orthopaedic Surgery Office Note Susie Mayfield 1950 [id number] Chief Complaint: No chief complaint on file. History of Present Illness: Susie Mayfield is a 70 y.o. female who presents today for evaluation of her ongoing right knee pain. She had orthovisc completed 01/31/19 with good results that lasted at least a year. She has been relatively inactive this spring and early summer with the pandemic but has recently starting increasing her walking slightly. 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 Sheis having some increase in knee pain already and is interested in doing the orthovisc injections again. Review of Systems: As above. Past Medical History: Active Ambulatory Problems Diagnosis Date Noted ??? Malignant neoplasm of central portion of left breast in female, estrogen receptor positive ([facility]-CMS) 04/07/2019 Resolved Ambulatory Problems Diagnosis Date Noted ??? No Resolved Ambulatory Problems Past Medical History: Diagnosis Date ??? Breast cancer, left ([facility]-CMS) 2018 ??? Hypertension Past Surgical History: Past [...] cream Apply topically 2 times daily. ??? FA NON-FORMULARY MEDICATION, DO NOT ORDER, Take 1 Cap by mouth at bedtime as needed. Alteril all natural sleep aid ??? glucos sul 2KCl/msm/chond/C/Mn (GLUCOSAMINE CHONDROITIN ORAL) Take by mouth. ??? HYDROmorphone (DILAUDID) 2 mg tablet Take 1 Tab by mouth every 4 hours as needed for Pain. Daily Max: 12 mg (Patient not taking: Reported on 05/12/2019) 5 Tab 0 ??? LETROZOLE ORAL Take 2.5 mg by [...] acute distress, awake alert and appropriate Right knee examined with inspection and palpation of hamstrings, iliotibial band, pes anserinus bursa, posteriorly for presence or absence of aburto's cyst, medial and lateral joint lines, pre-patellar bursa, inferior fat pad and quadriceps and patellar tendon. Range of motion to flexion and extension, anterior and posterior drawer testing, varus and valgus stress, David's and McMurrays performed. Examination was notable for the following- Near full extension to about 105 of flexion, mild to moderate effusion and pain with provocative testing and with palpation along joint lines. Compartments soft. Light touch sensation intact in the superficial peroneal, deep peroneal, tibial distribution. Extensor hallucis longus, tibialis anterior, and gastroc/soleus complex strength 5/5, foot warm and well perfused, with capillary refill <2 seconds. Imaging Studies: Xrays of the right knee from December 2018 demostrate tricompartmental degenerative changes with medial compartment most affected with osteophyte formation, joint space narrowing and sclerosis. Assessment and Plan: Susie Mayfield is a very pleasant 70 y.o. female who presents today for further discussion of her right knee arthritis. She is interested in pursuing orthovisc injections which brought her a very long period of relief last time. We will get her set up for this soon. Mara Cooley MD Orthopaedics and Sports Medicine [address] [place], [place] documented in this encounter Plan of Treatment Upcoming Encounters Date Type Department Care Team (Late st Contact Info) Description 11/09/2024 15:[address] [facility] Orthopedics & Sport Medicine [address] [place] [address] [place] [address] [place] [address] [address] [place] [address] 11/16/2024 15:[address] [facility] Orthopedics & Sport Medicine [address] [place] [address] Leann Holland, ROOFING APPRENTICE [address] [facility] [address] [place] [address] 07/17/2025 15:[address] [facility] Adult Hematology & Oncology [facility] [place] [address] Jimmy Gallego MD [address] [facility] [address] [place] [address] documented as of this encounter Visit Diagnoses Diagnosis Arthritis of right knee- Primary Unspecified arthropathy, lower leg documented in this encounter Care Teams Box Puller Relationship Specialty Start Date End Date Iva Jennings APRN [address] [place] [address] PCP - General 03/01/20 documented as of this encounter
--- OUTSIDE RECORDS SUMMARY | 2024-11-09 10:12 | XMS_ITS | Encounter Summary ---
Author Organization [facility] Address [address] [place] [address] Care Team Providers Care Swimming Pool Installer Name Role Phone Sondra Britton MD Primary Care Provider Unavailabl e Reason for Visit * Reason Onset Date Comments Social Work 05/03/2019 lodging Encounter Details Date Type Department Care Team (Late st Contact Info) Description 05/03/2019 Telephone [facility] Hematology & Oncology - [facility] [address] [place], [place] [phone] Melody Garza Social Work (lodging) Social History Tobacco Use Types Packs/Day Years [...] encounter Miscellaneous Notes * Telephone Encounter - Melody Garza - 05/03/2019 1500 EDT Late entry: Referral from the [facility] for lodging. Arranged [facility] for the evening of 05/02/19. Referral faxed to . documented in this encounter Plan of Treatment Upcoming Encounters Date Type Department Care Team (Late st Contact Info) Description 11/09/2024 15:45 EST Procedure visit [facility] Orthopedics & Sport Medicine [address] [place] [address] Leann Holland WIRELESS SALES EXPERT [address] [place] [address] [address] [place] [address] 11/16/2024 15:45 EST Procedure visit [facility] Orthopedics & Sport Medicine [address] [place] [address] Leann Holland WIRELESS SALES EXPERT [address] [place] [address] [address] [place] [address] 07/17/2025 15:30 EDT Office Visit [facility] Adult Hematology & Oncology [facility] [place] [address] Jimmy Gallego MD [address] [facility] [address] [place] [address] documented as of this encounter Visit Diagnoses Not on filedocumented in this encounter Care Teams Swimming Pool Installer Relationship Specialty Start Date End Date Sondra Britton MD PCP - General 05/16/14 02/29/20 documented as of this encounter
--- OUTSIDE RECORDS SUMMARY | 2024-11-09 10:12 | XMS_ITS | Encounter Summary ---
Author Organization [facility] Address [address] [place] [address] Care Team Providers Care Formula Weigher Name Role Phone Sondra Stanley MD Primary Care Provider Unavailabl e Encounter Details Date Type Department Care Team (Late st Contact Info) Description 05/03/2019 5:49 EDT - 05/03/2019 10:52 EDT Hospital Encounter [facility] Perioperative [facility]- [facility] [address], [place] [id number] Elizabeth Tapia, DO [address] [facility], [address] [place] [address] Malignant neoplasm of central portion of left breast in female, estrogen receptor positive (HCC-CMS) Discharge Disposition: Home or Self Care Social [...] Sign Reading Time Taken Comments Blood Pressure 132/66 05/03/2019 1045 EDT Pulse - - Temperature 36 ??C (96.8 ??F) 05/03/2019 1045 EDT Respiratory Rate 19 05/03/2019 1030 EDT Oxygen Saturation 95% 05/03/2019 1045 EDT Inhaled Oxygen Concentration - - Weight 90.7 kg (200 lb) 04/27/2019 1138 EDT Height 160 cm (5' 3) 04/27/2019 1138 EDT Body Mass Index 35.43 04/27/2019 1138 EDT documented in this encounter Functional Status [...] documented in this encounter Discharge Diagnoses Diagnosis C50.812 Malignant neoplasm of overlapping sites of left female breast-C50.812[ICD-10-CM] Z17.0 Estrogen receptor positive status [ER+]-Z17.0[ICD-10-CM] N60.32 Fibrosclerosis of left breast-N60.32[ICD-10-CM] I10 Essential (primary) hypertension-I10[ICD-10-CM] E78.00 Pure hypercholesterolemia, unspecified-E78.00[ICD-10-CM] M19.90 Unspecified osteoarthritis, unspecified site-M19.90[ICD-10-CM] Z79.899 Other middle or intermediate school principal (current) drug therapy-Z79.899[ICD-10-CM] Z80.3 Family history of malignant neoplasm of breast-Z80.3[ICD-10-CM] documented in this encounter Discharge Instructions * Discharge Instructions* Iva Contreras RN - 05/03/2019 9:48 EDT In 3 days, remove the scopolamine patch behind your ear. Be careful not to touch your eyes after removal. Wash your hands and the area where the patch was removed thoroughly. * Medications* Iva Contreras RN - 05/03/2019 10:01 EDT You received Tylenol 1000mg at 9:00am. Next dose of Tylenol 1000mg is due at 3:00pm. Do not exceed 4000mg of Tylenol in 24hrs. * Discharge Instr - Other Orders* Inés Bush MD - 05/03/2019 7:24 EDT Breast Surgery Instructions: Partial Mastectomy/ Lumpectomy [facility] Activity Light activity for the first 2 weeks , avoiding those activities that require repetitive movement in the affected arm and if you also had any axillary surgery. Avoid strenuous activity (weight lifting, sports, etc.) for approximately 2 weeks or until your doctors says it is okay. NO heavy lifting greater than 10 pounds for at least 1 to 2 weeks. Most individuals can return to their normal activities within 1 to 3 weeks after surgery. Wound care Dressing: If you have a dressing, gently remove it 48 hours after your surgery. After this time, your incision may be left uncovered. Underneath your dressing will be steri-strips. This dressing is waterproof and you can shower with in on. Allow the water to gently run over your incision; pat incision dry. Steri-strips (white paper strips): leave in place until they begin to peel away, usually 7-10 days or when you doctor removes them. They can get wet in the shower, pat dry with a clean towel. Surgical glue may be used as a dressing. You will be able to see the incision. This acts as a dressing and is waterproof. It will flake off in 7-10 days. You may shower the day after surgery unless told otherwise. If there is a clear dressing with a white pad, it is also waterproof- you may shower with it on. You can expect some breast discoloration after your procedure. The bruising may actually occur downaway from your incision due to gravity flow. Pain or discomfort Apply an ice pack to your incision for the first 2 to 3 days every hour for 15 minutes while awake. We encourage you to wear a well-fitted and supportive bra day and night for at least the first 48 hours as the support to your incision will enhance your comfort. Generally Tylenol, Tylenol Extra Strength or Advil is adequate for pain relief after your breast surgery. For the next 2 days you may alternate/stagger tylenol 1000mg and ibuprofen 600mg so you get one or the other every 3 hours. You don't have to wake up to take medicines. Take prescription medicines ifpain is not tolerable with the tylenol and ibuprofen. After 2 days start using the tylenol and ibuprofen as needed. While you are taking the prescription pain medicines you should be sure to drink lots of water, don't take the pain meds on an empty stomach, and take colace 100mg by mouth twice a day (over the counter stool softener). If you have not had a BM for 3 days start taking Miralax 17gms by mouth every night (over the counter laxative) until your bowels are moving regularly. Prescription pain medications can be habit forming (addicting) and should be used with caution. Notify your doctor if you have any question or proplems with: Your breast becomes very firm and discolored. Incision becomes red, hot, swollen. Persistent or increase bleeding/ drainage. Pain unrelieved by your medication. Fever greater than 100F (38C). documented in this encounter Medications at Time [...] daily. 05/25/2022 documented as of this encounter Ordered Prescriptions Prescription Sig Dispense Quantity Refills Last Filled Start Date End Date HYDROmorphone (DILAUDID) 2 mg tablet Take 1 Tab by mouth every 4 hours as needed for Pain. Daily Max: 12 mg 5 Tab 05/03/2019 06/04/2020 documented in this encounter Discharge Disposition Disposition Code Departure Means Destination Home or Self Care documented in this encounter Progress Notes * Ashleigh Berrios, RN - 04/27/2019 1136 EDT Susie Mayfield has been instructed as follows regarding medication administration for the day of the scheduled procedure. Date of Surgery: 05/03/19 Instructions for Taking Medications Day of Surgery Medication Sig Last Dose Hold DOS Take DOS amitriptyline (ELAVIL) 10 mg tablet Take 10 mg by mouth at bedtime as needed. X HS prn BIOFLAVONOIDS ORAL Take by mouth. 04/27/19 calcium carbonate (CALCIUM 500 ORAL) Take by mouth. 04/27/19 celecoxib (CELEBREX) 200 mg capsule Take 200 mg by mouth 2 times daily. Pt not taking and will not take prior to surgery cetirizine (ZYRTEC) 1 mg/mL solution Take 5 mg by mouth daily. X FA NON-FORMULARY MEDICATION, DO NOT ORDER, Take 1 Cap by mouth at bedtime as needed. Alteril all natural sleep aid X glucos sul 2KCl/msm/chond/C/Mn (GLUCOSAMINE CHONDROITIN ORAL) Take by mouth. 04/27/19 lisinopril (PRINIVIL, ZESTRIL) 5 mg tablet Take 5 mg by mouth daily. 05/01/19 mometasone (NASONEX) 50 mcg/actuation nasal spray Instill 2 Sprays into right nostril daily. X MULTI-VITAMIN ORAL Take by mouth. 04/27/19 pravastatin (PRAVACHOL) 20 mg tablet Take 20 mg by mouth daily. X documented in this encounter H&P Notes * Inés Bush MD - 05/03/2019 0657 EDT The preoperative history and physical which was performed within 30 days of this procedure has been reviewed and the clinically appropriate elements of the physical examination have been repeated. There are no changes to the documented history and physical or if so such changes are documented below Inés Bush MD 05/03/2019 6:57 Cosigned by Elizabeth Tapia Do, DO at 05/03/2019 9:22 EDT Source Note - Elizabeth Tapia Do, DO - 04/07/2019 10:00 EDT Subjective: Patient ID: Susie Mayfield is an 69 y.o. female. Chief Complaint Patient presents with ??? New Patient Visit HPI Susie aMyfield is a very pleasant 69-year-old female seen [...] with ductal carcinoma in situ. 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 She had not appreciated [...] breast in female, estrogen receptor positive (HCC-CMS) Past Medical History: Diagnosis Date ??? Hypertension [...] mouth at bedtime. documented in this encounter OR Notes * OR Surgeon - Elizabeth Tapia Do, DO - 05/03/2019 0000 EDT OPERATIVE REPORT SERVICE DATE: 05/03/2019 PREOPERATIVE DIAGNOSIS: Left breast cancer. POSTOPERATIVE DIAGNOSIS: Left breast cancer. PROCEDURE: 1. Left ultrasound-guided partial mastectomy. 2. Left sentinel lymph node biopsy. SURGEON: Elizabeth Tapia DO PIPE FITTER SUPERVISOR: Inés Bush MD ANESTHESIA: General endotracheal and local. ESTIMATED BLOOD LOSS: Minimal. COMPLICATIONS: None. SPECIMENS: 1. Left partial mastectomy. 2. Left sentinel lymph node. INDICATIONS: This is a patient who presents with a new screen-detected finding. We discussed several options, and she is wishing to move forward with a partial mastectomy and sentinel lymph node biopsy. Risks and benefits are discussed with her in detail. Risks include but are not limited to bleeding, infection, injury to surrounding nerves and blood vessels, lymphedema, margin positivity and need for additional surgery. Following this discussion, she asked me to proceed. NARRATIVE: The patient was placed in a supine position. I met with her preoperatively, and I injected her breast with technetium sulfur colloid for the purposes of sentinel lymph node identification.Once in the operating room, anesthetic and antibiotic are administered. Ultrasound is brought into the field. The ultrasound shows the mass in the breast, and skin markings are made to guide the incision. The patient was then prepped and draped in the normal sterile fashion. Local anesthetic was infused. A curvilinear incision was made on the superior breast. This was carried down, and the entirearea is removed around the mass. This was marked and sent for gross margin evaluation. Attention was focused to the left axilla. There is an area of high radioactive isotope uptake. In this area, local anesthetic is infused. A curvilinear incision is made. This is carried down through the clavipectoral fascia. Deep in the axilla, again the Becky counter is used to identify 2 radioactive lymph nodes. These are removed and sent as sentinel lymph node #1 and #2. Final inspection reveals no further adenopathy nor any additional worrisome uptake. Pathology reports back that the posterior margin may be a little bit close. Therefore, additional posterior margin is taken. Both areas were copiously irrigated. Additional Marcaine is infused in both areas. Marking clips are placed for radiation oncology. Deep dermis is reapproximated using 3-0 Vicryl in interrupted fashion. Skin is closed using 4-0 Monocryl in a continuous fashion. The area is cleaned and dried. Mastisol and Steri-Strips are applied. Sterile dressing is applied. The patient tolerated the procedure well and is sent home in good condition. Unless otherwise noted, there were no complications, no blood loss, no cultures obtained, no specimens removed, and no drains retained. Elizabeth Tapia DO 09 29 AM / Elizabeth Tapia DO nn Confirmation: [id number] Dictation ID: [id number] documented in this encounter Miscellaneous Notes * Anesthesia Post-Eval - Jessica Mensah DO - 05/03/2019 1025 EDT Anesthesia Post op Note Susie Mayfield [id number] Anesthesia received: General; Vital Signs: Temp: (!) 35.4 ??C (95.7 ??F), Heart Rate: 72 BPM, BP: 136/64, Resp: 14, SpO2: 100 % Vital signs Stable: Yes Consciousness: Recovered to baseline Patient's participation in evaluation:Able to participate Temperature Status: Normothermic Respiratory Status: Airway patent Supplemental O2: Room air Oxygen Saturation: Within patient's normal range Cardiovascular Status: Within patient's normal range Post-op Hydration: Adequate Nausea / Vomiting: None Pain Control: Adequate Current Pain Score: Numeric Pain Level (Scale 1-10): 0 Post-op Assessment: Tolerated procedure well Disposition: Home Complications: No apparent anesthetic complications Jessica Mensah DO 05/03/2019 10:25 * Brief Op Note - Inés Bush MD - 05/03/2019 0721 EDT BRIEF OP NOTE Surgeon: Dr. Tapia Transit Bus Operator: Dr. Bush, PGY-2 Pre-op diagnosis: L breast cancer Post-op diagnosis: Same Procedure: Left partial mastectomy, SLNB Anesth: General, ETT Findings: 2 SLNs removed. See attending dictation for complete operative details. Wound Class: Clean EBL: 15cc IVF: 1000cc crystalloid UOP: None (no vann) Specimen: L breast tissue, L SLN x 2 Cultures: None Foreign Material Retained: None Complications: None Dispo: To PACU in stable condition Plan: ?? DC home from PACU ?? Tylenol, ibuprofen, dilaudid for pain control ?? Surgical bra for comfort ?? F/u w/ Dr. Tapia as scheduled Inés Bush MD PGY-2 Pager: #[phone] 05/03/2019 7:22 documented in this encounter Plan of Treatment Upcoming Encounters Date Type Department Care Team (Late st Contact Info) Description 11/09/2024 15:45 EST Procedure visit [facility] Orthopedics [facility] Medicine [address], [address] [place] [address] Leann Holland DAY CARE ATTENDANT [address] [place] [address] [address] [place] [address] 11/16/2024 15:45 EST Procedure visit [facility] [address], [address] [place] [address] Leann Holland DAY CARE ATTENDANT [address] [place] [address] [address] [place] [address] 07/17/2025 15:30 EDT Office Visit [facility] Adult Hematology & Oncology [facility] [place] [address] Jimmy Gallego MD [address] [facility] [address] [place] [address] documented as of this encounter Procedures Procedure Name Priority Date/Time Associated Diagnosis Comments SURGICAL PATHOLOGY Routine 05/03/2019 8:25 EDT ORDERS - SCANNED 04/12/2019 10:5 6 EDT documented in this encounter Results * SURGICAL PATHOLOGY (05/03/2019 8:25 EDT) Pathology Report: SURGICAL PATHOLOGY REPORT Reports generated via electronic interface contain original data; however they are lacking the format of the original report. Caution should be taken when reading/interpret ing unformatted reports. Name: ? SUSIE MAYFIELD ? Accession #: ? [id number] ? : ? 1950 (Age: 69) ??F ? Collect Date: ? 05/03/2019 ? Location: ? [facility] ? Receive Date: ? 05/03/2019 ? Provider: ELIZABETH TAPIA DO Copy to: SONDRA STANLEY MD ? Final Pathologic Diagnosis: SUMMARY DIAGNOSIS FOR MALIGNANT BREAST TUMORS AJCC (8th edition): PT1a (Based on [id number].) pN0(sn) Laterality: ??Left ? Procedure: ??Partial mastectomy, sentinel lymph node biopsy Histologic Type: Invasive ductal (no special type) Tumor Size: ??approximately 0.4 x 0.4 x 0.2 cm (Based on [id number].) Tumor Location: Upper outer quadrant; 12 o'clock [place] Combined Histologic Scores: ?Tubular differentiation: Score 3 (Based on [id number].) ?Nuclear pleomorphism: Score 2 (Based on [id number].) ?Mitotic Rate: ??Score 1 (actual count up to 1/ 10 HPF, field diameter of 0.54 mm) (Based on [id number].) ?Total Score: ??6 (Based on [id number].) Overall Grade: ?Grade 2 (Moderate) (Based on [id number].) DCIS: ??Solid pattern, nuclear grade II (Based on [id number].) % DCIS: ??25% of tumor mass (Based on [id number].) DCIS margins: ??Not applicable (no residual DCIS in specimen) Lymph nodes: ?0 / 2 (positive/total number examined) [place] nodes: 2 examined and included in total ER/[place]: ?ER positive (90%); [place] negative (<1%) ([id number]). Her2/jatindre: ? 0/negative (by immunohistochemis try) ([id number]) FINAL PATHOLOGIC DIAGNOSIS: A. BREAST, LEFT, UPPER OUTER, ULTRASOUND GUIDED PARTIAL MASTECTOMY: - Benign breast tissue with prior biopsy site (forms 1.5 cm fibrotic mass). - Negative for residual invasive and in situ carcinoma. - See Comment. B. LYMPH NODE, SENTINEL, LEFT AXILLA, COUNT #[id number], EXCISION BIOPSY: - One lymph node negative for malignancy (0/1). C. LYMPH NODE, SENTINEL, LEFT AXILLA, COUNT EX VIVO COUNTS #[id number], EXCISION BIOPSY: - One lymph node negative for malignancy (0/1). D. BREAST, LEFT, POSTERIOR MARGIN, EXCISION: - ??Benign breast tissue, negative for malignancy including evaluation of the margins. Comment: The grossly seen mass lesion (possible palpable tumor) corresponds to a biopsy-site scar. There is no residual carcinoma in the specimen, including evaluation of the revised posterior margin. The biopsy-proven carcinoma is staged and graded according to the prior core biopsy (pT1a, [id number]). Document reviewed and electronically signed by: GUSTAVO VILLAR MD PHD Report ??Date: 05/08/2019 15:18 By the signature above, the attending physician certifies that he/she has personally conducted a gross and/or microscopic examination of the described specimens and rendered or confirmed the above diagnosis. Specimen(s) Received: A. ??Left partial mastectomy; long stitch lateral, short stitch superior B. ??Left breast sentinel lymph node #1, ex vivo count 10,517 C. ??Left breast sentinel lymph node #2, ex vivo count 2,290 D. ??Left breast new posterior margin; stitch lateral, clip is new posterior Clinical History: Left breast cancer Intraoperative Interpretation: A. ??BREAST, LEFT, ULTRASOUND GUIDED PARTIAL MASTECTOMY (GROSS ONLY): - Possible palpable tumor present, approximately 1.5 x 0.9 x 0.4 cm associated with biopsy site. - Biopsy site is less than 1 mm from posterior, palpable tumor is 4 mm from posterior. - Called to Dr. Tapia in OR3 at 8:36 on 05/03/[address] Villar[address] ??Dr[address] Sydnee Villar Gross Description: A. ?Received fresh labelled with proper patient identification (initials H, L) and A. Left partial mastectomy gross margin check, long stitch lateral, short stitch superior is an oriented portion of fibrofatty tissue (36.7 g, 6.0 cm medial to lateral x 5.0 cm anterior to posterior x 2.5 cm superior to inferior). The specimen is sectioned from medial (level 1) to lateral (level 6). ? In level 2 there is a pena-white and firm region (1.5 x 0.9 x 0.4 cm) with irregular borders. ??The palpable mass lesion approximately 0.4 cm to the posterior margin, 0.5 cm to the medial margin; however, the biopsy site is within less than 0.1 cm from the posterior margin. The tumor is greater than one cm from all remaining margins. Biopsy site change is identified in level 2; however, a biopsy clip is not clearly seen. ? The remaining cut surface is composed of lobulated adipose tissue with a minimal amount of fibrous tissue. ? An intraoperative gross margin examination is performed with the interpretation as rendered above. Program Management Analyst sections are submitted as follows: INK SHAY Yellow-anterior Black-posterior Blue-superior Green-inferior ? Red-medial [place]-lateral ? BLOCK SHAY A1-A5- ??level 1, medial margin, perpendicular A6- ??level 2, posterior inferior margin A7- ??level 2, posterior superior margin A8-A10- ??level 2, anterior half, trisected, superior to inferior A11-A16- ??level 6, lateral margin, perpendicular Time removed from patient: 0816 hours 05/03/2019 Time in formalin: ??0841 hours 05/03/2019 Time out of formalin: 1900 hrs. 05/04/2019 B. ?Received fresh labelled with proper patient identification (initials H, L) and left sentinel lymph node 1, count 10,517 is a single pena-brown lymph node (1.4 x 0.9 x 0.6 cm). The node is serially sectioned and entirely submitted as B1-B3. C. ?Received fresh labelled with proper patient identification (initials H, L) and left breast sentinel lymph node #2, ex vivo count 2290 is a single pena-brown lymph node (2.2 x 1.3 x 0.9 cm). The node is serially sectioned and entirely submitted as C1-C3. D. ?Received fresh labelled with proper patient identification (initials H, L) and stitch is lateral, clip is new posterior margin is a portion of fibrofatty tissue, oriented with a clip designating new posterior margin and a stitch designating lateral (1.98 g, 2.2 cm medial to lateral and 1.7 cm superior to inferior and 0.6 cm from new to old posterior margin). The tissue at the old margin is pena-jimenez and partially cauterized. The cut surface is composed of lobulated adipose tissue with a minimal amount of pena-white fibrous tissue. The specimen is serially sectioned from superior to inferior and entirely submitted as follows: INK SHAY Blue-new margin Black-old margin Red-medial margin Searcy-lateral margin ? BLOCK SHAY D1- ??superior edge, perpendicular sections D2- ??central sections D3- ??inferior edge, perpendicular sections. Time removed from patient: ?? 0816 hours 05/03/2019 Time in formalin: ??0841 hours 05/03/2019 Time out of formalin: ??1900 hrs. 05/04/2019 Dr. Cameron 05/04/2019 3:07 PM End of Report [facility] 05/03/2019 8:25 EDT 05/03/2019 8:25 EDT us Elizabeth Tapia DO PATHOLOGY ORDERABLES Final Result [facility] [address] [place] [address] * ORDERS - SCANNED (04/12/2019 10:56 EDT) 04/12/2019 10:5 6 EDT us Scan 2 Stave Jointer ADMISSION ORDERABLES Final Result documented in this encounter Visit Diagnoses Diagnosis Malignant neoplasm of central portion of left breast in female, estrogen receptor positive (HCC-CMS)- Primary Malignant neoplasm of central portion of left breast in female, estrogen receptor positive (HCC-[facility]) documented in this encounter Administered Medications Inactive Administered Medications - up to 3 most recent administrations Medication Order MAR Action Action Date Dose Rate Site atropine 0.1 mg/mL syringe 0.5 mg 0.5 mg, intravenous, PRN, Starting on Wed05/03/19 at 0859, Until Wed05/03/19 at 1257, Symptomatic HR < 50, Routine, Recovery (only) ceFAZolin (ANCEF) syringe 2 g 2 g, intravenous, Administer over 10 Minutes, PRE-OP ONCE, 1 dose, On Wed05/03/19 at 0700, Routine, Pre-Op DOS Rx Approved Given by Other 05/03/2019 7:50 EDT 2 g diphenhydrAMINE (BENADRYL) injection 12.5 mg 12.5 mg, intravenous, PRN, 1 dose, Starting on Wed05/03/19 at 0859, Until Wed05/03/19 at 1257, nausea, Routine, Recovery (only) HYDROmorphone (DILAUDID) tablet 2-4 mg 2-4 mg, oral, EVERY 30 MINUTES PRN, 2 doses, Starting on Wed05/03/19 at 0859, Until Wed05/03/19 at 1257, Pain, Routine, Recovery (only) HYDROmorphone (PF) (DILAUDID) 0.5 mg/0.5 mL syringe 0.3-0.5 mg 0.3-0.5 mg, intravenous, EVERY 10 MINUTES PRN, Starting on Wed05/03/19 at 0859, Until Wed05/03/19 at 1257, Pain, Routine, Recovery (only) lactated ringers (LR) infusion at 25 mL/hr, intravenous, CONTINUOUS, Starting on Wed05/03/19 at 0700, Until Wed05/03/19 at 1257, Routine, Pre-Op DOS Rx Approved New Bag 05/03/2019 6:53 EDT 25 mL/hr lactated ringers (LR) infusion at 75 mL/hr, intravenous, CONTINUOUS, Starting on Wed05/03/19 at 0915, Until Wed05/03/19 at 1257, Routine, Recovery (only) Rate Documented 05/03/2019 9:19 EDT 75 mL/hr metoCLOPramide (REGLAN) injection 10 mg 10 mg, intravenous, PRN, 1 dose, Starting on Wed05/03/19 at 0859, Until Wed05/03/19 at 1257, Nausea, Routine, Recovery (only) naloxone (NARCAN) injection 0.2 mg 0.2 mg, intravenous, PRN, Starting on Wed05/03/19 at 0859, Until Wed05/03/19 at 1257, Opioid Reversal, Routine, Recovery (only) documented in this encounter Discontinued Medications Medication Sig Discontinue Reason Start Date End Da te UNABLE TO FIND Ultaril Alternate therapy 04/27/2019 chlorthalidone (HYGROTON) 25 mg tablet Take 25 mg by mouth daily. Patient Stopped Taking 04/27/2019 documented as of this encounter Historical Medications * This list may reflect changes made after this encounter. lisinopril (PRINIVIL, ZESTRIL) 5 mg tablet Take 1 Tablet by mouth daily. FA NON-FORMULARY MEDICATION, DO NOT ORDER, Take 1 Cap by mouth at bedtime as needed. Alteril all natural sleep aid 06/04/2020 added in this encounter Active and Recently Administered Medications Times are shown in EDT. Scheduled Medication Order 05/01/2019 05/02/2019 05/03/2019 ceFAZolin (ANCEF) syringe 2 g (COMPLETED) 2 g, intravenous, Administer over 10 Minutes, PRE-OP ONCE, 1 dose, On Wed05/03/19 at 0700, Routine, Pre-Op DOS Rx Approved 0750 (Given by Other - Provider: Francine Pathak - Comment: Administered by Bharati Mensah, anesthesia) Continuous Medication Order 05/01/2019 05/02/2019 05/03/2019 lactated ringers (LR) infusion at 25 mL/hr, intravenous, CONTINUOUS, Starting on Wed05/03/19 at 0700, Until Wed05/03/19 at 1257, Routine, Pre-Op DOS Rx Approved 0653 (New Bag - Prov ider: Delicia Hernandez RN) lactated ringers (LR) infusion at 75 mL/hr, intravenous, CONTINUOUS, Starting on Wed05/03/19 at 0915, Until Wed05/03/19 at 1257, Routine, Recovery (only) 0919 (Rate Documente d - Provider: Iva Contreras RN - Comment: Continued from OR) PRN Medication Order 05/01/2019 05/02/2019 05/03/2019 atropine 0.1 mg/mL syringe 0.5 mg 0.5 mg, intravenous, PRN, Starting on Wed05/03/19 at 0859, Until Wed05/03/19 at 1257, Symptomatic HR < 50, Routine, Recovery (only) diphenhydrAMINE (BENADRYL) injection 12.5 mg 12.5 mg, intravenous, PRN, 1 dose, Starting on Wed05/03/19 at 0859, Until Wed05/03/19 at 1257, nausea, Routine, Recovery (only) HYDROmorphone (DILAUDID) tablet 2-4 mg 2-4 mg, oral, EVERY 30 MINUTES PRN, 2 doses, Starting on Wed05/03/19 at 0859, Until Wed05/03/19 at 1257, Pain, Routine, Recovery (only) HYDROmorphone (PF) (DILAUDID) 0.5 mg/0.5 mL syringe 0.3-0.5 mg 0.3-0.5 mg, intravenous, EVERY 10 MINUTES PRN, Starting on Wed05/03/19 at 0859, Until Wed05/03/19 at 1257, Pain, Routine, Recovery (only) metoCLOPramide (REGLAN) injection 10 mg 10 mg, intravenous, PRN, 1 dose, Starting on Wed05/03/19 at 0859, Until Wed05/03/19 at 1257, Nausea, Routine, Recovery (only) naloxone (NARCAN) injection 0.2 mg 0.2 mg, intravenous, PRN, Starting on Wed05/03/19 at 0859, Until Wed05/03/19 at 1257, Opioid Reversal, Routine, Recovery (only) documented in this encounter Orders Medications Ordered That Ty ht Not Have Been Administered Count Last Ordered Date First Ordered Date atropine 0.1 mg/mL syringe 0.5 mg 1 019 diphenhydrAMINE (BENADRYL) i njection 12.5 mg 1 05/03/2019 HYDROmorphone (DILAUDID) tablet 2-4 mg 1 HYDROmorphone (PF) (DILAUDID ) 0.5 mg/0.5 mL syringe 0.3-0.5 mg 1 05/03/2019 metoCLOPramide (REGLAN) injection 10 mg 1 0 05/03/2019 naloxone (NARCAN) injection 0.2 mg 1 2018 Nursing Count Last Ordered Date First Orde red Date APPLY WARMING BLANKET 1 05/03/[address] SEQUENTIAL COMPRESSION DEVICE 1 05/03 Admission Count Last Ordered Date First Orde red Date STATUS: OUTPATIENT SURGICAL OP BED/SERVICES 1 05/03/2019 Transfer Count Last Ordered Date First Orde red Date NOTIFY PPS PACU PATIENT DISCHARGE 1 019 NOTIFY PPS PATIENT ARRIVAL IN PACU 1 2018 Discharge Count Last Ordered Date First Orde red Date DISCHARGE PATIENT 1 05/03/2019 documented in this encounter Care Teams Formula Weigher Relationship Specialty Start Date End Date Sondra Stanley MD PCP - General 05/16/14 02/29/20 documented as of this encounter
--- OUTSIDE RECORDS SUMMARY | 2024-11-09 10:12 | XMS_ITS | Encounter Summary ---
Author Organization [facility] Address [address] [place] [address] Care Team Providers Care Spot Remover Name Role Phone Sondra Britton MD Primary Care Provider Unavailabl e Encounter Details Date Type Department Care Team (Late st Contact Info) Description 04/07/2019 Phlebotomy Only [facility] [address] [place] [address] Leather Grader, Outpatient Malignant neoplasm of central portion of left [...] Info) Description 11/09/2024 15:45 EST Procedure visit [facility] Orthopedics & Sport Medicine [address] [place] [address] Leann Holland NP [address] [facility] [address] [place] [address] 11/16/2024 15:45 EST Procedure visit [facility] Orthopedics & Sport Medicine [address] [place] [address] Leann Holland [employer]ER [address] [facility] [address] [place] [address] 07/17/2025 15:30 EDT Office Visit [facility] Adult Hematology & Oncology [address] [place] [address] Jimmy Gallego MD [address] [facility] [address] [place] [address] documented as of this encounter Procedures Procedure Name Priority Date/Time Associated Diagnosis Comments COMPLETE BLOOD COUNT AND DIFFERENTIAL Routine 04/07/2019 11:54 EDT Malignant neoplasm of central portion of left breast in female, estrogen receptor positive (HCC-CMS) COMPREHENSIVE METABOLIC PANEL (CMP) Routine 04/07/2019 11:54 EDT Malignant neoplasm of central portion of left breast in female, estrogen receptor positive (HCC-CMS) documented in this encounter Results * COMPLETE BLOOD COUNT AND DIFFERENTIAL (04/07/2019 11:54 EDT) WBC 7.07 4.0 - 12.4 K/cmm 04/07/2019 14:31 EDT [facility] RBC 4.77 3.86 - 5.04 M/cmm 04/07/2019 14:31 [facility] Hemoglobin 14.6 11.6 - 15.2 gm/dl 04/07/2019 14:31 [facility] HCT 43.5 34.9 - 44.4 % 04/07/2019 14:31 [facility] MCV 91 81 - 98 fl 04/07/2019 14:31 [facility] MCH 30.6 26.7 - 33.3 pg 04/07/2019 14:31 [facility] MCHC 33.6 32.1 - 35.9 gm/dl 04/07/2019 14:31 [facility] RDW-CV 12.2 <14.7 % 04/07/2019 14:31 [facility] RDW-SD 40.6 <50.4 fl 04/07/2019 14:31 [facility] PLT 287 141 - 377 K/cmm 04/07/2019 14:31 [facility] MPV 11.0 9.5 - 12.7 fl 04/07/2019 14:31 [facility] % Neutrophils 53.6 % 04/07/2019 14:31 [facility] % Lymphocytes 27.7 % 04/07/2019 14:31 [facility] % Monocytes 9.6 % 04/07/2019 14:31 [facility] % Eosinophils 7.6 % 04/07/2019 14:31 [facility] % Basophils 1.4 % 04/07/2019 14:31 [facility] % Immature Grans 0.1 % 04/07/2019 14:31 [facility] ABS Neutrophils 3.78 2.20 - 8.85 K/cmm 04/07/2019 14:31 [facility] ABS Lymphs 1.96 1.09 - 3.30 K/cmm 04/07/2019 14:31 [facility] ABS Monocytes 0.68 0.1 - 0.8 K/cmm 04/07/2019 14:31 [facility] ABS Eosinophils 0.54 0.03 - 0.61 K/cmm 04/07/2019 14:31 [facility] ABS Basophils 0.10 0.01 - 0.11 K/cmm 04/07/2019 14:31 [facility] ABS Immature Grans 0.01 0 - 0.06 K/cmm 04/07/2019 14:31 [facility] Type of Diff: Automated 04/07/2019 14:31 [facility] Blood specimen (specimen) BLOOD SPECIMEN / Unknown 04/07/2019 11:54 EDT 04/07/2019 13:48 EDT us Elizabeth Tapia DO PACKAGES & DNA PROBE ORDERA BLES Final Result [facility] [address] [place] [address] * (ABNORMAL) COMPREHENSIVE METABOLIC PANEL (CMP) (04/07/2019 11:54 EDT) Potassium 4.6 3.5 - 5.0 mEq/L 04/07/2019 14:00 [facility] Sodium 138 136 - 145 mEq/L 04/07/2019 14:00 [facility] Chloride 102 96 - 110 mEq/L 04/07/2019 14:00 [facility] CO2 25 22 - 32 mEq/L 04/07/2019 14:00 [facility] Total Alkaline Phosphatase 93 38 - 126 U/L 04/07/2019 14:00 [facility] Bilirubin, Total 0.5 <1.4 mg/dl 04/07/20 19 14:00 [facility] AST 25 15 - 46 U/L 04/07/2019 14:00 [facility] ALT 19 <53 U/L 04/07/2019 14:00 [facility] Albumin 4.4 3.4 - 4.9 g/dl 04/07/2019 14:00 [facility] Total Protein 7.4 6.3 - 8.2 g/dl 04/07/2019 14:00 [facility] Creatinine 0.71 0.52 - 1.04 mg/dl 04/07/2019 14:00 [facility] GFR, Calculated 86 >60 ml/min/1.7 3m2 04/07/2019 14:00 [facility] Comment: eGFR calculated using CKD-EPI equation for non Americans. Multiply eGFR by 1.16 for Americans. BUN 15 10 - 26 mg/dl 04/07/2019 14:00 EDT [facility] Calcium 9.8 8.5 - 10.5 mg/dl 04/07/2019 14:00 EDT [facility] Calculated Calcium 9.5 8.5 - 10.5 mg/dl 04/07/2019 14:00 EDT [facility] Glucose, Serum 101(H) 70 - 100 mg/dl 04/07/2019 14:00 EDT [facility] Fasting? No 04/07/2019 11:51 EDT [facility] Blood specimen (specimen) BLOOD SPECIMEN / Unknown 04/07/2019 11:54 EDT 04/07/2019 13:48 EDT us Elizabeth Tapia DO CHEMISTRY & BLOOD GAS ORDER KAYLEY Final Result [facility] [address] [place] [address] documented in this encounter Visit Diagnoses Diagnosis Malignant neoplasm of central portion of left breast in female, estrogen receptor positive (HCC-CMS)- Primary documented in this encounter Care Teams Spot Remover Relationship Specialty Start Date End Date Sondra Britton MD PCP - General 05/16/14 02/29/20 documented as of this encounter
--- OUTSIDE RECORDS SUMMARY | 2024-11-09 10:12 | XMS_ITS | Encounter Summary ---
Author Organization [facility] Address [address] [place] [address] Care Team Providers Care Track Maintainer Name Role Phone Iva Jennings APRN Primary Care Provider [phone] Encounter Details Date Type Department Care Team (Latest Contact Info) Description 06/04/2020 Travel Social History Tobacco Use Types Packs/Day [...] have Coronavirus / COVID-19? No / Unsure 06/04/2020 16:27 EDT documented as of this encounter Functional [...] Medicine [address] [place] [address] Leann Holland NP [address] [facility] [address] [place] [address] 11/16/2024 15:45 EST Procedure visit [facility] Orthopedics & Sport Medicine [address] [place], [place] [id number] Leann Holland NP [address] [facility] [address] [place] [address] 07/17/2025 15:30 EDT Office Visit [facility] Adult Hematology & Oncology [facility] [place] [address] Jimmy Gallego MD [address] [facility] [address] [place] [id number] documented as of this encounter Visit Diagnoses Not on filedocumented in this encounter Care Teams Track Maintainer Relationship Specialty Start Date End Date Iva Jennings APRN [address] [facility] [address] [place] [address] PCP - General 03/01/20 documented as of this encounter
--- OUTSIDE RECORDS SUMMARY | 2024-11-09 10:12 | XMS_ITS | Encounter Summary ---
Author Organization [facility] Address [address] [place] [address] Care Team Providers Care Photo Manager Name Role Phone Iva Jennings APRN Primary Care Provider [phone] Reason for Visit * Reason Comments Follow-up Encounter Details Date Type Department Care Team (Late st Contact Info) Description 06/18/2020 17:45 EDT Office Visit [facility] Orthopedics & Sport Medicine [address] [place] [address] Mara Cooley MD [address] [facility] [address] [place] [address] Arthritis of right knee (Primary [...] documented in this encounter Progress Notes * Amrit Ibanez - 06/18/2020 1745 EDT Patient presents today for her second right knee orthovisc. * Mara Cooley MD - 06/18/2020 1745 EDTAssociated Order(s): Large Joint Injection/Arthrocentesis: R knee Post-Procedure Diagnose(s): Arthritis of right knee Orthopaedic Surgery Office Note Susie Mayfield 1950 [id number] Chief Complaint: Chief Complaint Patient presents with ??? Right Knee - Follow-up History of Present Illness: Susie Mayfield is a 70 y.o. female who presents today for injection for her first of three orthovisc injections for the right knee. Since we last saw her, there has been no change in her symptoms. She has tried other attempts at symptom management for her knee including activity modification and ant i-inflammatories. Review of Systems: As above. Past Medical History: Active Ambulatory Problems Diagnosis Date Noted ??? Malignant neoplasm of central portion of left breast in female, estrogen receptor positive ([facility]) 04/07/2019 ??? Arthritis of right knee 05/28/2020 Resolved Ambulatory Problems Diagnosis Date Noted ??? No Resolved Ambulatory Problems Past Medical History: Diagnosis Date ??? Breast cancer, left ([facility]) 2018 ??? Hypertension Past Surgical History: Past [...] presents today for right knee orthovisc knee injection. After a discussion of the risk and benefits of the injection, her informed consent was obtained and injection performed. They tolerated this well. Warning signs to call the office for were reviewed. We will see them back for injection next week. Mara Cooely MD Orthopaedics and Sports Medicine [facility] [address] [place], [place] Large Joint Injection/Arthrocentesis: R knee on 06/18/2020 18:00 Indications: pain and joint swelling Details: 20 G needle, superolateral approach Medications: 5 mL lidocaine (PF) 10 mg/mL (1 %); 30 mg Sodium Hyaluronate 30 mg/2 mL Outcome: tolerated well, no immediate complications Procedure, treatment alternatives, risks and benefits explained, specific risks discussed. Consent was given by the patient. Immediately prior to procedure a time out was called to verify the correctpatient, procedure, equipment, residential support worker and site/side marked as required. Patient was prepped and draped in the usual sterile fashion. documented in this encounter Plan of Treatment Upcoming Encounters Date Type Department Care Team (Late st Contact Info) Description 11/09/2024 15:45 EST Procedure visit [facility] Orthopedics & Sport Medicine [address] [place], [place] [id number] Leann Holland P, SPORTS NUTRITIONIST [address] [facility] [address] [place] [address] 11/16/2024 15:45 EST Procedure visit [facility] Orthopedics & Sport Medicine [address] [place], [place] [id number] Leann Holland, SPORTS NUTRITIONIST [address] [facility] [address] [place], [place] [id number] 07/17/2025 15:30 EDT Office Visit [facility] Adult Hematology & Oncology [facility] [place] [address] Jimmy Gallego MD [address] [facility] [address] [place] [phone] documented as of this encounter Procedures Procedure Name Priority Date/Time Associated Diagnosis Comments LARGE JOINT INJECTION/ARTHROCEN TESIS Routine 06/18/2020 17:45 EDT Arthritis of right knee documented in this encounter Results * MD ARTHROCENTESIS ASPIR&/INJ MAJOR JT/BURSA W/O US (06/18/2020 17:45 EDT) Narrative [facility] - 06/18/2020 17:45 EDT Mara Cooley MD ? 06/18/2020 18:01 Large Joint Injection/Arthrocentesis: R knee on 06/18/2020 18:00 Indications: pain and joint swelling Details: 20 G needle, superolateral approach Medications: 5 mL lidocaine (PF) 10 mg/mL (1 %); 30 mg Sodium Hyaluronate 30 mg/2 mL Outcome: tolerated well, no immediate complications Procedure, treatment alternatives, risks and benefits explained, specific risks discussed. Consent was given by the patient. Immediately prior to procedure a time out was called to verify the correct patient, procedure, equipment, residential support worker and site/side marked as required. Patient was prepped and draped in the usual sterile fashion. Mara Cooley MD PROCEDURE/MINOR SURGICA L ORDERABLES Final Result [facility] documented in this encounter Visit Diagnoses Diagnosis Arthritis of right knee- Primary Unspecified arthropathy, lower leg documented in this encounter Administered Medications Inactive Administered Medications - up to 3 most recent administrations Medication Order MAR Action Action Date Dose Rate Site lidocaine (PF) 10 mg/mL (1 %) injection 5 mL 5 mL, other, Once PRN Procedure, 1 dose, Starting on Wed06/18/20 at 1800, Until Wed06/18/20 at 1800, RoutineIndications:Arthritis of right knee Given 06/18/2020 18:00 EDT 5 mL Sodium Hyaluronate (ORTHOVISC) syringe 30 mg 30 mg, other, Once PRN Procedure, 1 dose, Starting on Wed06/18/20 at 1800, Until Wed06/18/20 at 1800, RoutineIndications:Arthritis of right knee Given 06/18/2020 18:00 EDT 30 mg documented in this encounter Care Teams Photo Manager Relationship Specialty Start Date End Date Iva Jennings APRN [address] [facility] [address] [place] [address] PCP - General 03/01/20 documented as of this encounter
--- OUTSIDE RECORDS SUMMARY | 2024-11-09 10:12 | XMS_ITS | Encounter Summary ---
Author Organization [facility] Address [address] [place] [address] Care Team Providers Care Processing Technician Name Role Phone Sondra Britton MD Primary Care Provider Unavailabl e Encounter Details Date Type Department Care Team (Late st Contact Info) Description 04/03/2019 Documentation Visit [facility] Surgical Oncology - [facility] [place] [address] [place], [place] [id number] Dianne Morales, AYUSH Social History Tobacco Use Types Packs/Day Years Used Date Smoking Tobacco: Never Assessed Comments Unknown Sex and Gender Information Value Date Recorded Sex Assigned at Female 10/19/2024 15:35 EST Legal Sex Female 18:27 EST Gender Identity Female 06/03/2020 9:48 EDT Sexual Orientation Not on file documented as of this encounter Progress Notes * Dianne Morales, AYUSH - 04/03/2019 7964 EDT Telephone call to patient re. her new Left-sided breast cancer. Discussed new diagnosis and answered all questions. Explained the role of Nurse Navigator and provided [facility]. Gave appt with Dr. Tapia at 10am on 04/07/19. Patient voiced understanding of all information given, no barriers. Referring notified of patient's appointment at the [facility]. documented in this encounter Plan of Treatment Upcoming Encounters Date Type Department Care Team (Late st Contact Info) Description 11/09/2024 15:[address] [facility] Orthopedics & Sport Medicine [address] [place] [address] Leann Holland NP [address] [facility] [address] [place] [address] 11/16/2024 15:[address] [facility] Orthopedics & Sport Medicine [address] [place] [address] Leann Holland NP [address] [facility] [address] [place] [address] 07/17/2025 15:[address] [facility] Adult Hematology & Oncology [facility] [place] [address] Jimmy Gallego MD [address] [facility] [address] [place] [address] documented as of this encounter Visit Diagnoses Not on filedocumented in this encounter Care Teams Processing Technician Relationship Specialty Start Date End Date Sondra Britton MD PCP - General 05/16/14 02/29/20 documented as of this encounter
--- OUTSIDE RECORDS SUMMARY | 2024-11-09 10:12 | XMS_ITS | Encounter Summary ---
Author Organization [facility] Address [address] [place] [address] Care Team Providers Care Clinical Applications Manager Name Role Phone Sondra Britton MD Primary Care Provider Unavailabl e Reason for Visit * Reason Comments Post-OP Follow Up Encounter Details Date Type Department Care Team (Late st Contact Info) Description 05/12/2019 15:20 EDT Post-op Visit [facility] Surgical Oncology - [facility] [address] [place], [place] [id number] Elizabeth Tapia, DO [address] [facility] [place] [address] Malignant neoplasm of central portion [...] Sign Reading Time Taken Comments Blood Pressure 135/61 05/12/2019 1515 EDT Pulse 99 05/12/2019 1515 EDT Temperature 36.6 ??C (97.8 ??F) 05/12/2019 1515 EDT Respiratory Rate - - Oxygen Saturation [...] in this encounter Progress Notes * Elizabeth Tapia Do, DO - 05/12/2019 1520 EDT Susie Mayfield is seen in the office today postoperatively following a left partial mastectomy and sentinel lymph node biopsy. She has done very well since surgery. She took exactly 1 Ibuprofen the night of surgery and has not required anything since. She does feel like she has a little bit of fluid in her axilla. On exam, she has a well-healed surgical scar in her breast as well as her axilla. There is no evidence of erythema or exudate. She does have a small amount of axillary seroma, but she feels this is actually going down in size and so we will leave that alone. MEDICAL DECISION MAKING: We discussed her pathology report, which indicated that there was no additional cancer in the specimen, but that the biopsy site was well identified. She had 0 of 2 lymph nodes positive. She will be meeting with Dr Blackman and Dr Negrete to discuss whether or not she needs to do any additional therapy. I will see her back in 6 months for followup. She knows to return to the clinic sooner if she were to develop any new or worrisome signs or symptoms. Thank you for allowing me to participate in the care of this very pleasant patient. documented in this encounter Plan of Treatment Upcoming Encounters Date Type Department Care Team (Late st Contact Info) Description 11/09/2024 15:45 EST Procedure visit [facility] Orthopedics & Sport Medicine [address] [place] [address] Leann Holland NP [address] [facility] [address] [place] [address] 11/16/2024 15:45 EST Procedure visit [facility] Orthopedics & Sport Medicine [address] [place] [address] Leann Holland NP [address] [facility] [address] [place] [address] 07/17/2025 15:30 EDT Office Visit [facility] Adult Hematology & Oncology [facility] [place] [address] Jimmy Gallego MD [address] [facility] [address] [place] [address] documented as of this encounter Visit Diagnoses Diagnosis Malignant neoplasm of central portion of left breast in female, estrogen receptor positive (HCC-CMS)- Primary documented in this encounter Care Teams Clinical Applications Manager Relationship Specialty Start Date End Date Sondra Britton MD PCP - General 05/16/14 02/29/20 documented as of this encounter
--- OUTSIDE RECORDS SUMMARY | 2024-11-09 10:12 | XMS_ITS | Encounter Summary ---
Author Organization [facility] Address [address] [place] [address] Care Team Providers Care Pear Picker Name Role Phone vIa Jennings APRN Primary Care Provider [phone] Reason for Visit * Reason Comments Follow-up Encounter Details Date Type Department Care Team (Late st Contact Info) Description 06/04/2020 16:30 EDT Office Visit [facility] Adult Hematology & Oncology [address] [place] [address] [place] [address] [facility] [address] [place] [address] (Fax) Malignant neoplasm of central portion of left breast in female, estrogen receptor positive (HCC-CMS) (Primary Dx); Post-menopausal; At risk for loss of bone density Social History Tobacco Use Types Packs/Day Years [...] 16:27 EDT documented as of this encounter Last Filed Vital Signs Vital Sign Reading Time Taken Comments Blood Pressure 122/84 06/04/2020 1625 EDT Pulse 85 06/04/2020 1625 EDT Temperature 36.6 ??C (97.9 ??F) 06/04/2020 1625 EDT Respiratory Rate - - Oxygen Saturation 95% 06/04/2020 1625 EDT Inhaled Oxygen Concentration - - Weight 93.9 kg (207 lb) 06/04/2020 1625 EDT Height - - Body Mass Index [...] Progress Notes * Bryan Blackman MD - 06/04/2020 1630 EDT PROBLEM: March 2019: Left breast cancer [...] carcinoma with DCIS. ER > 90 %, WY < 1%, HER-2 negative. - It was [...] in 25% of tumor mass. ER 90%, WY < 1%, Her2/jatinder 0. Stage pT1a pN0 -05/2019: Started Letrozole. Subjective Interim History:Patient presents for follow-up. She is generally feeling well. Having issues with allergies. Otherwise denies any complaints. States that she is tolerating Letrozole well. Denies any abnormal aches and pains, hot flashes. States that she Saw last week and all her exam was negative. ? Review of Systems Constitutional: Negative for [...] mouth at bedtime as needed. Taking ??? BIOFLAVONOIDS ORAL Take by mouth. Taking ??? calcium carbonate (CALCIUM 500 ORAL) Take by mouth. Taking ??? calcium/mag/vitamin D2/Zn/min (GEOFFREY-MAG ZINC II ORAL) Take by mouth. Taking ??? cetirizine (ZYRTEC) 1 mg/mL solution Take 5 mg by mouth daily. Taking ??? clobetasoL (TEMOVATE) 0.05 % cream Apply topically 2 times daily. Taking ??? glucos sul 2KCl/msm/chond/C/Mn (GLUCOSAMINE CHONDROITIN ORAL) Take by mouth. Taking ??? LETROZOLE ORAL Take 2.5 mg by mouth. Taking ??? lisinopril (PRINIVIL, ZESTRIL) 5 mg tablet Take 5 mg by mouth daily. Taking ??? mometasone (NASONEX) 50 mcg/actuation nasal spray Instill 2 Sprays into right nostril daily. Taking ??? MULTI-VITAMIN ORAL Take by mouth. Taking ??? pravastatin (PRAVACHOL) 20 mg tablet Take 20 mg by mouth daily. Taking No current facility-administered medications for this visit. Vitals: 06/04/20 1625 BP: 122/84 Pulse: 85 Temp: 36.6 ??C (97.9 ??F) SpO2: 95% Weight: 93.9 kg (207 lb) Wt Readings from Last 3 Encounters: 04/07/19 91.6 kg (202 lb) Physical Exam [...] has a normal mood and affect. Breast: Exam deferred as she had it last week with Dr. Tapia. No palpable cervical or axillary adenopathy. Assessment & Plan 1. Left breast cancer. pT1a pN0 invasive ductal carcinoma. Tumor size 0.4 x 0.4 x 0.2 cm with 0/2 sentinel nodes, grade 2. ER+/WY neg/Her2 neg. Began Letrozole in May 2019. Tolerating it fairly well. Mammogram from February was unremarkable. 2. Bone health. Bone density scan in May 2019 showed evidence of osteopenia. Currently on calcium/vitamin D supplementation. Will repeat bone density scan in 1 year. Plan: 1. Continue letrozole. 2. Return for follow-up in 1 year. Other Orders Placed This Visit Procedures ??? DEXA BONE DENSITY Bryan Blackman MD Hematology/Oncology [facility] * Melody Palm RN - 06/04/2020 1630 EDT Suspicion of Abuse: no - If yes, please document evidence: - Assessed on: 06/04/20 16:51 - Assessed by: MELODY PALM RN documented in this encounter Plan of Treatment Upcoming Encounters Date Type Department Care Team (Late st Contact Info) Description 11/09/2024 15:45 EST Procedure visit [facility] Orthopedics & Sport Medicine [address] [place], [place] [id number] [place] [address] [place] [address] [address] [place], [place] [id number] 11/16/2024 15:45 EST Procedure visit [facility] Orthopedics & Sport Medicine [address] [place], [place] [id number] Leann Holland OIL WELL SHOOTER [address] [facility] [address] [place], [place] [id number] 07/17/2025 15:30 EDT Office Visit [facility] Adult Hematology & Oncology [facility] [place] [address] Jimmy Gallego MD [address] [facility] [address] [place] [address] documented as of this encounter Visit Diagnoses Diagnosis Malignant neoplasm of central portion of left breast in female, estrogen receptor positive (HCC-CMS)- Primary Post-menopausal Asymptomatic postmenopausal status (age-related) (natural) At risk for loss of bone density Other specified conditions influencing health status documented in this encounter Discontinued Medications Medication Sig Discontinue Reason Start Date End Da te celecoxib (CELEBREX) 200 mg capsule Take 200 mg by mouth 2 times daily. 06/04/2020 FA NON-FORMULARY MEDICATION, DO NOT ORDER, Take 1 Cap by mouth at bedtime as needed. Alteril all natural sleep aid 06/04/2020 HYDROmorphone (DILAUDID) 2 mg tablet Take 1 Tab by mouth every 4 hours as needed for Pain. Daily Max: 12 mg 05/03/2019 06/04/2020 documented as of this encounter Care Teams Pear Picker Relationship Specialty Start Date End Date Iva Jennings APRN [address] [place] [address] PCP - General 03/01/20 documented as of this encounter
--- OUTSIDE RECORDS SUMMARY | 2024-11-09 10:12 | XMS_ITS | Encounter Summary ---
Author Organization [facility] Address [address] [place] [address] Care Team Providers Care Search Marketing Analyst Name Role Phone Sondra Britton MD Primary Care Provider Unavailabl e Reason for Visit * Reason Comments Breast Cancer Encounter Details Date Type Department Care Team (Late st Contact Info) Description 11/17/2019 16:20 EST Office Visit [facility] Surgical Oncology - [address] [id number] Elizabeth Tapia, DO [address] [facility] [place] [address] Malignant neoplasm of central portion [...] Sign Reading Time Taken Comments Blood Pressure 137/63 11/17/2019 1605 EST Pulse 77 11/17/2019 1605 EST Temperature 36.6 ??C (97.9 ??F) 11/17/2019 1605 EST Respiratory Rate - - Oxygen Saturation [...] Progress Notes * Elizabeth Tapia, DO - 11/17/2019 1620 EST Subjective: Patient ID: Susie Mayfield is an 69 y.o. female. No chief complaint on file. HPI Susie Mayfield is seen in 6-month followup for her left breast cancer. As you recall, this is a patient that had a screen detected finding identified in 02/2019 in the left breast. 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 ER positive, [place] negative, HER-2 negative. She went on to [...] significant side effects from that medication. Her biggest issue right now is some joint pain that predates taking her medication;she had been in the works of trying to get a knee replacement and has found the whole process exceptionally frustrating with requirements of physical therapy prior to even getting an x-ray or seeing a surgeon. She has had no relief from the PT and has some questions about that today. Patient Active Problem List Diagnosis ??? Malignant neoplasm of central portion of left breast in female, estrogen receptor positive (HCC-CMS) Past Medical History: Diagnosis Date ??? Hypertension Past Surgical History: Procedure Laterality Date ??? APPENDECTOMY ??? BREAST SURGERY Left 04/2019 Partial mastectomy [...] pollen - sneezing Review of Systems Constitutional: Negative for chills, fever and weight loss. HENT: Negative for hearing loss. Eyes: Negative for blurred vision, double vision and photophobia. Respiratory: Negative for cough, shortness of breath and wheezing. Cardiovascular: Negative for chest pain and palpitations. Gastrointestinal: Negative for abdominal pain, heartburn, nausea and vomiting. Genitourinary: Negative for dysuria, frequency and urgency. Musculoskeletal: Positive for joint pain and myalgias. Neurological: Negative for sensory change, focal weakness and headaches. - See HPI Objective: BP 137/63 Pulse 77 Temp 36.6 ??C (97.9 ??F) (Tympanic) Physical Exam Constitutional: She is oriented to person, place, and time. She appears well- developed and well-nourished. No distress. HENT: Head: Normocephalic and atraumatic. Eyes: Pupils are equal, round, and reactive to light. Conjunctivae and EOM are normal. Neck: Normal range of motion. No thyromegaly [...] a well healed surgical scar on the left. There is no nipple inversion or discharge. There are no axillary masses. Assessment: Susie is seen in the office today in 6-month followup for her left breast cancer. She is doing wellfrom the standpoint of this breast cancer. On exam, she has no obvious evidence of recurrent disease. We will get her set up for a mammogram in February, which she will do this here. I gave her a couple of suggestions of orthopedic surgeons. I will see her back in 6 months for clinical breast exams, sooner if there are any issues. Thank you for allowing me to participate in the care of this very pleasant patient. Plan: (C50.112, Z17.0) Malignant neoplasm of central portion of left breast in female, estrogen receptor positive (HCC-CMS) (primary encounter diagnosis) Elizabeth Tapia, DO Med Orders Placed This Visit and Additions to the Medication List Medications ??? LETROZOLE ORAL Sig: Take 2.5 mg by mouth. ??? calcium/mag/vitamin D2/Zn/min (GEOFFREY-MAG ZINC II ORAL) Sig: Take by mouth. ??? clobetasoL (TEMOVATE) 0.05 % cream Sig: Apply topically 2 times daily. documented in this encounter Plan of Treatment Upcoming Encounters Date Type Department Care Team (Late st Contact Info) Description 11/09/2024 15:45 EST Procedure visit [facility] Orthopedics & Sport Medicine [address] [place], [place] [phone] [place] [address] [place] [address] [address] [place] [address] 11/16/2024 15:45 EST Procedure visit [facility] Orthopedics & Sport Medicine [address] [place] [address] Leann Holland NP [address] [facility] [address] [place], [place] [phone] 07/17/2025 15:30 EDT Office Visit [facility] Adult Hematology & Oncology [facility] [place] [address] Jimmy Gallego MD [address] [facility] [address] [place] [address] documented as of this encounter Procedures Procedure Name Priority Date/Time Associated Diagnosis Comments ORDERS - SCANNED 12/08/2019 11:04 EST documented in this encounter Results * ORDERS - SCANNED (12/08/2019 11:04 EST) 12/08/2019 11:0 4 EST us Scan 2 Obedience Trainer ADMISSION ORDERABLES Final Result documented in this encounter Visit Diagnoses Diagnosis Malignant neoplasm of central portion of left breast in female, estrogen receptor positive (HCC-CMS)- Primary documented in this encounter Historical Medications * This list may reflect changes made after this encounter. clobetasoL (TEMOVATE) 0.05 % cream Apply topically 2 times daily. As needed calcium/mag/isabel min D2/Zn/min (GEOFFREY-MAG ZINC II ORAL) Take by mouth. LETROZOLE ORAL Take 2.5 mg by mouth. 0 added in this encounter Care Teams Search Marketing Analyst Relationship Specialty Start Date End Date Sondra Britton MD PCP - General 05/16/14 02/29/20 documented as of this encounter
--- OUTSIDE RECORDS SUMMARY | 2024-11-09 10:12 | XMS_ITS | Encounter Summary ---
Author Organization [facility] Address [address] [place] [address] Care Team Providers Care Manager Corporate Strategy Name Role Phone Sondra Britton MD Primary Care Provider Unavailabl e Encounter Details Date Type Department Care Team (Latest Contact Info) Description 03/28/2019 9:37 EDT - 03/28/2019 23:59 EDT Hospital Encounter [facility] [address] [place] [address] Susie Osborn MD [address] [place] [phone] Discharge Disposition: Auto Discharge Social History Tobacco Use Types Packs/Day Years Used Date Smoking Tobacco: Never Assessed Comments Unknown Sex and Gender Information Value Date Recorded Sex Assigned at Female 10/19/2024 15:35 EST Legal Sex Female 18:27 EST Gender Identity Female 06/03/2020 9:48 EDT Sexual Orientation Not on file documented as of this encounter Discharge Diagnoses Diagnosis N63.22 Unspecified lump in the left breast, upper inner quadrant-N63.22[ICD-10-CM] N63.21 Unspecified lump in the left breast, upper outer quadrant-N63.21[ICD-10-CM] documented in this encounter Discharge Disposition Disposition Code Departure Means Destination Auto Discharge Home documented in this encounter Plan of Treatment Upcoming Encounters Date Type Department Care Team (Late st Contact Info) Description 11/09/2024 15:45 EST Procedure visit [facility] Orthopedics & Sport Medicine [address] [place], [place] [phone] Leann Holland TREND INVESTIGATOR [address] [facility] [address] [place] [address] 11/16/2024 15:45 EST Procedure visit [facility] Orthopedics & Sport Medicine [address] [place] [address] Leann Holland TREND INVESTIGATOR [address] [facility] [address] [place] [address] 07/17/2025 15:30 EDT Office Visit [facility] Adult Hematology & Oncology [address] [place] [address], [place] [address] Jimmy Gallego MD [address] [place] [address] [address] [place] [address] documented as of this encounter Visit Diagnoses Not on filedocumented in this encounter Care Teams Manager Corporate Strategy Relationship Specialty Start Date End Date Sondra Britton MD PCP - General 05/16/14 02/29/20 documented as of this encounter
--- OUTSIDE RECORDS SUMMARY | 2024-11-09 10:12 | XMS_ITS | Encounter Summary ---
Author Organization [facility] Address [address] [place] [address] Care Team Providers Care Mechanic Sound Technician Name Role Phone Sondra Britton MD Primary Care Provider Unavailabl e Encounter Details Date Type Department Care Team (Late st Contact Info) Description 05/04/2019 Documentation Visit [facility] Surgical Oncology - [facility] [address] [place], [place] [phone] Dianne Morales RN Social History Tobacco Use [...] Progress Notes * Dianne Morales RN - 05/04/2019 1056 EDT Post-operative followup phone call made. Patients states no questions or concerns at this time. Post operative appointment date and time reviewed with the patient. Patient has contact information to the clinic if any questions or concerns arise. She is aware to remove the dressing in 2 days. Leave steri-strips as is. Discussed pain control andproper use of post surgical bra. She currently has no pain. She is aware of NPV with Dr. Blackman and Dr. Negrete at [facility] [place]. documented in this encounter Plan of Treatment Upcoming Encounters Date Type Department Care Team (Late st Contact Info) Description 11/09/2024 15:[address] [facility] Orthopedics & Sport Medicine [address] [place] [address] Leann Holland, FLUE GAS ANALYST [address] [place] [address] [place] [address] 11/16/2024 15:[address] [facility] Orthopedics & Sport Medicine [address] [place], [place] [phone] Leann Holland, FLUE GAS ANALYST [address] [place] [phone] 07/17/2025 15:[address] [facility] Adult Hematology & Oncology [facility] [place] [address] Jimmy Gallego MD [address] [facility] [address] [place] [phone] documented as of this encounter Visit Diagnoses Not on filedocumented in this encounter Care Teams Mechanic Sound Technician Relationship Specialty Start Date End Date Sondra Britton MD PCP - General 05/16/14 02/29/20 documented as of this encounter
--- OUTSIDE RECORDS SUMMARY | 2024-11-09 10:12 | XMS_ITS | Encounter Summary ---
Author Organization [facility] Address [address] [place] [address] Care Team Providers Care Gm Video Name Role Phone Sondra Britton MD Primary Care Provider Unavailabl e Encounter Details Date Type Department Care Team (Late st Contact Info) Description 03/28/2019 Results Only [facility] [address] [place], [place] [id number] Criss Bonilla MD [address] [facility] Level [address] [place] [address] Social History Tobacco Use Types Packs/Day Years Used Date Smoking Tobacco: Never Assessed Comments Unknown Sex and Gender Information Value Date Recorded Sex Assigned at Female 10/19/2024 15:35 EST Legal Sex Female 18:27 EST Gender Identity Female 06/03/2020 9:48 EDT Sexual Orientation Not on file documented as of this encounter Miscellaneous Notes * Result Encounter Note - Noy Del Valle - 03/28/2019 1240 EDT I told pt results of left breast bx done on 03-28-19 (POS). [facility]. I reached the pt at: [phone]. She does not have an answering machine. email address if needed [email or web address]. Will have better luck with her answering phone after 3:00. radha 03-31-18 documented in this encounter Plan of Treatment Upcoming Encounters Date Type Department Care Team (Late st Contact Info) Description 11/09/2024 15:45 EST Procedure visit [facility] Orthopedics & Sport Medicine [address] [place], [place] [id number] Leann Holland RACE ENGINE BUILDER [address] [facility] [address] [place] [address] 11/16/2024 15:45 EST Procedure visit [facility] Orth[facility]ics & Sport Medicine [address] [place] [address] Leann Holland RACE ENGINE BUILDER [address] [facility] [address] [place], [place] [phone] 07/17/2025 15:30 EDT Office Visit [facility] Adult Hematology & Oncology [facility] [place] [address] Jimmy Gallego MD [address] [facility] [address] [place] [address] documented as of this encounter Procedures Procedure Name Priority Date/Time Associated Diagnosis Comments SURGICAL PATHOLOGY Routine 03/28/2019 12 :39 EDT documented in this encounter Results * SURGICAL PATHOLOGY (03/28/2019 12:39 EDT) Pathology Report: SURGICAL PATHOLOGY REPORT Reports generated via electronic interface contain original data; however they are lacking the format of the original report. Caution should be taken when reading/interpreting unformatted reports. Name: ? SUSIE HERNANDEZ ? Accession #: ? [id number] ? : ? 1950 (Age: 69) ??F ?Collect Date: ? 03/28/2019 ? Location: ? [facility] ? Receive Date: ? 03/28/2019 ? Provider: CRISS BONILLA MD Copy to: SONDRA CARSON MD ? Final Pathologic Diagnosis: BREAST, LEFT, 12 O'CLOCK, 9 CM FROM NIPPLE, STEREOTACTIC, VACUUM ASSISTED, LARGE CORE BIOPSY: - Adenocarcinoma, invasive, ductal type, nuclear grade 2. See comment. 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 Comment: Estrogen and progesterone receptor assays and Her2 studies have been ordered and results will be issued in separate procedure reports. ?? Dr. Lomax 03/31/2019 11:50 AM ? Document reviewed and electronically signed by: ? ANNE NIÑO MD ? Report ??Date: 03/31/2019 14:00 By the signature above, the attending physician certifies that he/she has personally conducted a gross and/or microscopic examination of the described specimens and rendered or confirmed the above diagnosis. Clinical History: Small 5 mm mass ? Gross Description: ? Received in formalin labelled with proper patient identification (initials H, L) and left breast mass 12 o'clock 9 cm from nipple is an oriented reservoir filled with fibrofatty tissue (3.3 x 2.5 x 0.8 cm). No calcifications are identified. The specimen is entirely submitted in 10-24. Time removed from patient: 03/28/2019 1138 hrs. Time placed in formalin: 03/28/2019 1145 hrs. Time out of formalin: 03/29/2019 1900 hrs. SYDNIE Kinsey (ASCP) 03/28/2019 1:43 PM ? ESTROGEN AND PROGESTERONE RECEPTOR IMMUNOPEROXIDASE STAINS ? Date Ordered: ? 03/31/2019 ? Status: ?? Signed Out ?Date Complete: ? 03/31/2019 ? By: ??Lisa Leija ? Date Reported: ? 03/31/2019 ? Interpretation BREAST, LEFT, 12 O'CLOCK, 9 CM FROM NIPPLE, STEREOTACTIC, VACUUM-ASSISTED, LARGE CORE BIOPSY: - Adenocarcinoma, invasive. ?? - Positive for estrogen receptors (in greater than 90% of tumor cells). - Nuclear staining intensity: Strong. ?? - Negative for progesterone receptors (in less than 1% of tumor cells). Comment Cold ischemic time and total formalin fixation time appropriate: ??Yes. Internal control benign epithelium is appropriately staining for estrogen and progesterone receptors. ?? Description Tissue submitted: Paraffin embedded tissue block labelled [id number] (#2) from [facility]. Immunohistochemical assays for estrogen receptors (SP1, Ten Broeck) and progesterone receptors (16, Leica) have been performed on this specimen. Intranuclear receptor complexes were visualized on tissue sections using an HRP polymer immunohistochemical technique. ??This assay is intended for paraffin-embedded tissue fixed in 10% neutral buffered formalin for 6-72 hours. ? Results are reported as negative (<1% nuclear staining) or positive with the proportion of positive cells noted. ??Estrogen receptor expression in <5% of tumor cells may not have a strong interaction with estrogen receptor modulators such as Tamoxifen. ?? Reference: ??ASCO-CAP Guideline Recommendations for IHC testing of ER and SD. J Clin Oncol 2010;28:2676-4656. NOTE: ??One or more of the reagents used in immunoperoxidase testing in this case may not have been cleared or approved by the U.S. Food and Drug Administration (FDA). ??The FDA has determined that such clearance or approval is not necessary. ??These tests are used for clinical purposes. ??They should not be regarded as investigational or for research. ??These reagents' performance characteristics have been determined by [facility] and/or by the referring laboratory. ??The positive and negative controls worked appropriately. If immunoperoxidase staining has been performed on alcohol fixed cytology specimens, which has not been fully validated, the assays should be interpreted with caution and correlated with clinical data. ??This laboratory is certified under the Clinical Laboratory Improvement Amendments of 1988 (CLIA-88) as qualified to perform high complexity clinical laboratory testing. Document reviewed and electronically signed by: ? ANNE NIÑO MD ? Report date: 03/31/2019 By the signature above, the attending physician certifies that he/she has personally conducted a gross and/or microscopic examination of the described specimens and rendered or confirmed the above diagnosis. Her 2 IMMUNOPEROXIDASE REPORT ? Date Ordered: ? 03/31/2019 ? Status: ?? Signed Out ?Date Complete: ? 03/31/2019 ? By: ??Lisa Leija ? Date Reported: ? 04/03/2019 ? Interpretation ASSAY RESULTS Her2 SCORE: ?0/negative TUMOR LOCATION: ??Left breast, 12 o'clock COLD ISCHEMIC TIME AND TOTAL FORMALIN FIXATIVE TIME APPROPRIATE: Yes CELLS WITH COMPLETE MEMBRANE STAINING: ??None MEMBRANE STAINING INTENSITY: ??N/A PARTIAL MEMBRANE STAINING: ??Present in 10% of cells CYTOPLASMIC STAINING: Absent STAINING PATTERN: N/A STAINING IN BENIGN EPITHELIUM: Faint, Membrane THE HER2 ASSAY PERFORMED IS INTERPRETED NEGATIVE. Description Tissue submitted: Paraffin embedded tissue block labelled [id number] (2) from [facility]. Fixative: ??Formalin ??(This immunohistochemical assay is intended for paraffin-embedded tissue fixed in 10% neutral buffered formalin for 6-72 hours; 18-24 hours with maximum tissue thickness of 3-4 millimeters is recommended for best assay performance. ??Her2 should not be performed on alcohol fixed tissues.) The assay was performed under appropriate conditions according to the music artist's instructions with appropriate assay and tissue controls using an Anti-Her2 (4B5) Rabbit Monoclonal Antibody (Ten Broeck). Her2 IHC Scoring Guidelines (invasive tumor component only) 0 ? negative ?No staining or membrane staining in less than 10% of cells 1+ ? negative ?Faint partial membrane staining in more than 10% of cells 2+ ? weakly positive ?Moderate complete membrane staining in more than 10% of cells 3+ ? positive ? Strong complete membrane staining in more than 10% of cells Reference: ??ASCO-CAP Recommendations for Her2 Testing. J Clin Oncol 2013; epub (www.jco.org Jul 24, 2013) ? NOTE: ??One or more of the reagents used in immunoperoxidase testing in this case may not have been cleared or approved by the U.S. Food and Drug Administration (FDA). ??The FDA has determined that such clearance or approval is not necessary. ??These tests are used for clinical purposes. ??They should not be regarded as investigational or for research. ??These reagents' performance characteristics have been determined by [facility] and/or by the referring laboratory. ??The positive and negative controls worked appropriately. If immunoperoxidase staining has been performed on alcohol fixed cytology specimens, which has not been fully validated, the assays should be interpreted with caution and correlated with clinical data. ??This laboratory is certified under the Clinical Laboratory Improvement Amendments of 1988 (CLIA-88) as qualified to perform high complexity clinical laboratory testing. Document reviewed and electronically signed by: ? ANNE NIÑO MD ? Report date: 04/03/2019 By the signature above, the attending physician certifies that he/she has personally conducted a gross and/or microscopic examination of the described specimens and rendered or confirmed the above diagnosis. End of Report [facility] 03/28/2019 12:3 9 EDT 03/28/2019 12:39 EDT us Criss Bonilla MD PATHOLOGY ORDERABLES Final Re sult [facility] [address] [place] [address] documented in this encounter Visit Diagnoses Not on filedocumented in this encounter Care Teams Gm Video Relationship Specialty Start Date End Date Sondra Britton MD PCP - General 05/16/14 02/29/20 documented as of this encounter
--- OUTSIDE RECORDS SUMMARY | 2024-11-09 10:12 | XMS_ITS | Encounter Summary ---
Author Organization [facility] Address [address] [place] [address] Care Team Providers Care Simulation Engineer Name Role Phone Iva Jennings APRN Primary Care Provider [phone] Reason for Visit * Reason Onset Date Comments Prior Auth, Medication 05/28/2020 Encounter Details Date Type Department Care Team (Late st Contact Info) Description 05/28/2020 Telephone [facility] Orthopedics & Sport Medicine [address] [place] [address] Mara Cooley MD [address] [place] [address] [address] [place] [address] Prior Auth, Medication Social History Tobacco Use [...] Telephone Encounter - Lauren Castorena RN - 05/29/2020 1034 EDT Please call patient to schedule appointments for right orthovisc series, will order meds. * Telephone Encounter - Lauren Castorena RN - 05/29/2020 1033 EDT Approved: CaseID:[id number]; Status:Approved;Review Type: Prior Auth;Coverage Start Date: 04/29/2020;Coverage End Date: 07/03/2020. * Telephone Encounter - Francine Padilla LPN - 05/28/2020 1723 EDT PA started for Orthovisc right knee Cheek: [id number] documented in this encounter Plan of Treatment Upcoming Encounters Date Type Department Care Team (Late st Contact Info) Description 11/09/2024 15:45 EST Procedure visit [facility] Orthopedics & Sport Medicine [address] [place] [address] Leann Holland, FRANK [address] [place] [address] 11/16/2024 15:45 EST Procedure visit [facility] Orthopedics & Sport Medicine [address] [place] [address] Leann Holland, AIRPLANE COVER MAKER [address] [place] [phone] 07/17/2025 15:30 EDT Office Visit [facility] Adult Hematology & Oncology [facility] [place], [place] [phone] Jimmy Gallego MD [address] [facility] [address] [place] [address] documented as of this encounter Visit Diagnoses Not on filedocumented in this encounter Care Teams Simulation Engineer Relationship Specialty Start Date End Date Iva Jennings APRN [address] [place] [phone] PCP - General 03/01/20 documented as of this encounter
--- OUTSIDE RECORDS SUMMARY | 2024-11-09 10:12 | XMS_ITS | Encounter Summary ---
Author Organization [facility] Address [address] [place] [address] Care Team Providers Care Procurement Engineer Name Role Phone Iva Jennings APRN Primary Care Provider [phone] Reason for Visit * Reason Comments Follow-up Encounter Details Date Type Department Care Team (Late st Contact Info) Description 05/21/2020 16:00 EDT Office Visit [facility] Surgical Oncology - [facility] [address] [place], [place] [id number] Elizabeth Tapia, DO [address] [facility], Level 2 [place] [address] Malignant neoplasm of central portion [...] 15:36 EDT documented as of this encounter Last Filed Vital Signs Vital Sign Reading Time Taken Comments Blood Pressure - - Pulse - - Temperature 36.4 ??C (97.6 ??F) 05/21/2020 1555 EDT Respiratory Rate - - Oxygen Saturation [...] Progress Notes * Elizabeth Tapia, DO - 05/21/2020 1600 EDT Subjective: Patient ID: Susie Mayfield is an 70 y.o. female. Chief Complaint Patient presents with ??? Follow-up HPI Susie Mayfield is seen in 6-month followup for her left breast cancer. As you recall, this is a patient that had a screen detected finding identified in 02/2019 in the left breast. 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 ER positive, MT negative, HER-2 negative. She went on to [...] any significant side effects from that medication. In general, Susie is doing well from the standpoint of her cancer. She is a little bit nervous about going back to school in the fall, but is also eager to see the kids and get back on to a more normal schedule. She denies any changes in her self-exam. She denies any nipple inversion or nipple discharge. Patient Active Problem List Diagnosis ? Malignant neoplasm of central portion of left breast in female, estrogen receptor positive ([facility]-CMS) Past Medical History: Diagnosis Date ? Breast cancer, left (HCC-CMS) 2018 ? Hypertension Past Surgical History: Procedure Laterality Date ? APPENDECTOMY ? BREAST LUMPECTOMY Left 2018 ? BREAST SURGERY Left 04/2019 Partial mastectomy and SLNBx ? SECTION ? CHOLECYSTECTOMY Family History Problem Relation Age of Onset ? Breast Cancer Mother 60 ? Ovarian Cancer Neg Hx Social Social History Tobacco Use ? Smoking status: Never Smoker ? Smokeless tobacco: Never Used Substance Use Topics ? Alcohol use: Not on file ? Drug use: Not on file Current Outpatient Medications on File Prior to Visit Medication Sig Dispense Refill ? amitriptyline (ELAVIL) 10 mg tablet Take 10 mg by mouth at bedtime as needed. ? BIOFLAVONOIDS ORAL Take by mouth. ? calcium carbonate (CALCIUM 500 ORAL) Take by mouth. ? calcium/mag/vitamin D2/Zn/min (GEOFFREY-MAG ZINC II ORAL) Take by mouth. ? celecoxib (CELEBREX) 200 mg capsule Take 200 mg by mouth 2 times daily. ? cetirizine (ZYRTEC) 1 mg/mL solution Take 5 mg by mouth daily. ? clobetasoL (TEMOVATE) 0.05 % cream Apply topically 2 times daily. ? FA NON-FORMULARY MEDICATION, DO NOT ORDER, Take 1 Cap by mouth at bedtime as needed. Alteril all natural sleep aid ? glucos sul 2KCl/msm/chond/C/Mn (GLUCOSAMINE CHONDROITIN ORAL) Take by mouth. ? HYDROmorphone (DILAUDID) 2 mg tablet Take 1 Tab by mouth every 4 hours as needed for Pain. Daily Max: 12 mg (Patient not taking: Reported on 05/12/2019) 5 Tab 0 ? LETROZOLE ORAL Take 2.5 mg by mouth. ? lisinopril (PRINIVIL, ZESTRIL) 5 mg tablet Take 5 mg by mouth daily. ? mometasone (NASONEX) 50 mcg/actuation nasal spray Instill 2 Sprays into right nostril daily. ? MULTI-VITAMIN ORAL Take by mouth. ? pravastatin (PRAVACHOL) 20 mg tablet Take 20 mg by mouth daily. No current facility-administered medications on file prior to visit. Allergies Allergen Reactions ? Latex, Natural Rubber Itching ? Other - See Comments Hives, Itching and [...] weakness and headaches. - See HPI Objective: Temp 36.4 ??C (97.6 ??F) (Tympanic) Physical Exam Constitutional: General: She is not [...] a surgical scar on the left with minimal radiation changes. There is no nipple inversion or discharge. There are no axillary masses. Assessment: Susie Mayfield is seen in the office today in 6-month followup for her left breast cancer. On exam, she has no evidence of recurrent disease. She had a mammogram in February that was negative. I will see her back in 6 months for a clinical exam, sooner if there are any issues. Plan: No diagnosis found. Elizabeth Tapia DO No orders of the defined types were placed in this encounter. documented in this encounter Plan of Treatment Upcoming Encounters Date Type Department Care Team (Late st Contact Info) Description 11/09/2024 15:45 EST Procedure visit [facility] Orthopedics & Sport Medicine [address] [place] [address] [place] [address] [place] [address] [place] [id number] 11/16/2024 15:45 EST Procedure visit [facility] Orthopedics & Sport Medicine [address] [place] [address] Leann Holland CLEANER LABORATORY EQUIPMENT [address] [facility] [address] [place] [phone] 07/17/2025 15:30 EDT Office Visit [facility] Adult Hematology & Oncology [facility] [place] [address] Jimmy Gallego MD [address] [facility] [address] [place] [address] documented as of this encounter Procedures Procedure Name Priority Date/Time Associated Diagnosis Comments ORDERS - SCANNED 05/27/2020 10:41 EDT documented in this encounter Results * ORDERS - SCANNED (05/27/2020 10:41 EDT) 05/27/2020 10:4 1 EDT us Scan 2 [place] [facility] ADMISSION ORDERABLES Final Result documented in this encounter Visit Diagnoses Diagnosis Malignant neoplasm of central portion of left breast in female, estrogen receptor positive (HCC-CMS)- Primary documented in this encounter Care Teams Procurement Engineer Relationship Specialty Start Date End Date Iva Jennings APRN [address] [place] [phone] PCP - General 03/01/20 documented as of this encounter
--- OUTSIDE RECORDS SUMMARY | 2024-11-09 10:12 | XMS_ITS | Encounter Summary ---
Author Organization [facility] Address [address] [place] [address] Care Team Providers Care Learning And Development Director Name Role Phone Sondra Britton MD Primary Care Provider Unavailabl e Encounter Details Date Type Department Care Team (Late st Contact Info) Description 04/19/2019 Documentation Visit [facility] Surgical Oncology - [facility] [place] [address] [place] [address] Dianne Morales RN Social History Tobacco Use [...] Progress Notes * Dianne Morales RN - 04/19/2019 1159 EDT PLEASE NOTE-PATIENTS PHONE DELETES MESSAGES- TO REACH PATIENT CALL AFTER 3PM Date: 04/19/19 Attn: Medical and Radiation Oncology (fax was sent to separate departments) Fax #: [phone] and [phone] Comments: Patient needs new patient evaluation for both medical and radiation oncology. OR date: 05/03/19 Right PM & SLNB Please scheduled patient ~ 2 weeks after surgery. Please call Dianne Morales RN with any questions or concerns. Operative note, final pathology will be faxed once available. Please call patient directto schedule. Patient: Susie Mayfield : 46 documented in this encounter Plan of Treatment Upcoming Encounters Date Type Department Care Team (Late st Contact Info) Description 11/09/2024 15:45 EST Procedure visit [facility] Orthopedics & Sport Medicine [address] [place] [address] Leann Holland, DRY ROLLER [address] [place] [address] [place] [address] 11/16/2024 15:45 EST Procedure visit [facility] Orthopedics & Sport Medicine [address] [place] [address] Leann Holland, DRY ROLLER [address] [place] [address] [place] [phone] 07/17/2025 15:30 EDT Office Visit [facility] Adult Hematology & Oncology [facility] [place] [address] Jimmy Gallego MD [address] [facility] [address] [place] [phone] documented as of this encounter Visit Diagnoses Not on filedocumented in this encounter Care Teams Learning And Development Director Relationship Specialty Start Date End Date Sondra Britton MD PCP - General 05/16/14 02/29/20 documented as of this encounter
--- OUTSIDE RECORDS SUMMARY | 2024-11-09 10:12 | XMS_ITS | Encounter Summary ---
Author Organization [facility] Address [address] [place] [address] Care Team Providers Care Coordinator Volunteer Services Name Role Phone Sondra Britton MD Primary Care Provider Unavailabl e Reason for Visit * Reason Onset Date Comments Other 04/27/2019 Encounter Details Date Type Department Care Team (Late st Contact Info) Description 04/27/2019 Telephone [facility] Surgical Oncology - [address] [phone] Elizabeth Tapia, DO [address] [facility], [address] [place] [address] Other Social History Tobacco Use Types Packs/Day Years [...] encounter Miscellaneous Notes * Telephone Encounter - Ambar Saavedra - 04/27/2019 1559 EDT Patient called into stated that she would like to stay overnight as it's so far for her to come in so early. She stated she lived in [place], I told her I would have Melody Garza call her to set her up at [facility] [place] [facility], she stated her son would bring her the evening before, I told her Melody would review all details with her. Her surgery is scheduled for May 03, and will need to register at 6:00 am for a 7:25 surgery. documented in this encounter Plan of Treatment Upcoming Encounters Date Type Department Care Team (Late st Contact Info) Description 11/09/2024 15:45 EST Procedure visit [facility] Orthopedics & Sport Medicine [address] [place] [address] Leann Holland, LAP WINDER [address] [place] [address] [place] [address] 11/16/2024 15:45 EST Procedure visit [facility] Orthopedics & Sport Medicine [address] [place], [place] [phone] Leann Holland, LAP WINDER [address] [place] [address] [place] [address] 07/17/2025 15:30 EDT Office Visit [facility] Adult Hematology & Oncology [facility] [place] [address] Jimmy Gallego MD [address] [facility] [address] [place] [address] documented as of this encounter Visit Diagnoses Not on filedocumented in this encounter Care Teams Coordinator Volunteer Services Relationship Specialty Start Date End Date Sondra Britton MD PCP - General 05/16/14 02/29/20 documented as of this encounter
--- OUTSIDE RECORDS SUMMARY | 2024-11-09 10:12 | XMS_ITS | Encounter Summary ---
Author Organization [facility] Address [address] [place] [address] Care Team Providers Care Door Frame Builder Name Role Phone Sondra Britton MD Primary Care Provider Unavailabl e Reason for Referral * Radiology Services (Routine) - New Request Specialty Diagnoses / Procedures [facility] Referred To Contact Diagnoses History of left breast cancer Procedures MA BREAST DIAGNOSTIC ELSA BILATERAL MA BREAST DIAGNOSTIC Elizabeth Tapia DO Phone: tel: fax: Referral ID Status Reason Start Date Expiration Date V isits Requested Visits Authorized [id number] New Request 11/20/2019 1 1 Reason for Visit * Reason Onset Date Comments Follow-up 11/20/2019 1ST SINCE SURGER Y MAMMO PM ( LEFT ) Encounter Details Date Type Department Care Team (Late st Contact Info) Description 11/20/2019 Orders Only [facility] Surgical Oncology - [facility] [address] [place], [place] [id number] Elizabeth Tapia DO [address] [facility], [address] [place] [phone] History of left breast cancer (Primary Dx) Social History Tobacco Use Types [...] Info) Description 11/09/2024 15:45 EST Procedure visit [facility] Orthopedics & Sport Medicine [address] [place], [place] [phone] Leann Holland, COMPUTER BUILDER [address] [facility] [address] [place] [address] 11/16/2024 15:45 EST Procedure visit [facility] Medicine [address] [place], [place] [phone] Leann Holland, COMPUTER BUILDER [address] [facility] [address] [place], [place] [phone] 07/17/2025 15:30 EDT Office Visit [facility] Adult Hematology & Oncology [address] [place] [phone] Jimmy Gallego MD [address] [facility] [address] [place] [phone] documented as of this encounter Results * MA BREAST DIAGNOSTIC [...] in February 2021. Overall assessment: Benign. The magnetic resonance technologist discussed the interpreting physician's findings and recommendations with the patient at the time of the examination. The patient will be notified of her breast imaging results via a lay letter from Radiology. ??Radiology will contact the patient directly regarding any findings which require additional imaging. This document has been prepared using voice recognition software and/or keyboard marketing database coordinator. ??All reasonable efforts have been made to ensure accuracy. ??However, minor irregularities or keyboard misprints may be present. ??If you find an error, or have any concerns, please contact Dr. Debbie Sanchez at [email or web address] I have personally reviewed the images and the above interpretation, and agree with the findings. us Elizabeth Tapia DO IMG MAMMOGRAPHY ORDERABLES Final Result documented in this encounter Visit Diagnoses Diagnosis History of left breast cancer- Primary History of left breast cancer documented in this encounter Care Teams Door Frame Builder Relationship Specialty Start Date End Date Sondra Britton MD PCP - General 05/16/14 02/29/20 documented as of this encounter
--- OUTSIDE RECORDS SUMMARY | 2024-11-09 10:12 | XMS_ITS | Encounter Summary ---
Author Organization [facility] Address [address] [place] [address] Care Team Providers Care Assembler Cards And Announcements Name Role Phone Iva Jennings APRN Primary Care Provider [phone] Reason for Visit * Reason Comments Follow-up Encounter Details Date Type Department Care Team (Late st Contact Info) Description 06/11/2020 17:45 EDT Office Visit [facility] Orthopedics & Sport Medicine [address] [place] [address] Mara Cooley MD [address] [facility] [address] [place] [address] Arthritis of right knee (Primary [...] encounter Progress Notes * Amrit Ibanez - 06/11/2020 1745 EDT Right orthovisc 1 * Mara Cooley MD - 06/11/2020 1745 EDTAssociated Order(s): Large Joint Injection/Arthrocentesis: R knee Post-Procedure Diagnose(s): Arthritis of right knee Orthopaedic Surgery Office Note Susie Mayfield 1950 [id number] Chief Complaint: Chief Complaint Patient presents with [...] breast in female, estrogen receptor positive ([facility]) 04/07/2019 ??? Arthritis of right knee 05/28/2020 Resolved Ambulatory Problems Diagnosis Date Noted ??? No Resolved Ambulatory Problems Past Medical History: Diagnosis Date ??? Breast cancer, left ([facility]) 2018 ??? Hypertension Past Surgical History: [...] them back for injection next week. Mara Cooley MD Orthopaedics and Sports Medicine [facility] [address] [place], [place] Large Joint Injection/Arthrocentesis: R knee on 06/13/2020 16:21 Indications: joint swelling and pain Details: 22 G needle, superolateral approach Medications: 5 mL lidocaine (PF) 10 mg/mL (1 %); 30 mg Sodium Hyaluronate 30 mg/2 mL Outcome: tolerated well, no immediate complications Procedure, treatment alternatives, risks and benefits explained, specific risks discussed. Consent was given by the patient. Immediately prior to procedure a time out was called to verify the correctpatient, procedure, equipment, technical support specialist and site/side marked as required. Patient was prepped and draped in the usual sterile fashion. documented in this encounter Plan of Treatment Upcoming Encounters Date Type Department Care Team (Late st Contact Info) Description 11/09/2024 15:45 EST Procedure visit [facility] Orthopedics & Sport Medicine [address] [place], [place] [phone] Leann Holland P, AIRPORT REPRESENTATIVE [address] [facility] [address] [place] [address] 11/16/2024 15:45 EST Procedure visit [facility] Orthopedics & Sport Medicine [address] [place] [address] Leann Holland, AIRPORT REPRESENTATIVE [address] [facility] [address] [place], [place] [phone] 07/17/2025 15:30 EDT Office Visit [facility] Adult Hematology & Oncology [facility] [place] [address] Jimmy Gallego MD [address] [facility] [address] [place] [phone] documented as of this encounter Procedures Procedure Name Priority Date/Time Associated Diagnosis Comments LARGE JOINT INJECTION/ARTHROCEN TESIS Routine 06/11/2020 17:45 EDT Arthritis of right knee documented in this encounter Results * [place] ARTHROCENTESIS ASPIR&/INJ MAJOR JT/BURSA W/O US (06/11/2020 17:45 EDT) Narrative [facility] POINT OF CARE - 06/11/2020 17:45 EDT Mara Cooley MD ? 06/13/2020 16:22 Large Joint Injection/Arthrocentesis: R knee on 06/13/2020 16:21 Indications: joint swelling and pain Details: 22 G needle, superolateral approach Medications: 5 mL lidocaine (PF) 10 mg/mL (1 %); 30 mg Sodium Hyaluronate 30 mg/2 mL Outcome: tolerated well, no immediate complications Procedure, treatment alternatives, risks and benefits explained, specific risks discussed. Consent was given by the patient. Immediately prior to procedure a time out was called to verify the correct patient, procedure, equipment, technical support specialist and site/side marked as required. Patient was prepped and draped in the usual sterile fashion. us Mara Cooley MD PROCEDURE/MINOR SURGICA L ORDERABLES Final Result [facility] POINT OF CARE documented in this [...] PRN Procedure, 1 dose, Starting on Yovana 06/13/20 at 1621, Until Yovana 06/13/20 at 1621, RoutineIndications:Arthritis of right knee Given 06/13/2020 16:21 EDT 5 mL Sodium Hyaluronate (ORTHOVISC) syringe 30 mg 30 mg, other, Once PRN Procedure, 1 dose, Starting on Yovana 06/13/20 at 1621, Until Yovana 06/13/20 at 1621, RoutineIndications:Arthritis of right knee Given 06/13/2020 16:21 EDT 30 mg documented in this encounter Care Teams Assembler Cards And Announcements Relationship Specialty Start Date End Date Iva Jennings APRN [address] [place] [address] PCP - General 03/01/20 documented as of this encounter
--- OUTSIDE RECORDS SUMMARY | 2024-11-09 10:12 | XMS_ITS | Encounter Summary ---
Author Organization [facility] Address [address] [place] [address] Care Team Providers Care Licensing Analyst Name Role Phone Sondra Britton MD Primary Care Provider Unavailabl e Encounter Details Date Type Department Care Team (Late st Contact Info) Description 04/07/2019 Documentation Visit [facility] Surgical Oncology - [facility] [place] [address] [place], [place] [phone] Ruth Rodriguez, RN Social History Tobacco Use Types Packs/Day [...] in this encounter Progress Notes * Ruth Rodriguez, RN - 04/07/2019 1133 EDT Susie was seen by Dr. Elizabeth Tapia today to discuss options for treating her new breast cancer. Plan is to proceed to breast-conserving surgery following her planned trip on 04/09/19. Surgery is scheduled for 05/03/19. She would like to do her adjuvant therapies at [facility], which is closer to her home. I met with he rfollowing the appointment. Explained my role. Answered any questions. Reviewed written post-op instructions. Offered the Survivor book, the [facility] Brochure, and a post-op pillow.. No barriers appreciated. She voiced understanding and has contact information. documented in this encounter Plan of Treatment Upcoming Encounters Date Type Department Care Team (Late st Contact Info) Description 11/09/2024 15:45 EST Procedure visit [facility] Orthopedics & Sport Medicine [address] [place] [address] Leann Holland INFECTIOUS WASTE TECHNICIAN [address] [place] [address] [place] [address] 11/16/2024 15:45 EST Procedure visit [facility] Orthopedics & Sport Medicine [address] [place] [address] Leann Holland INFECTIOUS WASTE TECHNICIAN [address] [place] [address] [place] [phone] 07/17/2025 15:30 EDT Office Visit [facility] Adult Hematology & Oncology [facility] [place] [address] Jimmy Gallego MD [address] [facility] [address] [place] [phone] documented as of this encounter Visit Diagnoses Not on filedocumented in this encounter Care Teams Licensing Analyst Relationship Specialty Start Date End Date Sondra Britton MD PCP - General 05/16/14 02/29/20 documented as of this encounter
--- OUTSIDE RECORDS SUMMARY | 2024-11-09 10:13 | XMS_ITS | Encounter Summary ---
Author Organization [facility] Address [address] [place] [address] Care Team Providers Care Collating Machine Operator Name Role Phone Sondra Britton MD Primary Care Provider Unavailabl e Encounter Details Date Type Department Care Team (Late st Contact Info) Description 03/16/2019 Results Only Imaging [facility] [phone] Susie Osborn MD [address] [place] [phone] Social History Tobacco Use Types Packs/Day [...] Medicine [address] [place] [address] Leann Holland, FLAP PRESSER [address] [place] [address] [place] [address] 11/16/2024 15:45 EST Procedure visit [facility] Orthopedics & Sport Medicine [address] [place] [address] Leann Holland, FLAP PRESSER [address] [facility] [address] [place] [address] 07/17/2025 15:30 EDT Office Visit [facility] Adult Hematology & Oncology [address] [place] [address] Jimmy Gallego MD 130 [facility], [facility] [address] [place] [phone] documented as of this encounter Procedures Procedure Name Priority Date/Time Associated Diagnosis Comments MA BREAST OUTSIDE CONSULTATION 03/16/2019 8:30 EDT documented in this encounter Results * MA BREAST OUTSIDE CONSULTATION (03/16/2019 8:30 EDT) Anatomical Region Laterality Modality Other 03/16/2019 8:30 EDT 03/17/2019 10:33 EDT Narrative 03/17/2019 10:33 EDT MA BREAST OUTSIDE CONSULTATION ??03/16/2019 8:30 AM Clinical History/Comments: left breast new mass central region. [facility] is recommending a biopsy, do we agree? Imaging reviewed: Digital screening 2-D/3-D mammography 03/01/2019, digital diagnostic left breast mammography 03/08/2019 and diagnostic left breast ultrasound 03/08/2019. These examinations were compared with all prior mammograms dating back to 07/24/2010. Findings right breast: Imaging reviewed as described above. The breast tissue is nearly entirely fat. There are no suspicious calcifications, masses or other abnormalities. Findings left breast: Imaging reviewed as described above. The breast tissue is nearly entirely fat. In the upper central breast, there is a new, 5 mm irregular mass in the middle depth of the breast. This persists on the diagnostic mammography performed in the spot magnification compression CC and MLO views as well as the 2-D/3-D spot CC and MLO projections. Ultrasound reveals a vague ?? area that was measured at the outside institution and is nearly isoechoic. The outside ultrasound locates this at the the 12 o'clock position, 2 cm out from the nipple. It is unclear if this corresponds with the mammographic abnormality given the surrounding breast architecture. If it does correspond it is very difficult to visualize sonographically. The ultrasound was targeted to the 12 o'clock position. Impression right breast: BI-RADS category 1. Negative. Recommendation right breast: Annual screening mammography is recommended and will be due in February 2020. Impression left breast: BI-RADS Category 4. Suspicious. Recommendation left breast: 3-D stereotactic guided biopsy is recommended as this abnormality is best seen mammographically. This should be performed with the breast in the CC position. If the patient is amenable, she could come to our institution for this biopsy. Overall assessment: Suspicious. A member of the radiology department will contact this patient with the above findings and recommendations. This document has been prepared using voice recognition software and/or keyboard senior oracle database administrator. ??All reasonable efforts have been made to ensure accuracy. ??However, minor irregularities or keyboard misprints may be present. ??If you find an error, or have any concerns, please contact Dr. Debbie Sanchez at [email or web address] Procedure Note Debbie Sanchez MD, - 03/17/2019 MA BREAST OUTSIDE CONSULTATION 03/16/2019 8:30 AM Clinical History/Comments: left breast new mass central region. [facility] is recommending a biopsy, do we agree? Imaging reviewed: Digital screening 2-D/3-D mammography 03/01/2019, digital diagnostic left breast mammography 03/08/2019 and diagnostic left breast ultrasound 03/08/2019. These examinations were compared with all prior mammograms dating back to 07/24/2010. Findings right breast: Imaging reviewed as described above. The breast tissue is nearly entirely fat. There are no suspicious calcifications, masses or other abnormalities. Findings left breast: Imaging reviewed as described above. The breast tissue is nearly entirely fat. In the upper central breast, there is a new, 5 mm irregular mass in the middle depth of the breast. This persists on the diagnostic mammography performed in the spot magnification compression CC and MLO views as well as the 2-D/3-D spot CC and MLO projections. Ultrasound reveals a vague area that was measured at the outside institution and is nearly isoechoic. The outside ultrasound locates this at the the 12 o'clock position, 2 cm out from the nipple. It is unclear if this corresponds with the mammographic abnormality given the surrounding breast architecture. If it does correspond it is very difficult to visualize sonographically. The ultrasound was targeted to the 12 o'clock position. Impression right breast: BI-RADS category 1. Negative. Recommendation right breast: Annual screening mammography is recommended and will be due in February 2020. Impression left breast: BI-RADS Category 4. Suspicious. Recommendation left breast: 3-D stereotactic guided biopsy is recommended as this abnormality is best seen mammographically. This should be performed with the breast in the CC position. If the patient is amenable, she could come to our institution for this biopsy. Overall assessment: Suspicious. A member of the radiology department will contact this patient with the above findings and recommendations. This document has been prepared using voice recognition software and/or keyboard senior oracle database administrator. All reasonable efforts have been made to ensure accuracy. However, minor irregularities or keyboard misprints may be present. If you find an error, or have any concerns, please contact Dr. Debbie Sanchez at [email or web address] Susie Osborn MD IMG MAMMOGRAPHY ORDERABLES Fin al Result documented in this encounter Visit Diagnoses Not on filedocumented in this encounter Care Teams Collating Machine Operator Relationship Specialty Start Date End Date Sondra Britton MD PCP - General 05/16/14 02/29/20 documented as of this encounter
--- OUTSIDE RECORDS SUMMARY | 2024-11-09 10:13 | XMS_ITS | Encounter Summary ---
Author Organization [facility] Address [address] [place] [address] Care Team Providers Care Classified Ad Taker Name Role Phone Sondra Britton MD Primary Care Provider Unavailabl e Encounter Details Date Type Department Care Team (Latest Contact Info) Description 12/29/2018 17:37 EDT - 12/29/2018 23:59 EDT Hospital Encounter [facility] [address] [place] [address] Unknown, Provider, MD Discharge Disposition: Home or Self Care Social History Tobacco Use Types Packs/Day Years Used Date Smoking Tobacco: Never Assessed Comments Unknown Sex and Gender Information Value Date Recorded Sex Assigned at Female 10/19/2024 15:35 EST Legal Sex Female 18:27 EST Gender Identity Female 06/03/2020 9:48 EDT Sexual Orientation Not on file documented as of this encounter Discharge Disposition Disposition Code Departure Means Destination Home or Self [facility] documented in this encounter Plan of Treatment Upcoming Encounters Date Type Department Care Team (Late st Contact Info) Description 11/09/2024 15:45 EST Procedure visit [facility] Orthopedics & Sport Medicine [address] [place] [address] Lenan Holland, COMPUTER ENGINEER [address] [address] 11/16/2024 15:45 EST Procedure visit [facility] Orthopedics & Sport Medicine [address] [place] [address] Leann Holland, COMPUTER ENGINEER [address] [facility] [address] [place] [address] 07/17/2025 15:30 EDT Office Visit [facility] Adult Hematology & Oncology [address] [place] [address] Jimmy Gallego MD 130 [facility], [facility] [address] [place] [address] documented as of this encounter Visit Diagnoses Not on filedocumented in this encounter Care Teams Classified Ad Taker Relationship Specialty Start Date End Date Sondra Britton MD PCP - General 05/16/14 02/29/20 documented as of this encounter
--- OUTSIDE RECORDS SUMMARY | 2024-11-09 10:13 | XMS_ITS | Encounter Summary ---
Author Organization [facility] Address [address] [place] [address] Care Team Providers Care Coal Pulverizing Operator Name Role Phone Sondra Britton MD Primary Care Provider Unavailabl e Encounter Details Date Type Department Care Team (Late st Contact Info) Description 03/10/2019 Results Only Imaging [facility] [phone] Unknown, Provider, Social History Tobacco Use Types Packs/Day Years [...] Info) Description 11/09/2024 15:45 EST Procedure visit [facility] Orthopedics & Sport Medicine [address] [place] [address] Leann Holland P, LABORATORY MECHANIC HELPER [address] [place] [address] 11/16/2024 15:45 EST Procedure visit [facility] Orthopedics & Sport Medicine [address] [place] [address] Leann Holland, LABORATORY MECHANIC HELPER [address] [place] [address] 07/17/2025 15:30 EDT Office Visit [facility] Adult Hematology & Oncology [address] [place] [address] Jimmy Gallego MD [address] [place] [address], [facility] [address] [place] [phone] Pending Results Name Type Priority Associated Diagnoses Date /Time OUTSIDE IMAGES - US BREAST Imaging 03/08/2019 9:01 EDT OUTSIDE IMAGES - MAMMO BREAST Imaging 03/08/2019 9:01 EDT OUTSIDE IMAGES - MAMMO BREAST Imaging 03/01/2019 9:01 EDT OUTSIDE IMAGES - MAMMO BREAST Imaging 12/13/2017 9:48 EST OUTSIDE IMAGES - MAMMO BREAST Imaging 05/25/2016 9:50 EDT OUTSIDE IMAGES - MAMMO BREAST Imaging 05/25/2014 10:06 EDT OUTSIDE IMAGES - MAMMO BREAST Imaging 07/24/2010 10:06 EDT documented as of this encounter Visit Diagnoses Not on filedocumented in this encounter Care Teams Coal Pulverizing Operator Relationship Specialty Start Date End Date Sondra Britton MD PCP - General 05/16/14 02/29/20 documented as of this encounter
--- OUTSIDE RECORDS SUMMARY | 2024-11-09 10:13 | XMS_ITS | Encounter Summary ---
Author Organization [facility] Address [address] [place] [address] Care Team Providers Care Link Trainer Maintenance Worker Name Role Phone Unavailable Primary Care Provider Unavailabl e Encounter Details Date Type Department Care Team (Late st Contact Info) Description 06/07/2007 Results Only [facility] - Maple conversion [address] [place] [address] Kendal Simon MD [address] [facility] [address] [address] [place] [address] [place] [phone] Social History Tobacco Use Types Packs/Day Years [...] Info) Description 11/09/2024 15:45 EST Procedure visit [facility] Orthopedics & Sport Medicine [address] [place] [address] Leann Holland NP [address] [facility] [address] [place] [address] 11/16/2024 15:45 EST Procedure visit [facility] Orthopedics & Sport Medicine [address] [place] [address] Leann Holland, SYSTEMS TESTER [address] [facility] [address] [place], [place] [address] 07/17/2025 15:30 EDT Office Visit [facility] Adult Hematology & Oncology [address] [place] [address] Jimmy Gallego MD 130 [facility], [facility] [place] [address] [place] [address] documented as of this encounter Procedures Procedure Name Priority Date/Time Associated Diagnosis Comments CYTOPATHOLOGY Routine 06/07/2007 0:00 EDT documented in this encounter Results * CYTOPATHOLOGY (06/07/2007 0:00 EDT) Pathology Report: CYTOPATHOLOGY REPORT Reports generated via electronic interface contain original data; however they are lacking the format of the original report. Caution should be taken when reading/interpreti ng unformatted reports. Name: ? SUSIE MAYFIELD ? Accession #: ? [id number] : ? 1950 (Age: 57) ??F ?Collect Date: ? 06/07/2007 Location: ? [facility] ? Receive Date: ? 06/08/2007 Provider: ?KENDAL SIMON MD Copy to: ? Specimen/Source: ?ThinPrep Pap Test, Cervix/Endocervix, processed on [employer] ThinPrep Imaging System, with manual evaluation Last Menstrual Period: ? Other: ? Additional clinical information: lechens sclerosa ? SPECIMEN ADEQUACY ? Satisfactory for Evaluation - assessment of transformation zone component not applicable ( e.g. atrophy, vaginal sample, hysterectomy) GENERAL CATEGORIZATION ? Negative for Intraepithelial Lesion or Malignancy ? Document reviewed and electronically signed by: ? MAGDIEL Ferreira(ASCP) ? Report Date: ??06/14/2007 09:22 End of Report [facility] 06/07/2007 06/08/2007 us Kendal Simon MD PATHOLOGY ORDERABLES Final Resu lt [facility] [address] [place] [address] documented in this encounter Visit Diagnoses Not on filedocumented in this encounter
--- OUTSIDE RECORDS SUMMARY | 2024-11-09 10:13 | XMS_ITS | Encounter Summary ---
Author Organization [facility] Address [address] [place] [address] Care Team Providers Care Welder Gun Name Role Phone Sondra Britton MD Primary Care Provider Unavailabl e Encounter Details Date Type Department Care Team (Late st Contact Info) Description 12/29/2018 Historical Results Only [facility] Radiology Results [address] [place] [address] Dian Roldan PA-C [address] [place] [phone] Social History Tobacco Use Types Packs/Day Years [...] 11/09/2024 15:45 EST Procedure visit [facility] Orthopedics & Sport Medicine [address] [place] [address] Leann Holland NP [address] [facility] [address] [place] [address] 11/16/2024 15:45 EST Procedure visit [facility] Orthopedics & Sport Medicine [address] [place], [place] [id number] Leann Holland, SILK SCREENER [address] [facility] [address] [place] [address] 07/17/2025 15:30 EDT Office Visit [facility] Adult Hematology & Oncology [address] [place] [address] Jimmy Gallego MD [address] [facility] [address] [place] [address] documented as of this encounter Procedures Procedure Name Priority Date/Time Associated Diagnosis Comments XR KNEE 4 OR MORE VIEWS 12/29/2018 15:51 EDT documented in this encounter Results * XR KNEE 4 OR MORE VIEWS (12/29/2018 15:51 EDT) Anatomical Region Laterality Modality Lower Extremities Other 12/29/2018 15:5 1 EDT Narrative 12/29/2018 15:54 EDT ? EXAM: RADIOLOGY/KNEE COMPLETE RT 4+VIEW ?? EX. D/ (1522) ? CLINICAL INFORMATION: ? M25.561 KNEE PAIN,RIGHT ? INDICATION: M25.561 KNEE PAIN,RIGHT KNEE PAIN ? TECHNIQUE: 4 views right knee. ? COMPARISON: None. ? FINDINGS: There is moderate/severe joint space narrowing of the ? medial femorotibial compartment joint space and mild/moderate ? narrowing of the patellofemoral compartment joint space. The lateral ? compartment joint space is preserved. Small medial compartment ? osteophytes are present. No acute fracture is detected. There is no ? sizable joint effusion. ? IMPRESSION: ? 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 ? REPORT SIGNED IN OTHER VENDOR SYSTEM 12/29/2018 ?Reported By: Montez Mejia MD ? CC: Dian Roldan PA-C ? Transcribed Date/Time: 12/29/2018 (1344) ? Insulation Board Head Saw Operator: ? Printed Date/Time: 04/09/2019 (2126) ? PAGE 1 ? Signed Report ? Procedure Note Roberto Montez E - 08/24/2019 EXAM: RADIOLOGY/KNEE COMPLETE RT 4+VIEW EX. D/ (1522) CLINICAL INFORMATION: M25.561 KNEE PAIN,RIGHT INDICATION: M25.561 KNEE PAIN,RIGHT KNEE PAIN TECHNIQUE: 4 views right knee. COMPARISON: None. FINDINGS: There is moderate/severe joint space narrowing of the medial femorotibial compartment joint space and mild/moderate narrowing of the patellofemoral compartment joint space. Thelateral compartment joint space is preserved. Small medial compartment osteophytes are present. No acute fracture is detected. There is no sizable joint effusion. IMPRESSION: Osteoarthritis with preferential involvement of the medial compartment. REPORT SIGNED IN OTHER VENDOR SYSTEM 12/29/2018 Reported By: Montez Mejia MD CC: Dian Roldan PA-C Transcribed Date/Time: 12/29/2018 (7094) Insulation Board Head Saw Operator: Printed Date/Time: 04/09/2019 (2126) PAGE 1 Signed Report Dian Roldan PA-C IMG DIAGNOSTIC IMAGING ORDERABLES Final Result documented in this encounter Visit Diagnoses Not on filedocumented in this encounter Care Teams Welder Gun Relationship Specialty Start Date End Date Sondra Britton MD PCP - General 05/16/14 02/29/20 documented as of this encounter
--- OUTSIDE RECORDS SUMMARY | 2024-11-09 10:13 | XMS_ITS | Encounter Summary ---
Author Organization [facility] Address [address] [place] [address] Care Team Providers Care Financial Institution Vice President Name Role Phone Unavailable Primary Care Provider Unavailabl e Encounter Details Date Type Department Care Team (Late st Contact Info) Description 05/10/2014 Results Only [facility] [phone] Mina Patel, JUNIOR ENGINEER [address] [facility] [address] [place] [phone] Social History Tobacco Use Types Packs/Day Years [...] [address], [address] [place] [address] Leann Holland, RESEARCH LABORATORY SPECIALIST [address] [place] [address] 11/16/2024 15:45 EST Procedure visit [facility] Orthopedics & Sport Medicine [address] [place] [address] Leann Holland, RESEARCH LABORATORY SPECIALIST [address] [facility] [address] [place] [address] 07/17/2025 15:30 EDT Office Visit [facility] Adult Hematology & Oncology [address] [place] [address] Jimmy Gallego MD 130 [facility], [facility] [address] [place] [address] documented as of this encounter Procedures Procedure Name Priority Date/Time Associated Diagnosis Comments SURGICAL PATHOLOGY Routine 05/10/2014 19 :43 EDT documented in this encounter Results * SURGICAL PATHOLOGY (05/10/2014 19:43 EDT) Pathology Report: SURGICAL PATHOLOGY REPORT Reports generated via electronic interface contain original data; however they are lacking the format of the original report. Caution should be taken when reading/interpreting unformatted reports. Name: ? SUSIE MAYFIELD ? Accession #: ? [id number] ? : ? 1950 (Age: 64) ??F ? Collect Date: ? 05/10/2014 ? Location: ? [facility] ? Receive Date: ? 05/11/2014 ? Provider: MINA PATEL JUNIOR ENGINEER Copy to: ? Final Pathologic Diagnosis: A. ??SKIN OF ARM, LEFT UPPER, EXCISIONAL BIOPSY: - Atypical lymphoid infiltrate of skin. ??See comment. - Atypical lymphoid infiltrate present at deep margin. B. ??SKIN OF ARM, RIGHT, PUNCH BIOPSY: - Dermatofibroma. - Dermatofibroma present at peripheral edges of punch biopsy specimen. Comment: The excisional biopsy from left upper arm (A) consists of a dense nodular dermal infiltrate that is composed primarily of lymphocytes. ??The proliferation is predominated by small lymphocytes but also includes a significant proportion of large cells, some of which have atypical features. ??Although the morphologic features are concerning for possible lymphoma, an immunohistochemical panel shows mixture of T-cell and B-cell lymphocytes without abnormal marking with BCL-2, CD5, or CD10. ??The differential diagnosis would include a reactive lymphoid infiltrate (lymphocytoma cutis). ??However, an evolving lymphomatous process cannot be excluded. ??Correlation with the clinical history is essential. If there are additional lesions or this lesion recurs, submission of fresh tissue for flow cytometric analysis is recommended. ??Gene rearrangement studies could also be considered with recurrence. ??Dr. Martinez Kennedy, hematopathologist, has reviewed the excisional biopsy from the left upper arm and concurs with the interpretation. ??(Dr. Orozco)/[facility] Microscopic Description: (A) Sections consist of an excisional biopsy of skin to the deep reticular dermis. ??The epidermis shows slight acanthosis and reactive changes. ??The dermis is marked by a dense nodular infiltrate that extends to the deep margin. ??There is a thin grenz zone between the infiltrate and the overlying epidermis. ??The infiltrate is composed primarily of lymphocytes. ??The lymphocytes include several populations of cells. ??It is predominated by small lymphocytes with round-oval to slightly irregular nuclear contours and dense chromatin. ??There is a population of larger lymphocytes with vesicular chromatin and red nucleoli. Some of these cells have coarse chromatin and mitotic figures are evident. Histiocytes are also seen within the infiltrate and forming small clusters. Reactive vessels are seen and there is slight thickening of the dermal collagen. The infiltrate extends around adnexal structures but does not destroy the adnexae. ??Immunohistochemical staining was performed on this case to further characterize the lesion. ??Positive and negative controls stained appropriately. ANTIBODY(CLONE)(BLOCK) :RESULT CD3 (T-cell) (Rabbit Monoclonal (SP7), [employer])(A2): ??Immunoreactivity of a large proportion of lymphocytes. CD20 (B-cell) (L26, [place])(A2): ??Immunoreactivity of a large proportion of lymphocytes. CD163 (10D6, [employer])(A2): ??Immunoreactivity of histiocytes throughout infiltrate and forming small, loose clusters. BCL-2 Oncoprotein (124, [place])(A2): ??Immunoreactivity of B-cell population. CD5 (Rabbit Monoclonal, clone SP19, [employer])(A2): ??Immunoreactivity of CD3 positive population. CD10 (56C6, [employer])(A2): ??Immunoreactivity of small number of lymphocytes (CD3 positive population). (B) There is irregular epidermal hyperplasia with basal hyperpigmentation. Within the dermis, there is a spindle cell proliferation accompanied by histiocytes. ??The spindle cells have plump nuclei that vary to a mild degree in size and shape. ??The proliferation is associated with thick bundles of collagen (collagen trapping) and areas of sclerosis. ??(Dr. Orozco)/kmm ?? NOTE: ??One or more of the reagents used in immunohistochemical testing in this case may not have been cleared or approved by the U.S. Food and Drug Administration (FDA). ??The FDA has determined that such clearance or approval is not necessary. ??These tests are used for clinical purposes. ??They should not be regarded as investigational or for research. ??These reagents' performance characteristics have been determined by [facility]. ??This laboratory is certified under the Clinical Laboratory Improvement Amendments of 1988 (CLIA-88) as qualified to perform high complexity clinical laboratory testing. ?? Document reviewed and electronically signed by: LC OROZCO MD Report ??Date: 05/15/2014 16:47 By the signature above, the attending physician certifies that he/she has personally conducted a gross and/or microscopic examination of the described specimens and rendered or confirmed the above diagnosis. Specimen(s) Received: A. ??L upper arm elliptical B. ??R arm 5.0 mm punch Clinical History: A. lesion [id number], elliptical procedure to remove; B. lesion x2-3 yrs, changing color and size, 5.0 mm punch biopsy Gross Description: A. ?Received in formalin labelled with proper patient identification (initials H, L) and L arm is an unoriented elliptical excision of pena skin (2.2 x 1.3 cm and is excised to a depth of 0.3 cm). There is a pena firm irregular papule comprising two-thirds of the specimen that measures 1.2 x 1.0 x 0.3 cm. The margins are inked blue. The specimen is serially sectioned and entirely submitted as A1 and A2 central sections and A3 tips, reverse en face. B. ?Received in formalin labelled with proper patient identification (initials H, L) and R arm is a punch biopsy of pena skin (0.4 cm in diameter and 0.3 cm in thickness). ??There is a central irregular pena macule. ??The specimen is bisected and submitted in B1. Dr. Casarez 05/12/2014 10:05 AM End of Report [facility] 05/10/2014 19:4 3 EDT 05/11/2014 19:43 EDT us Mina Patel JUNIOR ENGINEER PATHOLOGY ORDERABLES Dianne chandra Result [facility] [address] [place] [address] documented in this encounter Visit Diagnoses Not on filedocumented in this encounter
--- OUTSIDE RECORDS SUMMARY | 2024-11-09 10:13 | XMS_ITS | Encounter Summary ---
Author Organization [facility] Address [address] [place] [address] Care Team Providers Care Sign Builder Name Role Phone Unavailable Primary Care Provider Unavailabl e Encounter Details Date Type Department Care Team (Late st Contact Info) Description 08/30/2006 Results Only [facility] - Maple conversion [address] [place] [address] Anna Glover MD [address] [place] [address] Social History Tobacco Use Types Packs/Day Years [...] Description 11/09/2024 15:[address] [facility] Orthopedics & Sport Medicine [address] [place] [address] Leann Holland, AGRICULTURAL EQUIPMENT SALES ENGINEER 13[address] [facility] [place] [facility] [address] [place] [address] 11/16/2024 15:[address] [facility] Orthopedics & Sport Medicine [address] [place] [address] Leann Holland, FRANK 13[address] [facility] [place] [facility] [address] [place] [address] 07/17/2025 15:[address] [facility] Adult Hematology & Oncology [facility] [address] Jimmy Gallego MD 130 [facility], [facility] [address] [place] [address] documented as of this encounter Procedures Procedure Name Priority Date/Time Associated Diagnosis Comments SURGICAL PATHOLOGY Routine 08/30/2006 0:00 EST documented in this encounter Results * SURGICAL PATHOLOGY (08/30/2006 0:00 EST) Pathology Report: SURGICAL PATHOLOGY REPORT Reports generated via electronic interface contain original data; however they are lacking the format of the original report. Caution should be taken when reading/interpreti ng unformatted reports. Name: ? SUSIE MAYFIELD Nancy ? Accession #: ? [id number] ? : ? 1950 (Age: 56) ??F ? Collect Date: ? 08/30/2006 ? Location: ? [facility] ? Receive Date: ? 08/31/2006 ? Provider: ANNA GLOVER MD Copy to: CAMILO STANLEY MD ? Final Pathologic Diagnosis: ? Colon, descending, polyp, biopsy: 1. ?Tubular adenoma. 2. ? No high grade dysplasia is identified. Document reviewed and electronically signed by: JOSHUA GUNN MD Report ??Date: 09/01/2006 14:57 By the signature above, the attending physician certifies that he/she has personally conducted a gross and/or microscopic examination of the described specimens and rendered or confirmed the above diagnosis. Specimen(s) Received: ? Bx polyp descending colon Clinical History: ? Screening colonoscopy; neg family hx Gross Description: ? Received in Hollande's fixative labelled Chaparro and polyp descending colon is a pena-pink, 0.4 x 0.3 x 0.2 cm, soft tissue fragment. ??The specimen is entirely submitted in one cassette. (Sydnee Andino/srinivas End of Report [facility] 08/30/2006 08/31/2006 10: 33 EST us Anna Glover MD PATHOLOGY ORDERABLES Final Result [facility] [address] [place] [address] documented in this encounter Visit Diagnoses Not on filedocumented in this encounter
--- OUTSIDE RECORDS SUMMARY | 2024-11-09 10:13 | XMS_ITS | Encounter Summary ---
Author Organization [facility] Address [address] [place] [address] Care Team Providers Care Senior Windows Administrator Name Role Phone Unavailable Primary Care Provider Unavailabl e Encounter Details Date Type Department Care Team (Late st Contact Info) Description 07/12/2001 Results Only [facility] - Maple conversion [address] [place] [address] Andrea Bill FNP [address] [place], [place] [phone] Social History Tobacco Use Types Packs/Day Years [...] Medicine [address] [place] [address] Leann Holland NP 13[address] [facility] [address] [place] [address] 11/16/2024 15:45 EST Procedure visit [facility] Orthopedics & Sport Medicine [address] [place] [address] Leann Holland, LAUNDRY ROOM ATTENDANT 13[address] [facility] [address] [place] [address] 07/17/2025 15:30 EDT Office Visit [facility] Adult Hematology & Oncology [address] [place] [address], [place] [address] Jimmy Gallego MD 130 [facility], [facility] [address] [place] [address] documented as of this encounter Procedures Procedure Name Priority Date/Time Associated Diagnosis Comments CYTOPATHOLOGY Routine 07/12/2001 0:00 EDT documented in this encounter Results * CYTOPATHOLOGY (07/12/2001 0:00 EDT) Pathology Report: CYTOPATHOLOGY REPORT Reports generated via electronic interface contain original data; however they are lacking the format of the original report. Caution should be taken when reading/interpreti ng unformatted reports. Name: ? SUSIE MAYFIELD ? Accession #: ? [id number] : ? 1950 (Age: 51) ??F ?Collect Date: ? 07/12/2001 Location: ? [facility] ? Receive Date: ? 07/14/2001 Provider: ?ANDREA BILL [facility] Copy to: ? Specimen/Source: ?ThinPrep Pap Test, Endocervix Last Menstrual Period: ? 03/18 ? SPECIMEN ADEQUACY ? Satisfactory for evaluation. GENERAL CATEGORIZATION ? Within Normal Limits ? Document reviewed and electronically signed by: ? Dexter Guallpa, MAGDIEL(ASCP) ? Report Date: ??07/15/2001 08:17 End of Report [facility] 07/12/2001 07/14/2001 Andrea Bill PATTERN REPAIR PERSON PATHOLOGY ORDERABLES Final Resul t [facility] [address] [place] [address] documented in this encounter Visit Diagnoses Not on filedocumented in this encounter
--- OUTSIDE RECORDS SUMMARY | 2024-11-09 10:13 | XMS_ITS | Encounter Summary ---
Author Organization [facility] Address [address] [place] [address] Care Team Providers Care Territory Business Manager Name Role Phone Unavailable Primary Care Provider Unavailabl e Encounter Details Date Type Department Care Team (Late st Contact Info) Description 09/12/2002 Results Only [facility] - Maple conversion [address] [place] [address] Andrea Bill FNP [address] [place], [place] [phone] Social History Tobacco Use Types Packs/Day Years [...] Medicine [address] [place] [address] Leann Holland NP [address]11 [facility] [address] [place] [address] 11/16/2024 15:45 EST Procedure visit [facility] Orthopedics & Sport Medicine [address] [place] [address] Leann Holland, HAND BOX FOLDER [address] [facility] [address] [place] [address] 07/17/2025 15:30 EDT Office Visit [facility] Adult Hematology & Oncology [address] [place] [address], [place] [address] Jimmy Gallego MD 130 [facility], [facility] [address] [place] [address] documented as of this encounter Procedures Procedure Name Priority Date/Time Associated Diagnosis Comments CYTOPATHOLOGY Routine 09/12/2002 0:00 EST documented in this encounter Results * CYTOPATHOLOGY (09/12/2002 0:00 EST) Pathology Report: CYTOPATHOLOGY REPORT Reports generated via electronic interface contain original data; however they are lacking the format of the original report. Caution should be taken when reading/interpreti ng unformatted reports. Name: ? SUSIE MAYFIELD ? Accession #: ? [id number] : ? 1950 (Age: 52) ??F ?Collect Date: ? 09/12/2002 Location: ? [facility] ? Receive Date: ? 09/18/2002 Provider: ?ANDREA BILL [facility] Copy to: ? Specimen/Source: ?ThinPrep Pap Test, Cervix/Endocervix Last Menstrual Period: ? 03/18 Other: ? HPVA - HPV testing requested if ASC-US on the current ThinPrep Pap test. ? SPECIMEN ADEQUACY ? Satisfactory for Evaluation - transformation zone component present GENERAL CATEGORIZATION ? Negative for Intraepithelial Lesion or Malignancy ? Document reviewed and electronically signed by: ? Dexter Guallpa, MAGDIEL(ASCP) ? Report Date: ??09/20/2002 10:38 End of Report [facility] 09/12/2002 09/18/2002 us Andrea Bill POCKETED SPRING MACHINE OPERATOR PATHOLOGY ORDERABLES Final Resul t [facility] [address] [place] [address] documented in this encounter Visit Diagnoses Not on filedocumented in this encounter
--- OUTSIDE RECORDS SUMMARY | 2024-11-09 10:13 | XMS_ITS | Encounter Summary ---
Author Organization [facility] Address [address] [place] [address] Care Team Providers Care Hydrographic Surveyor Name Role Phone Unavailable Primary Care Provider Unavailabl e Encounter Details Date Type Department Care Team (Latest Contact Info) Description 05/10/2014 7:35 EDT - 05/10/2014 23:59 EDT Hospital Encounter [address] [address] Unknown, Provider, MD Discharge Disposition: Home or [...] Code Departure Means Destination Home or Self [facility] documented in this encounter Plan of Treatment Upcoming Encounters Date Type Department Care Team (Late st Contact Info) Description 11/09/2024 15:45 EST Procedure visit [facility] Orthopedics & Sport Medicine [address] [place] [address] Leann Holland, GASFITTER [address] [facility] [address] [place], [place] [id number] 11/16/2024 15:45 EST Procedure visit [facility] Orthopedics & Sport Medicine [address] [place] [address] Leann Holland, FRANK [address] [facility] [address] [place] [address] 07/17/2025 15:30 EDT Office Visit [facility] Adult Hematology & Oncology [address] [place] [address], [place] [address] Jimmy Gallego MD [address] [facility], [facility] [address] [place] [address] documented as of this encounter Procedures Procedure Name Priority Date/Time Associated Diagnosis Comments PAP TEST- RESULT ONLY Routine 05/16/2014 0:00 EDT documented in this encounter Results * PAP TEST- RESULT ONLY (05/16/2014 0:00 EDT) Pathology Report: CYTOPATHOLOGY REPORT Reports generated via electronic interface contain original data; however they are lacking the format of the original report. Caution should be taken when reading/interpreti ng unformatted reports. Name: ? SUSIE MAYFIELD Nancy ? Accession #: ? [id number] ? : ? 1950 (Age: 64) ??F ?Collect Date: ? 05/16/2014 ? Location: ? [facility] ? Receive Date: ? 05/17/2014 ? Provider: ALLAN MAO MD Copy to: CAMILO STANLEY MD ? Final Report SPECIMEN ADEQUACY ? Satisfactory for Evaluation - transformation zone component present GENERAL CATEGORIZATION ? Negative for Intraepithelial Lesion or Malignancy ?? Other: Additional clinical information: Neg pap history Specimen/Source: ??Pap Test, Cervix/Endocervix, ThinPrep Imaging System with manual evaluation Document reviewed and electronically signed by: ? Cesar Roach, CT(ASCP) ? Report ??Date: 05/22/2014 08:50 HPV with Pap Test ? Date Ordered: ? 05/22/2014 ? Status: ?? Signed Out ?Date Complete: ? 05/24/2014 ? By: ??System Interface ? Date Reported: ? 05/24/2014 ? Interpretation RESULT: Negative for HPV. No E6 or E7 mRNA is detected from HPV types 16,18,31,33,35, 39,45,51,52,56,58, 59,66, and 68 by concrete mixer mediated amplification. Comments Document reviewed and electronically signed by: ? System Interface ? Report date: 05/24/2014 By the signature above, the attending physician certifies that he/she has personally conducted a gross and/or microscopic examination of the described specimens and rendered or confirmed the above diagnosis. End of Report [facility] 05/16/2014 05/17/2014 us Allan Mao MD PATHOLOGY ORDERABLES Final Resu lt [facility] [address] [place] [address] documented in this encounter Visit Diagnoses Not on filedocumented in this encounter
--- OUTSIDE RECORDS SUMMARY | 2024-11-09 10:13 | XMS_ITS | Encounter Summary ---
Author Organization [facility] Address [address] [place] [address] Care Team Providers Care Equine Vet Name Role Phone Unavailable Primary Care Provider Unavailabl e Encounter Details Date Type Department Care Team (Late st Contact Info) Description 06/01/2006 Results Only [facility] [place] [facility] [address] [place] [address] Kendal Simon MD [address] [facility] [address] [place] [address] [place] [phone] Social History Tobacco Use Types Packs/Day [...] Info) Description 11/09/2024 15:45 EST Procedure visit [facility] Orthopedics & Sport Medicine [address] [place] [address] Leann Holland NP [address] [facility] [address] [place] [address] 11/16/2024 15:45 EST Procedure visit [facility] Orthopedics & Sport Medicine [address] [place] [address] Leann Holland, CARETAKER [address] [facility] [address] [place], [place] [address] 07/17/2025 15:30 EDT Office Visit [facility] Adult Hematology & Oncology [address] [place] [address] Jimmy Gallego MD 130 [facility], [facility] [address] [place] [address] documented as of this encounter Procedures Procedure Name Priority Date/Time Associated Diagnosis Comments CYTOPATHOLOGY Routine 06/01/2006 0:00 EDT documented in this encounter Results * CYTOPATHOLOGY (06/01/2006 0:00 EDT) Pathology Report: CYTOPATHOLOGY REPORT Reports generated via electronic interface contain original data; however they are lacking the format of the original report. Caution should be taken when reading/interpreti ng unformatted reports. Name: ? SUSIE MAYFIELD ? Accession #: ? [id number] : ? 1950 (Age: 56) ??F ?Collect Date: ? 06/01/2006 Location: ? [facility] ? Receive Date: ? 06/02/2006 Provider: ?KENDAL SIMON MD Copy to: ? Specimen/Source: ?ThinPrep Pap Test, Cervix/Endocervix, processed on [employer] ThinPrep Imaging System, with manual evaluation Last Menstrual Period: ? SPECIMEN ADEQUACY ? Satisfactory for Evaluation - assessment of transformation zone component not applicable ( e.g. atrophy, vaginal sample, hysterectomy) GENERAL CATEGORIZATION ? Negative for Intraepithelial Lesion or Malignancy ? Document reviewed and electronically signed by: ? Noy Patel, CT(ASCP)(IAC) ? Report Date: ??06/07/2006 13:52 End of Report [facility] 06/01/2006 06/02/2006 us Kendal Simon MD PATHOLOGY ORDERABLES Final Resu lt [facility] [address] [place] [address] documented in this encounter Visit Diagnoses Not on filedocumented in this encounter
--- OUTSIDE RECORDS SUMMARY | 2024-11-09 10:13 | XMS_ITS | Encounter Summary ---
Author Organization [facility] Address [address] [place] [address] Care Team Providers Care Rf Test Engineer Name Role Phone Unavailable Primary Care Provider Unavailabl e Encounter Details Date Type Department Care Team (Late st Contact Info) Description 07/10/2008 Before PRISM Converted Visit ([place]) [facility] - [place] [facility] [address] [place] [address] Link Hardin MD [address] [facility] [address] [place] [address] [place] [phone] Social History Tobacco Use Types Packs/Day [...] Medicine [address] [place] [address] Leann Holland NP 13[address] [facility] [address] [place] [address] 11/16/2024 15:[address] [facility] Orthopedics & Sport Medicine [address] [place] [address] Leann Holland, RUG TOUCH UP PAINTER [address] [facility] [address] [place] [address] 07/17/2025 15:[address] [facility] Adult Hematology & Oncology [address] [place] [address] Jimmy Gallego MD [address] [facility] [address] [place] [address] documented as of this encounter Procedures Procedure Name Priority Date/Time Associated Diagnosis Comments CYTOPATHOLOGY Routine 07/10/2008 0:00 EDT documented in this encounter Results * CYTOPATHOLOGY (07/10/2008 0:00 EDT) Pathology Report: CYTOPATHOLOGY REPORT ? Reports generated via electronic interface contain original data; ? however they are lacking the format of the original report. ? Caution should be taken when reading/interpreti ng unformatted reports. ? Name: ? SUSIE MAYFIELD ? Accession #: ? [id number] ? : ? 1950 (Age: 58) ??F ?Collect Date: ? 07/10/2008 ? Location: ? [facility] ? Receive Date: ? 07/11/2008 ? Provider: ?LINK ALFRED MD ? Copy to: ? Specimen/Source: ?ThinPrep Pap Test, Cervix/Endocervix, processed on [employer] ThinPrep Imaging System, with manual evaluation ? Last Menstrual Period: ? Previous Gynecologic Pathology: ? Yes: Lichen Sclerosis ? SPECIMEN ADEQUACY ? Satisfactory for Evaluation ? - assessment of transformation zone component not applicable ( e.g. atrophy, ? vaginal sample, hysterectomy) ? GENERAL CATEGORIZATION ? Negative for Intraepithelial Lesion or Malignancy ? Document reviewed and electronically signed by: ? Sasha Carey. Neva, SCT(ASCP) ? Report Date: ??07/13/2008 16:25 ? End of Report ? [facility] 07/10/2008 07/11/2008 us Link Hardin MD PATHOLOGY ORDERABLES Final Resu lt [facility] [address] [place] [address] documented in this encounter Visit Diagnoses Not on filedocumented in this encounter
--- OUTSIDE RECORDS SUMMARY | 2024-11-09 10:13 | XMS_ITS | Encounter Summary ---
Author Organization [facility] Address [address] [place] [address] Care Team Providers Care Olericulturist Name Role Phone Unavailable Primary Care Provider Unavailabl e Encounter Details Date Type Department Care Team (Late st Contact Info) Description 07/14/2010 Results Only [facility] [phone] Allan Mao MD [address] [place] [phone] Social History Tobacco Use Types Packs/Day Years [...] Sport Medicine [address] [place] [address] [place] [address] [place] [address] 11/16/2024 15:45 EST Procedure visit [facility] Orthopedics & Sport Medicine [address] [place] [address] Leann Holland, CULLET CRUSHER AND WASHER [address] [facility] [address] [place] [address] 07/17/2025 15:30 EDT Office Visit [facility] Adult Hematology & Oncology [address] [place] [address] Jimmy Gallego MD [address] [facility] [address] [place] [address] documented as of this encounter Procedures Procedure Name Priority Date/Time Associated Diagnosis Comments CYTOPATHOLOGY Routine 07/14/2010 0:00 EDT documented in this encounter Results * CYTOPATHOLOGY (07/14/2010 0:00 EDT) Pathology Report: CYTOPATHOLOGY REPORT ? Reports generated via electronic interface contain original data; ? however they are lacking the format of the original report. ? Caution should be taken when reading/interpreti ng unformatted reports. ? Name: ? SUSIE MAYFIELD ? Accession #: ? [id number] ? : ? 1950 (Age: 60) ??F ?Collect Date: ? 07/14/2010 ? Location: ? [facility] ? Receive Date: ? 07/16/2010 ? Provider: ?ALLAN S SOCORRO MD ? Copy to: ? Specimen/Source: ?Pap Test, Cervix/Endocervix, ThinPrep Imaging System ? with manual evaluation ? Last Menstrual Period: ? Other: ? Additional clinical information: Lichen sclerosis, last pap 9/23/08 negative ? HPVA - HPV testing requested if ASC-US on the current ThinPrep Pap test. ? SPECIMEN ADEQUACY ? Satisfactory for Evaluation ? - transformation zone component present ? GENERAL CATEGORIZATION ? Negative for Intraepithelial Lesion or Malignancy ? Document reviewed and electronically signed by: ? Melody Verville,CT(ASCP) ? Report Date: ??07/21/2010 11:53 ? End of Report ? [facility] 07/14/2010 07/16/2010 us Allan Mao MD PATHOLOGY ORDERABLES Final Resu lt [facility] [address] [place] [address] documented in this encounter Visit Diagnoses Not on filedocumented in this encounter
[2024-11-09 16:08] LABS: Hemoglobin A1C 5.5 % (<5.7)
[2024-11-09 17:03] LABS: ALT 21 U/L (14-59); AST 27 U/L (15-37); Albumin 3.5 g/dL (3.4-5.0); Alkaline Phosphatase 136 U/L (46-116); Anion Gap 11.6 mmol/L (3-11); BUN 14 mg/dL (7-18); Bilirubin, Total 0.69 mg/dL (0.2-1.0); CO2 24.4 mmol/L (21.0-32.0); CREATININE 0.8 mg/dL (0.55-1.02); Calcium 9.5 mg/dL (8.5-10.1); Calculated LDL 106 mg/dL (<100); Chloride 104 mmol/L (98-107); Cholesterol 198 mg/dL (<200); Estimated GFR 76.31 (mL/min/1.73m2); Glucose 87 mg/dL (74-106); HDL Cholesterol 64 mg/dL (40-60); Potassium 4.7 mmol/L (3.5-5.1); Sodium 140 mmol/L (136-145); Total Protein 7.4 g/dL (6.4-8.2); Triglyceride 142 mg/dL (<150); Vitamin D 25 Total 60.2 ng/mL (30-100)
[2024-11-09 17:35] LABS: GGT 26 U/L (5-55)
== END 2024-11-09 10:06 | disposition home or self-care (01) ==
LOC: NCHCN 10:05
PROVIDERS: PCP Nurse Practitioner Family; Visit Provider Nurse Practitioner Family
DX: E78.5 Hyperlipidemia, unspecified (principal); E66.9 Obesity, unspecified; M85.80 Other specified disorders of bone density and structure, unspecified site; R74.8 Abnormal levels of other serum enzymes; I10 Essential (primary) hypertension
CPT/HCPCS: 80053; 80061; 82306; 82977; 83036

== ENCOUNTER 2025-05-21 16:04 | Outpatient (REF) | payer BC, SELFPAY ==
[2025-05-21 16:21] LABS: ALT 21 U/L (14-59); AST 20 U/L (15-37); Albumin 3.4 g/dL (3.4-5.0); Alkaline Phosphatase 119 U/L (46-116); Bilirubin, Direct 0.1 mg/dL (0.0-0.2); Bilirubin, Total 0.5 mg/dL (0.2-1.0); Total Protein 6.9 g/dL (6.4-8.2)
== END 2025-05-21 16:05 | disposition home or self-care (01) ==
LOC: NCHCN 16:04
PROVIDERS: PCP Nurse Practitioner Family; Visit Provider Nurse Practitioner Family
DX: R74.8 Abnormal levels of other serum enzymes (principal)
CPT/HCPCS: 80076